=== PATIENT | female | born 1935 | race Caucasian/White ===

== ENCOUNTER 2016-03-27 16:06 | Emergency (ER) | payer MEDICARE, MEDICAID ==
[~2016-03-27] VITALS: Ht 162.6 cm; Wt 72.6 kg
[~2016-03-27 16:06] MED LIST: AMIT150T PO; AMIT50TA3 PO; AMIT75TA2; AMIT75TA2 PO; AML5T; AMLO5TAB2 PO; ASCO500T20 PO; ASP81TEC PO; ASPI-586 PO; ATOR10TA66 PO; ATOR80TA76 PO; ATRV10T PO; AZIT-21 PO; BISA5TAB8 PO; BUDE6HFA; BUME2TAB3 PO; CARI350T27 PO; CEFD300C PO; CHOL40002 PO; CHOL400C8 PO; CHOL5000 PO; CIPR250T3 PO; CRS350T; CRS350T PO; CYAN10006 PO; DIAZ5TAB3; DIAZ5TAB49 PO; DILT240C PO; DILT240C53 PO; DILT240C54 PO; DILT240C86 PO; DILT240C96 PO; DILT300C25 PO; DOCU100C37 PO; EST1.25T PO; FLUT1DIS26; FLUT1DIS26 IH; GFN600TCR PO; GUAI1TBM14 PO; HC2.5C30 TOP; HYDR-3062 PO; HYDR-3714 PO; HYDR-3812 PO; HYDR-3820 PO; HYDR-757 PO; HYDR1CAP2; HYDR1TAB PO; HYDR1TAB85 PO; IPRA3AMP INH; IPRA3AMP11 INH; LABE200T3 PO; LABE300T PO; LACT20SO2 PO; LBT200T; LBT200T PO; LEVO150T6 PO; LINE600I6 IV; LINE600T5 PO; LNS30CCR; LOSA100T28 PO; LOSA1TAB23 PO; LOSA25TA5 PO; LOSA50TA36 PO; MAG30ORA2 PO; MAGN400O7 PO; MULT-35 PO; NAPR-243 PO; NAPR-684 PO; NAPR500T3 PO; NTR.4SL; NTR.4SL SL; Naproxen PO; OMEP20CA12 PO; OMEP20TA2 PO; OXYC-309 PO; OXYC1TAB28 PO; POLY119P5 PO; POTA10CA16; POTA10CA43 PO; POTA10TA36 PO; POTA20TA15 PO; POTA8CAP9 PO; POTASSIUM CHLORIDE; PRD10T PO; PRED10TA PO; Prednisone PO; RT-ALBUINH IH; SENN1TAB76 PO; TELM80TA3 PO; TORS20TA2 PO; TORS20TA3 PO; VITAMIN C PO; [UNRECOGNIZED DRUG - OTHER] PO
--- OUTSIDE RECORDS SUMMARY | 2016-03-27 16:11 | XMS REPORT | Continuity of Care Document ---
Author Author [facility] Organization [facility] Address Unknown Phone Unavailable Care Team Providers Care It Systems Manager Name Role Phone Minoo Cates PCP [phone] Source Comments Some departments are not documenting in the electronic medical record. If you do not see the information that you expected, contact Release of Information in the Health Information Management department at [phone] for further assistance in locating additional records.[facility] Active Allergies and Adverse Reactions Allergen Noted Date Severity Reactions Comments Celebrex 11/03/2013 SWOLLEN TONGUE pt states she developed swelling of throat/facial redness Ciprofloxacin 11/03/2013 UNKNOWN Darvon 11/03/2013 UNKNOWN Doxycycline 11/03/2013 UNKNOWN Mobic 11/03/2013 UNKNOWN Penicillin G 11/03/2013 SEE COMMENTS pt states she developed swelling of lips Vioxx 11/03/2013 UNKNOWN Current Medications Prescription Sig. Disp. Refills Start End Date Status Date atorvastatin (LIPITOR) 10 Take 10 mg by mouth Active mg tablet daily. omeprazole DR(+) Take 20 mg by mouth Active (PRILOSEC) 20 mg capsule daily. diltiazem SA (+) (TIAZAC) Take 240 mg by mouth Active 240 mg capsule daily. amitriptyline (ELAVIL) Take 150 mg by mouth at Active 150 mg tablet bedtime daily. potassium chloride(+) Take 20 mEq by mouth Active (MICRO-K) 10 mEq capsule twice daily. torsemide(+) (DEMADEX) 20 Take 20 mg by mouth twice Active mg tablet daily. carisoprodol(+) (SOMA) Take 700 mg by mouth at Active 350 mg tablet bedtime daily. losartan (COZAAR) 25 mg Take 25 mg by mouth Active tablet daily. fluticasone-salmeterol Inhale 1 Puff by mouth Active (ADVAIR DISKUS) 250-50 every 12 hours. mcg inhalation disk labetalol (NORMODYNE) 200 Take 200 mg by mouth Active mg tablet twice daily. MULTIVITAMIN WITH Take 1 Tab by mouth Active MINERALS (MULTIVITAMIN & daily. MINERAL FORMULA PO) ERGOCALCIFEROL (VITAMIN Take by mouth twice Active D2) (VITAMIN D PO) daily. vitamins, B complex tab Take 1 Tab by mouth Active daily. HYDROcodone/acetaminophen Take 1-2 Tabs by mouth 30 Tab 0 12/09/19 Active (NORCO; VICODIN) 5-325 mg every 4 hours as needed 14 tablet for Pain. levothyroxine (SYNTHROID) Take 1 Tab by mouth 30 Tab 3 12/09/19 Active 150 mcg tablet daily. 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 Non-ischemic. L ast Assessment & Plan: Patients surgical risk is low, and acceptable given the situation, urgency & circumstances. Her cardiac risk score is 0.43% risk for cardiovascular complication. Patient has had a recent stress test last year at [facility] which was likely normal, will obtain record for stress test from [facility] otherwise per latest guidelines, patient may undergo thyroid surgery without any further cardiac workup given that she is at low risk for complications. HTN (hypertension) 11/24/2013 Last Assessment & Plan: Well controlled on on current medications, no changes made today. Hyperlipidemia 11/24/2013 Thyroid nodule 11/03/2013 Social History Tobacco Use Types Packs/Day Years Used Date Former Smoker Cigarettes 1 2 Quit: 03/23/1950 Smokeless Tobacco: Never Used Alcohol Use Drinks/Week oz/Week Comments No Last Filed Vital Signs Vital Sign Reading Time Taken Blood Pressure 108/61 01/26/2014 9:06 AM DIPPER FISH Pulse 66 01/26/2014 9:06 AM DIPPER FISH Temperature 37 C (98.6 F) 12/08/2013 3:09 PM CDT Respiratory Rate 12 11/28/2013 1:34 PM CDT Height 1.702 m (5' 7") 01/26/2014 9:06 AM DIPPER FISH Weight 87.454 kg (192 lb 12.8 01/26/2014 9:06 AM DIPPER FISH oz) Body Mass Index 30.19 01/26/2014 9:06 AM DIPPER FISH Oxygen Saturation 92% 12/08/2013 3:09 PM CDT Plan of Care Health Maintenance Due Date Last Done Comments Physical (Comprehensive) 1942 Exam Pertussis Vaccine 1946 Tetanus Vaccine 02/24/1952 Shingles Vaccine 1995 Osteoporosis Screening 02/24/2000 Prevnar/Pneumovax (#1) 02/24/2000 Influenza Vaccine 11/22/2015 Results from Last 3 Months Not on file
[2016-03-27 16:35] LABS: BASOPHILS # (AUTO) 0.1 10^3/uL (0.0-0.1); BASOPHILS % (AUTO) 1 % (0-10); EOSINOPHILS # (AUTO) 0.3 10^3/uL (0.0-0.3); EOSINOPHILS % (AUTO) 3 % (0-10); LYMPHOCYTES # (AUTO) 1.4 X 10^3 (1.0-4.0); LYMPHOCYTES % (AUTO) 16 % (12-44); MEAN CORPUSCULAR HEMOGLOBIN 30 PG (25-34); MEAN CORPUSCULAR HGB CONC 32 G/DL (32-36); MEAN CORPUSCULAR VOLUME 94 FL (80-99); MEAN PLATELET VOLUME 9.8 FL (7.4-10.4); MONOCYTES % (AUTO) 11 % (0-12); NEUTROPHILS # (AUTO) 6.2 X 10^3 (1.8-7.8); NEUTROPHILS % (AUTO) 69 % (42-75); PLATELET COUNT 605 10^3/uL (130-400); RED BLOOD COUNT 2.91 10^6/uL (4.35-5.85); RED CELL DISTRIBUTION WIDTH 15.6 % (10.0-14.5)
[2016-03-27] MEDS ORDERED: fentaNYL INJECTION 100 MCG/2 ML AMP IVP ONE (16:45)
[2016-03-27] MEDS ORDERED: ONDANSETRON 4 MG/2 ML (SDV) Z0FRAN IVP ONE (16:45)
[2016-03-27 16:48] LABS: ALANINE AMINOTRANSFERASE 12 U/L (0-55); ALBUMIN 3.5 G/DL (3.2-4.5); ANION GAP 10 MMOL/L (5-14); ASPARTATE AMINO TRANSFERASE 24 U/L (5-34); BILIRUBIN,TOTAL 0.4 MG/DL (0.1-1.0); BLOOD UREA NITROGEN 16 MG/DL (7-18); BUN/CREATININE RATIO 10; CALCIUM 8.1 MG/DL (8.5-10.1); CARBON DIOXIDE 27 MMOL/L (21-32); CHLORIDE 99 MMOL/L (98-107); CREATININE SERUM 1.55 MG/DL (0.60-1.30); GFR ESTIMATED 32; GLUCOSE 122 MG/DL (70-105); POTASSIUM 4.8 MMOL/L (3.6-5.0); SODIUM 136 MMOL/L (135-145)
[2016-03-27 16:54] LABS: TROPONIN I < 0.30 NG/ML (<0.30)
[2016-03-27 16:57] LABS: KETONES,URINE 1+ (NEGATIVE); PH,URINE 6.5 (5-9); PROTEIN,URINE NEGATIVE (NEGATIVE)
[2016-03-27 16:58] LABS: BILIRUBIN,URINE NEGATIVE (NEGATIVE); LEUKOCYTE ESTERASE ,URINE 1+ (NEGATIVE); NITRITE,URINE NEGATIVE (NEGATIVE); SQUAMOUS EPITHELIAL CELL,UR 0-2 /HPF; UROBILINOGEN,URINE NORMAL (NORMAL)
--- NOTE | 2016-03-27 17:00 | Diagnostic Imaging Report ---
INDICATION: Chest pain. FINDINGS: There is a question of an air-fluid level within a dilated thoracic esophagus, correlate clinically. Five-lobe interstitial disease greatest in the lung bases is a chronic finding; however, airspace like opacity in the left lower lobe laterally is developed and an element of pneumonia superimposed could not be excluded. Right IJ is at the SVC stable. IMPRESSION: Suspicion for developing left lower lobe infiltrate superimposed upon chronic lung disease. Upper thorax midline shows gas-filled dilated esophagus. Below that level, there is an abrupt transition raising the question of an air-fluid level, correlate with any clinical features of esophageal obstruction or dysmotility. Dictated by: Dictated on workstation # [id number]
--- NOTE | 2016-03-27 17:41 | ED Chest Pain ---
General Chief Complaint: Chest Pain Stated Complaint: CP Nursing Triage Note: ARRIVED VIA AMBULATORY WITH COMPLAINTS OF CHEST PAIN STARTING AT 1230 TODAY WHILE EATING. CURRENTLY BEING TREATED BY ORAL ANTIBIOTICS FOR PNEUMONIA. WAS RECIEVING HOME HEALTH FOR IV ANTIBIOTICS. STATES SHE IS HAVING TROUBLE SWALLOWING AFTER ALSO. PT RECIEVED NITRO X1 AND ASA 324MG BY AMBULANCE. Nursing Sepsis Screen: No Definite Risk Source: patient Exam Limitations: no limitations History of Present Illness Time seen by provider: 17:37 Initial Comments The patient is an 81-year-old white female known to me. She was in the hospital from 03/09 through 03/13 on acute care for a left lower lobe pneumonia and sputum positive for MRSA. She was then transferred to swing bed and was there from 03/13 through 03/20 for IV vancomycin. Subsequently she went home on a 7 day course of by mouth linezolid. She reports that she has continued to have a cough and loss of appetite. She had polio and has sequelae consistent with post polio syndrome. Among the difficulties has been a dysphagia. Today she took a piece of chicken from the refrigerator that was left over. She chewed and swallowed it and began to have low substernal/epigastric pain which has continued. She has had some difficulty swallowing even water. She is experienced this at times in the past as well. She also has a past history of coronary artery disease. Timing/Duration: 4-6 hours Severity/Quality: moderate Location: substernal, epigastric Radiation: no radiation Modifying Factors: improves with eating Associated Symptoms: swelling/lump in chest Allergies and Home Medications Allergies Coded Allergies: cephalexin (Verified Allergy, Severe, TONGUE SWELLS, SOB (PT HAS HAD ROCEPHIN W/O ISSUE), 03/13/16) PER DR. MAYFIELD, PATIENT HAS RECEIVED ROCEPHIN IN THE PAST WITHOUT INCIDENT Penicillins (Verified Allergy, Mild, 03/13/16) celecoxib (Verified Allergy, Mild, PATIEN CAN TAKE MOBIC, 03/13/16) clindamycin (Verified Allergy, Mild, 03/13/16) propoxyphene (Verified Allergy, Mild, 03/13/16) rofecoxib (Verified Allergy, Mild, 03/13/16) Sulfa (Sulfonamide Antibiotics) (Verified Allergy, Unknown, 03/13/16) Tetanus Vaccines and Toxoid (Verified Allergy, Unknown, 03/13/16) doxycycline (Verified Allergy, Unknown, 03/13/16) levofloxacin (Verified Allergy, Unknown, 03/13/16) meloxicam (Verified Allergy, Unknown, 03/13/16) nitrofurantoin (Verified Allergy, Unknown, RASH, 03/13/16) Home Medications Amitriptyline HCl 150 Mg Tablet 150 MG PO HS (Reported) Atorvastatin Calcium 10 Mg Tablet 10 MG PO DAILY (Reported) Bisacodyl 5 Mg Tablet.dr 5 MG PO DAILY PRN PRN CONSTIPATION (Reported) Cholecalciferol (Vitamin D3) 5,000 Unit Capsule 5,000 UNIT PO DAILY@1400 ( Reported) Cyanocobalamin (Vitamin B-12) 1,000 Mcg Tablet 1,000 MCG PO DAILY@1400 (Reported ) Diltiazem HCl 240 Mg Cap.er.24h 240 MG PO DAILY@1400 (Reported) Docusate Sodium 100 Mg Capsule 100 MG PO HS (Reported) Guaifenesin/Dextromethorphan 1 Each Tbmp.12hr 1 TAB PO BID (Reported) Hydrocodone/Acetaminophen 1 Each Tablet #30 2 TAB PO EVERY 4-6 HOURS PRN PRN PAIN NOT TO EXCEED 8 TABLETS IN 24 HOURS Prescribed by: DENI PINK on 03/20/16 1218 Ipratropium/Albuterol Sulfate 3 Ml Ampul.neb #90 3 ML INH RTTID Prescribed by: DENI PINK on 03/20/16 1218 Labetalol HCl 200 Mg Tablet 300 MG PO BID (Reported) TAKES 1 & 1/2 (200MG) TABLETS Lactulose 20 Gm/30 Ml Solution #8 10 GM PO BID Prescribed by: DENI PINK on 03/20/16 1218 Levothyroxine Sodium 150 Mcg Tablet 150 MCG PO DAILY (Reported) Linezolid 600 Mg Tablet #8 600 MG PO BID Prescribed by: DENI PINK on 03/20/16 0924 Linezolid 600 Mg/300 Ml Iv.soln 4Days 600 MG IV Q12H Prescribed by: DENI PINK on 03/20/16 1218 Magnesium Hydroxide 400 Mg/5 Ml Oral.susp 4 TBS PO DAILY PRN PRN CONSTIPATION ( Reported) Multivitamin 1 Each Tablet 1 TAB PO DAILY@1400 (Reported) Naproxen 500 Mg Tablet 500 MG PO BID (Reported) Omeprazole 20 Mg Capsule.dr 20 MG PO DAILY (Reported) Polyethylene Glycol 3350 119 Gm Powder 17 GM PO DAILY PRN PRN CONSTIPATION ( Reported) Potassium Chloride 20 Meq Tab.er.prt 20 MEQ PO BID (Reported) Torsemide 20 Mg Tablet 20 MG PO 0800,1400 (Reported) Review of Systems Constitutional: see HPI EENTM: No Symptoms Reported Respiratory: Cough Shortness of Air Wheezing Cardiovascular: Chest Pain Gastrointestinal: See HPI Difficulty Swallowing Genitourinary: No Symptoms Reported Musculoskeletal: no symptoms reported Skin: no symptoms reported Psychiatric/Neurological: No Symptoms Reported Past Dghclgv-[id number]-[id number] Hx Patient Social History Former Smoker/When Quit: Feb 27, 1965 Recent Foreign Travel: No Contact w/Someone Who Travel: No Recent Infectious Disease Expo: No Recent Hopitalizations: Yes Immunizations Up To Date Tetanus Booster (TDap): Unknown PED Vaccines UTD: No Date of Pneumonia Vaccine: Nov 30, 2013 Date of Influenza Vaccine: Dec 22, 2015 Seasonal Allergies Seasonal Allergies: No Surgeries HX Surgeries: Yes Surgeries: Abdominal, Section, Eye Surgery, Hysterectomy, Orthopedic, Thyroidectomy Respiratory Hx Respiratory Disorders: Yes Respiratory Disorders: Asthma, Pneumonia, Chronic Bronchitis, Sleep Apnea Cardiovascular Hx Cardiac Disorders: Yes (CHRONIC CHEST PAIN, PER PT) Cardiac Disorders: Chronic Edema/Swelling, High Cholesterol, Hypertension Neurological Hx Neurological Disorders: Yes (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) Neurological Disorders: TIA Reproductive System Hx Reproductive Disorders: No Sexually Transmitted Disease: No HIV/AIDS: No Female Reproductive Disorders: Denies Genitourinary Hx Genitourinary Disorders: Yes (MILD RENAL INSUFFICIENCY) Genitourinary Disorders: Bladder Infection Gastrointestinal Hx Gastrointestinal Disorders: Yes (HX COLON CANCER) Gastrointestinal Disorders: Gastroesophageal Reflux, Hemorrhoids Musculoskeletal Hx Musculoskeletal Disorders: Yes Musculoskeletal Disorders: Degenerate Disk Disease, Arthritis, Fibromyalgia, Chronic Back Pain Endocrine Hx Endocrine Disorders: Yes (HX THYROIDECTOMY FOR GOITER;STEROID INDUCED HYPERGLYCEMIA) Endocrine Disorders: Hypothyroidsim HEENT HX ENT Disorders: Yes (CHRONIC RECURRENT RIGHT SUBMANDIBULAR GLAND SWELLING) HEENT Disorders: Cataract Loss of Vision: Denies Hearing Impairment: Denies Cancer Hx Cancer: Yes (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, NO CHEMO OR RADIATION) Cancer: Colon, Thyroid Psychosocial Hx Psychiatric Problems: Yes Behavioral Health Disorders: Anxiety Integumentary HX Skin/Integumentary Disorder: No Skin/Integumentary Disorders: Recent Skin Changes Blood Transfusions Hx Blood Disorders: Yes (ANEMIA) Adverse Reaction to a Blood Tr: No Family Medical History Significant Family History: No Pertinent Family Hx Family Medial History: Colon cancer 09 SISTER Congestive heart failure 03 MOTHER Deafness or hearing loss 03 FATHER 03 MOTHER 09 BROTHER Family history: Arthritis 03 FATHER 03 MOTHER History of - respiratory disease 09 BROTHER (kurtis-smoker) Hypertension 03 MOTHER Myocardial infarction 03 FATHER Myocardial infarction 03 FATHER Neoplasm 09 SISTER Respiratory disorder Severe allergy No Family History of: AIDS Abdominal aortic aneurysm [place]'s disease Alcoholism Alzheimer's disease Aphasia Arthritis Asthma Cancer of mouth Cardiovascular disease Cataracts Completed stroke Congenital disease Congenital heart disease Coronary thrombosis Cystic fibrosis Dementia Diabetes mellitus Drug abuse Dysphasia Fibrocystic disease of breast Gastroenteritis Glaucoma Headache disorder Hypercholesterolemia Infertility Kidney disease Not obtainable due to adoption Osteoporosis Parkinson's disease Prostate cancer Psychosocial problem Seizure disorder Thyroid disease Tuberculosis Visual disorder Physical Exam Vital Signs Vital Sign - Last 12Hours 03/27/16 03/27/16 16:09 16:15 Temp 97.6 Pulse 71 Resp 18 B/P 130/76 Pulse Ox 95 O2 Delivery Nasal Cannula O2 Flow Rate 2 Capillary Refill : Less Than 3 Seconds General Appearance: Mild Distress HEENT: Normal ENT Inspection Neck: Full Range of Motion Respiratory: Rhonci Cardiovascular: Regular Rate, Rhythm No Edema No Gallop No JVD No Murmur Normal Peripheral Pulses Gastrointestinal: Normal Bowel Sounds No Organomegaly No Pulsatile Mass Non Tender Extremity: Pedal Edema (1+ bilateral) Neurologic/Psychiatric: Alert Oriented x3 No Motor/Sensory Deficits Normal Mood/Affect Skin: Normal Color Warm/Dry Lymphatic: No Adenopathy Progress/Results/Core Measures Results/Orders Lab Results Laboratory Tests Test 03/27/16 16:15 03/27/16 16:40 Range/Units Alanine Aminotransferase (ALT/SGPT) 12 0-55 U/L Albumin 3.5 3.2-4.5 G/DL Alkaline Phosphatase 92 40-136 U/L Anion Gap 10 5-14 MMOL/L Aspartate Amino Transf (AST/SGOT) 24 5-34 U/L BUN/Creatinine Ratio 10 Basophils # (Auto) 0.1 0.0-0.1 10^3/uL Basophils (%) (Auto) 1 0-10 % Blood Urea Nitrogen 16 7-18 MG/DL Calcium Level 8.1 L 8.5-10.1 MG/DL Carbon Dioxide Level 27 21-32 MMOL/L Chloride Level 99 98-107 MMOL/L Creatinine 1.55 H 0.60-1.30 MG/DL Eosinophils # (Auto) 0.3 0.0-0.3 10^3/uL Eosinophils (%) (Auto) 3 0-10 % Estimat Glomerular Filtration Rate 32 Glucose Level 122 H 70-105 MG/DL Hematocrit 27 L 35-52 % Hemoglobin 8.8 L 11.5-16.0 G/DL Lymphocytes # (Auto) 1.4 1.0-4.0 X 10^3 Lymphocytes (%) (Auto) 16 12-44 % Mean Corpuscular Hemoglobin 30 25-34 PG Mean Corpuscular Hemoglobin Concent 32 32-36 G/DL Mean Corpuscular Volume 94 80-99 FL Mean Platelet Volume 9.8 7.4-10.4 FL Monocytes # (Auto) 1.0 0.0-1.0 X 10^3 Monocytes (%) (Auto) 11 0-12 % Neutrophils # (Auto) 6.2 1.8-7.8 X 10^3 Neutrophils (%) (Auto) 69 42-75 % Platelet Count 605 H 130-400 10^3/uL Potassium Level 4.8 3.6-5.0 MMOL/L Red Blood Count 2.91 L 4.35-5.85 10^6/uL Red Cell Distribution Width 15.6 H 10.0-14.5 % Sodium Level 136 135-145 MMOL/L Total Bilirubin 0.4 0.1-1.0 MG/DL Total Protein 7.0 6.4-8.2 G/DL Troponin I < 0.30 <0.30 NG/ML White Blood Count 9.0 4.3-11.0 10^3/uL Urine Bacteria NONE /HPF Urine Bilirubin NEGATIVE NEGATIVE Urine Casts NONE /LPF Urine Clarity CLEAR Urine Color YELLOW Urine Crystals NONE /LPF Urine Culture Indicated NO Urine Glucose (UA) NEGATIVE NEGATIVE Urine Ketones 1+ H NEGATIVE Urine Leukocyte Esterase 1+ H NEGATIVE Urine Mucus NEGATIVE /LPF Urine Nitrite NEGATIVE NEGATIVE Urine Protein NEGATIVE NEGATIVE Urine RBC NONE /HPF Urine RBC (Auto) NEGATIVE NEGATIVE Urine Specific [place] 1.010 L 1.016-1.022 Urine Squamous Epithelial Cells 0-2 /HPF Urine Urobilinogen NORMAL NORMAL MG/DL Urine WBC 2-5 /HPF Urine pH 6.5 5-9 My Orders Orders-BREANNA ROBLES MD Ekg Tracing (03/27/16 16:25) Cbc With Automated Diff (03/27/16 16:25) Comprehensive Metabolic Panel (03/27/16 16:25) Troponin I (03/27/16 16:25) Ua Culture If Indicated (03/27/16 16:25) Chest 1 View, Ap/Pa Only (03/27/16 16:25) Fentanyl Injection (Sublimaze Injection (03/27/16 16:45) Ondansetron Injection (Zofran Injectio (03/27/16 16:45) Medications Given in ED Current Medications Medications Dose Ordered Sig/Karen Route Start Time Stop Time Status Last Admin Dose Admin Fentanyl Citrate 25 mcg ONCE ONCE IVP 03/27/16 16:45 03/27/16 16:46 DC 03/27/16 16:44 25 MCG Ondansetron HCl 8 mg ONCE ONCE IVP 03/27/16 16:45 03/27/16 16:46 DC 03/27/16 16:44 8 MG Vital Signs/I&O Vital Sign - Last 12Hours 03/27/16 03/27/16 16:09 16:15 Temp 97.6 Pulse 71 Resp 18 B/P 130/76 Pulse Ox 95 O2 Delivery Nasal Cannula O2 Flow Rate 2 Blood Pressure Mean: 94 Departure Communication Progress Notes The EKG showed modest changes in leads V3 through V6 with T wave inversion. This was as compared to the previous EKG from 03/09. The troponin was less than 0.3. Her white count was 9000 which is an improvement from her hospital stay. The chest x-ray shows some continued abnormality in the left base. Given these findings she was then given water to drink with the thought of impacted chicken foreign body. 1749 she has passed the water test and reports that there is considerably more comfort in the area of the distal esophagus. Impression Impression: Primary Impression: dysphagia/likely impacted food foreign body now passed Disposition: 01 HOME, SELF-CARE Condition: Improved Departure-Patient Inst. Decision time for Depature: 17:55 Referrals: MERT FRASER DO (PCP/Family) Primary Care Physician Patient Instructions: Dysphagia (DC) Add. Discharge Instructions: All discharge instructions reviewed with patient and/or family. Voiced understanding. Liquid diet tonight. Acquire some liquid Mylanta and take 30 mL when needed for heartburn or pressure symptoms. If tolerated and advance food offerings slowly and carefully tomorrow. Careful chewing and taking food with liquids is important. BREANNA ROBLES MD Mar 27, 2016 17:41
[2016-03-27 18:03] VITALS: BP 134/67
[2016-05-13] MEDS ORDERED: OXYC-471 PO (09:28)
[2016-05-13] MEDS ORDERED: LABE200T3 PO (09:28)
[2016-05-13] MEDS ORDERED: TORS20TA3 PO (09:28)
[2016-07-16] MEDS ORDERED: OXYC-465 PO (13:03)
[2016-07-16] MEDS ORDERED: SODI473S7 TOP (13:03)
[2016-07-16] MEDS ORDERED: METR500P4 IV (13:03)
[2016-07-16] MEDS ORDERED: ACET-77 PO (13:03)
[2016-07-16] MEDS ORDERED: VANC500F IV (13:03)
[2016-07-16] MEDS ORDERED: FENT1PAT58 TD (13:03)
[2016-07-16] MEDS ORDERED: POLY17PO23 PO (13:03)
[2016-07-16] MEDS ORDERED: ALBU2.5V4 IH (13:03)
[2016-07-17] MEDS ORDERED: VANC500F IV (08:40)
[2016-07-17] MEDS ORDERED: METR500T PO (10:39)
== END 2016-03-27 18:03 | disposition home or self-care (01) ==
LOC: EDUNIT# 16:06 → ER 16:07
DX: R13.10 Dysphagia, unspecified (principal); I10 Essential (primary) hypertension; I25.10 Atherosclerotic heart disease of native coronary artery without angina pectoris; G14 Postpolio syndrome; Z79.899 Other long term (current) drug therapy
CPT/HCPCS: 36415; 71010; 80053; 81000; 84484; 85025; 93005; 96374; 96375

== ENCOUNTER 2016-04-06 14:40 | Emergency (ER) | payer MEDICARE, MEDICAID ==
[~2016-04-06] VITALS: Ht 177.8 cm; Wt 79.8 kg
--- OUTSIDE RECORDS SUMMARY | 2016-04-06 14:46 | XMS REPORT | Continuity of Care Document ---
Author Author [facility] Organization [facility] Address Unknown Phone Unavailable Care Team Providers Care Global Safety Officer Name Role Phone Minoo Cates PCP [phone] Source Comments Some departments are not documenting in the electronic medical record. If you do not see the information that you expected, contact Release of Information in the Health Information Management department at [phone] for further assistance in locating additional records.[facility] Active Allergies and Adverse Reactions Allergen [...] examination 11/28/2013 Overview: 02/2011 - Pharmacologic MPI ([facility]): EF 65%. Non-ischemic. L ast Assessment & Plan: Patients surgical risk is low, and acceptable given the situation, urgency & circumstances. Her cardiac risk score is 0.43% risk for cardiovascular complication. Patient has had a recent stress test last year at [facility] which was likely normal, will obtain record for stress test from [facility] otherwise per latest guidelines, patient may undergo [...] Taken Blood Pressure 108/61 01/26/2014 9:06 AM MANAGER CONFIGURATION Pulse 66 01/26/2014 9:06 AM MANAGER CONFIGURATION Temperature 37 C (98.6 F) 12/08/2013 3:09 PM CDT Respiratory Rate 12 11/28/2013 1:34 PM CDT Height 1.702 m (5' 7") 01/26/2014 9:06 AM MANAGER CONFIGURATION Weight 87.454 kg (192 lb 12.8 01/26/2014 9:06 AM MANAGER CONFIGURATION oz) Body Mass Index 30.19 01/26/2014 9:06 AM MANAGER CONFIGURATION Oxygen Saturation 92% 12/08/2013 3:09 PM CDT Plan of Care Health Maintenance Due Date Last Done Comments Physical (Comprehensive) 1942 Exam Pertussis Vaccine 1946 Tetanus Vaccine 02/24/1952 Shingles Vaccine 1995 Osteoporosis Screening 02/24/2000 Prevnar/Pneumovax (#1) 02/24/2000 Influenza Vaccine 11/22/2015 Results from Last 3 Months Not on file
[2016-04-06 15:38] LABS: BILIRUBIN,URINE NEGATIVE (NEGATIVE); KETONES,URINE NEGATIVE (NEGATIVE); LEUKOCYTE ESTERASE ,URINE 1+ (NEGATIVE); NITRITE,URINE NEGATIVE (NEGATIVE); PH,URINE 7 (5-9); PROTEIN,URINE NEGATIVE (NEGATIVE); UROBILINOGEN,URINE NORMAL (NORMAL)
[2016-04-06 15:47] LABS: SQUAMOUS EPITHELIAL CELL,UR RARE /HPF
[2016-04-06 16:01] LABS: BASOPHILS # (AUTO) 0.1 10^3/uL (0.0-0.1); BASOPHILS % (AUTO) 1 % (0-10); EOSINOPHILS # (AUTO) 1.1 10^3/uL (0.0-0.3); EOSINOPHILS % (AUTO) 7 % (0-10); LYMPHOCYTES # (AUTO) 2.1 X 10^3 (1.0-4.0); LYMPHOCYTES % (AUTO) 15 % (12-44); MEAN CORPUSCULAR HEMOGLOBIN 30 PG (25-34); MEAN CORPUSCULAR HGB CONC 31 G/DL (32-36); MEAN CORPUSCULAR VOLUME 95 FL (80-99); MEAN PLATELET VOLUME 10.3 FL (7.4-10.4); MONOCYTES # (AUTO) 2.3 X 10^3 (0.0-1.0); MONOCYTES % (AUTO) 16 % (0-12); NEUTROPHILS # (AUTO) 8.7 X 10^3 (1.8-7.8); NEUTROPHILS % (AUTO) 61 % (42-75); PLATELET COUNT 295 10^3/uL (130-400); RED BLOOD COUNT 2.88 10^6/uL (4.35-5.85); RED CELL DISTRIBUTION WIDTH 16.8 % (10.0-14.5); WHITE BLOOD COUNT 14.3 10^3/uL (4.3-11.0)
--- NOTE | 2016-04-06 16:15 | Diagnostic Imaging Report ---
INDICATION: Confusion, weakness and frequent falls. EXAMINATION: Portable chest. COMPARISON: Prior examination from March 27, 2016. FINDINGS: The right internal jugular port is present. There are chronic interstitial changes demonstrated within the lungs. The prior examination demonstrated some superimposed consolidation at the left base which is slightly improved in the interval. There is no large effusion. There is no evidence of pneumothorax. Heart size and mediastinal contours appear unchanged. IMPRESSION: Chronic interstitial lung disease and cardiomegaly. Previous comparison examination demonstrated a superimposed left lower lobe pneumonia which appears slightly improved compared to the previous exam. No new regions of alveolar consolidation are demonstrated. Dictated by: Dictated on workstation # [id number]
[2016-04-06 16:23] LABS: ALBUMIN 3.3 G/DL (3.2-4.5); BILIRUBIN,TOTAL 0.3 MG/DL (0.1-1.0); CALCIUM 8.2 MG/DL (8.5-10.1); CREATININE SERUM 1.39 MG/DL (0.60-1.30)
[2016-04-06 16:25] LABS: POTASSIUM 5.8 MMOL/L (3.6-5.0)
[2016-04-06 16:27] LABS: BAND NEUTROPHILS 0 %; BASOPHILS % (MANUAL) 1 %; EOSINOPHILS % (MANUAL) 14 %; LYMPHOCYTES % (MANUAL) 17 %; NEUTROPHILS % (MANUAL) 51 %
--- NOTE | 2016-04-06 16:43 | ED General ---
General Chief Complaint: Neurological Problems Stated Complaint: CONFUSION Nursing Triage Note: PT HERE WITH C/O CONFUSION, WEAKNESS, AND FREQUENT FALLS. PTS DAUGHTER REPORTS THAT THIS HAPPENS WHEN SHE GETS THIS WAY WHEN SHE GETS A UTI. Nursing Sepsis Screen: No Definite Risk Source of Information: Patient Exam Limitations: No Limitations History of Present Illness Time Seen by Provider: 16:41 Initial Comments To ER with weakness and difficulty with conversation according to family since about 2 days ago. She recently finished Zyvox orally 7 days ago for a right upper lobe pneumonia. They report 3 falls in the past week due to weakness. Patient lives alone but her 14-year-old grandson has been staying with her to help out. Her daughter (14-year-old grandsons parents) live right across the street from her. She denies any fevers but does report shortness of breath, chronic in nature and unchanged. Timing/Duration: 1-2 Days Severity: Moderate Associated Systoms: Cough Allergies and Home Medications Allergies Coded Allergies: cephalexin (Verified Allergy, Severe, TONGUE SWELLS, SOB (PT HAS HAD ROCEPHIN W/O ISSUE), 03/13/16) PER DR. MAYFIELD, PATIENT HAS RECEIVED ROCEPHIN IN THE PAST WITHOUT INCIDENT Penicillins (Verified Allergy, Mild, 03/13/16) celecoxib (Verified Allergy, Mild, PATIEN CAN TAKE MOBIC, 03/13/16) clindamycin (Verified Allergy, Mild, 03/13/16) propoxyphene (Verified Allergy, Mild, 03/13/16) rofecoxib (Verified Allergy, Mild, 03/13/16) Sulfa (Sulfonamide Antibiotics) (Verified Allergy, Unknown, 03/13/16) Tetanus Vaccines and Toxoid (Verified Allergy, Unknown, 03/13/16) doxycycline (Verified Allergy, Unknown, 03/13/16) levofloxacin (Verified Allergy, Unknown, 03/13/16) meloxicam (Verified Allergy, Unknown, 03/13/16) nitrofurantoin (Verified Allergy, Unknown, RASH, 03/13/16) Home Medications Amitriptyline HCl 150 Mg Tablet 150 MG PO HS (Reported) Atorvastatin Calcium 10 Mg Tablet 10 MG PO DAILY (Reported) Bisacodyl 5 Mg Tablet.dr 5 MG PO DAILY PRN PRN CONSTIPATION (Reported) Cholecalciferol (Vitamin D3) 5,000 Unit Capsule 5,000 UNIT PO DAILY@1400 ( Reported) Cyanocobalamin (Vitamin B-12) 1,000 Mcg Tablet 1,000 MCG PO DAILY@1400 (Reported ) Diltiazem HCl 240 Mg Cap.er.24h 240 MG PO DAILY@1400 (Reported) Docusate Sodium 100 Mg Capsule 100 MG PO HS (Reported) Guaifenesin/Dextromethorphan 1 Each Tbmp.12hr 1 TAB PO BID (Reported) Hydrocodone/Acetaminophen 1 Each Tablet #30 2 TAB PO EVERY 4-6 HOURS PRN PRN PAIN NOT TO EXCEED 8 TABLETS IN 24 HOURS Prescribed by: DENI PINK on 03/20/16 1218 Ipratropium/Albuterol Sulfate 3 Ml Ampul.neb #90 3 ML INH RTTID Prescribed by: DENI PINK on 03/20/16 1218 Labetalol HCl 200 Mg Tablet 300 MG PO BID (Reported) TAKES 1 & 1/2 (200MG) TABLETS Lactulose 20 Gm/30 Ml Solution #8 10 GM PO BID Prescribed by: DENI PINK on 03/20/16 1218 Levothyroxine Sodium 150 Mcg Tablet 150 MCG PO DAILY (Reported) Linezolid 600 Mg Tablet #8 600 MG PO BID Prescribed by: DENI PINK on 03/20/16 0924 Linezolid 600 Mg/300 Ml Iv.soln 4Days 600 MG IV Q12H Prescribed by: DENI IPNK on 03/20/16 1218 Magnesium Hydroxide 400 Mg/5 Ml Oral.susp 4 TBS PO DAILY PRN PRN CONSTIPATION ( Reported) Multivitamin 1 Each Tablet 1 TAB PO DAILY@1400 (Reported) Naproxen 500 Mg Tablet 500 MG PO BID (Reported) Omeprazole 20 Mg Capsule.dr 20 MG PO DAILY (Reported) Polyethylene Glycol 3350 119 Gm Powder 17 GM PO DAILY PRN PRN CONSTIPATION ( Reported) Potassium Chloride 20 Meq Tab.er.prt 20 MEQ PO BID (Reported) Torsemide 20 Mg Tablet 20 MG PO 0800,1400 (Reported) Constitutional: see HPI EENTM: see HPI Respiratory: see HPI cough Genitourinary: no symptoms reported Musculoskeletal: no symptoms reported Skin: no symptoms reported Psychiatric/Neurological: No Symptoms Reported Past Wvkztoa-Abbtzy-Ewzsma Hx Patient Social History Former Smoker/When Quit: Feb 27, 1965 Recent Foreign Travel: No Contact w/Someone Who Travel: No Recent Infectious Disease Expo: No Recent Hopitalizations: Yes Immunizations Up To Date Tetanus Booster (TDap): Unknown PED Vaccines UTD: No Date of Pneumonia Vaccine: Nov 30, 2013 Date of Influenza Vaccine: Dec 22, 2015 Seasonal Allergies Seasonal Allergies: No Surgeries HX Surgeries: Yes Surgeries: Abdominal, Section, Eye Surgery, Hysterectomy, Orthopedic, Thyroidectomy Respiratory Hx Respiratory Disorders: Yes Respiratory Disorders: Asthma, Pneumonia, Chronic Bronchitis, Sleep Apnea Cardiovascular Hx Cardiac Disorders: Yes (CHRONIC CHEST PAIN, PER PT) Cardiac Disorders: Chronic Edema/Swelling, High Cholesterol, Hypertension Neurological Hx Neurological Disorders: Yes (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) Neurological Disorders: TIA Reproductive System Hx Reproductive Disorders: No Sexually Transmitted Disease: No HIV/AIDS: No Female Reproductive Disorders: Denies Genitourinary Hx Genitourinary Disorders: Yes (MILD RENAL INSUFFICIENCY) Genitourinary Disorders: Bladder Infection Gastrointestinal Hx Gastrointestinal Disorders: Yes (HX COLON CANCER) Gastrointestinal Disorders: Gastroesophageal Reflux, Hemorrhoids Musculoskeletal Hx Musculoskeletal Disorders: Yes Musculoskeletal Disorders: Degenerate Disk Disease, Arthritis, Fibromyalgia, Chronic Back Pain Endocrine Hx Endocrine Disorders: Yes (HX THYROIDECTOMY FOR GOITER;STEROID INDUCED HYPERGLYCEMIA) Endocrine Disorders: Hypothyroidsim HEENT HX ENT Disorders: Yes (CHRONIC RECURRENT RIGHT SUBMANDIBULAR GLAND SWELLING) HEENT Disorders: Cataract Loss of Vision: Denies Hearing Impairment: Denies Cancer Hx Cancer: Yes (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, 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 RADIATION) Cancer: Colon, Thyroid Psychosocial Hx Psychiatric Problems: Yes Behavioral Health Disorders: Anxiety Integumentary HX Skin/Integumentary Disorder: No Skin/Integumentary Disorders: Recent Skin Changes Blood Transfusions Hx Blood Disorders: Yes (ANEMIA) Adverse Reaction to a Blood Tr: No Family Medical History Significant Family History: No Pertinent Family Hx Family Medial History: Colon cancer 09 SISTER Congestive heart failure 03 MOTHER Deafness or hearing loss 03 FATHER 03 MOTHER 09 BROTHER Family history: Arthritis 03 FATHER 03 MOTHER History of - respiratory disease 09 BROTHER (kurtis-smoker) Hypertension 03 MOTHER Myocardial infarction 03 FATHER Myocardial infarction 03 FATHER Neoplasm 09 SISTER Respiratory disorder Severe allergy No Family History of: AIDS Abdominal aortic aneurysm Allegany's disease Alcoholism Alzheimer's disease Aphasia Arthritis Asthma Cancer of mouth Cardiovascular disease Cataracts Completed stroke Congenital disease Congenital heart disease Coronary thrombosis Cystic fibrosis Dementia Diabetes mellitus Drug abuse Dysphasia Fibrocystic disease of breast Gastroenteritis Glaucoma Headache disorder Hypercholesterolemia Infertility Kidney disease Not obtainable due to adoption Osteoporosis Parkinson's disease Prostate cancer Psychosocial problem Seizure disorder Thyroid disease Tuberculosis Visual disorder Physical Exam Vital Signs Vital Sign - Last 12Hours 04/06/16 15:20 Temp 99.8 Pulse 80 Resp 18 B/P 116/69 Pulse Ox 91 O2 Delivery Room Air Capillary Refill : Less Than 3 Seconds General Appearance: No Apparent Distress WD/WN Eyes: Bilateral Eye EOMI, Bilateral Eye Normal Inspection, Bilateral Eye PERRL HEENT: PERRL/EOMI TMs Normal Respiratory: No Accessory Muscle Use No Respiratory Distress Wheezing Extremity: Normal Capillary Refill Normal Inspection Other (trace bilateral lower extremities edema) Neurologic/Psychiatric: Alert Oriented x3 Skin: Normal Color Warm/Dry Progress/Results/Core Measures Results/Orders Lab Results Laboratory Tests Test 04/06/16 15:27 04/06/16 15:50 Range/Units Urine Bacteria NONE /HPF Urine Bilirubin NEGATIVE NEGATIVE Urine Casts NONE /LPF Urine Clarity SLIGHTLY CLOUDY Urine Color YELLOW Urine Crystals NONE /LPF Urine Culture Indicated NO Urine Glucose (UA) NEGATIVE NEGATIVE Urine Ketones NEGATIVE NEGATIVE Urine Leukocyte Esterase 1+ H NEGATIVE Urine Mucus NEGATIVE /LPF Urine Nitrite NEGATIVE NEGATIVE Urine Protein NEGATIVE NEGATIVE Urine RBC NONE /HPF Urine RBC (Auto) NEGATIVE NEGATIVE Urine Specific [place] 1.005 L 1.016-1.022 Urine Squamous Epithelial Cells RARE /HPF Urine Urobilinogen NORMAL NORMAL MG/DL Urine WBC 2-5 /HPF Urine pH 7 5-9 Alanine Aminotransferase (ALT/SGPT) 14 0-55 U/L Albumin 3.3 3.2-4.5 G/DL Alkaline Phosphatase 95 40-136 U/L Anion Gap 11 5-14 MMOL/L Aspartate Amino Transf (AST/SGOT) 22 5-34 U/L BUN/Creatinine Ratio 10 Band Neutrophils 0 % Basophils # (Auto) 0.1 0.0-0.1 10^3/uL Basophils % (Manual) 1 % Basophils (%) (Auto) 1 0-10 % Blood Morphology Comment NORMAL Blood Urea Nitrogen 14 7-18 MG/DL Calcium Level 8.2 L 8.5-10.1 MG/DL Carbon Dioxide Level 23 21-32 MMOL/L Chloride Level 104 98-107 MMOL/L Creatinine 1.39 H 0.60-1.30 MG/DL Eosinophils # (Auto) 1.1 H 0.0-0.3 10^3/uL Eosinophils % (Manual) 14 % Eosinophils (%) (Auto) 7 0-10 % Estimat Glomerular Filtration Rate 36 Glucose Level 81 70-105 MG/DL Hematocrit 27 L 35-52 % Hemoglobin 8.6 L 11.5-16.0 G/DL Lymphocytes # (Auto) 2.1 1.0-4.0 X 10^3 Lymphocytes % (Manual) 17 % Lymphocytes (%) (Auto) 15 12-44 % Mean Corpuscular Hemoglobin 30 25-34 PG Mean Corpuscular Hemoglobin Concent 31 L 32-36 G/DL Mean Corpuscular Volume 95 80-99 FL Mean Platelet Volume 10.3 7.4-10.4 FL Monocytes # (Auto) 2.3 H 0.0-1.0 X 10^3 Monocytes % (Manual) 17 % Monocytes (%) (Auto) 16 H 0-12 % Neutrophils # (Auto) 8.7 H 1.8-7.8 X 10^3 Neutrophils % (Manual) 51 % Neutrophils (%) (Auto) 61 42-75 % Platelet Count 295 130-400 10^3/uL Potassium Level 5.8 H 3.6-5.0 MMOL/L Red Blood Count 2.88 L 4.35-5.85 10^6/uL Red Cell Distribution Width 16.8 H 10.0-14.5 % Sodium Level 138 135-145 MMOL/L Total Bilirubin 0.3 0.1-1.0 MG/DL Total Protein 7.0 6.4-8.2 G/DL White Blood Count 14.3 H 4.3-11.0 10^3/uL My Orders Orders-CHAD CAVAZOS TECHNICAL SERVICES SPECIALIST Ua Culture If Indicated (04/06/16 15:33) Cbc With Automated Diff (04/06/16 15:33) Comprehensive Metabolic Panel (04/06/16 15:33) Chest 1 View, Ap/Pa Only (04/06/16 15:33) Saline Lock/Iv-Start (04/06/16 15:33) Manual Differential (04/06/16 15:50) Albuterol/Ipra Inhalation Soln (Duoneb I (04/06/16 16:45) Svn Sm Volume Nebulizer Rt-Rfs (04/06/16 16:39) Ct Head Wo (04/06/16 16:39) Medications Given in ED Current Medications Medications Dose Ordered Sig/Karen Route Start Time Stop Time Status Last Admin Dose Admin Albuterol/ Ipratropium 3 ml ONCE ONCE INH 04/06/16 16:45 04/06/16 16:46 DC 04/06/16 16:48 3 ML Vital Signs/I&O Vital Sign - Last 12Hours 04/06/16 04/06/16 15:20 16:48 Temp 99.8 Pulse 80 Resp 18 B/P 116/69 Pulse Ox 91 98 O2 Delivery Room Air Room Air Blood Pressure Mean: 85 Diagnostic Imaging Diagonstic Imaging: Xray, CT Comments NAME: RADHA HILLIARD [facility] REC#: [id number] PT STATUS: REG ER : 1935 PHYSICIAN: CHAD CAVAZOS APRN ADMIT DATE: 04/06/16/ER Draft Date of Exam:04/06/16 CT HEAD WO PROCEDURE: CT head without contrast. TECHNIQUE: Multiple contiguous axial images were obtained through the brain without the use of intravenous contrast. INDICATION: Weakness with confusion and frequent falls. COMPARISON 03/09/2016. FINDINGS: There is mild cortical atrophy. The ventricles are not dilated. Chronic periventricular white matter changes are again noted. No focal changes are seen to suggest acute ischemic or hemorrhagic infarct. No extra axial fluid collection. Basal cisterns are normal. CP angles are normal. Mastoid air cells and paranasal sinuses are well aerated. IMPRESSION: Cortical atrophy with chronic white matter changes. No acute changes have occurred when compared with previous exam. Dictated on workstation # [id number] Dict: 04/06/16 1706 Trans: 04/06/16 171 [facility] [id number] Interpreted by: HIRA FRNACIS MD Electronically signed by: Departure Communication Progress Notes 0966-she is alert and very pleasant. I do not notice any difficulties with her speech. She is sitting up on the edge of the bed with her feet hanging over the edge talking with her family. I did offer to things, number 1 would be discharged home with a course of antibiotics as her weakness may be related to this persistent pneumonia given her labs look normal and she should follow-up with Dr. Fraser. Option number 2 would be to admit to the hospital observation status with plan to arrange alf placement tomorrow and hospital social worker is available. She is not even remotely interested in going to assisted living or alf. She is not confused or particularly weak. She does not recall what type of allergic reaction she had to doxycycline so we will try a course of minocycline plan for her to stop this if she develops any sign of allergic reaction. Impression Impression: Primary Impression: Weakness Additional Impressions: Intermittent confusion left lower lobe pneumonia persistent Disposition: 01 HOME, SELF-CARE Condition: Stable Departure-Patient Inst. Decision time for Depature: 17:22 Referrals: MERT FRASER DO (PCP/Family) Primary Care Physician Patient Instructions: NO INSTRUCTIONS GIVEN Add. Discharge Instructions: 1. Antibiotics as directed. If you develop any itching rash or hives you should stop this immediately and take a Benadryl. 2. Follow-up with Dr. Fraser this week All discharge instructions reviewed with patient and/or family. Voiced understanding. CHAD CAVAZOS APRN Apr 06, 2016 16:43
[2016-04-06] MEDS ORDERED: RT-ALBUTEROL/IPRATROPIUM 3 ML (DUONEB) VIAL INH ONE (16:45)
--- NOTE | 2016-04-06 17:11 | Diagnostic Imaging Report ---
PROCEDURE: CT head without contrast. TECHNIQUE: Multiple contiguous axial images were obtained through the brain without the use of intravenous contrast. INDICATION: Weakness with confusion and frequent falls. COMPARISON 03/09/2016. FINDINGS: There is mild cortical atrophy. The ventricles are not dilated. Chronic periventricular white matter changes are again noted. No focal changes are seen to suggest acute ischemic or hemorrhagic infarct. No extra axial fluid collection. Basal cisterns are normal. CP angles are normal. Mastoid air cells and paranasal sinuses are well aerated. IMPRESSION: Cortical atrophy with chronic white matter changes. No acute changes have occurred when compared with previous exam. Dictated by: Dictated on workstation # [id number]
[2016-04-06] MEDS ORDERED: MINO100C2 PO (17:36)
[2016-04-06 17:50] VITALS: BP 118/76
[2016-05-13] MEDS ORDERED: TORS20TA3 PO (09:28)
[2016-05-13] MEDS ORDERED: OXYC-471 PO (09:28)
[2016-05-13] MEDS ORDERED: LABE200T3 PO (09:28)
[2016-07-16] MEDS ORDERED: SODI473S7 TOP (13:03)
[2016-07-16] MEDS ORDERED: POLY17PO23 PO (13:03)
[2016-07-16] MEDS ORDERED: FENT1PAT58 TD (13:03)
[2016-07-16] MEDS ORDERED: ALBU2.5V4 IH (13:03)
[2016-07-16] MEDS ORDERED: METR500P4 IV (13:03)
[2016-07-16] MEDS ORDERED: OXYC-465 PO (13:03)
[2016-07-16] MEDS ORDERED: ACET-77 PO (13:03)
[2016-07-16] MEDS ORDERED: VANC500F IV (13:03)
[2016-07-17] MEDS ORDERED: VANC500F IV (08:40)
[2016-07-17] MEDS ORDERED: METR500T PO (10:39)
== END 2016-04-06 17:50 | disposition home or self-care (01) ==
LOC: EDUNIT# 14:40 → ER 14:43
DX: R41.0 Disorientation, unspecified (principal); R53.1 Weakness; J18.9 Pneumonia, unspecified organism; I10 Essential (primary) hypertension; Z79.899 Other long term (current) drug therapy
CPT/HCPCS: 36415; 70450; 71010; 80053; 81000; 85007; 85027; 94640

== ENCOUNTER 2016-04-20 18:53 | Inpatient (IN) | payer MEDICARE, MEDICAID ==
[~2016-04-20] VITALS: Ht 177.8 cm; Wt 77.6 kg
[~2016-04-20 18:53] MED LIST changes: +MINO100C2 PO
--- OUTSIDE RECORDS SUMMARY | 2016-04-20 19:00 | XMS REPORT | Continuity of Care Document ---
Author Author [facility] Organization [facility] Address Unknown Phone Unavailable Care Team Providers Care Steam Meter Reader Name Role Phone Minoo Cates PCP [phone] Source Comments Some departments are not documenting in the electronic medical record. If you do not see the information that you expected, contact Release of Information in the Health Information Management department at [phone] for further assistance in locating additional records.[facility] Active Allergies and Adverse Reactions Allergen [...] examination 11/28/2013 Overview: 02/2011 - Pharmacologic MPI ([facility]): EF 65%. Non-ischemic. L ast Assessment & Plan: Patients surgical risk is low, and acceptable given the situation, urgency & circumstances. Her cardiac risk score is 0.43% risk for cardiovascular complication. Patient has had a recent stress test last year at [facility] which was likely normal, will obtain record for stress test from [facility] otherwise per latest guidelines, patient may undergo [...] Taken Blood Pressure 108/61 01/26/2014 9:06 AM [employer] IN [employer]IE[employer]SPAPER Pulse 66 01/26/2014 9:06 AM [employer] IN [employer]IE[employer] NEWSPAPER Temperature 37 C (98.6 F) 12/08/2013 3:09 PM CDT Respiratory Rate 12 11/28/2013 1:34 PM CDT Height 1.702 m (5' 7") 01/26/2014 9:06 AM [employer]SP[employer]ER Weight 87.454 kg (192 lb 12.8 01/26/2014 9:06 AM EDITOR IN [employer]IE[employer]SPAPER oz) Body Mass Index 30.19 01/26/2014 9:06 AM [employer] IN [employer]IE[employer]SP[employer]ER Oxygen Saturation 92% 12/08/2013 3:09 PM CDT Plan of Care Health Maintenance Due Date Last Done Comments Physical (Comprehensive) 1942 Exam Pertussis Vaccine 1946 Tetanus Vaccine 02/24/1952 Shingles Vaccine 1995 Osteoporosis Screening 02/24/2000 Prevnar/Pneumovax (#1) 02/24/2000 Influenza Vaccine 11/22/2015 Results from Last 3 Months Not on file
[2016-04-20 19:29] LABS: BASOPHILS # (AUTO) 0.1 10^3/uL (0.0-0.1); BASOPHILS % (AUTO) 1 % (0-10); EOSINOPHILS # (AUTO) 1.2 10^3/uL (0.0-0.3); EOSINOPHILS % (AUTO) 9 % (0-10); LYMPHOCYTES # (AUTO) 2.1 X 10^3 (1.0-4.0); LYMPHOCYTES % (AUTO) 16 % (12-44); MEAN CORPUSCULAR HEMOGLOBIN 30 PG (25-34); MEAN CORPUSCULAR HGB CONC 32 G/DL (32-36); MEAN CORPUSCULAR VOLUME 94 FL (80-99); MEAN PLATELET VOLUME 10.4 FL (7.4-10.4); MONOCYTES # (AUTO) 1.4 X 10^3 (0.0-1.0); MONOCYTES % (AUTO) 10 % (0-12); NEUTROPHILS # (AUTO) 8.3 X 10^3 (1.8-7.8); NEUTROPHILS % (AUTO) 64 % (42-75); PLATELET COUNT 464 10^3/uL (130-400); RED BLOOD COUNT 3.07 10^6/uL (4.35-5.85); RED CELL DISTRIBUTION WIDTH 16.5 % (10.0-14.5)
[2016-04-20 19:38] LABS: PROTHROMBIN TIME PATIENT 12.7 SEC (12.2-14.7)
[2016-04-20 19:48] LABS: ALBUMIN 3.4 G/DL (3.2-4.5); BILIRUBIN,TOTAL 0.2 MG/DL (0.1-1.0); CALCIUM 8.3 MG/DL (8.5-10.1); CREATININE SERUM 1.29 MG/DL (0.60-1.30); POTASSIUM 4.7 MMOL/L (3.6-5.0)
--- NOTE | 2016-04-20 19:53 | ED Hip Pain/Injury ---
General Chief Complaint: Hip/Pelvic Problems Stated Complaint: L HIP PAIN Nursing Triage Note: Pt presents to ED by EMS with c/o L hip pain that radiates into thigh post fall. O2 at 86% onRA. Source: patient Exam Limitations: no limitations History of Present Illness Time seen by provider: 19:52 Initial Comments To ER per EMS from home with reports of a fall at home with left hip pain. Timing/Duration: just prior to arrival Severity: moderate Location: hip (L) Associated Symptoms: denies symptoms Allergies and Home Medications Allergies Coded Allergies: cephalexin (Verified Allergy, Severe, TONGUE SWELLS, SOB (PT HAS HAD ROCEPHIN W/O ISSUE), 03/13/16) PER DR. MAYFIELD, PATIENT HAS RECEIVED ROCEPHIN IN THE PAST WITHOUT INCIDENT Penicillins (Verified Allergy, Mild, 03/13/16) celecoxib (Verified Allergy, Mild, PATIEN CAN TAKE MOBIC, 03/13/16) clindamycin (Verified Allergy, Mild, 03/13/16) propoxyphene (Verified Allergy, Mild, 03/13/16) rofecoxib (Verified Allergy, Mild, 03/13/16) Sulfa (Sulfonamide Antibiotics) (Verified Allergy, Unknown, 03/13/16) Tetanus Vaccines and Toxoid (Verified Allergy, Unknown, 03/13/16) doxycycline (Verified Allergy, Unknown, 03/13/16) levofloxacin (Verified Allergy, Unknown, 03/13/16) meloxicam (Verified Allergy, Unknown, 03/13/16) nitrofurantoin (Verified Allergy, Unknown, RASH, 03/13/16) Home Medications Amitriptyline HCl 150 Mg Tablet 150 MG PO HS (Reported) Atorvastatin Calcium 10 Mg Tablet 10 MG PO DAILY (Reported) Bisacodyl 5 Mg Tablet.dr 5 MG PO DAILY PRN PRN CONSTIPATION (Reported) Cholecalciferol (Vitamin D3) 5,000 Unit Capsule 5,000 UNIT PO DAILY@1400 ( Reported) Cyanocobalamin (Vitamin B-12) 1,000 Mcg Tablet 1,000 MCG PO DAILY@1400 (Reported ) Diltiazem HCl 240 Mg Cap.er.24h 240 MG PO DAILY@1400 (Reported) Docusate Sodium 100 Mg Capsule 100 MG PO HS (Reported) Guaifenesin/Dextromethorphan 1 Each Tbmp.12hr 1 TAB PO BID (Reported) Hydrocodone/Acetaminophen 1 Each Tablet #30 2 TAB PO EVERY 4-6 HOURS PRN PRN PAIN NOT TO EXCEED 8 TABLETS IN 24 HOURS Prescribed by: DENI PINK on 03/20/16 1218 Ipratropium/Albuterol Sulfate 3 Ml Ampul.neb #90 3 ML INH RTTID Prescribed by: DENI PINK on 03/20/16 1218 Labetalol HCl 200 Mg Tablet 300 MG PO BID (Reported) TAKES 1 & 1/2 (200MG) TABLETS Lactulose 20 Gm/30 Ml Solution #8 10 GM PO BID Prescribed by: DENI PINK on 03/20/16 1218 Levothyroxine Sodium 150 Mcg Tablet 150 MCG PO DAILY (Reported) Magnesium Hydroxide 400 Mg/5 Ml Oral.susp 4 TBS PO DAILY PRN PRN CONSTIPATION ( Reported) Multivitamin 1 Each Tablet 1 TAB PO DAILY@1400 (Reported) Naproxen 500 Mg Tablet 500 MG PO BID (Reported) Omeprazole 20 Mg Capsule.dr 20 MG PO DAILY (Reported) Polyethylene Glycol 3350 119 Gm Powder 17 GM PO DAILY PRN PRN CONSTIPATION ( Reported) Potassium Chloride 20 Meq Tab.er.prt 20 MEQ PO BID (Reported) Torsemide 20 Mg Tablet 20 MG PO 0800,1400 (Reported) Constitutional: see HPI EENTM: see HPI Respiratory: no symptoms reported Cardiovascular: no symptoms reported Genitourinary: no symptoms reported Musculoskeletal: see HPI Skin: no symptoms reported Psychiatric/Neurological: No Symptoms Reported Past Nusvajc-Snifgw-Vkwxcz Hx Patient Social History Alcohol Use: Denies Use Recreational Drug Use: No Smoking Status: Former Smoker Type Used: Cigarettes Former Smoker/When Quit: Feb 27, 1965 Recent Foreign Travel: No Contact w/Someone Who Travel: No Recent Infectious Disease Expo: No Recent Hopitalizations: Yes Physical Abuse Screen: No Sexual Abuse: No Immunizations Up To Date Tetanus Booster (TDap): Unknown PED Vaccines UTD: No Date of Pneumonia Vaccine: Nov 30, 2013 Date of Influenza Vaccine: Dec 22, 2015 Seasonal Allergies Seasonal Allergies: No Surgeries HX Surgeries: Yes Surgeries: Abdominal, Section, Eye Surgery, Hysterectomy, Orthopedic, Thyroidectomy Respiratory Hx Respiratory Disorders: Yes Respiratory Disorders: Asthma, Pneumonia, Chronic Bronchitis, Sleep Apnea Cardiovascular Hx Cardiac Disorders: Yes (CHRONIC CHEST PAIN, PER PT) Cardiac Disorders: Chronic Edema/Swelling, High Cholesterol, Hypertension Neurological Hx Neurological Disorders: Yes (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) Neurological Disorders: TIA Reproductive System Hx Reproductive Disorders: No Sexually Transmitted Disease: No HIV/AIDS: No Female Reproductive Disorders: Denies Genitourinary Hx Genitourinary Disorders: Yes (MILD RENAL INSUFFICIENCY) Genitourinary Disorders: Bladder Infection Gastrointestinal Hx Gastrointestinal Disorders: Yes (HX COLON CANCER) Gastrointestinal Disorders: Gastroesophageal Reflux, Hemorrhoids Musculoskeletal Hx Musculoskeletal Disorders: Yes Musculoskeletal Disorders: Degenerate Disk Disease, Arthritis, Fibromyalgia, Chronic Back Pain Endocrine Hx Endocrine Disorders: Yes (HX THYROIDECTOMY FOR GOITER;STEROID INDUCED HYPERGLYCEMIA) Endocrine Disorders: Hypothyroidsim HEENT HX ENT Disorders: Yes (CHRONIC RECURRENT RIGHT SUBMANDIBULAR GLAND SWELLING) HEENT Disorders: Cataract Loss of Vision: Denies Hearing Impairment: Denies Cancer Hx Cancer: Yes (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, NO CHEMO OR RADIATION) Cancer: Colon, Thyroid Psychosocial Hx Psychiatric Problems: Yes Behavioral Health Disorders: Anxiety Integumentary HX Skin/Integumentary Disorder: No Skin/Integumentary Disorders: Recent Skin Changes Blood Transfusions Hx Blood Disorders: Yes (ANEMIA) Adverse Reaction to a Blood Tr: No Family Medical History Significant Family History: No Pertinent Family Hx Family Medial History: Colon cancer 09 SISTER Congestive heart failure 03 MOTHER Deafness or hearing loss 03 FATHER 03 MOTHER 09 BROTHER Family history: Arthritis 03 FATHER 03 MOTHER History of - respiratory disease 09 BROTHER (kurtis-smoker) Hypertension 03 MOTHER Myocardial infarction 03 FATHER Myocardial infarction 03 FATHER Neoplasm 09 SISTER Respiratory disorder Severe allergy No Family History of: AIDS Abdominal aortic aneurysm [place]'s disease Alcoholism Alzheimer's disease Aphasia Arthritis Asthma Cancer of mouth Cardiovascular disease Cataracts Completed stroke Congenital disease Congenital heart disease Coronary thrombosis Cystic fibrosis Dementia Diabetes mellitus Drug abuse Dysphasia Fibrocystic disease of breast Gastroenteritis Glaucoma Headache disorder Hypercholesterolemia Infertility Kidney disease Not obtainable due to adoption Osteoporosis Parkinson's disease Prostate cancer Psychosocial problem Seizure disorder Thyroid disease Tuberculosis Visual disorder Physical Exam Vital Signs Vital Sign - Last 12Hours 04/20/16 18:58 Temp 98.4 Pulse 92 Resp 20 B/P 142/75 Pulse Ox 92 O2 Delivery Room Air Capillary Refill : Less Than 3 Seconds General Appearance: No Apparent Distress WD/WN HEENT: PERRL/EOMI TMs Normal Neck: Full Range of Motion Normal Inspection Respiratory: Lungs Clear Normal Breath Sounds No Accessory Muscle Use No Respiratory Distress Gastrointestinal: Normal Bowel Sounds Non Tender Soft Extremity: Normal Capillary Refill Normal Inspection Other (deformity and tenderness to the left lateral hip) Neurologic/Psychiatric: Alert Oriented x3 No Motor/Sensory Deficits Other ( very pleasant) Skin: Normal Color Warm/Dry Progress/Results/Core Measures Results/Orders Lab Results Laboratory Tests Test 04/20/16 19:15 Range/Units Alanine Aminotransferase (ALT/SGPT) 15 0-55 U/L Albumin 3.4 3.2-4.5 G/DL Alkaline Phosphatase 86 40-136 U/L Anion Gap 10 5-14 MMOL/L Aspartate Amino Transf (AST/SGOT) 26 5-34 U/L BUN/Creatinine Ratio 16 Basophils # (Auto) 0.1 0.0-0.1 10^3/uL Basophils (%) (Auto) 1 0-10 % Blood Urea Nitrogen 21 H 7-18 MG/DL Calcium Level 8.3 L 8.5-10.1 MG/DL Carbon Dioxide Level 23 21-32 MMOL/L Chloride Level 105 98-107 MMOL/L Creatinine 1.29 0.60-1.30 MG/DL Eosinophils # (Auto) 1.2 H 0.0-0.3 10^3/uL Eosinophils (%) (Auto) 9 0-10 % Estimat Glomerular Filtration Rate 40 Glucose Level 100 70-105 MG/DL Hematocrit 29 L 35-52 % Hemoglobin 9.3 L 11.5-16.0 G/DL INR Comment 1.0 0.8-1.4 Lymphocytes # (Auto) 2.1 1.0-4.0 X 10^3 Lymphocytes (%) (Auto) 16 12-44 % Mean Corpuscular Hemoglobin 30 25-34 PG Mean Corpuscular Hemoglobin Concent 32 32-36 G/DL Mean Corpuscular Volume 94 80-99 FL Mean Platelet Volume 10.4 7.4-10.4 FL Monocytes # (Auto) 1.4 H 0.0-1.0 X 10^3 Monocytes (%) (Auto) 10 0-12 % Neutrophils # (Auto) 8.3 H 1.8-7.8 X 10^3 Neutrophils (%) (Auto) 64 42-75 % Platelet Count 464 H 130-400 10^3/uL Potassium Level 4.7 3.6-5.0 MMOL/L Prothrombin Time 12.7 12.2-14.7 SEC Red Blood Count 3.07 L 4.35-5.85 10^6/uL Red Cell Distribution Width 16.5 H 10.0-14.5 % Sodium Level 138 135-145 MMOL/L Total Bilirubin 0.2 0.1-1.0 MG/DL Total Protein 7.0 6.4-8.2 G/DL White Blood Count 13.0 H 4.3-11.0 10^3/uL My Orders Orders-CHAD CAVAZOS ASSISTANT [employer] Cbc With Automated Diff (04/20/16 19:04) Comprehensive Metabolic Panel (04/20/16 19:04) Ua Culture If Indicated (04/20/16 19:04) Chest 1 View, Ap/Pa Only (04/20/16 19:04) Catheter(Urinary) To Dependent (04/20/16 19:04) Protime With Inr (04/20/16 19:04) Hip, Left, 2 Views (04/20/16 19:04) Morphine Injection (Morphine Injection (04/20/16 20:00) Medications Given in ED Current Medications Medications Dose Ordered Sig/Karen Route Start Time Stop Time Status Last Admin Dose Admin Morphine Sulfate 2 mg ONCE ONCE IVP 04/20/16 20:00 04/20/16 20:01 DC 04/20/16 20:03 2 MG Vital Signs/I&O Vital Sign - Last 12Hours 04/20/16 18:58 Temp 98.4 Pulse 92 Resp 20 B/P 142/75 Pulse Ox 92 O2 Delivery Room Air Blood Pressure Mean: 97 Departure Communication Time/Spoke to Admitting Phy: 21:26 Communication I spoke with Dr. Pink. We'll admit the patient. Time/Spoke to Consulting Physi: 21:27 Communication/Consulting Discussed with Dr. Austin. We'll keep the patient is here after midnight with tentative plan for surgical fixation of the fracture in the morning. Progress Notes On 03-09-16 her urinalysis cultured Pseudomonas sensitive to cefepime. Will use cefepime to treat this. Impression Impression: Primary Impression: nondisplaced intertrochanteric left hip fracture Additional Impressions: Urinary tract infection Interstitial lung disease Disposition: ADMITTED INPATIENT Condition: Stable Decision to Admit Reason: Admit from ER (General) Decision to Admit/Date: Apr 20, 2016 Time/Decision to Admit Time: 21:26 Departure-Patient Inst. Referrals: MERT FRASER DO (PCP/Family) Primary Care Physician CHAD CAVAZOS ASSISTANT PROF[employer] Apr 20, 2016 19:52 Vital Signs/I&O Vital Sign - Last 12Hours 04/20/16 18:58 Temp 98.4 Pulse 92 Resp 20 B/P 142/75 Pulse Ox 92 O2 Delivery Room Air Blood Pressure Mean: 97 Departure Communication Time/Spoke to Admitting Phy: 21:26 Communication I spoke with Dr. Pink. We'll admit the patient. Time/Spoke to Consulting Physi: 21:27 Communication/Consulting Discussed with Dr. Austin. We'll keep the patient is here after midnight with tentative plan for surgical fixation of the fracture in the morning. Impression Impression: Primary Impression: nondisplaced intertrochanteric left hip fracture Disposition: ADMITTED INPATIENT Condition: Stable Decision to Admit Reason: Admit from ER (General) Decision to Admit/Date: Apr 20, 2016 Time/Decision to Admit Time: 21:26 Departure-Patient Inst. Referrals: MERT FRASER DO (PCP/Family) Primary Care Physician CHAD CAVAZOS APRN Apr 20, 2016 19:52
[2016-04-20] MEDS ORDERED: morphine INJ 10 MG/ML 1ML (SYR OR VIAL) IVP ONE ×2 (20:00→21:45)
--- NOTE | 2016-04-20 20:30 | Diagnostic Imaging Report ---
INDICATION: Pain, fall COMPARISON: Radiograph of the pelvis dated August 26, 2013 TECHNIQUE: Two radiographs of the left hip dated April 20, 2016 FINDINGS: A lucency is identified on the frog-leg view overlying the region of the greater trochanter, though this does not extend across the entire width. This is not definitely seen on the frontal radiograph. No additional fracture or dislocation. Moderate degenerative changes of the left hip with associated osteophyte formation and joint space narrowing. Mild vascular calcifications. IMPRESSION: Lucency overlying the greater trochanter on the frog-leg view. Although this may simply relate to superposition of structures, nondisplaced fracture should be considered. A CT of the pelvis could help further evaluate. No additional fracture with moderate degenerative change of the left hip. Report was called to Raf Nolan APRN in the [facility] ER at 8:28 p.m., by lurdes (for NK). Dictated by: Dictated on workstation # [id number]
[2016-04-20 20:35] LABS: BILIRUBIN,URINE NEGATIVE (NEGATIVE); KETONES,URINE NEGATIVE (NEGATIVE); LEUKOCYTE ESTERASE ,URINE 2+ (NEGATIVE); NITRITE,URINE NEGATIVE (NEGATIVE); PH,URINE 6 (5-9); PROTEIN,URINE NEGATIVE (NEGATIVE); UROBILINOGEN,URINE NORMAL (NORMAL)
--- NOTE | 2016-04-20 20:44 | Diagnostic Imaging Report ---
INDICATION: Fall COMPARISON: April 06, 2016 TECHNIQUE: Single frontal radiograph of the chest dated April 20, 2016. FINDINGS: Right-sided Port-A-Cath is again identified. Surgical clips within the right neck. Postsurgical changes within the left humerus. The cardiac silhouette is stable. No significant pulmonary vascular congestion. Background chronic interstitial lung changes are again identified, appearing similar to the prior examination. Improved left lower lobe opacities. No new focal pulmonary opacity. No pleural effusion. No pneumothorax. Healed right-sided rib fractures. No acute osseous abnormality. IMPRESSION: Background interstitial lung changes with improving left basilar opacities. Additional postsurgical and chronic findings as described above, including chronic healed right-sided rib fractures. Dictated by: Dictated on workstation # [id number]
[2016-04-20 20:49] LABS: SQUAMOUS EPITHELIAL CELL,UR 0-2 /HPF
[2016-04-20] MEDS ORDERED: morphine INJ 4 MG/ML 1 ML (VIAL/SYRINGE) IVP PRN (21:30)
[2016-04-20] MEDS ORDERED: MEROPENEM 500 MG in NORMAL SALINE (BAXTER MINI) 100 ML IV ONE (21:45)
--- NOTE | 2016-04-20 21:50 | Diagnostic Imaging Report ---
PROCEDURE: CT pelvis without contrast. TECHNIQUE: Multiple contiguous axial images were obtained through the pelvis without the use of intravenous contrast. Sagittal and coronal reformations were performed. INDICATION: Fall, pain. COMPARISON: Radiographs from the same day. FINDINGS: Neely left curvature of the visualized lower lumbar spine. Severe degenerative changes noted within the lower lumbar spine with central canal stenosis at L4/L5. No acute fracture within the visualized lower lumbar spine. The sacrum appears intact. Sacroiliac joints are maintained. 1 cm ovoid lucency is noted within the left aspect of the pelvis adjacent to the pubic symphysis. No additional focal lucency is identified. No hip dislocation with mild degenerative changes of bilateral hips. Nondisplaced left intertrochanteric fracture is identified. No additional left pelvic fractures. No right pelvic fractures are seen. Sheldon catheter within a decompressed urinary bladder. No evidence of bowel obstruction. Extensive vascular calcifications. Small bilateral fat-containing inguinal hernias. Mild contusion overlying the left hip laterally within the soft tissues. No large intramuscular hematoma. IMPRESSION: 1. Findings are concerning for a nondisplaced left intertrochanteric fracture. 2. There is a 1 cm focal lucency just to the left of the pubic symphysis. Although this could simply relate to subchondral cyst formation and degenerative changes, additional lucency including multiple myeloma should be considered. Recommend clinical correlation. Additionally, if there is concern for multiple myeloma, additional radiographs of the osseous structures of the body could be obtained to evaluate for additional lesions. 3. Soft tissue injury overlying the left hip, laterally. 4. Additional findings as above. Report was called to WENDY Bynum at 9:47 p.m., by lurdes. Dictated by: Dictated on workstation # [id number]
[2016-04-20 22:15] VITALS: BP 135/70
[2016-04-20] MEDS ORDERED: RT-ALBUTEROL/IPRATROPIUM 3 ML (DUONEB) VIAL ONE (22:18)
[2016-04-20] MEDS ORDERED: RT-ALBUTEROL/IPRATROPIUM 3 ML (DUONEB) VIAL INH PRN (22:45)
[2016-04-20] MEDS ORDERED: ONDANSETRON 4 MG/2 ML (SDV) Z0FRAN IV PRN (23:00)
[2016-04-20] MEDS: NS IV 1000 ML 1,000 ML IV SCH (23:30)
[2016-04-21] VITALS: BP 132/72
[2016-04-21] MEDS: morphine INJ 4 MG/ML 1 ML (VIAL/SYRINGE) IV PRN ×2 (02:04→07:25)
[2016-04-21] MEDS: RT-ALBUTEROL/IPRATROPIUM 3 ML (DUONEB) VIAL INH SCH ×6 (03:06→22:59)
[2016-04-21 04:00] VITALS: BP 129/75
[2016-04-21] MEDS ORDERED: MEROPENEM 500 MG in NORMAL SALINE (BAXTER MINI) 100 ML IV SCH ×2 (06:00→14:00)
--- NOTE | 2016-04-21 06:53 | Pulmonary Consultation ---
History of Present Illness History of Present Illness Date of Consultation 04/21/16 06:48 Date of Admission History of Present Illness 81 yo with hx of ILD presented to ED s/p fall and c/o severe L hip pain radiating to thigh found to have hip fracture on imaging. Pt was also found to have hypoxia with Sp02 of 86%. I am consulted for pulmonary. Allergies and Home Medications Allergies Coded Allergies: cephalexin (Verified Allergy, Severe, TONGUE SWELLS, SOB (PT HAS HAD ROCEPHIN W/O ISSUE), 03/13/16) PER DR. MAYFIELD, PATIENT HAS RECEIVED ROCEPHIN IN THE PAST WITHOUT INCIDENT Penicillins (Verified Allergy, Mild, 03/13/16) celecoxib (Verified Allergy, Mild, PATIEN CAN TAKE MOBIC, 03/13/16) clindamycin (Verified Allergy, Mild, 03/13/16) propoxyphene (Verified Allergy, Mild, 03/13/16) rofecoxib (Verified Allergy, Mild, 03/13/16) Sulfa (Sulfonamide Antibiotics) (Verified Allergy, Unknown, 03/13/16) Tetanus Vaccines and Toxoid (Verified Allergy, Unknown, 03/13/16) doxycycline (Verified Allergy, Unknown, 03/13/16) levofloxacin (Verified Allergy, Unknown, 03/13/16) meloxicam (Verified Allergy, Unknown, 03/13/16) nitrofurantoin (Verified Allergy, Unknown, RASH, 03/13/16) Home Medications Amitriptyline HCl 150 Mg Tablet 150 MG PO HS (Reported) Atorvastatin Calcium 10 Mg Tablet 10 MG PO DAILY (Reported) Bisacodyl 5 Mg Tablet.dr 5 MG PO DAILY PRN PRN CONSTIPATION (Reported) Cholecalciferol (Vitamin D3) 5,000 Unit Capsule 5,000 UNIT PO DAILY@1400 ( Reported) Cyanocobalamin (Vitamin B-12) 1,000 Mcg Tablet 1,000 MCG PO DAILY@1400 (Reported ) Diltiazem HCl 240 Mg Cap.er.24h 240 MG PO DAILY@1400 (Reported) Docusate Sodium 100 Mg Capsule 100 MG PO HS (Reported) Guaifenesin/Dextromethorphan 1 Each Tbmp.12hr 1 TAB PO BID (Reported) Hydrocodone/Acetaminophen 1 Each Tablet #30 2 TAB PO EVERY 4-6 HOURS PRN PRN PAIN NOT TO EXCEED 8 TABLETS IN 24 HOURS Prescribed by: DENI S PINK on 03/20/16 1218 Ipratropium/Albuterol Sulfate 3 Ml Ampul.neb #90 3 ML INH RTTID Prescribed by: DENI PINK on 03/20/16 1218 Labetalol HCl 200 Mg Tablet 300 MG PO BID (Reported) TAKES 1 & 1/2 (200MG) TABLETS Lactulose 20 Gm/30 Ml Solution #8 10 GM PO BID Prescribed by: DENI PINK on 03/20/16 1218 Levothyroxine Sodium 150 Mcg Tablet 150 MCG PO DAILY (Reported) Magnesium Hydroxide 400 Mg/5 Ml Oral.susp 4 TBS PO DAILY PRN PRN CONSTIPATION ( Reported) Multivitamin 1 Each Tablet 1 TAB PO DAILY@1400 (Reported) Naproxen 500 Mg Tablet 500 MG PO BID (Reported) Omeprazole 20 Mg Capsule.dr 20 MG PO DAILY (Reported) Polyethylene Glycol 3350 119 Gm Powder 17 GM PO DAILY PRN PRN CONSTIPATION ( Reported) Potassium Chloride 20 Meq Tab.er.prt 20 MEQ PO BID (Reported) Torsemide 20 Mg Tablet 20 MG PO 0800,1400 (Reported) Past Yokltxc-Mkaprl-Epqpmo Hx Patient Social History Alcohol Use: Denies Use Recreational Drug Use: No Smoking Status: Former Smoker Type Used: Cigarettes Former Smoker/When Quit: Feb 27, 1965 Recent Foreign Travel: No Contact w/Someone Who Travel: No Recent Infectious Disease Expo: No Recent Hopitalizations: Yes Physical Abuse Screen: No Sexual Abuse: No Immunizations Up To Date Tetanus Booster (TDap): Unknown PED Vaccines UTD: No Date of Pneumonia Vaccine: Nov 30, 2013 Date of Influenza Vaccine: Dec 22, 2015 Seasonal Allergies Seasonal Allergies: No Surgeries HX Surgeries: Yes Surgeries: Abdominal, Section, Eye Surgery, Hysterectomy, Orthopedic, Thyroidectomy Respiratory Hx Respiratory Disorders: Yes Respiratory Disorders: Asthma, Pneumonia, Chronic Bronchitis, Sleep Apnea Cardiovascular Hx Cardiac Disorders: Yes (CHRONIC CHEST PAIN, PER PT) Cardiac Disorders: Chronic Edema/Swelling, High Cholesterol, Hypertension Neurological Hx Neurological Disorders: Yes (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) Neurological Disorders: TIA Reproductive System Hx Reproductive Disorders: No Sexually Transmitted Disease: No HIV/AIDS: No Female Reproductive Disorders: Denies Genitourinary Hx Genitourinary Disorders: Yes (MILD RENAL INSUFFICIENCY) Genitourinary Disorders: Bladder Infection Gastrointestinal Hx Gastrointestinal Disorders: Yes (HX COLON CANCER) Gastrointestinal Disorders: Gastroesophageal Reflux, Hemorrhoids Musculoskeletal Hx Musculoskeletal Disorders: Yes Musculoskeletal Disorders: Degenerate Disk Disease, Arthritis, Fibromyalgia, Chronic Back Pain Endocrine Hx Endocrine Disorders: Yes (HX THYROIDECTOMY FOR GOITER;STEROID INDUCED HYPERGLYCEMIA) Endocrine Disorders: Hypothyroidsim HEENT HX ENT Disorders: Yes (CHRONIC RECURRENT RIGHT SUBMANDIBULAR GLAND SWELLING) HEENT Disorders: Cataract Loss of Vision: Denies Hearing Impairment: Denies Cancer Hx Cancer: Yes (COLON CA 1999--S/P SURGERY ONLY, NO CHEMO OR RADIATION) Cancer: Colon, Thyroid Psychosocial Hx Psychiatric Problems: Yes Behavioral Health Disorders: Anxiety Integumentary HX Skin/Integumentary Disorder: No Skin/Integumentary Disorders: Recent Skin Changes Blood Transfusions Hx Blood Disorders: Yes (ANEMIA) Adverse Reaction to a Blood Tr: No Family Medical History Significant Family History: No Pertinent Family Hx Family Medial History: Colon cancer 09 SISTER Congestive heart failure 03 MOTHER Deafness or hearing loss 03 FATHER 03 MOTHER 09 BROTHER Family history: Arthritis 03 FATHER 03 MOTHER History of - respiratory disease 09 BROTHER (kurtis-smoker) Hypertension 03 MOTHER Myocardial infarction 03 FATHER Myocardial infarction 03 FATHER Neoplasm 09 SISTER Respiratory disorder Severe allergy No Family History of: AIDS Abdominal aortic aneurysm Isma's disease Alcoholism Alzheimer's disease Aphasia Arthritis Asthma Cancer of mouth Cardiovascular disease Cataracts Completed stroke Congenital disease Congenital heart disease Coronary thrombosis Cystic fibrosis Dementia Diabetes mellitus Drug abuse Dysphasia Fibrocystic disease of breast Gastroenteritis Glaucoma Headache disorder Hypercholesterolemia Infertility Kidney disease Not obtainable due to adoption Osteoporosis Parkinson's disease Prostate cancer Psychosocial problem Seizure disorder Thyroid disease Tuberculosis Visual disorder Exam Exam Vital Signs Date Time Temp Pulse Resp B/P Pulse Ox O2 Delivery O2 Flow Rate FiO2 04/21/16 04:00 97.9 82 18 129/75 97 Nasal Cannula 3.00 3.00 04/21/16 03:06 95 3.00 04/21/16 00:00 98.0 80 18 132/72 98 Nasal Cannula 3.00 3.00 04/20/16 22:33 96 04/20/16 22:25 96 3.00 04/20/16 22:15 98.2 85 18 135/70 96 Nasal Cannula 3.00 04/20/16 22:00 Nasal Cannula 3.00 04/20/16 21:54 87 18 98 Room Air 04/20/16 18:58 98.4 92 20 142/75 92 Room Air I & O 04/21/16 07:00 Intake Total 300 ml Output Total 650 ml Balance -350 ml General Appearance: No Apparent Distress WD/WN HEENT: PERRL/EOMI TMs Normal Neck: Full Range of Motion Normal Inspection Respiratory: Lungs Clear Normal Breath Sounds No Accessory Muscle Use No Respiratory Distress Capillary Refill: Less Than 3 Seconds Extremity: Normal Capillary Refill Normal Inspection Other (deformity and tenderness to the left lateral hip) Neurologic/Psychiatric: Alert Oriented x3 No Motor/Sensory Deficits Other ( very pleasant) Skin: Normal Color Warm/Dry Results Lab Laboratory Tests 04/20/16 19:15 Assessment/Plan Assessment/Plan ILD with hypoxia -SVNs, oxygen Acute left hip fracture s/p fall hx of post polio syndrome Clinical Quality Measures DVT/VTE Risk/Contraindication: Risk Factor Score Per Nursin RFS Level Per Nursing on Admit: 4+=Very High BRENDON LEACH DO Apr 21, 2016 06:53
--- NOTE | 2016-04-21 07:49 | Consultation ---
History of Present Illness History of Present Illness Patient Consulted On(hai/time) 04/21/16 07:46 Date of Admission 04/20/2016 Reason for Visit: left hip fracture History of Present Illness 81 yr old FM fell and has a nondisplaced left intertrochanteric fracture. she denies radiating pain or weakness. She has no prior hx of surgery to this hip. Allergies and Home Medications Allergies Coded Allergies: cephalexin (Verified Allergy, Severe, TONGUE SWELLS, SOB (PT HAS HAD ROCEPHIN W/O ISSUE), 03/13/16) PER DR. MAYFIELD, PATIENT HAS RECEIVED ROCEPHIN IN THE PAST WITHOUT INCIDENT Penicillins (Verified Allergy, Mild, 03/13/16) celecoxib (Verified Allergy, Mild, PATIEN CAN TAKE MOBIC, 03/13/16) clindamycin (Verified Allergy, Mild, 03/13/16) propoxyphene (Verified Allergy, Mild, 03/13/16) rofecoxib (Verified Allergy, Mild, 03/13/16) Sulfa (Sulfonamide Antibiotics) (Verified Allergy, Unknown, 03/13/16) Tetanus Vaccines and Toxoid (Verified Allergy, Unknown, 03/13/16) doxycycline (Verified Allergy, Unknown, 03/13/16) levofloxacin (Verified Allergy, Unknown, 03/13/16) meloxicam (Verified Allergy, Unknown, 03/13/16) nitrofurantoin (Verified Allergy, Unknown, RASH, 03/13/16) Home Medications Amitriptyline HCl 150 Mg Tablet 150 MG PO HS (Reported) Atorvastatin Calcium 10 Mg Tablet 10 MG PO DAILY (Reported) Bisacodyl 5 Mg Tablet.dr 5 MG PO DAILY PRN PRN CONSTIPATION (Reported) Cholecalciferol (Vitamin D3) 5,000 Unit Capsule 5,000 UNIT PO DAILY@1400 ( Reported) Cyanocobalamin (Vitamin B-12) 1,000 Mcg Tablet 1,000 MCG PO DAILY@1400 (Reported ) Diltiazem HCl 240 Mg Cap.er.24h 240 MG PO DAILY@1400 (Reported) Docusate Sodium 100 Mg Capsule 100 MG PO HS (Reported) Guaifenesin/Dextromethorphan 1 Each Tbmp.12hr 1 TAB PO BID (Reported) Hydrocodone/Acetaminophen 1 Each Tablet #30 2 TAB PO EVERY 4-6 HOURS PRN PRN PAIN NOT TO EXCEED 8 TABLETS IN 24 HOURS Prescribed by: DENI PINK on 03/20/16 1218 Ipratropium/Albuterol Sulfate 3 Ml Ampul.neb #90 3 ML INH RTTID Prescribed by: DENI PINK on 03/20/16 1218 Labetalol HCl 200 Mg Tablet 300 MG PO BID (Reported) TAKES 1 & 1/2 (200MG) TABLETS Lactulose 20 Gm/30 Ml Solution #8 10 GM PO BID Prescribed by: DENI PINK on 03/20/16 1218 Levothyroxine Sodium 150 Mcg Tablet 150 MCG PO DAILY (Reported) Magnesium Hydroxide 400 Mg/5 Ml Oral.susp 4 TBS PO DAILY PRN PRN CONSTIPATION ( Reported) Multivitamin 1 Each Tablet 1 TAB PO DAILY@1400 (Reported) Naproxen 500 Mg Tablet 500 MG PO BID (Reported) Omeprazole 20 Mg Capsule.dr 20 MG PO DAILY (Reported) Polyethylene Glycol 3350 119 Gm Powder 17 GM PO DAILY PRN PRN CONSTIPATION ( Reported) Potassium Chloride 20 Meq Tab.er.prt 20 MEQ PO BID (Reported) Torsemide 20 Mg Tablet 20 MG PO 0800,1400 (Reported) Past Xrctbra-Fqfbcf-Fyqnty Hx Patient Social History Alcohol Use: Denies Use Recreational Drug Use: No Smoking Status: Former Smoker Type Used: Cigarettes Former Smoker/When Quit: Feb 27, 1965 Recent Foreign Travel: No Contact w/Someone Who Travel: No Recent Infectious Disease Expo: No Recent Hopitalizations: Yes Physical Abuse Screen: No Sexual Abuse: No Immunizations Up To Date Tetanus Booster (TDap): Unknown PED Vaccines UTD: No Date of Pneumonia Vaccine: Nov 30, 2013 Date of Influenza Vaccine: Dec 22, 2015 Seasonal Allergies Seasonal Allergies: No Surgeries HX Surgeries: Yes Surgeries: Abdominal, Section, Eye Surgery, Hysterectomy, Orthopedic, Thyroidectomy Respiratory Hx Respiratory Disorders: Yes Respiratory Disorders: Asthma, Pneumonia, Chronic Bronchitis, Sleep Apnea Cardiovascular Hx Cardiac Disorders: Yes (CHRONIC CHEST PAIN, PER PT) Cardiac Disorders: Chronic Edema/Swelling, High Cholesterol, Hypertension Neurological Hx Neurological Disorders: Yes (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) Neurological Disorders: TIA Reproductive System Hx Reproductive Disorders: No Sexually Transmitted Disease: No HIV/AIDS: No Female Reproductive Disorders: Denies Genitourinary Hx Genitourinary Disorders: Yes (MILD RENAL INSUFFICIENCY) Genitourinary Disorders: Bladder Infection Gastrointestinal Hx Gastrointestinal Disorders: Yes (HX COLON CANCER) Gastrointestinal Disorders: Gastroesophageal Reflux, Hemorrhoids Musculoskeletal Hx Musculoskeletal Disorders: Yes Musculoskeletal Disorders: Degenerate Disk Disease, Arthritis, Fibromyalgia, Chronic Back Pain Endocrine Hx Endocrine Disorders: Yes (HX THYROIDECTOMY FOR GOITER;STEROID INDUCED HYPERGLYCEMIA) Endocrine Disorders: Hypothyroidsim HEENT HX ENT Disorders: Yes (CHRONIC RECURRENT RIGHT SUBMANDIBULAR GLAND SWELLING) HEENT Disorders: Cataract Loss of Vision: Denies Hearing Impairment: Denies Cancer Hx Cancer: Yes (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, NO CHEMO OR RADIATION) Cancer: Colon, Thyroid Psychosocial Hx Psychiatric Problems: Yes Behavioral Health Disorders: Anxiety Integumentary HX Skin/Integumentary Disorder: No Skin/Integumentary Disorders: Recent Skin Changes Blood Transfusions Hx Blood Disorders: Yes (ANEMIA) Adverse Reaction to a Blood Tr: No Family Medical History Significant Family History: No Pertinent Family Hx Family Medial History: Colon cancer 09 SISTER Congestive heart failure 03 MOTHER Deafness or hearing loss 03 FATHER 03 MOTHER 09 BROTHER Family history: Arthritis 03 FATHER 03 MOTHER History of - respiratory disease 09 BROTHER (kurtis-smoker) Hypertension 03 MOTHER Myocardial infarction 03 FATHER Myocardial infarction 03 FATHER Neoplasm 09 SISTER Respiratory disorder Severe allergy No Family History of: AIDS Abdominal aortic aneurysm Isma's disease Alcoholism Alzheimer's disease Aphasia Arthritis Asthma Cancer of mouth Cardiovascular disease Cataracts Completed stroke Congenital disease Congenital heart disease Coronary thrombosis Cystic fibrosis Dementia Diabetes mellitus Drug abuse Dysphasia Fibrocystic disease of breast Gastroenteritis Glaucoma Headache disorder Hypercholesterolemia Infertility Kidney disease Not obtainable due to adoption Osteoporosis Parkinson's disease Prostate cancer Psychosocial problem Seizure disorder Thyroid disease Tuberculosis Visual disorder Physical Exam-General Problems Physical Exam Vital Signs Vital Sign - Last 12Hours 04/20/16 04/20/16 18:58 22:00 Temp 98.4 Pulse 92 Resp 20 B/P 142/75 Pulse Ox 92 O2 Delivery Room Air O2 Flow Rate 3.00 Capillary Refill : Less Than 3 Seconds Extremities: other (LLE: Painful log roll, severe L hip flexion weakness, 2/4 DP, PT, NVSI) Assessment/Plan Assessment/Plan Admission Diagnosis/Plan ASSESSMENT: Nondisplaced L intertrochanteric hip fracture PLAN: NPO for OR this AM short intramedullary nailing postoperative DVT prophylaxis WBAT after surgery NWB for now Clinical Quality Measures DVT/VTE Risk/Contraindication: Risk Factor Score Per Nursin RFS Level Per Nursing on Admit: 4+=Very High CLINTON DAWSON DO Apr 21, 2016 07:48
[2016-04-21 08:30] VITALS: BP 135/73
[2016-04-21] MEDS ORDERED: LACTATED RINGERS 1,000 ML IV PRN (08:34)
[2016-04-21] MEDS ORDERED: HYDR-3812 PO (09:10)
[2016-04-21] MEDS ORDERED: IPRA3AMP IH (09:10)
[2016-04-21] MEDS ORDERED: POTA10CA68 PO (09:10)
[2016-04-21] MEDS ORDERED: VANCOMYCIN IV ADD-VANTAGE 1,000 MG in SODIUM CHLORIDE (ADD-VANTAGE) 250 ML IV ONE (09:30)
[2016-04-21 09:32] LABS: BASOPHILS # (AUTO) 0.1 10^3/uL (0.0-0.1); BASOPHILS % (AUTO) 1 % (0-10); EOSINOPHILS # (AUTO) 1.6 10^3/uL (0.0-0.3); EOSINOPHILS % (AUTO) 13 % (0-10); LYMPHOCYTES # (AUTO) 1.8 X 10^3 (1.0-4.0); LYMPHOCYTES % (AUTO) 15 % (12-44); MEAN CORPUSCULAR HEMOGLOBIN 31 PG (25-34); MEAN CORPUSCULAR HGB CONC 33 G/DL (32-36); MEAN CORPUSCULAR VOLUME 94 FL (80-99); MEAN PLATELET VOLUME 10.2 FL (7.4-10.4); MONOCYTES # (AUTO) 1.4 X 10^3 (0.0-1.0); MONOCYTES % (AUTO) 12 % (0-12); NEUTROPHILS % (AUTO) 59 % (42-75); PLATELET COUNT 425 10^3/uL (130-400); RED BLOOD COUNT 2.84 10^6/uL (4.35-5.85); RED CELL DISTRIBUTION WIDTH 16.6 % (10.0-14.5); WHITE BLOOD COUNT 11.8 10^3/uL (4.3-11.0)
[2016-04-21 09:41] LABS: INR 1.1 (0.8-1.4); PROTHROMBIN TIME PATIENT 13.5 SEC (12.2-14.7)
[2016-04-21] MEDS: NS IV 1000 ML 1,000 ML IV SCH ×3 (09:45→17:18)
[2016-04-21 09:48] LABS: ALBUMIN 3.2 G/DL (3.2-4.5); BILIRUBIN,TOTAL 0.3 MG/DL (0.1-1.0); CALCIUM 8.2 MG/DL (8.5-10.1); CREATININE SERUM 1.08 MG/DL (0.60-1.30); POTASSIUM 4.3 MMOL/L (3.6-5.0); TOTAL PROTEIN 6.4 G/DL (6.4-8.2)
[2016-04-21] MEDS ORDERED: ONDANSETRON 4 MG/2 ML (SDV) Z0FRAN ONE (10:02)
[2016-04-21] MEDS ORDERED: SEVOFLURANE (ULTANE) 15 ML INHAL SOLN ONE ×3 (10:02→12:02)
[2016-04-21] MEDS ORDERED: LIDOCAINE PF 2% 10 ML (XYLOCAINE) AMP ONE (10:02)
[2016-04-21] MEDS ORDERED: proPOfol 200 MG/20 ML (DIPRIVAN) VIAL IV ONE (10:02)
[2016-04-21] MEDS ORDERED: LACTATED RINGERS 1,000 ML IV ONE (10:02)
[2016-04-21] MEDS ORDERED: fentaNYL INJECTION 100 MCG/2 ML AMP ONE (10:02)
[2016-04-21 10:03] LABS: BAND NEUTROPHILS 0 %; BASOPHILS % (MANUAL) 2 %; EOSINOPHILS % (MANUAL) 10 %; LYMPHOCYTES % (MANUAL) 15 %; NEUTROPHILS % (MANUAL) 67 %
[2016-04-21 10:04] LABS: ANISOCYTOSIS SLIGHT; HYPOCHROMASIA SLIGHT; MICROCYTOSIS SLIGHT; POIKILOCYTOSIS SLIGHT; SPHEROCYTES SLIGHT; TARGET CELLS SLIGHT
[2016-04-21] MEDS ORDERED: BUPIVACAINE 0.5% 30 ML (SENSORCAINE) VIAL ONE (10:19)
--- NOTE | 2016-04-21 10:22 | History & Physical-Hospitalist ---
HPI History of Present Illness: HPI/Chief Complaint THE PATIENT IS AN 81-YEAR-OLD WHITE FEMALE KNOWN TO ME. sHE HAS HAD MULTIPLE ADMISSIONS OVER THE PAST YEAR INVOLVING infections either urinary tract or pneumonia. She reports that she was coming out of the shower last evening and had just put her hair in curlers. She does not believe that her floor or feet were wet however the floor was not carpeted and she slipped and fell heavily fracturing her left hip. She reports that she is continued to have her usual pulmonary issues including sputum production. There has been no fever and she would rate this at her baseline level. Source: patient Exam Limitations: no limitations Date Seen 04/21/16 Attending Physician Rudolph Austin DO PCP Cheng Abraham DO Referring Physician Date of Admission Apr 20, 2016 at 20:00 Home Medications & Allergies Home Medications Reviewed patient Home Medication Reconciliation Form Allergies Coded Allergies: cephalexin (Verified Allergy, Severe, TONGUE SWELLS, SOB (PT HAS HAD ROCEPHIN W/O ISSUE), 03/13/16) PER DR. MAYFIELD, PATIENT HAS RECEIVED ROCEPHIN IN THE PAST WITHOUT INCIDENT Penicillins (Verified Allergy, Mild, 03/13/16) celecoxib (Verified Allergy, Mild, PATIEN CAN TAKE MOBIC, 03/13/16) clindamycin (Verified Allergy, Mild, 03/13/16) propoxyphene (Verified Allergy, Mild, 03/13/16) rofecoxib (Verified Allergy, Mild, 03/13/16) Sulfa (Sulfonamide Antibiotics) (Verified Allergy, Unknown, 03/13/16) Tetanus Vaccines and Toxoid (Verified Allergy, Unknown, 03/13/16) doxycycline (Verified Allergy, Unknown, 03/13/16) levofloxacin (Verified Allergy, Unknown, 03/13/16) meloxicam (Verified Allergy, Unknown, 03/13/16) nitrofurantoin (Verified Allergy, Unknown, RASH, 03/13/16) Past Zgtpvmm-Uaeush-Esqsvm Hx Patient Social History Alcohol Use: Denies Use Recreational Drug Use: No Smoking Status: Former Smoker Former smoker/When Quit: Feb 27, 1965 Type Used: Cigarettes Physical Abuse Screen: No Sexual Abuse: No Recent Foreign Travel: No Contact w/other who traveled: No Recent Hopitalizations: Yes Recent Infectious Disease Expo: No Immunizations Up To Date Tetanus Booster (TDap): Unknown Date of Pneumonia Vaccine: Nov 30, 2013 Date of Influenza Vaccine: Dec 22, 2015 Seasonal Allergies Seasonal Allergies: No Surgeries HX Surgeries: Yes Surgeries: Abdominal, Section, Eye Surgery, Hysterectomy, Orthopedic, Thyroidectomy Respiratory Hx Respiratory Disorders: Yes Cardiovascular Hx Cardiovascular Disorders: Yes (CHRONIC CHEST PAIN, PER PT) Cardiac Disorders: Chronic Edema/Swelling, High Cholesterol, Hypertension Neurological Hx Neurological Disorders: Yes (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) Neurological Disorders: TIA Reproductive System Hx Reproductive Disorders: No Sexually Transmitted Disease: No HIV/AIDS: No Female Reproductive Disorders: Denies Genitourinary Hx Genitourinary Disorders: Yes (MILD RENAL INSUFFICIENCY) Genitourinary Disorders: Bladder Infection Gastrointestinal Hx Gastrointestinal Disorders: Yes (HX COLON CANCER) Gastrointestinal Disorders: Gastroesophageal Reflux, Hemorrhoids Musculoskeletal Hx Musculoskeletal Disorders: Yes Musculoskeletal Disorders: Degenerate Disk Disease, Arthritis, Fibromyalgia, Chronic Back Pain Endocrine Hx Endocrine Disorders: Yes (HX THYROIDECTOMY FOR GOITER;STEROID INDUCED HYPERGLYCEMIA) Endocrine Disorders: Hypothyroidsim HEENT HX ENT Disorders: Yes (CHRONIC RECURRENT RIGHT SUBMANDIBULAR GLAND SWELLING) HEENT Disorders: Cataract Loss of Vision: Denies Hearing Impairment: Denies Cancer Hx Cancer: Yes (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, NO CHEMO OR RADIATION) Cancer: Colon, Thyroid Psychosocial Hx Psychiatric Problems: Yes Behavioral Health Disorders: Anxiety Integumentary HX Skin/Integumentary Disorder: No Skin/Integumentary Disorders: Recent Skin Changes Blood Transfusions Hx Blood Disorders: Yes (ANEMIA) Adverse Reaction to a Blood Tr: No Family Medical History Significant Family History: No Pertinent Family Hx Family Hx: Colon cancer 09 SISTER Congestive heart failure 03 MOTHER Deafness or hearing loss 03 FATHER 03 MOTHER 09 BROTHER Family history: Arthritis 03 FATHER 03 MOTHER History of - respiratory disease 09 BROTHER (kurtis-smoker) Hypertension 03 MOTHER Myocardial infarction 03 FATHER Myocardial infarction 03 FATHER Neoplasm 09 SISTER Respiratory disorder Severe allergy No Family History of: AIDS Abdominal aortic aneurysm Isma's disease Alcoholism Alzheimer's disease Aphasia Arthritis Asthma Cancer of mouth Cardiovascular disease Cataracts Completed stroke Congenital disease Congenital heart disease Coronary thrombosis Cystic fibrosis Dementia Diabetes mellitus Drug abuse Dysphasia Fibrocystic disease of breast Gastroenteritis Glaucoma Headache disorder Hypercholesterolemia Infertility Kidney disease Not obtainable due to adoption Osteoporosis Parkinson's disease Prostate cancer Psychosocial problem Seizure disorder Thyroid disease Tuberculosis Visual disorder Review of Systems Constitutional: see HPI EENTM: no symptoms reported Respiratory: see HPI cough dyspnea on exertion phlegm short of breath wheezing Cardiovascular: no symptoms reported Gastrointestinal: no symptoms reported Musculoskeletal: joint pain Skin: see HPI Psychiatric/Neurological: See HPI Physical Exam Physical Exam Vital Signs Vital Sign - Last 12Hours 04/20/16 04/20/16 18:58 22:00 Temp 98.4 Pulse 92 Resp 20 B/P 142/75 Pulse Ox 92 O2 Delivery Room Air O2 Flow Rate 3.00 Capillary Refill : Less Than 3 Seconds General Appearance: No Apparent Distress WD/WN Eyes: Bilateral Eye Normal Inspection HEENT: Normal ENT Inspection Neck: Normal Inspection Respiratory: Decreased Breath Sounds (scattered wheezes and rhonchi bilaterally) Cardiovascular: Regular Rate, Rhythm No Edema No Gallop No JVD No Murmur Normal Peripheral Pulses Back: Normal Inspection No CVA Tenderness No Vertebral Tenderness Neurologic/Psychiatric: Alert Oriented x3 No Motor/Sensory Deficits Normal Mood/Affect Skin: Normal Color Warm/Dry Lymphatic: No Adenopathy Results Results/Procedures Lab Laboratory Tests 04/20/16 19:15 04/21/16 09:22 Assessment/Plan Admission Diagnosis 1.acute nondisplaced intertrochanteric fracture left hip. 2.COPD with recurrent pneumonias. 3.past history of pseudomonas UTI. 4.chronic anemia Assessment and Plan Plan: Operative hip repair. The patient represents an intermediate risk. The good news is that we are not entering a body cavity. Aggressive pulmonary toilet will be required. She was placed on meropenem based on previous culture for Pseudomonas. Present culture is negative for this will be discontinued. Finally hemoglobin should be monitored and she may well require transfusion postoperatively. Clinical Quality Measures DVT/VTE Risk/Contraindication: Risk Factor Score Per Nursin RFS Level Per Nursing on Admit: 4+=Very High BREANNA ROBLES MD Apr 21, 2016 10:22
[2016-04-21] MEDS ORDERED: MILK OF MAGNESIA 400 MG/5 ML 30 ML UDC PO PRN (10:45)
[2016-04-21] MEDS ORDERED: ONDANSETRON 4 MG/2 ML (SDV) Z0FRAN IV PRN (10:45)
[2016-04-21] MEDS ORDERED: BISACODYL 5 MG (DULCOLAX) TABLET PO PRN (10:45)
[2016-04-21] MEDS ORDERED: morphine INJ 4 MG/ML 1 ML (VIAL/SYRINGE) IVP PRN (10:45)
[2016-04-21] MEDS ORDERED: MIDAZOLAM 2 MG/2 ML (VERSED) VIAL ONE (10:58)
[2016-04-21] MEDS ORDERED: PHENYLEPHRINE 100 MCG/ML 10 ML (ANESTHESIA) SYR ONE (11:13)
--- NOTE | 2016-04-21 11:13 | Occ Therapy Progress Note ---
Therapy Progress Note OT orders received. Will evaluate tomorrow (post op day 1) RADHIKA CURTIS OT Apr 21, 2016 11:13
[2016-04-21] MEDS ORDERED: ONDANSETRON 4 MG/2 ML (SDV) Z0FRAN IVP PRN (12:15)
[2016-04-21] MEDS ORDERED: MEPERIDINE (DEMEROL) INJ 50 MG/ML IVP PRN (12:15)
[2016-04-21] MEDS: morphine INJ 10 MG/ML 1ML (SYR OR VIAL) IVP PRN ×2 (12:25→12:35)
--- NOTE | 2016-04-21 13:06 | OPERATIVE REPORT ---
PROCEDURE PHYSICIAN: CLINTON DAWSON DATE OF PROCEDURE: 04/21/2016 SURGEON: Dr. Norman D.O. MEDICAL RECORDS SPECIALIST: BLAISE Tavares. This is a medically necessary procedure and veterinary assistant technician is necessary for retraction of vital neurovascular structures. Without an veterinary assistant technician, the procedure would not be possible. PREOPERATIVE DIAGNOSIS: Nondisplaced left intertrochanteric fracture. POSTOPERATIVE DIAGNOSIS: Nondisplaced left intertrochanteric fracture. PROCEDURE PERFORMED: Left hip intramedullary nailing. COMPLICATIONS: None. SPECIMENS SENT: None. ANESTHESIA: General endotracheal tube anesthesia with local anesthetic. INSTRUMENTATION UTILIZED: Synthes short TFN nail. HISTORY OF PRESENT ILLNESS: Ms. Gillette is a very pleasant 81-year-old female with a long history of falls. She fell yesterday experiencing severe left hip pain and inability to bear weight. She presented to the ER where x-rays and CT scan demonstrated a hairline intertrochanteric nondisplaced fracture. She understood the risks and benefits of surgical fixation she wished to proceed. OPERATION: The patient was identified by name on wrist band in the preoperative holding area. Her operative site was signed, consent was signed. SCDs were placed and antibiotics were started. She was taken operating room theater, placed under general endotracheal tube anesthesia on the fracture table in the supine position. The unaffected right lower extremity was abducted and externally rotated to get out of the way. The left lower extremity was placed on the table. At this point she was prepped and draped in the usual sterile fashion. A formal timeout was conducted. Then made an incision over the greater trochanter where I used a drill to power in a starting pin. I then reamed the lateral cortex. At this point, I chose the appropriate length, short titanium TFN nail and malleted it into position. Then using the aiming arm, drove a starting pin into the inferior aspect of the femoral neck and stopped it just short of subchondral bone measured the appropriate length of my helical blade. I then drilled the lateral cortex and I carefully malleted the helical blade into place. I then locked it to position. I locked the rotation proximally. I then used the aiming jig to place a screw from the lateral cortex through the nail and into the medial cortex of the femur. I then removed the aiming arm apparatus and obtained final AP and lateral x-ray; the nail was in good position. I irrigated both wounds and closed them in my usual fashion utilizing 0 Vicryl, followed by 2-0 Vicryl, followed by eric for skin. I applied dressings. I took the patient in supine position to the PACU where she awoke without incident. The plan at this time will be admitted to admit back to Dr. Looney. She will be weight-bearing as tolerated. We will have her on Lovenox for DVT prophylaxis. Dressings will be changed as tolerated. Job ID: [id number] Dictated Date: 04/21/2016 11:56:40 Broth Setter Date: 04/21/2016 12:58:56 / [place]
--- NOTE | 2016-04-21 13:07 | Diagnostic Imaging Report ---
INDICATION: Left hip fracture. FINDINGS: Intraoperative views were obtained with the portable intensifier in Surgery during ORIF of the intertrochanteric fracture of the left proximal femur. Hardware is visualized in the femoral neck and proximal shaft with good alignment. One minute and 8 seconds of fluoroscopy time was used. IMPRESSION: Intraoperative views demonstrate anatomic alignment of the intertrochanteric fracture of the left proximal femur with orthopedic hardware in place. Dictated by: Dictated on workstation # [id number]
--- NOTE | 2016-04-21 13:13 | Diagnostic Imaging Report ---
INDICATION: Left hip pain. FINDINGS: An AP view of the pelvis shows postop changes from internal fixation of the intertrochanteric fracture of the left hip with a gamma nail. IMPRESSION: Good alignment of the left hip following internal fixation. Dictated by: Dictated on workstation # [id number]
[2016-04-21 16:05] VITALS: BP 92/52
[2016-04-21 19:39] VITALS: BP 116/67
[2016-04-21] MEDS: SENNOSIDES 8.6 MG (SENOKOT) TAB PO SCH (20:32)
[2016-04-21] MEDS: ENOXAPARIN 30 MG/0.3 ML (LOVENOX) SYR SC SCH (20:32)
[2016-04-21] MEDS: DOCUSATE SODIUM 100 MG (COLACE) CAP PO SCH (20:32)
[2016-04-21] MEDS: AMITRIPTYLINE 150 MG (ELAVIL) TABLET PO SCH (20:32)
[2016-04-21] MEDS: oxyCODONE/APAP 5/325MG (PERCOCET 5) TABLET PO PRN (20:34)
[2016-04-21] MEDS ORDERED: VANCOMYCIN IV ADD-VANTAGE 1,000 MG in SODIUM CHLORIDE (ADD-VANTAGE) 250 ML IV NR (22:45)
[2016-04-21] MEDS ORDERED: SODIUM CHLORIDE (ADD-VANTAGE) 250 ML ONE (22:50)
[2016-04-21] MEDS ORDERED: VANCOMYCIN 1 GM ADD-VANTAGE VIAL IV ONE (22:50)
[2016-04-22] VITALS (9 sets, daily range): BP systolic 99–126; BP diastolic 52–80
[2016-04-22] MEDS: NS IV 1000 ML 1,000 ML IV SCH ×3 (00:34→18:39)
[2016-04-22] MEDS: RT-ALBUTEROL/IPRATROPIUM 3 ML (DUONEB) VIAL INH SCH ×6 (02:52→22:29)
[2016-04-22 05:35] LABS: MEAN PLATELET VOLUME 10.7 FL (7.4-10.4); RED BLOOD COUNT 2.13 10^6/uL (4.35-5.85); RED CELL DISTRIBUTION WIDTH 16.4 % (10.0-14.5); WHITE BLOOD COUNT 13.5 10^3/uL (4.3-11.0)
[2016-04-22 05:47] LABS: ALBUMIN 2.6 G/DL (3.2-4.5); BILIRUBIN,TOTAL 0.3 MG/DL (0.1-1.0); CALCIUM 7.5 MG/DL (8.5-10.1); CREATININE SERUM 1.04 MG/DL (0.60-1.30); POTASSIUM 4.8 MMOL/L (3.6-5.0); TOTAL PROTEIN 5.1 G/DL (6.4-8.2)
--- NOTE | 2016-04-22 06:02 | Pulmonary Progress Note ---
Subjective Subjective/Events-last exam No complications noted. Pt is s/p surgery Exam Exam Vital Signs Date Time Temp Pulse Resp B/P Pulse Ox O2 Delivery O2 Flow Rate FiO2 04/22/16 03:43 102 98 Nasal Cannula 4.00 04/22/16 03:40 102 98 Nasal Cannula 4.00 04/22/16 02:53 95 4.00 04/22/16 01:35 106 96 Nasal Cannula 4.00 04/22/16 00:00 97.3 112 18 100/58 93 Nasal Cannula 3.00 3.00 04/21/16 22:59 96 4.00 04/21/16 20:40 96 Nasal Cannula 4.00 04/21/16 19:51 96 4.00 04/21/16 19:39 98.7 103 18 116/67 99 Nasal Cannula 3.00 3.00 04/21/16 16:05 97.7 102 20 92/52 93 Nasal Cannula 3.00 3.00 04/21/16 14:56 92 3.00 04/21/16 10:03 95 3.00 04/21/16 08:30 97.3 81 22 135/73 97 Nasal Cannula 3.00 3.00 04/21/16 06:48 92 3.00 I & O 04/22/16 07:00 Intake Total 2090 ml Output Total 850 ml Balance 1240 ml General Appearance: No Apparent Distress WD/WN HEENT: Normal ENT Inspection Neck: Normal Inspection Respiratory: Decreased Breath Sounds (scattered wheezes and rhonchi bilaterally) Cardiovascular: Regular Rate, Rhythm No Edema No Gallop No JVD No Murmur Normal Peripheral Pulses Capillary Refill: Less Than 3 Seconds Extremity: Normal Capillary Refill Normal Inspection Other (deformity and tenderness to the left lateral hip) Neurologic/Psychiatric: Alert Oriented x3 No Motor/Sensory Deficits Normal Mood/Affect Skin: Normal Color Warm/Dry Lymphatic: No Adenopathy Results Lab Laboratory Tests 04/20/16 19:15 04/21/16 09:22 04/22/16 04:55 Assessment/Plan Assessment/Plan ILD with hypoxia -SVNs, oxygen Acute left hip fracture s/p fall s/p repair hx of post polio syndrome Clinical Quality Measures DVT/VTE Risk/Contraindication: Risk Factor Score Per Nursin RFS Level Per Nursing on Admit: 4+=Very High BRENDON LEACH DO Apr 22, 2016 06:02
[2016-04-22] MEDS: ENOXAPARIN 30 MG/0.3 ML (LOVENOX) SYR SC SCH ×2 (08:57→20:15)
[2016-04-22] MEDS: SENNOSIDES 8.6 MG (SENOKOT) TAB PO SCH ×2 (08:58→20:15)
[2016-04-22] MEDS: DOCUSATE SODIUM 100 MG (COLACE) CAP PO SCH ×2 (08:58→20:15)
--- NOTE | 2016-04-22 09:38 | Physical Therapy Evaluation ---
PT Evaluation-General Medical Diagnosis Admission Date Apr 20, 2016 at 20:00 Medical Diagnosis: left hip fracture Onset Date: Apr 20, 2016 Therapy Diagnosis Therapy Diagnosis: generalized weakness and debility Height/Weight Height (Feet): 5 Height (Inches): 10.00 Weight (Pounds): 171 Weight (Ounces): 0.0 Precautions Precautions/Isolations: Fall Prevention, Standard Precautions Weight Bear Status Weight Bearing Restriction: Weight Bearing/Tolerated Location Restriction: L LE Referral Physician: Norman Reason for Referral: Evaluation/Treatment Medical History Pertinent Medical History: Arthritis, CVA, GERD, Heart Failure, HTN, Hypothroidism, Post Polio Syndrome Additional Medical History multiple hospital admits secondary to pneumonia Current History s/p fall at home getting out of the shower and slipping on floor Reviewed History: Yes Social History Home: Single Level Current Living Status: Alone Prior/Core FIM Prior Level of Function Functional Mobile Measure 0=Not Assessed/NA 4=Minimal Assistance 1=Total Assistance 5=Supervision or Setup 2=Maximal Assistance 6=Modified Mobile 3=Moderate Assistance 7=Complete Mobile Bed Mobility: 6 Transfers (B,C,W/C) (FIM): 6 Gait: 6 Locomotion: 6 uses FWW at home PLOF PT Evaluation-Current Subjective Patient states, "I want to get up." Pain Numeric Pain Scale: 5-Moderate Pain Location: Left Location Body Site: Hip Pain Description: Acute Pt/Family Goals return to home Objective Patient Orientation: Normal For Age Problem Solving: Good Attachments: Oxygen, Sheldon Catheter, IV Patient Hgb is critically low and patient to receive 2-3 unites PRBC ROM/Strength ROM Lower Extremities bilateral LE WFL Strenght Lower Extremities right LE knee flexion/extension 3/5; ankle dorsi/plantarflexion3-/5 left LE knee flexion/extension 3-/5; ankle dorsi/plantarflexion 3-/5 Integumentary/Posture Integumentary refer to nursing notes Bowel Incontinence: No Bladder Incontinence: Sheldon Cath Posture WNL Neuromuscular (Tone, Coordination, Reflexes) diminished coordination due to Post Polio Syndrome (right side) Sensory Vision: Wears Glasses Hearing: Functional Sensation Right Lower Extremit: Impaired Sensation Left Lower Extremity: Impaired Transfers Functional Mobile Measure 0=Not Assessed/NA 4=Minimal Assistance 1=Total Assistance 5=Supervision or Setup 2=Maximal Assistance 6=Modified Mobile 3=Moderate Assistance 7=Complete Mobile Transfers (B, C, W/C) (FIM): 2 Scootin Rollin Supine to/from Sit: 2 Sit to/from Stand: 3 patient became lightheaded in stand due to decreased Hgb Gait Mode of Locomotion: Walk Anticipated Mode of Locomotion: Walk Gait (FIM): 1 Distance (FIM): 1=up to 49 ft Distance: 5' Gait Level of Assist: 3 Gait Persons Needed: 1 Gait Assistive Device: FWW Comments/Gait Description side stepping toward HOB Balance Sitting Static: Normal Sitting Dynamic: Normal Standing Static: Fair Standing Dynamic: Fair Assessment/Needs 81 y.o. female, will benefit from skilled PT to address functional strength and mobility to improve current LOF and to safely return to home or care facility at maximum LOF. Rehab Potential: Fair Post Rehab Potential-Barriers: post polio syndrome PT Senior Living Goals Senior Living Goals PT Senior Living Goals Time Frame: May 06, 2016 Transfers (B,C,W/C) (FIM): 6 Gait (FIM): 6 Gait distance (FIM): 3=150 ft Gait Level of Assist: 6 Gait Assistive Device: FWW PT Plan Problem List Problem List: Activity Tolerance, Functional Strength Treatment/Plan Treatment Plan: Continue Plan of Care Treatment Plan: Bed Mobility, Education, Functional Activity Percy, Functional Strength, Gait, Safety, Therapeutic Exercise, Transfers Treatment Duration: May 06, 2016 # of days/week 6 Visits Per Week: 10-11 Pt/Family Agrees w/Plan: Yes Safety Risks/Education Patient Education: Safety Issues Teaching Recipient: Patient Teaching Methods: Discussion Response to Teaching: Verbalize Understanding Discharge Recommendations Therapy D/C Recommendations: Acute Rehab Time/GCodes Time In: 830 Time Out: 905 Total Billed Treatment Time: 35 Total Billed Treatment 1 visit EVHigh 35 min RENAN LARA PT Apr 22, 2016 09:37
[2016-04-22] MEDS: oxyCODONE/APAP 5/325MG (PERCOCET 5) TABLET PO PRN ×2 (10:01→17:35)
[2016-04-22] MEDS: morphine INJ 4 MG/ML 1 ML (VIAL/SYRINGE) IV PRN (12:18)
--- NOTE | 2016-04-22 12:42 | Anesthesia-General Post-Op ---
General Patient Condition Mental Status/LOC: Same as Preop Cardiovascular: Satisfactory Nausea/Vomiting: Absent Respiratory: Satisfactory Pain: Controlled Complications: Absent Post Op Complications Complications None Follow Up Care/Instructions Patient Instructions None needed. Anesthesia/Patient Condition Patient Condition Patient is doing well, no complaints, stable vital signs, no apparent adverse anesthesia problems. No complications reported per nursing. CIARA KLINE CRNA Apr 22, 2016 12:41
--- NOTE | 2016-04-22 14:35 | Physical Therapy Daily Note ---
PT Daily Note-Current Subjective Patient is very agreeable to participate with PT. Pain Numeric Pain Scale: 5-Moderate Pain Location: Left Location Body Site: Hip Pain Description: Acute Mental Status Patient Orientation: Normal For Age Attachments: Oxygen, Sheldon Catheter, IV Transfers Functional [place] Measure 0=Not Assessed/NA 4=Minimal Assistance 1=Total Assistance 5=Supervision or Setup 2=Maximal Assistance 6=Modified [place] 3=Moderate Assistance 7=Complete IndependenceIRFPAI Quality Coding Scale 6 Independent with activity with or without an assistive device 5 Patient requires set up or clean up by helper. Patient completes activity by themselves 4 Supervision or touching assist (CGA). [place] provide cues , steadying assist 3 The helper provides less than half the effort to complete the activity 2 The helper provides more than half the effort to complete the activity 1 Dependent. The helper does all the effort to complete an activity 7 Patient refused to complete or attempt activity 9 The patient did not perform the activity before the current illness or injury 88 Not attempted due to Medical conditions or safety concerns Transfers (B, C, W/C) (FIM): 4 Scootin Supine to/from Sit: 4 Sit to/from Stand: 4 Bed to/from Chair: 4 Patient was able to perform sit to stand transfers x 4 sets with FWW and minimal assist Weight Bearing Weight Bearing Restriction: Weight Bearing/Tolerated Location Restriction: L LE Gait Training Gait (FIM): 1 Distance (FIM): 1=up to 49 ft Distance: 5' x 2 Gait Level of Assist: 4 Gait Persons Needed: 1 Gait Assistive Device: FWW slow, antalgic Assessment Patient is up in recliner with needs met. Patient is adamant to return to home with family and home health intervention. PT Residential Goals Plant Puller Goals PT Plant Puller Goals Time Frame: May 06, 2016 Transfers (B,C,W/C) (FIM): 6 Gait (FIM): 6 Gait distance (FIM): 3=150 ft Gait Level of Assist: 6 Gait Assistive Device: FWW PT Plan Treatment/Plan Treatment Plan: Continue Plan of Care Treatment Plan: Bed Mobility, Education, Functional Activity Percy, Functional Strength, Gait, Safety, Therapeutic Exercise, Transfers Treatment Duration: May 06, 2016 Visits Per Week: 10-11 Discharge Recommendations Therapy D/C Recommendations: Home w/ Family Support, Physical Therapy Home Care Time/GCodes Time In: 1300 Time Out: 1355 Total Billed Treatment Time: 25 Total Billed Treatment 1 visit FA x 2 25 min RENAN LARA PT Apr 22, 2016 14:34
--- NOTE | 2016-04-22 15:30 | Occupational Therapy Eval ---
OT Evaluation-General/PLF Medical Diagnosis Admission Date Apr 20, 2016 at 20:00 Medical Diagnosis: left hip fracture Onset Date: Apr 20, 2016 Therapy Diagnosis Therapy Diagnosis: weakness, decreased self care, decr functional mobility Height/Weight Height (Feet): 5 Height (Inches): 10.00 Weight (Pounds): 171 Weight (Ounces): 0.0 Precautions Precautions/Isolations: Fall Prevention, Standard Precautions Safety Interventions: None Weight Bear Status Weight Bearing Restriction: Weight Bearing/Tolerated Location Restriction: L LE Referral Physician: Norman Referral Reason: Evaluation/Treatment Medical History Pertinent Medical History: Arthritis, CVA, GERD, Heart Failure, HTN, Hypothroidism, Post Polio Syndrome, Renal Insufficiency Additional Medical History Hx multiple hospitalizations with pneumonia. Asthma, chronic bronchitis, sleep apnea, post polio syndrome, with R UE and LE weakness, colon CA 1999, low back pain, thyroidectomy for goiter, hypothyroidism, cataract surgery, anxiety, anemia[ Current History Fell in the kitchen, daughter was home with her. L nondisplaced intertrochanteric hip fx, with repair Reviewed History: Yes Social History Home: Single Level Current Living Status: Alone ADL-Prior Level of Function ADL PLOF Comments Pt reported that she has been able to manage all of her basic ADLs and IADLs. She worked for a [employer] but is retired. She gave up driving about 2 weeks ago. 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 No pain reported except discomfort in hip L. Appearance Alert, cooperative Mental Status/Objective Attachments: Sheldon Catheter, IV, Telemetry Current Glasses/Contacts: Yes Dentures/Partials: Yes Upper Extremity ROM L UE limited at shoulder. Needs assistance to get to 90 degrees shoulder flex and then can reach higher or maintain position but can't lift arm to 90 degrees without help. Rest of UE ROM with grossly WFL. Very little active movement R shoulder and elbow but good ROM forearm and hand. Post polio syndrome Upper Extremity Strength L shoulder 2+/5 Rest UE 4/5. R Little functional use R shoulder and elbow but 4 /5 strength forearm and hand. Pt helps place her hands for functional activities. ADL-Treatment ADL-Current Did not test ADLs today. PT reported min assist transfers Functional [place] Measure 0=Not Assessed/NA 4=Minimal Assistance 1=Total Assistance 5=Supervision or Setup 2=Maximal Assistance 6=Modified [place] 3=Moderate Assistance 7=Complete IndependenceIRFPAI Quality Coding Scale 6 Independent with activity with or without an assistive device 5 Patient requires set up or clean up by helper. Patient completes activity by themselves 4 Supervision or touching assist (CGA). [place] provide cues , steadying assist 3 The helper provides less than half the effort to complete the activity 2 The helper provides more than half the effort to complete the activity 1 Dependent. The helper does all the effort to complete an activity 7 Patient refused to complete or attempt activity 9 The patient did not perform the activity before the current illness or injury 88 Not attempted due to Medical conditions or safety concerns Other Treatments Pt does recall being on IRF and working with this therapist Education OT Patient Education: Purpose of tx/functional activities, Rehab process Teaching Recipient: Patient Teaching Methods: Discussion Response to Teaching: Verbalize Understanding OT Short Term Goals Short Term Goals Time Frame: Apr 29, 2016 Lower Body Dressing(FIM): 5 Toileting(FIM): 5 Toilet/Commode Transfer(FIM): 8 Additional Short Term Goals: 2-Verbalize Understanding, 3-ImproveStrength/Percy 1=Demonstrate adherence to instructed precautions during ADL tasks. 2=Patient will verbalize/demonstrate understanding of assistive devices/ modifications for ADL. 3=Patient will improve strength/tolerance for activity to enable patient to perform ADL's. OT Alf Goals Alf Goals Time Frame: May 06, 2016 Eating (FIM): 6 Grooming(FIM): 6 Bathing(FIM): 6 Upper Body Dressing(FIM): 6 Lower Body Dressing(FIM): 6 Toileting(FIM): 6 Toilet/Commode Transfer(FIM): 6 Shower Transfer(FIM): 6 Additional Goals: 2-Verbalize Understanding, 3-ImproveStrength/Percy 1=Demonstrate adherence to instructed precautions during ADL tasks. 2=Patient will verbalize/demonstrate understanding of assistive devices/ modifications for ADL. 3=Patient will improve strength/tolerance for activity to enable patient to perform ADL's. OT Education/Plan Problem List/Assessment Assessment: Decreased Activ Tolerance, Decreased UE Strength, Dependent Transfers, Impaired Bed Mobility, Impaired Coordination, Impaired Funct Balance , Impaired Self-Care Skills, Restricted Funct UE ROM Pt would benefit from skilled OT to increase her independence in basic self care to allow her to return to her home safely after a fall and hip fx. Self care complicated by post polio syndrome and other comorbidities, including fibromyalgia, arthritis, chronic back pain, anxiety, Discharge Recommendations Plan/Recommendations: Continue POC Treatment Plan/Plan of Care Treatment,Training & Education: Yes Patient would benefit from OT for education, treatment and training to promote independence in ADL's, mobility, safety and/or upper extremity function for ADL' s. Plan of Care: ADL Retraining, Functional Mobility, Orthotic Fitting/Training, UE Funct Exercise/Act, UE Neuromus Re-Ed/Coord Treatment Duration: May 06, 2016 # of days/week 5-6 Visits Per Week: 5-6 Agreement: Yes Rehab Potential: Fair Time/GCodes Start Time: 10:25 Stop Time: 10:45 Total Time Billed (hr/min): 20 Billed Treatment Time visitnigel moderate complexity RADHIKA CURTIS OT Apr 22, 2016 15:30
--- NOTE | 2016-04-22 15:44 | History & Physical-Hospitalist ---
HPI History of Present Illness: HPI/Chief Complaint THE PATIENT IS AN 81-YEAR-OLD WHITE FEMALE KNOWN TO ME. sHE HAS HAD MULTIPLE ADMISSIONS OVER THE PAST YEAR INVOLVING infections either urinary tract or pneumonia. She reports that she was coming out of the shower last evening and had just put her hair in curlers. She does not believe that her floor or feet were wet however the floor was not carpeted and she slipped and fell heavily fracturing her left hip. She reports that she is continued to have her usual pulmonary issues including sputum production. There has been no fever and she would rate this at her baseline level. Date Seen 04/22/16 Attending Physician Rudolph Austin DO PCP Cheng Abraham DO Referring Physician Date of Admission Apr 20, 2016 at 20:00 Home Medications & Allergies Home Medications Reviewed patient Home Medication Reconciliation Form Allergies Coded Allergies: cephalexin (Verified Allergy, Severe, TONGUE SWELLS, SOB (PT HAS HAD ROCEPHIN W/O ISSUE), 03/13/16) PER DR. MAYFIELD, PATIENT HAS RECEIVED ROCEPHIN IN THE PAST WITHOUT INCIDENT Penicillins (Verified Allergy, Mild, 03/13/16) celecoxib (Verified Allergy, Mild, PATIEN CAN TAKE MOBIC, 03/13/16) clindamycin (Verified Allergy, Mild, 03/13/16) propoxyphene (Verified Allergy, Mild, 03/13/16) rofecoxib (Verified Allergy, Mild, 03/13/16) Sulfa (Sulfonamide Antibiotics) (Verified Allergy, Unknown, 03/13/16) Tetanus Vaccines and Toxoid (Verified Allergy, Unknown, 03/13/16) doxycycline (Verified Allergy, Unknown, 03/13/16) levofloxacin (Verified Allergy, Unknown, 03/13/16) meloxicam (Verified Allergy, Unknown, 03/13/16) nitrofurantoin (Verified Allergy, Unknown, RASH, 03/13/16) Past Uyydyug-Kqndep-Yehwir Hx Patient Social History Alcohol Use: Denies Use Recreational Drug Use: No Smoking Status: Former Smoker Former smoker/When Quit: Feb 27, 1965 Type Used: Cigarettes Physical Abuse Screen: No Sexual Abuse: No Recent Foreign Travel: No Contact w/other who traveled: No Recent Hopitalizations: Yes Recent Infectious Disease Expo: No Immunizations Up To Date Tetanus Booster (TDap): Unknown Date of Pneumonia Vaccine: Nov 30, 2013 Date of Influenza Vaccine: Dec 22, 2015 Seasonal Allergies Seasonal Allergies: No Surgeries HX Surgeries: Yes Surgeries: Abdominal, Section, Eye Surgery, Hysterectomy, Orthopedic, Thyroidectomy Respiratory Hx Respiratory Disorders: Yes Cardiovascular Hx Cardiovascular Disorders: Yes (CHRONIC CHEST PAIN, PER PT) Cardiac Disorders: Chronic Edema/Swelling, High Cholesterol, Hypertension Neurological Hx Neurological Disorders: Yes (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) Neurological Disorders: TIA Reproductive System Hx Reproductive Disorders: No Sexually Transmitted Disease: No HIV/AIDS: No Female Reproductive Disorders: Denies Genitourinary Hx Genitourinary Disorders: Yes (MILD RENAL INSUFFICIENCY) Genitourinary Disorders: Bladder Infection Gastrointestinal Hx Gastrointestinal Disorders: Yes (HX COLON CANCER) Gastrointestinal Disorders: Gastroesophageal Reflux, Hemorrhoids Musculoskeletal Hx Musculoskeletal Disorders: Yes Musculoskeletal Disorders: Degenerate Disk Disease, Arthritis, Fibromyalgia, Chronic Back Pain Endocrine Hx Endocrine Disorders: Yes (HX THYROIDECTOMY FOR GOITER;STEROID INDUCED HYPERGLYCEMIA) Endocrine Disorders: Hypothyroidsim HEENT HX ENT Disorders: Yes (CHRONIC RECURRENT RIGHT SUBMANDIBULAR GLAND SWELLING) HEENT Disorders: Cataract Loss of Vision: Denies Hearing Impairment: Denies Cancer Hx Cancer: Yes (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, NO CHEMO OR RADIATION) Cancer: Colon, Thyroid Psychosocial Hx Psychiatric Problems: Yes Behavioral Health Disorders: Anxiety Integumentary HX Skin/Integumentary Disorder: No Skin/Integumentary Disorders: Recent Skin Changes Blood Transfusions Hx Blood Disorders: Yes (ANEMIA) Adverse Reaction to a Blood Tr: No Family Medical History Significant Family History: No Pertinent Family Hx Family Hx: Colon cancer 09 SISTER Congestive heart failure 03 MOTHER Deafness or hearing loss 03 FATHER 03 MOTHER 09 BROTHER Family history: Arthritis 03 FATHER 03 MOTHER History of - respiratory disease 09 BROTHER (kurtis-smoker) Hypertension 03 MOTHER Myocardial infarction 03 FATHER Myocardial infarction 03 FATHER Neoplasm 09 SISTER Respiratory disorder Severe allergy No Family History of: AIDS Abdominal aortic aneurysm [place]'s disease Alcoholism Alzheimer's disease Aphasia Arthritis Asthma Cancer of mouth Cardiovascular disease Cataracts Completed stroke Congenital disease Congenital heart disease Coronary thrombosis Cystic fibrosis Dementia Diabetes mellitus Drug abuse Dysphasia Fibrocystic disease of breast Gastroenteritis Glaucoma Headache disorder Hypercholesterolemia Infertility Kidney disease Not obtainable due to adoption Osteoporosis Parkinson's disease Prostate cancer Psychosocial problem Seizure disorder Thyroid disease Tuberculosis Visual disorder Physical Exam Physical Exam Vital Signs Vital Sign - Last 12Hours 04/20/16 04/20/16 18:58 22:00 Temp 98.4 Pulse 92 Resp 20 B/P 142/75 Pulse Ox 92 O2 Delivery Room Air O2 Flow Rate 3.00 Capillary Refill : Less Than 3 SecondsLess Than 3 Seconds Results Results/Procedures Lab Laboratory Tests 04/20/16 19:15 04/21/16 09:22 04/22/16 04:55 Assessment/Plan Admission Diagnosis 1.acute nondisplaced intertrochanteric fracture left hip. 2.COPD with recurrent pneumonias. 3.past history of pseudomonas UTI. 4.chronic anemia Assessment and Plan Plan: Operative hip repair. The patient represents an intermediate risk. The good news is that we are not entering a body cavity. Aggressive pulmonary toilet will be required. She was placed on meropenem based on previous culture for Pseudomonas. Present culture is negative for this will be discontinued. Finally hemoglobin should be monitored and she may well require transfusion postoperatively. Clinical Quality Measures DVT/VTE Risk/Contraindication: Risk Factor Score Per Nursin RFS Level Per Nursing on Admit: 4+=Very High BREANNA ROBLES MD Apr 22, 2016 15:44
--- NOTE | 2016-04-22 15:55 | Progress Note-Hospitalist ---
Standard Progress Note Progress Notes/Assess & Plan Date Seen 04/22/16 Diagnosis 1.acute nondisplaced intertrochanteric fracture left hip. 2.COPD with recurrent pneumonias. 3.past history of pseudomonas UTI. 4.chronic anemia Assess & Plan/Chief Complaint The patient reports that she was able to stand today albeit with pain and walked about 15 feet. It was discussed with her about going to rehabilitation tomorrow and she retorted that she wanted to that she thought she would just go home. She has no complaints about cough or shortness of breath at this time and states her pain relief has been satisfactory Physical exam: She is lying in bed without any apparent distress. She is in a pleasant mood. Lungs show distant breath sounds but no wheezing or rhonchi. CV is regular. Impression: Day 1 postop operative repair left hip Plan: Physical therapy Labs Laboratory Tests 04/20/16 19:15 04/21/16 09:22 04/22/16 04:55 BREANNA ROBLES MD Apr 22, 2016 15:55
--- NOTE | 2016-04-22 16:57 | Progress Note (SOAP) ---
Subjective Subjective/Events-last exam Madeleine is POD #1 s/p left hip TFN. She has mild pain this AM. Nurse reports she has been confused this morning after pain med administration. Review of Systems General: No Chills, No Night Sweats Pulmonary: No Dyspnea Cardiovascular: No: Chest Pain, Palpitations Gastrointestinal: No: Nausea, Vomiting Musculoskeletal: : leg pain Neurological: No: Change in speech, Weakness Objective Exam Vital Signs Date Time Temp Pulse Resp B/P Pulse Ox O2 Delivery O2 Flow Rate FiO2 04/22/16 16:08 98.8 97 20 102/52 99 Nasal Cannula 4.00 04/22/16 14:59 95 4.00 04/22/16 12:00 98.0 74 20 126/79 92 Nasal Cannula 4.00 04/22/16 11:20 93 4.00 04/22/16 09:54 99.2 88 20 116/66 04/22/16 09:50 99.0 90 20 100/80 98 4.00 04/22/16 09:28 99.2 101 20 99/57 97 04/22/16 08:00 99.1 97 20 120/67 99 Nasal Cannula 4.00 04/22/16 07:13 94 4.00 04/22/16 04:00 99.2 99 18 106/62 94 Nasal Cannula 4.00 04/22/16 03:43 102 98 Nasal Cannula 4.00 04/22/16 03:40 102 98 Nasal Cannula 4.00 04/22/16 02:53 95 4.00 04/22/16 01:35 106 96 Nasal Cannula 4.00 04/22/16 00:00 97.3 112 18 100/58 93 Nasal Cannula 3.00 3.00 04/21/16 22:59 96 4.00 04/21/16 20:40 96 Nasal Cannula 4.00 04/21/16 19:51 96 4.00 04/21/16 19:39 98.7 103 18 116/67 99 Nasal Cannula 3.00 3.00 I & O 04/22/16 07:00 Intake Total 2290 ml Output Total 1150 ml Balance 1140 ml Capillary Refill : Less Than 3 SecondsLess Than 3 Seconds General Appearance: No Apparent Distress WD/WN Respiratory: No Accessory Muscle Use No Respiratory Distress Cardiovascular: Normal Peripheral Pulses Peripheral Pulses: 2+ Dorsalis Pedis (R), 2+ Left Dors-Pedis (L) Gastrointestinal: soft Extremity: Normal Capillary Refill Normal Inspection Other (bandage in place to left hip, clean and dry) Neurologic/Psychiatric: Alert No Motor/Sensory Deficits Results Lab Laboratory Tests 04/22/16 04:55: Alanine Aminotransferase (ALT/SGPT) 9, Albumin 2.6L, Alkaline Phosphatase 71, Anion Gap 6, Aspartate Amino Transf (AST/SGOT) 23, BUN/Creatinine Ratio 12, Blood Urea Nitrogen 12, Calcium Level 7.5L, Carbon Dioxide Level 24, Chloride Level 109H, Creatinine 1.04, Estimat Glomerular Filtration Rate 51, Glucose Level 99, Hematocrit 21L, Hemoglobin 6.4#*L, Mean Corpuscular Hemoglobin 30, Mean Corpuscular Hemoglobin Concent 31L, Mean Corpuscular Volume 97, Mean Platelet Volume 10.7H, Platelet Count 336, Potassium Level 4.8, Red Blood Count 2.13L, Red Cell Distribution Width 16.4H, Sodium Level 139, Total Bilirubin 0.3 , Total Protein 5.1L, White Blood Count 13.5H Microbiology 04/20/16 Urine Culture - Final, Complete NO GROWTH Assessment/Plan Assessment/Plan Assess & Plan/Chief Complaint POD #1 s/p left hip TFN for inter troch fracture chronic anemia Plan: 1 unit prbc already ordered by Dr Roberts monitor labs pain control DVT prophylaxis, SCS, lovenox 30 BID Diagnosis/Problems: Clinical Quality Measures DVT/VTE Risk/Contraindication: Risk Factor Score Per Nursin RFS Level Per Nursing on Admit: 4+=Very High SOUTH ABERNATHY Apr 22, 2016 16:57
[2016-04-22] MEDS: AMITRIPTYLINE 150 MG (ELAVIL) TABLET PO SCH (20:15)
[2016-04-23] VITALS: BP 133/79
[2016-04-23] MEDS: RT-ALBUTEROL/IPRATROPIUM 3 ML (DUONEB) VIAL INH SCH ×2 (02:08→07:14)
[2016-04-23] MEDS: oxyCODONE/APAP 5/325MG (PERCOCET 5) TABLET PO PRN ×2 (02:30→08:56)
[2016-04-23 05:22] LABS: MEAN PLATELET VOLUME 10.3 FL (7.4-10.4); RED BLOOD COUNT 2.3 10^6/uL (4.35-5.85); RED CELL DISTRIBUTION WIDTH 16.3 % (10.0-14.5); WHITE BLOOD COUNT 11.9 10^3/uL (4.3-11.0)
[2016-04-23 05:39] LABS: ALBUMIN 2.6 G/DL (3.2-4.5); BILIRUBIN,TOTAL 0.3 MG/DL (0.1-1.0); CALCIUM 7.7 MG/DL (8.5-10.1); CREATININE SERUM 0.97 MG/DL (0.60-1.30); POTASSIUM 4.4 MMOL/L (3.6-5.0); TOTAL PROTEIN 5.2 G/DL (6.4-8.2)
--- NOTE | 2016-04-23 06:06 | Progress Note (SOAP) ---
Subjective Subjective/Events-last exam LORI. Doing well. Pain is controlled. She has been OOB. She voiced no complaints this AM. Objective Exam Vital Signs Date Time Temp Pulse Resp B/P Pulse Ox O2 Delivery O2 Flow Rate FiO2 04/23/16 02:08 98 3.00 04/23/16 00:00 96.4 95 18 133/79 97 Nasal Cannula 4.00 04/22/16 22:29 91 3.00 04/22/16 20:25 97 Nasal Cannula 2.50 04/22/16 20:00 98.8 97 16 113/62 96 Nasal Cannula 4.00 04/22/16 18:55 99 4.00 04/22/16 16:08 98.8 97 20 102/52 99 Nasal Cannula 4.00 04/22/16 14:59 95 4.00 04/22/16 12:00 98.0 74 20 126/79 92 Nasal Cannula 4.00 04/22/16 11:20 93 4.00 04/22/16 09:54 99.2 88 20 116/66 04/22/16 09:50 99.0 90 20 100/80 98 4.00 04/22/16 09:28 99.2 101 20 99/57 97 04/22/16 08:00 Nasal Cannula 4.00 04/22/16 08:00 99.1 97 20 120/67 99 Nasal Cannula 4.00 04/22/16 07:13 94 4.00 I & O 04/23/16 07:00 Intake Total 2075 ml Output Total 650 ml Balance 1425 ml Capillary Refill : Less Than 3 SecondsLess Than 3 Seconds General Appearance: No Apparent Distress Extremity: Other (5/5 motor karol LE, NVSI, SILT all dermatomes, incision clean dry intact) Results Lab Laboratory Tests 04/23/16 05:15: Alanine Aminotransferase (ALT/SGPT) 11, Albumin 2.6L, Alkaline Phosphatase 69, Anion Gap 7, Aspartate Amino Transf (AST/SGOT) 23, BUN/Creatinine Ratio 12, Blood Urea Nitrogen 12, Calcium Level 7.7L, Carbon Dioxide Level 24, Chloride Level 107, Creatinine 0.97, Estimat Glomerular Filtration Rate 55, Glucose Level 99, Hematocrit 22L, Hemoglobin 7.0L, Mean Corpuscular Hemoglobin 30, Mean Corpuscular Hemoglobin Concent 32, Mean Corpuscular Volume 94, Mean Platelet Volume 10.3, Platelet Count 276, Potassium Level 4.4, Red Blood Count 2.30L, Red Cell Distribution Width 16.3H, Sodium Level 138, Total Bilirubin 0.3, Total Protein 5.2L, White Blood Count 11.9H Microbiology 04/20/16 Urine Culture - Final, Complete NO GROWTH Assessment/Plan Assessment/Plan Assess & Plan/Chief Complaint ASSESSMENT: Nondisplaced L intertrochanteric hip fracture PLAN: OOB with assist WBAT LLE DVT prophylaxis july d/c to SNF when ok with medicine f/u in [address] castanon Diagnosis/Problems: Clinical Quality Measures DVT/VTE Risk/Contraindication: Risk Factor Score Per Nursin RFS Level Per Nursing on Admit: 4+=Very High CLINTON CASTANON DO Apr 23, 2016 06:06
--- NOTE | 2016-04-23 06:58 | Pulmonary Progress Note ---
Subjective Subjective/Events-last exam PT feels improved. No complications noted. Exam Exam Vital Signs Date Time Temp Pulse Resp B/P Pulse Ox O2 Delivery O2 Flow Rate FiO2 04/23/16 02:08 98 3.00 04/23/16 00:00 96.4 95 18 133/79 97 Nasal Cannula 4.00 04/22/16 22:29 91 3.00 04/22/16 20:25 97 Nasal Cannula 2.50 04/22/16 20:00 98.8 97 16 113/62 96 Nasal Cannula 4.00 04/22/16 18:55 99 4.00 04/22/16 16:08 98.8 97 20 102/52 99 Nasal Cannula 4.00 04/22/16 14:59 95 4.00 04/22/16 12:00 98.0 74 20 126/79 92 Nasal Cannula 4.00 04/22/16 11:20 93 4.00 04/22/16 09:54 99.2 88 20 116/66 04/22/16 09:50 99.0 90 20 100/80 98 4.00 04/22/16 09:28 99.2 101 20 99/57 97 04/22/16 08:00 Nasal Cannula 4.00 04/22/16 08:00 99.1 97 20 120/67 99 Nasal Cannula 4.00 04/22/16 07:13 94 4.00 I & O 04/23/16 07:00 Intake Total 2525 ml Output Total 1650 ml Balance 875 ml General Appearance: No Apparent Distress HEENT: Normal ENT Inspection Neck: Normal Inspection Respiratory: No Accessory Muscle Use No Respiratory Distress Cardiovascular: Normal Peripheral Pulses Capillary Refill: Less Than 3 Seconds Peripheral Pulses: 2+ Dorsalis Pedis (R), 2+ Left Dors-Pedis (L) Gastrointestinal: soft Extremity: Other (5/5 motor karol LE, NVSI, SILT all dermatomes, incision clean dry intact) Neurologic/Psychiatric: Alert No Motor/Sensory Deficits Skin: Normal Color Warm/Dry Lymphatic: No Adenopathy Results Lab Laboratory Tests 04/21/16 09:22 04/22/16 04:55 04/23/16 05:15 Assessment/Plan Assessment/Plan ILD with hypoxia -SVNs, oxygen Acute left hip fracture s/p fall s/p repair hx of post polio syndrome Clinical Quality Measures DVT/VTE Risk/Contraindication: Risk Factor Score Per Nursin RFS Level Per Nursing on Admit: 4+=Very High BRENDON LEACH DO Apr 23, 2016 06:58
[2016-04-23 08:00] VITALS: BP 134/80
[2016-04-23] MEDS: SENNOSIDES 8.6 MG (SENOKOT) TAB PO SCH (08:56)
[2016-04-23] MEDS: DOCUSATE SODIUM 100 MG (COLACE) CAP PO SCH (08:56)
[2016-04-23] MEDS: ENOXAPARIN 30 MG/0.3 ML (LOVENOX) SYR SC SCH (09:05)
[2016-04-23] MEDS ORDERED: OXYC-471 PO (09:53)
[2016-04-23] MEDS ORDERED: ENOX30DI4 SC (09:53)
[2016-04-23] MEDS ORDERED: LACT20SO2 PO (09:53)
[2016-04-23] MEDS ORDERED: IRON100V2 IV (09:55)
--- NOTE | 2016-04-23 10:35 | Discharge Summary-Hospitalist ---
Diagnosis/Chief Complaint Date of Admission Apr 20, 2016 at 20:00 Date of Discharge Discharge Date: Apr 23, 2016 Admission Diagnosis 1.acute nondisplaced intertrochanteric fracture left hip. 2.COPD with recurrent pneumonias. 3.past history of pseudomonas UTI. 4.chronic anemia Discharge Diagnosis Acute nondisplaced intertrochanteric fracture left hip s/p repair POD # 2 Severe COPD with recurrent pneumonias and h/o lower lobe pneumonia/sputum positive for MRSA 03/07 h/o urinary tract infection with pseudomonas . h/o acute on chronic renal failure Leukocytosis h/o Hyperkalemia Pulmonary congestion on Lasix Poor vascular access s/p port placement last admit Constipation chronic issue Severe anemia due to kidney disease and co-morbidities and acute blood loss in need of empiric iron infusions Reason Hospital Visit/Course THE PATIENT IS AN 81-YEAR-OLD WHITE FEMALE KNOWN TO ME. sHE HAS HAD MULTIPLE ADMISSIONS OVER THE PAST YEAR INVOLVING infections either urinary tract or pneumonia. She reports that she was coming out of the shower last evening and had just put her hair in curlers. She does not believe that her floor or feet were wet however the floor was not carpeted and she slipped and fell heavily fracturing her left hip. She reports that she is continued to have her usual pulmonary issues including sputum production. There has been no fever and she would rate this at her baseline level. Notes from 04/23/2016: Chart Review: WBC 11.9 Hgb 7 Will check iron and empirically give iron infusions K+ 4.4 Creat 0.97 Patient Interview: Pt states that she feels ready to move to in-patient rehab. Pt states that she is breathing well. Pt states that she was still on home health when she fell. Pt has not had a BM, but has flatus. Pt would like bowel meds. Physical exam was stable. Pt states that she has been coughing with no mucus. Pt states that she continues to require pain meds. PCP is Dr. Abraham. AFVSS, pleasant, up in chair, chronically ill, improved Regular rate and rhythm, coarse breath sounds throughout all mcdaniels but much improved from last assessment March 03 No edema Laboratory Tests 04/23/16 05:15 Plan: Pt will move to rehab today Lactulose Check iron level Venofer infusions Scribed by Antony Morfin under the direct supervision of Dr. Pink. Hospital course: Patient had an uneventful hospital course following repair for hip fracture after a fall. She had been maintained on home health with [facility] care since admission since I last saw her discharge from the hospital. She denied any significant problems other than the fall and she overall did very well recuperating from the hip repair and had no critical care issues in no decompensation considering her end-stage comorbidities. She was needing bowel regimen and that will be continued in rehabilitation. Discharge Summary Discharge Physical Examination Allergies: Coded Allergies: cephalexin (Verified Allergy, Severe, TONGUE SWELLS, SOB (PT HAS HAD ROCEPHIN W/O ISSUE), 03/13/16) PER DR. MAYFIELD, PATIENT HAS RECEIVED ROCEPHIN IN THE PAST WITHOUT INCIDENT Penicillins (Verified Allergy, Mild, 03/13/16) celecoxib (Verified Allergy, Mild, PATIEN CAN TAKE MOBIC, 03/13/16) clindamycin (Verified Allergy, Mild, 03/13/16) propoxyphene (Verified Allergy, Mild, 03/13/16) rofecoxib (Verified Allergy, Mild, 03/13/16) Sulfa (Sulfonamide Antibiotics) (Verified Allergy, Unknown, 03/13/16) Tetanus Vaccines and Toxoid (Verified Allergy, Unknown, 03/13/16) doxycycline (Verified Allergy, Unknown, 03/13/16) levofloxacin (Verified Allergy, Unknown, 03/13/16) meloxicam (Verified Allergy, Unknown, 03/13/16) nitrofurantoin (Verified Allergy, Unknown, RASH, 03/13/16) Vitals & I&Os Vital Signs Date Time Temp Pulse Resp B/P Pulse Ox O2 Delivery O2 Flow Rate FiO2 04/23/16 08:00 98.0 96 18 134/80 95 Nasal Cannula 4.00 Hospital Course Labs (last 24 hrs) Laboratory Tests 04/23/16 05:15: Alanine Aminotransferase (ALT/SGPT) 11, Albumin 2.6L, Alkaline Phosphatase 69, Anion Gap 7, Aspartate Amino Transf (AST/SGOT) 23, BUN/Creatinine Ratio 12, Blood Urea Nitrogen 12, Calcium Level 7.7L, Carbon Dioxide Level 24, Chloride Level 107, Creatinine 0.97, Estimat Glomerular Filtration Rate 55, Glucose Level 99, Hematocrit 22L, Hemoglobin 7.0L, Mean Corpuscular Hemoglobin 30, Mean Corpuscular Hemoglobin Concent 32, Mean Corpuscular Volume 94, Mean Platelet Volume 10.3, Platelet Count 276, Potassium Level 4.4, Red Blood Count 2.30L, Red Cell Distribution Width 16.3H, Sodium Level 138, Total Bilirubin 0.3, Total Protein 5.2L, White Blood Count 11.9H Microbiology 04/20/16 Urine Culture - Final, Complete NO GROWTH Pending Labs Laboratory Tests 04/23/16 05:15: Alanine Aminotransferase (ALT/SGPT) 11, Albumin 2.6, Alkaline Phosphatase 69, Anion Gap 7, Aspartate Amino Transf (AST/SGOT) 23, BUN/Creatinine Ratio 12, Blood Urea Nitrogen 12, Calcium Level 7.7, Carbon Dioxide Level 24, Chloride Level 107, Creatinine 0.97, Estimat Glomerular Filtration Rate 55, Glucose Level 99, Hematocrit 22, Hemoglobin 7.0, Mean Corpuscular Hemoglobin 30, Mean Corpuscular Hemoglobin Concent 32, Mean Corpuscular Volume 94, Mean Platelet Volume 10.3, Platelet Count 276, Potassium Level 4.4, Red Blood Count 2.30, Red Cell Distribution Width 16.3, Sodium Level 138, Total Bilirubin 0.3, Total Protein 5.2, White Blood Count 11.9 Discharge Home Medications: Active Scripts Active Venofer (Iron Sucrose Complex) 200 Mg/10 Ml Vial 200 Mg IV Q48H Lactulose 20 Gm/30 Ml Solution 20 Gm PO BID 14 Days Oxycodone-Acetaminophen 5-325 (Oxycodone HCl/Acetaminophen) 1 Each Tablet 1-2 Tab PO Q4H PRN 14 Days Enoxaparin Sodium 30 Mg/0.3 Ml Syringe 30 Mg SC BID@08,20 14 Days Reported Iprat-Albut 0.5-3(2.5) mg/3 ml (Ipratropium/Albuterol Sulfate) 3 Ml Ampul.neb 3 Ml IH TID PRN Klor-Con Sprinkle (Potassium Chloride) 10 Meq Capsule.er 20 Meq PO BID TAKES 2 (10 MEQ) CAPSULES Vitamin B-12 (Cyanocobalamin (Vitamin B-12)) 1,000 Mcg Tablet 1,000 Mcg PO DAILY @1400 Miralax (Polyethylene Glycol 3350) 119 Gm Powder 17 Gm PO DAILY PRN Docusate Sodium 100 Mg Capsule 100 Mg PO HS Bisacodyl 5 Mg Tablet.dr 5 Mg PO DAILY PRN Atorvastatin Calcium 10 Mg Tablet 10 Mg PO DAILY Diltiazem 24Hr ER (Diltiazem HCl) 240 Mg Cap.er.24h 240 Mg PO DAILY@1400 Vitamin D3 (Cholecalciferol (Vitamin D3)) 5,000 Unit Capsule 5,000 Unit PO DAILY @1400 Milk of Magnesia (Magnesium Hydroxide) 400 Mg/5 Ml Oral.susp 4 Tbs PO DAILY PRN Torsemide 20 Mg Tablet 20 Mg PO 0800,1400 Daily Multiple Vitamin (Multivitamin) 1 Each Tablet 1 Tab PO DAILY@1400 Levothyroxine Sodium 150 Mcg Tablet 150 Mcg PO DAILY Omeprazole 20 Mg Capsule.dr 20 Mg PO DAILY Labetalol HCl 200 Mg Tablet 300 Mg PO BID TAKES 1 & 1/2 (200MG) TABLETS Amitriptyline HCl 150 Mg Tablet 150 Mg PO HS Mucinex Dm ER 1,200-60 mg Tab (Guaifenesin/Dextromethorphan) 1 Each Tbmp.12hr 1 Tab PO BID Instructions to patient/family Please see electonic discharge instructions given to patient. Clinical Quality Measures DVT/VTE Risk/Contraindication: Risk Factor Score Per Nursin RFS Level Per Nursing on Admit: 4+=Very High DENI PINK DO Apr 23, 2016 10:34
[2016-04-23] MEDS ORDERED: RT-ALBUTEROL/IPRATROPIUM 3 ML (DUONEB) VIAL INH SCH (14:00)
--- NOTE | 2016-04-24 11:56 | Physician Query-General Query ---
Physician Query-General Query to Physician: 1. Does patient currently have active pneumonia on this admission, or only a history of? 2. Does patient have acute renal failure on this admission? 3. Does patient have chronic renal failure on this admission? PHYSICIAN RESPONSE: Based on the clinical findings in the record, please respond to the query above on this document as an addendum. Possible, probable, or questionable diagnosis can be coded for INPATIENTS ONLY. Physician Response: Physician Response 1. Does patient currently have active pneumonia on this admission, or only a history of? only history of 2. Does patient have acute renal failure on this admission? only history of 3. Does patient have chronic renal failure on this admission? chronic renal failure on this admit If you have questions please contact: Gang Saw Operator: Ext: Thank you for your time and cooperation. Clinical Logging Rafter Laborer/Gang Saw Operator This is a permanent part of the medical record GOKUL SHAFER Apr 24, 2016 11:56 DENI PINK DO Apr 24, 2016 12:44
[2016-05-13] MEDS ORDERED: TORS20TA3 PO (09:28)
[2016-05-13] MEDS ORDERED: OXYC-471 PO (09:28)
[2016-05-13] MEDS ORDERED: LABE200T3 PO (09:28)
[2016-07-16] MEDS ORDERED: ACET-77 PO (13:03)
[2016-07-16] MEDS ORDERED: ALBU2.5V4 IH (13:03)
[2016-07-16] MEDS ORDERED: SODI473S7 TOP (13:03)
[2016-07-16] MEDS ORDERED: FENT1PAT58 TD (13:03)
[2016-07-16] MEDS ORDERED: POLY17PO23 PO (13:03)
[2016-07-16] MEDS ORDERED: VANC500F IV (13:03)
[2016-07-16] MEDS ORDERED: METR500P4 IV (13:03)
[2016-07-16] MEDS ORDERED: OXYC-465 PO (13:03)
[2016-07-17] MEDS ORDERED: VANC500F IV (08:40)
[2016-07-17] MEDS ORDERED: METR500T PO (10:39)
== END 2016-04-23 11:25 | DRG 481 ==
LOC: EDUNIT# 18:53 → ER 18:55 → 4TH 20:00 → UNDODISIN 04-23 11:25 → 4TH 04-23 11:25
PROVIDERS: ADMIT Internal Medicine; ATTEND Internal Medicine
PROC: 0QH706Z Insertion of Intramedullary Internal Fixation Device into Left Upper Femur, Open Approach (ICD-10-PCS; principal; 2016-04-21 10:34)
DX: S72.145A Nondisplaced intertrochanteric fracture of left femur, initial encounter for closed fracture (principal); J84.9 Interstitial pulmonary disease, unspecified; R09.02 Hypoxemia; E89.0 Postprocedural hypothyroidism; D64.9 Anemia, unspecified; Z66 Do not resuscitate; G47.30 Sleep apnea, unspecified; I12.9 Hypertensive chronic kidney disease with stage 1 through stage 4 chronic kidney disease, or unspecified chronic kidney disease; N18.9 Chronic kidney disease, unspecified; K21.9 Gastro-esophageal reflux disease without esophagitis; G14 Postpolio syndrome; M79.7 Fibromyalgia; K59.00 Constipation, unspecified; M19.91 Primary osteoarthritis, unspecified site; Z87.440 Personal history of urinary (tract) infections; Z87.01 Personal history of pneumonia (recurrent); Z86.73 Personal history of transient ischemic attack (TIA), and cerebral infarction without residual deficits; Z87.891 Personal history of nicotine dependence; Z85.850 Personal history of malignant neoplasm of thyroid; Z85.038 Personal history of other malignant neoplasm of large intestine; W01.0XXA Fall on same level from slipping, tripping and stumbling without subsequent striking against object, initial encounter; Y92.002 Bathroom of unspecified non-institutional (private) residence as the place of occurrence of the external cause; Y99.8 Other external cause status
CPT/HCPCS: 36415; 51702; 71010; 72170; 72192; 73502; 80053; 81000; 83540; 85007; 85025; 85027; 85610; 86850; 86900; 86901; 86920; 87088; 94640; 94664; 94760; 96374; 96375; 96376

== ENCOUNTER 2016-04-23 11:25 | Inpatient (IN) | payer MEDICARE, MEDICAID ==
[~2016-04-23] VITALS: Ht 172.7 cm; Wt 80.0 kg
[~2016-04-23 11:25] MED LIST changes: +ENOX30DI4 SC; +IPRA3AMP IH; +IRON100V2 IV; +OXYC-471 PO; +POTA10CA68 PO
--- OUTSIDE RECORDS SUMMARY | 2016-04-23 12:45 | XMS REPORT | Continuity of Care Document ---
Author Author [facility] Organization [facility] Address Unknown Phone Unavailable Care Team Providers Care Motor Bus Driver Name Role Phone Minoo Cates PCP [phone] Source Comments Some departments are not documenting in the electronic medical record. If you do not see the information that you expected, contact Release of Information in the Health Information Management department at [phone] for further assistance in locating additional records.[facility] Active Allergies and Adverse Reactions Allergen Noted [...] examination 11/28/2013 Overview: 02/2011 - Pharmacologic MPI ([facility]): EF 65%. Non-ischemic. L ast Assessment & Plan: Patients surgical risk is low, and acceptable given the situation, urgency & circumstances. Her cardiac risk score is 0.43% risk for cardiovascular complication. Patient has had a recent stress test last year at [facility] which was likely normal, will obtain record for stress test from [facility] otherwise per latest guidelines, patient may undergo [...] Taken Blood Pressure 108/61 01/26/2014 9:06 AM OIL RAG WASHER Pulse 66 01/26/2014 9:06 AM OIL RAG WASHER Temperature 37 C (98.6 F) 12/08/2013 3:09 PM CDT Respiratory Rate 12 11/28/2013 1:34 PM CDT Height 1.702 m (5' 7") 01/26/2014 9:06 AM OIL RAG WASHER Weight 87.454 kg (192 lb 12.8 01/26/2014 9:06 AM OIL RAG WASHER oz) Body Mass Index 30.19 01/26/2014 9:06 AM OIL RAG WASHER Oxygen Saturation 92% 12/08/2013 3:09 PM CDT Plan of Care Health Maintenance Due Date Last Done Comments Physical (Comprehensive) 1942 Exam Pertussis Vaccine 1946 Tetanus Vaccine 02/24/1952 Shingles Vaccine 1995 Osteoporosis Screening 02/24/2000 Prevnar/Pneumovax (#1) 02/24/2000 Influenza Vaccine 11/22/2015 Results from Last 3 Months Not on file
--- NOTE | 2016-04-23 13:02 | Occupational Therapy Eval ---
OT Evaluation-General/PLF Medical Diagnosis Admission Date Apr 23, 2016 at 11:25 Medical Diagnosis: L hip fx with repair Onset Date: Apr 20, 2016 Therapy Diagnosis Therapy Diagnosis: decreased self care, decr activity tolerance, decr mobility , decr strength Height/Weight Height (Feet): 5 Height (Inches): 10.00 Weight (Pounds): 171 Weight (Ounces): 0.0 Precautions Precautions/Isolations: Fall Prevention, Standard Precautions Weight Bear Status Weight Bearing Restriction: Weight Bearing/Tolerated Location Restriction: L LE Referral Physician: Gilbert Referral Reason: Evaluation/Treatment Medical History Pertinent Medical History: Arthritis, CVA, GERD, Heart Failure, HTN, Hypothroidism, Post Polio Syndrome, Renal Insufficiency Additional Medical History Hx multiple hospitalizations with pneumonia. 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 L nondisplaced intertrochanteric hip fx, with repair 04-21-16 Reviewed History: Yes Social History Home: Single Level Current Living Status: Alone ADL-Prior Level of Function ADL PLOF Comments Pt reported that she has been able to manage all of her basic ADLs and IADLs. 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 She gave up driving about 2 weeks ago. DME/Equipment: Bath Bench, Bedside Commode, Grab Bars, Reachers, Shower Hose [employer], Sock Aid, Tall Toilet, Tub, Tub/Shower, Toilet/Riser Occupation: retired Drive Self: No OT Current Status Subjective Pt seen in room, up in recliner, agreeable to OT. Pain reported 9/10 in hip, from exercise. Did not request pain meds Appearance Alert, cooperative Mental Status/Objective Attachments: Central Line Current Glasses/Contacts: Yes Hand Dominance: Left Upper Extremity ROM L UE limited at shoulder. Needs assistance to get to 90 degrees shoulder flex and then can reach higher or maintain position but can't lift arm to 90 degrees without help. Rest of L UE ROM grossly WFL. Very little active movement R shoulder and elbow but good ROM forearm and hand. Post polio syndrome Upper Extremity Strength L shoulder 2+/5 Rest UE 4/5. R little functional use shoulder and elbow but 4/5 strength forearm and hand. Pt helps place her hands for functional activities ADL-Treatment ADL-Current All ADLs took longer than usual. Mobility limited by decreased functional use of UEs. Skilled cues to help with hand placement for safe transfers Functional Orange Measure 0=Not Assessed/NA 4=Minimal Assistance 1=Total Assistance 5=Supervision or Setup 2=Maximal Assistance 6=Modified Orange 3=Moderate Assistance 7=Complete IndependenceIRFPAI Quality Coding Scale 6 Independent with activity with or without an assistive device 5 Patient requires set up or clean up by helper. Patient completes activity by themselves 4 Supervision or touching assist (CGA). [place] provide cues , steadying assist 3 The helper provides less than half the effort to complete the activity 2 The helper provides more than half the effort to complete the activity 1 Dependent. The helper does all the effort to complete an activity 7 Patient refused to complete or attempt activity 9 The patient did not perform the activity before the current illness or injury 88 Not attempted due to Medical conditions or safety concerns Eating (FIM): 5 (setup, per pt report) Eating (QC): 5 Grooming (FIM): 5 (setup, per pt report) Oral Hygiene (QC): 5 Bathing (FIM): 3 (Sponge bath, with setup. Mod assist to stand to wash bottom, although she was able to maintain standing with CGA, FWW) Bathing Location: L Arm, R Arm, L Upper Leg, R Upper Leg, Chest, Abdomen, Perineal Area Shower/Bathe Self (QC): 3 Upper Body Dressing (FIM): 5 (setup shirt. Does not have bra here) Upper Body Dressing (QC): 5 Lower Body Dressing (FIM): 2 (mod to max assist to stand to pull pants up, FWW. Pt educ mod techniques. Help to get pants over L leg. Unable to do slipper socks) Lower Body Dressing (QC): 2 On/Off Footwear (QC): 1 Toileting (FIM): 3 (Assist to manage clothing. Able to wipe. ) Toileting Hygiene (QC): 3 Toilet/Commode Transfer (FIM): 2 (Max BSC over toilet) Toilet Transfer (QC): 2 Shower Transfer (FIM): 1 (Unable, after several attempts) Other Treatments Pt left up in chair, call light present, daughter present Education OT Patient Education: Modified ADL techniques, Purpose of tx/functional activities, Reviewed precautions, Rehab process, Safety issues, Transfer techniques, Use of adapted equipment Teaching Recipient: Patient Teaching Methods: Demonstration, Discussion Response to Teaching: Reinforcement Needed OT Short Term Goals Short Term Goals Time Frame: May 02, 2016 Bathing(FIM): 4 Lower Body Dressing(FIM): 4 Toilet/Commode Transfer(FIM): 4 Shower Transfer(FIM): 3 Additional Short Term Goals: 3-ImproveStrength/Percy 1=Demonstrate adherence to instructed precautions during ADL tasks. 2=Patient will verbalize/demonstrate understanding of assistive devices/ modifications for ADL. 3=Patient will improve strength/tolerance for activity to enable patient to perform ADL's. OT Jail Goals Jail Goals Time Frame: May 09, 2016 Eating (FIM): 7 Eating (QC): 6 Oral Hygiene (QC): 6 Grooming(FIM): 6 Bathing(FIM): 6 Shower/Bathe Self (QC): 6 Upper Body Dressing(FIM): 6 Upper Body Dressing (QC): 6 Lower Body Dressing(FIM): 6 Lower Body Dressing (QC): 6 On/Off Footwear (QC): 6 Toileting(FIM): 6 Toileting Hygiene (QC): 6 Toilet/Commode Transfer(FIM): 6 Toilet/Commode Transfer (QC): 6 Shower Transfer(FIM): 6 Additional Goals: 2-Verbalize Understanding, 3-ImproveStrength/Percy (5/5 bilat elbows and distal) 1=Demonstrate adherence to instructed precautions during ADL tasks. 2=Patient will verbalize/demonstrate understanding of assistive devices/ modifications for ADL. 3=Patient will improve strength/tolerance for activity to enable patient to perform ADL's. OT Education/Plan Problem List/Assessment Assessment: Decreased Activ Tolerance, Decreased UE Strength, Dependent Transfers, Impaired Funct Balance, Impaired Self-Care Skills, Restricted Funct UE ROM Pt would benefit from skilled OT to increase her independence in basic self care to allow her to safely return to her home with family support and to decrease caregiver burden. Discharge Recommendations Plan/Recommendations: Continue POC Barriers to Progress difficulty with pushup from chair with her arms Target Placement home Treatment Plan/Plan of Care Treatment,Training & Education: Yes Patient would benefit from OT for education, treatment and training to promote independence in ADL's, mobility, safety and/or upper extremity function for ADL' s. Plan of Care: ADL Retraining, Functional Mobility, Group Exercise/Act as Ind ( education, exercise, activity tolerance, functional activities), UE Funct Exercise/Act, UE Neuromus Re-Ed/Coord Treatment Duration: May 16, 2016 # of days/week 5-6 Visits Per Week: 10-11 Minutes/Day (M-F): 75-90 Minutes/Day (Sat/Terrell): PRN Agreement: Yes Rehab Potential: Good Time/GCodes Start Time: 11:15 Stop Time: 12:15 Total Time Billed (hr/min): 60 Billed Treatment Time visit, 15 minutes evaluation moderate intensity, 45 minutes ADL RADHIKA CURTIS OT Apr 23, 2016 13:02
--- NOTE | 2016-04-23 13:11 | ST Cognitive Linguistic Eval ---
Speech Evaluation-General Medical Diagnosis Onset Date: Apr 20, 2016 Therapy Diagnosis Therapy Diagnosis: Questionable Cognitive Impairment Referral Referring Physician: Dr. Vinod Hunt Reason for Referral: Evaluation/Treatment Cognitive Screen Medical History Pertinent Medical History: Arthritis, CVA, GERD, Heart Failure, HTN, Hypothroidism, Post Polio Syndrome, Renal Insufficiency Reviewed History: Yes Speech PLF-Current Status Prior Level of Function The patient denied previous cognitive linguistic impairments prior to or throughout her recent admission. Subjective The patient was recently admitted to [facility] with a left hip fracture. The patient greeted the clinician appropriately and agreed to participate in the cognitive screen on this date. Language Eval: Auditory Comprehends Simple Yes/No Ques: Functional Indent/Objects Multiple Noble: Functional Ident/Pics in Multiple Noble: Functional Follows 1-Step Commands: Functional Follows Complex Directions: Functional Follows General Conversations: Functional Language Eval: Verbal Language Completes Spontaneous Greeting: Functional Produces Auto, Serial Info: Functional Imitates Simple Words/Phrases: Functional Word Finding: Mild Requests Basic Needs: Functional States Basic Personal Info: Functional Expresses Complex Ideas: Functional Cognitive Patient Orientation The patient is alert and oriented x3. Objective Cognitive Domain Attention: WNL Memory: WNL Problem Solving: Functional Objective Impression The patient demonstrated cognitive linguistic skills grossly within normal limits for patient's age. Communication/Social Cognition Comprehension: 6 Expression: 6 Social Interaction: 6 Problem Solvin Memory: 6 Speech Patient Assess Expression of Ideas/Wants: Expression (4) Understanding [place]al Content: Understands (4) Brief Interview-Mental Status: Yes Repetition of Three Words: Three (3) Temporal Orientation: Year: Correct (3) Temporal Orientation: Month: Accurate within 5 days(2) Temporal Orientation: Day: Correct (1) Recall : Wear: Yes, no cue required (2) Recall : Color: Yes, no cue required (2) Recall : Bed: Yes, no cue required (2) Speech-Plan Treatment Plan Speech Therapy Treatment Plan: Discontinue ST (Eval, only.) Rehab Potential: Good Safety Risks/Education Teaching Recipient: Patient Teaching Methods: Discussion Response to Teaching: Verbalize Understanding Education Topics Provided: Plan of Care Time Speech Therapy Time In: 12:45 Speech Therapy Time Out: 13:00 Total Billed Time: 15 Billed Treatment Time 1, HEATHER BONDS Apr 23, 2016 13:11
[2016-04-23] MEDS ORDERED: oxyCODONE/APAP 5/325MG (PERCOCET 5) TABLET PO PRN (14:30)
--- NOTE | 2016-04-23 14:37 | Therapy Group Daily Note ---
Therapy Daily Group Note Patient Education Topic Home Safety, Fall Prevention, Other List Below (Mobility devices) Exercises LE Seated Exercise, UE Exercise Other/Notes Pt was an active participant in OT/PT group. She socialized with other group members by sharing what she was most proud of - her children. She contributed to discussion/education on home safety/fall prevention and mobility devices and shared some examples from her life regarding safety at home and the many mobility devices she has used. She did seated UE and LE exercises but had to modify them due to her decreased shoulder function. She was returned to her room per w/c and transferred mod assist to bedside commode. Pt safe up on commode with call light. Start Time: 13:00 Stop Time: 14:15 Total Billed Treatment Time: 75 Total Billed Treatment visit, 75 minutes group RADHIKA CURTIS OT Apr 23, 2016 14:37
[2016-04-23] MEDS: oxyCODONE/APAP 5/325MG (PERCOCET 5) TABLET PO PRN ×2 (15:36→21:43)
[2016-04-23] MEDS ORDERED: RT-ALBUTEROL/IPRATROPIUM 3 ML (DUONEB) VIAL INH PRN (15:45)
[2016-04-23] MEDS: KCL 20 MEQ TAB (K-DUR) PO SCH (17:43)
[2016-04-23] MEDS: TORSEMIDE 20 MG (DEMADEX) TAB PO SCH (17:43)
[2016-04-23] MEDS ORDERED: RT-ALBUTEROL/IPRATROPIUM 3 ML (DUONEB) VIAL INH SCH (18:00)
[2016-04-23 19:10] VITALS: BP 138/79
[2016-04-23] MEDS: RT-ALBUTEROL/IPRATROPIUM 3 ML (DUONEB) VIAL INH SCH (19:43)
[2016-04-23] MEDS: LACTULOSE SYRUP 10GM/15ML (ENULOSE) 30ML UDC PO SCH (21:00)
[2016-04-23] MEDS: DOCUSATE SODIUM 100 MG (COLACE) CAP PO SCH (21:00)
[2016-04-23] MEDS: SENNOSIDES 8.6 MG (SENOKOT) TAB PO SCH (21:00)
[2016-04-23 21:33] VITALS: BP 150/79
[2016-04-23] MEDS: AMITRIPTYLINE 150 MG (ELAVIL) TABLET PO SCH (21:42)
[2016-04-23] MEDS: ENOXAPARIN 30 MG/0.3 ML (LOVENOX) SYR SC SCH (21:42)
[2016-04-23] MEDS: LABETALOL 200 MG (NORMODYNE) TAB PO SCH (21:42)
[2016-04-23] MEDS: guaiFENesin (MUCINEX) 600 MG TAB PO SCH (21:42)
[2016-04-23] MEDS: ATORVASTATIN 40 MG (LIPITOR) TABLET PO SCH (21:42)
[2016-04-24] MEDS: oxyCODONE/APAP 5/325MG (PERCOCET 5) TABLET PO PRN ×4 (02:43→21:14)
[2016-04-24 06:00] VITALS: BP 137/82
[2016-04-24] MEDS: KCL 20 MEQ TAB (K-DUR) PO SCH ×2 (06:02→16:51)
[2016-04-24] MEDS: MULTIVIT W/MINERALS TAB (THERAGRAN M) PO SCH (06:02)
[2016-04-24] MEDS: TORSEMIDE 20 MG (DEMADEX) TAB PO SCH ×2 (06:02→16:51)
[2016-04-24] MEDS: LEVOTHYROXINE 150 MCG (LEVOTHROID) TAB PO SCH (06:03)
[2016-04-24] MEDS: PANTOPRAZOLE 40 MG (PROTONIX) TAB PO SCH (06:03)
[2016-04-24 06:25] LABS: BASOPHILS # (AUTO) 0.1 10^3/uL (0.0-0.1); BASOPHILS % (AUTO) 1 % (0-10); EOSINOPHILS # (AUTO) 1.4 10^3/uL (0.0-0.3); EOSINOPHILS % (AUTO) 11 % (0-10); LYMPHOCYTES # (AUTO) 2.8 X 10^3 (1.0-4.0); LYMPHOCYTES % (AUTO) 22 % (12-44); MEAN CORPUSCULAR HGB CONC 33 G/DL (32-36); MEAN CORPUSCULAR VOLUME 94 FL (80-99); MEAN PLATELET VOLUME 10.4 FL (7.4-10.4); MONOCYTES # (AUTO) 1.9 X 10^3 (0.0-1.0); MONOCYTES % (AUTO) 15 % (0-12); NEUTROPHILS # (AUTO) 6.6 X 10^3 (1.8-7.8); NEUTROPHILS % (AUTO) 52 % (42-75); PLATELET COUNT 294 10^3/uL (130-400); WHITE BLOOD COUNT 12.8 10^3/uL (4.3-11.0)
[2016-04-24 06:39] LABS: MEAN CORPUSCULAR HEMOGLOBIN 30 PG (25-34)
[2016-04-24] MEDS: RT-ALBUTEROL/IPRATROPIUM 3 ML (DUONEB) VIAL INH SCH ×4 (06:58→18:39)
[2016-04-24 07:04] LABS: ALANINE AMINOTRANSFERASE 16 U/L (0-55); ALBUMIN 2.7 G/DL (3.2-4.5); ANION GAP 7 MMOL/L (5-14); ASPARTATE AMINO TRANSFERASE 21 U/L (5-34); BILIRUBIN,TOTAL 0.4 MG/DL (0.1-1.0); BLOOD UREA NITROGEN 12 MG/DL (7-18); BUN/CREATININE RATIO 13; CALCIUM 7.9 MG/DL (8.5-10.1); CARBON DIOXIDE 25 MMOL/L (21-32); CHLORIDE 105 MMOL/L (98-107); CREATININE SERUM 0.89 MG/DL (0.60-1.30); GFR ESTIMATED > 60; GLUCOSE 93 MG/DL (70-105); POTASSIUM 4.1 MMOL/L (3.6-5.0); SODIUM 137 MMOL/L (135-145); TOTAL PROTEIN 5.5 G/DL (6.4-8.2)
[2016-04-24] MEDS: SENNOSIDES 8.6 MG (SENOKOT) TAB PO SCH ×2 (07:53→21:00)
[2016-04-24] MEDS: ENOXAPARIN 30 MG/0.3 ML (LOVENOX) SYR SC SCH ×2 (07:53→21:14)
[2016-04-24] MEDS: DILTIAZEM 240 MG (CARDIZEM CD) CAP PO SCH (07:54)
[2016-04-24] MEDS: CYANOCOBALAMIN 500 MCG TAB (VITAMIN B-12) PO SCH (07:54)
[2016-04-24] MEDS: VITAMIN D3 5,000 UNITS (CHOLECALCIFEROL ) CAPSULE PO SCH (07:54)
[2016-04-24] MEDS: DOCUSATE SODIUM 100 MG (COLACE) CAP PO SCH ×2 (07:55→21:13)
--- NOTE | 2016-04-24 08:01 | HISTORY AND PHYSICAL ---
DATE OF ADMISSION: 04/23/2016 CHIEF COMPLAINT: Difficulty with walking. HISTORY OF PRESENT ILLNESS: The patient is an 81-year-old who has had multiple admissions over the past year involving infections, either UTI or pneumonia, who fell while getting out of her shower at home where she lives alone in [place]. She sustained a fracture of her left hip and underwent repair with Dr. Williamson after being admitted to [facility] on 04/20. She is being followed by Dr. Looney and hospitalist service. Currently, she requires assistance for ADLs and mobility skills. She was having a home health lpn to assist her at home as she has a history of polio on the right side and also a proximal left humerus fracture repaired by Dr. Jiménez in the past with limited active range of motion of the shoulders.She also has a daughter and grandchildren assist as well.She is mod assist for transfers and gait.She is setup for Upper body dressing and max assist for lower body dressing.The patient is setup for eating and grooming She is mod assist for bathing. PAST MEDICAL HISTORY: 1. Fall. 2. Polio with right-sided weakness. 3. Hypercholesteremia. 4. Hypertension. 5. Transient ischemic attack. 6. Bladder infection. 7. UTI. 8. Pneumonia. 9. GERD. 10. Hemorrhoids. 11. Degenerative disk disease. 12. Arthritis. 13. Fibromyalgia. 14. Chronic back pain. 15. Hypothyroidism. 16. Cataracts. 17. Colon cancer. 18. Anxiety. 19. Anemia has been receiving replacement iron infusions. Her hemoglobin was 7 on 04/23. PAST SURGICAL HISTORY: 1. Colon resection. 2. . 3. Eye surgery for cataract extraction. 4. Hysterectomy. 5. Left humeral surgery. 6. Thyroidectomy on replacement. ALLERGIES: Multiple, see MAR, includes: 1. sulfa 2. penicillin 3. tetanus toxoid 4. Celebrex 5. cephalexin 6. clindamycin doxycycline. 7. Levaquin 8. Meloxicam 9. nitrofurantoin 10. propoxyphene 11. Rofecoxib FAMILY HISTORY: Noncontributory. SOCIAL HISTORY: Retired, , lives alone in [place]. Has daughter in [place], [place] and a son in [place], [place]. PRIMARY CARE PHYSICIAN: Dr. Cheng Abraham REVIEW OF SYSTEMS: Ten-point review of systems significant for weakness on the right side, limited range of motion both shoulders, arthritic pain. History of falls. She does take a significant dosage of amitriptyline which may be contributing to her risk of falls as that particular tricyclics antidepressants have an issue with orthostatic hypotension. MEDICATIONS: 1. Lipitor 80 mg p.o. daily. 2. Lortab 5, 1 tablet p.o. q.4 hours p.r.n. pain. 3. KCL 20 mEq p.o. b.i.d. 4. Diltiazem 240 mg p.o. daily. 5. DuoNeb treatments q.4 hours p.r.n. 6. Lovenox 30 mg subcutaneous b.i.d. for DVT prophylaxis. 7. Lactulose 20 grams p.o. b.i.d. 8. Vitamin B12 1000 mcg p.o. daily. 9. Torsemide 20 mg p.o. b.i.d. 10. Vitamin D3 5000 units p.o. daily. 11. Colace 100 mg p.o. daily. 12. Dulcolax 5 mg p.o. as needed for constipation. PHYSICAL EXAMINATION: Physical examination is significant for a pleasant female, appearing her stated age, alert and oriented in no acute distress. VITAL SIGNS: Blood pressure 134/80, respirations 18, pulse 96. She is afebrile. O2 sat 95%. HEENT: Vision, speech, grossly intact. No oral lesion is noted. NECK: Supple without mass. HEART: Regular rhythm. LUNGS: Clear. ABDOMEN: Soft, nontender. Bowel sounds present. EXTREMITIES: Trace edema in the ankles. No calf tenderness. MUSCULOSKELETAL: The patient has limited active range of motion in both shoulders, functional range of motion right lower extremity. Left lower extremity limited due to recent fracture and repair proximally. NEUROLOGIC: The patient has mod weakness on the right as well as limited active range of motion of both shoulders as mentioned above. She has functional weatherization specialist strength. Strength is limited in both lower limbs as well due to residual polio as a youth on the right and recent fracture and repair on the left. Cognition appears grossly intact.Sensation to lght touch decreased in feet IMPRESSION: 1. Ambulatory dysfunction secondary to fall with nondisplaced intertrochanteric fracture of the left hip, status post repair Dr. Williamson, orthopedics. 2. COPD with recurrent pneumonias on treatments. 3. Past history of pseudomonas UTI. 4. Chronic anemia. 5. Chronic constipation on medications. 6. Hypertension, controlled with medication. 7. Hypercholesteremia, on medication. 8. Surgical hypothyroidism, status post thyroidectomy on replacement. 9. Chronic back pain with degenerative disk disease of the lumbar spine. 10. Status post resection for colon cancer in 1998. 11. Post-polio syndrome involving the rt side-sheis left hand dominant PLAN: The patient will have a comprehensive program of inpatient rehabilitation with goal of maximizing level of functional independence prior to discharge home with home health care and family. The patient will have PT/OT 90 minutes per day, each discipline, for gait strengthening, conditioning, balance, ADLs, any patient/family/caregiver training necessary, any adaptive equipment and training necessary. Speech therapy do cognitive assessment and treat as indicated. Rehabilitation nursing to assist with bowel, bladder, skin care, medication administration, monitoring O2 sats. Respiratory therapy to monitor O2 sats, provide oxygen as needed, assist with respiratory treatments. coordinator of rehabilitation services to assist with discharge planning, community reentry. Consider decreasing the dose of her on amitriptyline as it is a risks factor for this patient from falls. Follow-up with Dr. Gould as per their schedules. Follow-up with Dr. Monge upon discharge. Check labs in a.m. Therapy with cardiac and fall precautions. ESTIMATED LENGTH OF STAY: Two weeks. PROGNOSIS: Rehab prognosis appears good for goal of discharging home with family with home health, hopefully modified independent to supervision for ADLs and mobility skills. DIET: Regular. CODE STATUS: DO NOT RESUSCITATE POST ADMISSION PHYSICIAN ASSESSMENT: The preadmission screen agrees to the post admission assessment that the patient is a good candidate for inpatient rehabilitation. She appears to be well motivated to participate in 3 hours of therapy a day. She should be able to tolerate 3 hours of therapy a day from a medical and orthopedic standpoint. She should benefit from the 3 hours of therapy a day. She has reasonable discharge plan, reasonable discharge rehabilitation goals and a supportive family. She has various comorbidities that need to be closely monitored with medications and treatments adjusted on a daily basis as needed. Therapies need to be modified, taking into consideration her prior level of function and history of polio with weakness on the right side as well as her limited active range of motion in both shoulders due to polio and prior fracture of the proximal left humerus. Other comorbidities that need to be monitored are her chronic anemia, her COPD and hypertension. BARRIERS TO DISCHARGE: Barriers to discharge for this patient who had been modified independent for mobility and much of her ADLs with some assistance from home health lpn, is for he to be modified independent to supervision for ADLs and mobility skills prior to discharge home with family and home health services so as to avoid burden on the caregivers. RISKS FOR THIS PATIENT: Include: 1. Recurrent fall. 2. Fracture. 3. DVT. 4. Pulmonary embolism. 5. Urinary retention. 6. Recurrent UTI. 7. Respiratory infection. 8. Recurrent pneumonia. 9. Aspiration. 10. Poorly controlled hypertension. 11. Worsening anemia. 12. Worsening respiratory insufficiency. Job ID: [id number] Dictated Date: 04/23/2016 15:02:54 Equipment Worker Date: 04/24/2016 07:32:33/darvin STAYC
[2016-04-24] MEDS ORDERED: NS IV 500 ML 500 ML IV SCH (08:56)
--- NOTE | 2016-04-24 09:25 | Physical Therapy Evaluation ---
PT Evaluation-General Medical Diagnosis Admission Date Apr 23, 2016 at 11:25 Medical Diagnosis: L hip fx with repair Onset Date: Apr 20, 2016 Therapy Diagnosis Therapy Diagnosis: impaired mobility, strength, endurance Height/Weight Height (Feet): 5 Height (Inches): 8.00 Weight (Pounds): 170 Weight (Ounces): 7.0 Precautions Precautions/Isolations: Droplet Isolation, Standard Precautions Weight Bear Status Weight Bearing Restriction: Weight Bearing/Tolerated Location Restriction: L LE Referral Physician: Gilbert Reason for Referral: Evaluation/Treatment Medical History Pertinent Medical History: Arthritis, CVA, GERD, Heart Failure, HTN, Hypothroidism, Post Polio Syndrome, Renal Insufficiency Additional Medical History multiple hospital admits secondary to pneumonia Current History s/p fall at home getting out of the shower and slipping on floor Reviewed History: Yes Social History Home: Single Level Current Living Status: Alone Prior/Core FIM Prior Level of Function Functional [place] Measure 0=Not Assessed/NA 4=Minimal Assistance 1=Total Assistance 5=Supervision or Setup 2=Maximal Assistance 6=Modified [place] 3=Moderate Assistance 7=Complete [place] Bed Mobility: 6 Transfers (B,C,W/C) (FIM): 6 Gait: 6 patient used a rolling walker at home PT Evaluation-Current Subjective Patient on commode in room, needs to get cleaned up with nurse assist and transferred to wheelchair to go down to rehab. Patient states she has significant pain 9/10. Pleasant and cooperative. Pt/Family Goals to be independent at home Objective Patient Orientation: Person, Place, Situation ROM/Strength ROM Lower Extremities NT due to recent surgery Strenght Lower Extremities NT due to recent surgery Integumentary/Posture Bowel Incontinence: No Neuromuscular (Tone, Coordination, Reflexes) Post polio syndrome right side Sensory Vision: Wears Glasses Hearing: Functional Hand Dominance: Left Sensation Right Lower Extremit: Impaired Sensation Left Lower Extremity: Impaired Sensation Lower Extremities Patient also states she has some numbness on her right leg just distal to her incision. Transfers Functional [place] Measure 0=Not Assessed/NA 4=Minimal Assistance 1=Total Assistance 5=Supervision or Setup 2=Maximal Assistance 6=Modified [place] 3=Moderate Assistance 7=Complete IndependenceIRFPAI Quality Coding Scale 6 Independent with activity with or without an assistive device 5 Patient requires set up or clean up by helper. Patient completes activity by themselves 4 Supervision or touching assist (CGA). [place] provide cues , steadying assist 3 The helper provides less than half the effort to complete the activity 2 The helper provides more than half the effort to complete the activity 1 Dependent. The helper does all the effort to complete an activity 7 Patient refused to complete or attempt activity 9 The patient did not perform the activity before the current illness or injury 88 Not attempted due to Medical conditions or safety concerns Transfers (B, C, W/C) (FIM): 3 Scootin Rollin Roll Left to Right (QC): 3 Supine to/from Sit: 3 Sit to/from Stand: 3 bed t/f WC(FIM only if WC use): 3 Sit to Lying (QC): 2 Lying to Sitting/Side of Bed(Q: 2 Sit to Stand (QC): 2 Chair/Cgv-ut-Wspsu Xfer(QC): 2 Car Transfer (QC): 88 Patient needs mod assist to sit to stand from low surfaces and for supine<-> sit. Gait Does the Patient Walk?: No and Walking Goal IS indicated Mode of Locomotion: Wheelchair Anticipated Mode of Locomotion: Walk Gait (FIM): 1 Walk 10 feet (QC): 88 Walk 50 ft with 2 Turns(QC): 88 Walk 150 ft (QC): 88 Walking 10ft/uneven surface-QC: 88 Distance: 2' Gait Level of Assist: 3 Gait Persons Needed: 1 Gait Assistive Device: FWW Comments/Gait Description Patient cannot take any steps. She has trouble bearing weight on her left leg and her right leg is very weak. She twists her right leg back and forth and pulls with her toes to try to advance that leg. Wheelchair Training Does the Pt Use a Wheelchair?: Yes Wheelchair (FIM): 1 Distance: 20' Wheelchair Level of Assist: 4 Wheel 50 ft with 2 turns (QC): 88 Wheel 150 ft (QC): 88 Type of Wheelchair: Manual Patient likes to use both feet to propel a wheelchair, needs occasional assist with turning and pushing. Stairs 1 Step (curb) (QC): 88 4 Steps (QC): 88 12 Steps (QC): 88 If not tested on admit;explain Patient is not able to safely perform stairs at this time due to weakness and poor mobility. Balance Sitting Static: Good Sitting Dynamic: Good Standing Static: Poor Standing Dynamic: Poor Picking up an Object (QC): 88 Assessment/Needs Patient has poor mobility, strength, endurance post left hip fracture and post polio syndrome. Rehab Potential: Fair PT Short Term Goals Short Term Goals Time Frame: Apr 30, 2016 Transfers (B,C,W/C) (FIM): 4 Gait (FIM): 1 Gait Distance Comment: 20' Gait Level of Assist: 4 (min A) Gait Assistive Device: FWW PT Intermediate Goals Vp Talent Management Goals PT Vp Talent Management Goals Time Frame: May 14, 2016 Transfers (B,C,W/C) (FIM): 4 (CGA) Sit to Lying (QC): 4 Lying-Sitting on Side/Bed(QC): 4 Sit to Stand (QC): 4 Rollin Roll Left to Right (QC): 4 Chair/Rnu-iv-Ohuqf Xfer(QC): 4 Car Transfer (QC): 4 Gait (FIM): 4 Distance: 150' Walk 10 feet (QC): 4 Walk 10ft-Uneven Surface(QC): 4 Walk 50ft with 2 Turns (QC): 4 Walk 150 ft (QC): 4 Gait Level of Assist: 4 (CGA) Gait Assistive Device: FWW Stairs (FIM): 2 # of Steps: 4 1 Step (curb) (QC): 4 4 Steps (QC): 4 Stairs Level Of Assist: 4 Picking up an Object (QC): 88 PT Plan Problem List Problem List: Activity Tolerance, Functional Strength, Safety, Balance, Gait, Transfer, Bed Mobility, ROM Treatment/Plan Treatment Plan: Continue Plan of Care Treatment Plan: Bed Mobility, Education, Functional Activity Percy, Functional Strength, Group Therapy, Gait, Safety, Therapeutic Exercise, Transfers Treatment Duration: May 14, 2016 # of days/week 5-6 Visits Per Week: 10-11 Minutes/Day (M-F): 60-90 Minutes/Day (Sat/Terrell): 15-30 Pt/Family Agrees w/Plan: Yes Safety Risks/Education Patient Education: Gait Training, Transfer Techniques, Correct Positioning, W/ C Management, Safety Issues Teaching Recipient: Patient Teaching Methods: Demonstration, Discussion Response to Teaching: Reinforcement Needed Discharge Recommendations Plan Patient will perform bed mobility and transfer training, balance and endurance training, functional strengthening, stair training, gait training, education, to improve functional mobility and independence at home. Therapy D/C Recommendations: Home w/ Family Support Time/GCodes Time In: 1030 Time Out: 1115 Total Billed Treatment Time: 45 Total Billed Treatment 1 visit EVM 15 min FA 15 min EX 15 min This evaluation was for date 04/23/16 LEIGH KELLY PT Apr 24, 2016 09:25
[2016-04-24] MEDS: guaiFENesin (MUCINEX) 600 MG TAB PO SCH ×2 (09:28→21:13)
[2016-04-24] MEDS: LACTULOSE SYRUP 10GM/15ML (ENULOSE) 30ML UDC PO SCH ×2 (09:28→21:00)
[2016-04-24] MEDS: LABETALOL 200 MG (NORMODYNE) TAB PO SCH ×2 (09:28→21:14)
--- NOTE | 2016-04-24 10:21 | Occupational Ther Daily Note ---
OT Current Status-Daily Note Subjective Pt seen in room, up in bed, agreeable to OT before getting 2 units of blood. No specific pain noted Appearance Alert, cooperative Mental Status/Objective Functional [place] Measure 0=Not Assessed/NA 4=Minimal Assistance 1=Total Assistance 5=Supervision or Setup 2=Maximal Assistance 6=Modified [place] 3=Moderate Assistance 7=Complete [place] ADL-Treatment Pt needed min assist to move from supine to sit EOB, with HOB elevated. As she sat, she reported being dizzy but continued to work on ADLs. Washed upper body with setup and also trevor area by pulling clothing down while sitting. Able to doff button top and don hospital gown with setup. O2 in place at 2L/min throughout. Pt reported being dizzy again. Vital signs showed BP 80s/40s and O2 sat in 70s. O2 increased to 3L/min and pt educ in pursed lip breathing. Pt also assisted to supine. O2 sats increased to 97% so decreased back to 2L/min. BP also increased (see nursing notes) once pt was supine and dizziness went away. Slacks removed for pt comfort. Treatment discontinued due to decreased tolerance to activity prior to getting blood. All needs met, 4 rails up. Functional [place] Measure 0=Not Assessed/NA 4=Minimal Assistance 1=Total Assistance 5=Supervision or Setup 2=Maximal Assistance 6=Modified [place] 3=Moderate Assistance 7=Complete IndependenceIRFPAI Quality Coding Scale 6 Independent with activity with or without an assistive device 5 Patient requires set up or clean up by helper. Patient completes activity by themselves 4 Supervision or touching assist (CGA). [place] provide cues , steadying assist 3 The helper provides less than half the effort to complete the activity 2 The helper provides more than half the effort to complete the activity 1 Dependent. The helper does all the effort to complete an activity 7 Patient refused to complete or attempt activity 9 The patient did not perform the activity before the current illness or injury 88 Not attempted due to Medical conditions or safety concerns OT Short Term Goals Short Term Goals Time Frame: May 02, 2016 Bathing(FIM): 4 Lower Body Dressing(FIM): 4 Toilet/Commode Transfer(FIM): 4 Shower Transfer(FIM): 3 Additional Short Term Goals: 3-ImproveStrength/Percy 1=Demonstrate adherence to instructed precautions during ADL tasks. 2=Patient will verbalize/demonstrate understanding of assistive devices/ modifications for ADL. 3=Patient will improve strength/tolerance for activity to enable patient to perform ADL's. OT Tag And Label Cutter Goals Intermediate Goals Time Frame: May 09, 2016 Eating (FIM): 7 Eating (QC): 6 Oral Hygiene (QC): 6 Grooming(FIM): 6 Bathing(FIM): 6 Shower/Bathe Self (QC): 6 Upper Body Dressing(FIM): 6 Upper Body Dressing (QC): 6 Lower Body Dressing(FIM): 6 Lower Body Dressing (QC): 6 On/Off Footwear (QC): 6 Toileting(FIM): 6 Toileting Hygiene (QC): 6 Toilet/Commode Transfer(FIM): 6 Toilet/Commode Transfer (QC): 6 Shower Transfer(FIM): 6 Additional Goals: 2-Verbalize Understanding, 3-ImproveStrength/[place]cy (5/5 bilat elbows and distal) 1=Demonstrate adherence to instructed precautions during ADL tasks. 2=Patient will verbalize/demonstrate understanding of assistive devices/ modifications for ADL. 3=Patient will improve strength/tolerance for activity to enable patient to perform ADL's. OT Education/Plan Problem List/Assessment Pt would benefit from skilled OT to increase her independence in basic self care to allow her to safely return to her home with family support and to decrease caregiver burden. Discharge Recommendations Plan/Recommendations: Continue POC Treatment Plan/Plan of Care Patient would benefit from OT for education, treatment and training to promote independence in ADL's, mobility, safety and/or upper extremity function for ADL' s. Plan of Care: ADL Retraining, Functional Mobility, Group Exercise/Act as Ind ( education, exercise, activity tolerance, functional activities), UE Funct Exercise/Act, UE Neuromus Re-Ed/Coord Treatment Duration: May 16, 2016 Visits Per Week: 10-11 Minutes/Day (M-F): 75-90 Minutes/Day (Sat/Terrell): PRN Agreement: Yes Rehab Potential: Fair Time/GCodes Start Time: 09:45 Stop Time: 10:15 Total Time Billed (hr/min): 30 Billed Treatment Time Visit, 30 minutes ADL RADHIKA CURTIS OT Apr 24, 2016 10:21
[2016-04-24 11:15] VITALS: BP 96/57
[2016-04-24 11:30] VITALS: BP 107/67
--- NOTE | 2016-04-24 11:33 | Progress Note-Hospitalist ---
Progress Note Progress Notes/Assess & Plan Date Seen 04/24/16 Diagonsis/Assessment & Plan Patient Interview: Transfusion underway currently. Pt states that she feels better. Dr. Looney discusses continuing diuretic with pt. Physical exam was stable. Pt has not yet received breathing treatments today. Pt is having regular BMs. No fever, vital signs stable, pleasant, pale, chronically ill Regular rate and rhythm, clear to auscultation bilaterally in the upper lobes but crackles in the lower lobes history of a pulmonary fibrosis so she is never clear on exam No edema Laboratory Tests 04/24/16 06:14 Assessment: Severe anemia postop but complicated with kidney disease and chronic illness requiring 2 units of packed red blood cell transfusion Acute nondisplaced intertrochanteric fracture left hip s/p repair POD # 3 Severe COPD with recurrent pneumonias and h/o lower lobe pneumonia/sputum positive for MRSA 12/16 h/o urinary tract infection with pseudomonas 12. h/o acute on chronic renal failure Leukocytosis h/o Hyperkalemia Pulmonary congestion on Lasix Poor vascular access s/p port placement last admit Constipation chronic issue Severe anemia due to kidney disease and co-morbidities and acute blood loss in need of empiric iron infusions Plan: Continue diuretic Monitor Hgb closely Duoneb QID Check labs in AM transfuse 2 units of blood Scribed by Antony Morfin under the direct supervision of Dr. Looney. DENI LOONEY DO Apr 24, 2016 11:33
--- NOTE | 2016-04-24 11:51 | Physical Therapy Daily Note ---
PT Daily Note-Current Subjective Pt sitting up in bed upon arrival. Pt is receiving blood today due to low HGB. Pt report receiving pain med recently but having low back pain of 9/10 previous to tx. Pt agreed to supine Ex in bed for PT tx today. At beginning of tx, BP is 96/57, P is 78 and O2 is 98%. At end of tx, BP is 107/67, P is 75 and O2 is still 98%. Pain Numeric Pain Scale: 9 Location: Lower Location Body Site: Back Pain Description: Ache Comment: Pt reports L thigh pain as well at end of tx at 9/10. Mental Status Patient Orientation: Person, Place, Time, Situation Attachments: Oxygen, IV Transfers Functional [place] Measure 0=Not Assessed/NA 4=Minimal Assistance 1=Total Assistance 5=Supervision or Setup 2=Maximal Assistance 6=Modified [place] 3=Moderate Assistance 7=Complete IndependenceIRFPAI Quality Coding Scale 6 Independent with activity with or without an assistive device 5 Patient requires set up or clean up by helper. Patient completes activity by themselves 4 Supervision or touching assist (CGA). [place] provide cues , steadying assist 3 The helper provides less than half the effort to complete the activity 2 The helper provides more than half the effort to complete the activity 1 Dependent. The helper does all the effort to complete an activity 7 Patient refused to complete or attempt activity 9 The patient did not perform the activity before the current illness or injury 88 Not attempted due to Medical conditions or safety concerns Exercises Supine Ex: Ankle pumps, Quad Set, Heel Slides, Straight leg raise, Hip abd/add Supine Reps: 15 Treatments Pt receives blood transfusion at start of tx. PT monitored vitals during transfusion as well as during Ex. Pt completes supine Ex in bed. PT did pt education on what vitals mean and why it is important to keep pt healthy and benefit PT tx. Pt is left with all needs met at end of tx. Assessment Current Status: Fair Progress Pt is motivated to get better and works hard despite pain and receiving blood transfusion. PT will check on pt for afternoon tx. PT Short Term Goals Short Term Goals Wheelchair Distance: 20' PT Shelter Goals Shelter Goals Rollin PT Plan Problem List Problem List: Activity Tolerance, Functional Strength, Safety, Balance, Gait, Transfer, ROM Treatment/Plan Treatment Plan: Continue Plan of Care Treatment Plan: Bed Mobility, Education, Functional Activity Percy, Functional Strength, Group Therapy, Gait, Safety, Therapeutic Exercise, Transfers Treatment Duration: May 14, 2016 Visits Per Week: 10-11 Minutes/Day (M-F): 60-90 Minutes/Day (Sat/Terrell): 15-30 Safety Risks/Education Patient Education: Reviewed Precautions, Disease Process, Safety Issues Teaching Recipient: Patient Teaching Methods: Discussion Response to Teaching: Verbalize Understanding Time/GCodes Time In: 1045 Time Out: 1130 Total Billed Treatment Time: 45 Total Billed Treatment visit, FA (15m) & EX X2 (30m) MITCH SHI PTA Apr 24, 2016 11:51
[2016-04-24 12:57] VITALS: BP 126/79
[2016-04-24 13:24] VITALS: BP_SYST 117
--- NOTE | 2016-04-24 14:08 | Physical Therapy Daily Note ---
PT Daily Note-Current Subjective Pt is supine in bed upon arrival. Pt reports needing to use BSC. Pt agrees to PT for transfer training. Pt is still weak especially with LLE. Pain Numeric Pain Scale: 7 Location: Left Location Body Site: Thigh Pain Description: Ache Mental Status Patient Orientation: Person, Place, Time, Situation Attachments: Oxygen, IV Transfers Functional [place] Measure 0=Not Assessed/NA 4=Minimal Assistance 1=Total Assistance 5=Supervision or Setup 2=Maximal Assistance 6=Modified [place] 3=Moderate Assistance 7=Complete IndependenceIRFPAI Quality Coding Scale 6 Independent with activity with or without an assistive device 5 Patient requires set up or clean up by helper. Patient completes activity by themselves 4 Supervision or touching assist (CGA). [place] provide cues , steadying assist 3 The helper provides less than half the effort to complete the activity 2 The helper provides more than half the effort to complete the activity 1 Dependent. The helper does all the effort to complete an activity 7 Patient refused to complete or attempt activity 9 The patient did not perform the activity before the current illness or injury 88 Not attempted due to Medical conditions or safety concerns Scootin Rollin Roll Left to Right (QC): 4 Supine to/from Sit: 4 Sit to/from Stand: 3 Sit to Lying (QC): 4 Sit to Stand (QC): 3 Chair/Ste-ee-Ytjob Xfer(QC): 3 Bed to/from Chair: 3 Weight Bearing Weight Bearing Restriction: Weight Bearing/Tolerated Location Restriction: L LE Treatments Pt reports needing to use BSC for toileting. Pt transfers from supine to EOB at Min A for PROOF INSPECTOR to sitting and scooting. Pt transfers from EOB to standing at Mod A due to weakness and SPT to BSC. After using BSC, pt stands with OT assisting using FWW for support. PT assists with trevor cleaning as OT assists with standing. OT works on hand placement and ADLs while PT works on transfers and sequencing of feet with FWW. Pt transferred from standing to EOB at Min A then EOB to supine at Min A to assist lifting legs into bed. Pt also needed assistance with scooting up in bed so OT & PT assisted pt with rolling side to side to reposition pad under pt to scoot pt up in bed. Pt was left with all needs met at end of tx and OT was present. Assessment Current Status: Fair Progress Pt continues to demonstrate weakness on LLE both with EX as well as transfers. Pt continues to be highly motivated to get better and get home. PT Short Term Goals Short Term Goals Time Frame: Apr 30, 2016 Transfers (B,C,W/C) (FIM): 4 Gait (FIM): 1 Gait Distance Comment: 20' Gait Level of Assist: 4 (min A) Gait Assistive Device: FWW Wheelchair Distance: 20' PT Drafter Civil Engineering Goals Drafter Civil Engineering Goals PT Drafter Civil Engineering Goals Time Frame: May 14, 2016 Transfers (B,C,W/C) (FIM): 4 (CGA) Sit to Lying (QC): 4 Lying-Sitting on Side/Bed(QC): 4 Sit to Stand (QC): 4 Rollin Roll Left to Right (QC): 4 Chair/Dxb-qn-Hujmp Xfer(QC): 4 Car Transfer (QC): 4 Gait (FIM): 4 Distance: 150' Walk 10 feet (QC): 4 Walk 10ft-Uneven Surface(QC): 4 Walk 50ft with 2 Turns (QC): 4 Walk 150 ft (QC): 4 Gait Level of Assist: 4 (CGA) Gait Assistive Device: FWW Stairs (FIM): 2 # of Steps: 4 1 Step (curb) (QC): 4 4 Steps (QC): 4 Stairs Level Of Assist: 4 Picking up an Object (QC): 88 PT Plan Problem List Problem List: Activity Tolerance, Functional Strength, Safety, Balance, Gait, Transfer, Bed Mobility Treatment/Plan Treatment Plan: Continue Plan of Care Treatment Plan: Bed Mobility, Education, Functional Activity Percy, Functional Strength, Group Therapy, Gait, Safety, Therapeutic Exercise, Transfers Treatment Duration: May 14, 2016 Visits Per Week: 10-11 Minutes/Day (M-F): 60-90 Minutes/Day (Sat/Terrell): 15-30 Safety Risks/Education Patient Education: Gait Training, Transfer Techniques, Correct Positioning, Safety Issues Teaching Recipient: Patient Teaching Methods: Discussion Response to Teaching: Verbalize Understanding Time/GCodes Time In: 1315 Time Out: 1345 Total Billed Treatment Time: 30 Total Billed Treatment visit, FA X2 (30m) Co-treat w/OT from [id number] (15m) MITCH SHI FINAL INSPECTOR AND TESTER Apr 24, 2016 14:08
--- NOTE | 2016-04-24 15:06 | Occupational Ther Daily Note ---
OT Current Status-Daily Note Subjective Pt was seen in room, up on BSC. Co-tx with PT due to pt weakness today Mental Status/Objective Functional [place] Measure 0=Not Assessed/NA 4=Minimal Assistance 1=Total Assistance 5=Supervision or Setup 2=Maximal Assistance 6=Modified [place] 3=Moderate Assistance 7=Complete [place] ADL-Treatment O2 was off for toileting, per nursing OK. Once pt transferred back to bed, O2 sats in 70s and O2 reapplied. Quickly came back up to 90s. Functional [place] Measure 0=Not Assessed/NA 4=Minimal Assistance 1=Total Assistance 5=Supervision or Setup 2=Maximal Assistance 6=Modified [place] 3=Moderate Assistance 7=Complete IndependenceIRFPAI Quality Coding Scale 6 Independent with activity with or without an assistive device 5 Patient requires set up or clean up by helper. Patient completes activity by themselves 4 Supervision or touching assist (CGA). [place] provide cues , steadying assist 3 The helper provides less than half the effort to complete the activity 2 The helper provides more than half the effort to complete the activity 1 Dependent. The helper does all the effort to complete an activity 7 Patient refused to complete or attempt activity 9 The patient did not perform the activity before the current illness or injury 88 Not attempted due to Medical conditions or safety concerns Toileting (FIM): 1 (Pt required two people for toileting, one to stand her and one to wipe and manage clothing. Once she was up, she could maintain balance with min assist. Unable to wipe or manage clothing today. FWW, BSC) Transfers (B, C, W/C) (FIM): 3 (Pt required mod assist to get both legs into bed and two person assist to pull up in bed. Log rolled to place pad to help with pulling up. Pt needed significant help when transferring from BSC to bed, with OT helping with hand placement and PT facilitating leg movement. Pt also kept walker out in front of her and had difficulty bringing it in closer, even with pt educaiton. ) Toilet/Commode Transfer (FIM): 3 (Mod assist off BSC. pt has difficulty getting good position for hands for pushup from arm rests due to post polio weakness. Also with LE weakness. Once she was up off BSC, she could maintain standing with min assist. ) Other Treatment Once supine in bed, pt worked on bilat UE exercise. She was able to hold on to 1 # exercise bar and do elbow flex/ext x 15 reps. Unable to do shoulder ex due to weakness from polio and injuries. Did AROM without additional resistance R UE ( unable to do pron/sup but could do wrist flex/ext, finger flex/etc and opposition). Pt demonstrates that finger extensors assist with wrist extension. On L, pt did AROM pron.sup, wrist flex/ext, finger flex/ext and opposition. Pt cont to demonstrate fatigue. Left up in bed, 4 rails up, O2 in place. OT Short Term Goals Short Term Goals Time Frame: May 02, 2016 Bathing(FIM): 4 Lower Body Dressing(FIM): 4 Transfers (B,C,W/C) (FIM): 4 Toilet/Commode Transfer(FIM): 4 Shower Transfer(FIM): 3 Additional Short Term Goals: 3-ImproveStrength/Percy 1=Demonstrate adherence to instructed precautions during ADL tasks. 2=Patient will verbalize/demonstrate understanding of assistive devices/ modifications for ADL. 3=Patient will improve strength/tolerance for activity to enable patient to perform ADL's. OT Custodial Goals Custodial Goals Time Frame: May 09, 2016 Eating (FIM): 7 Eating (QC): 6 Oral Hygiene (QC): 6 Grooming(FIM): 6 Bathing(FIM): 6 Shower/Bathe Self (QC): 6 Upper Body Dressing(FIM): 6 Upper Body Dressing (QC): 6 Lower Body Dressing(FIM): 6 Lower Body Dressing (QC): 6 On/Off Footwear (QC): 6 Toileting(FIM): 6 Toileting Hygiene (QC): 6 Toilet/Commode Transfer(FIM): 6 Toilet/Commode Transfer (QC): 6 Shower Transfer(FIM): 6 Additional Goals: 2-Verbalize Understanding, 3-ImproveStrength/[place] (5/5 bilat elbows and distal) 1=Demonstrate adherence to instructed precautions during ADL tasks. 2=Patient will verbalize/demonstrate understanding of assistive devices/ modifications for ADL. 3=Patient will improve strength/tolerance for activity to enable patient to perform ADL's. OT Education/Plan Problem List/Assessment Pt would benefit from skilled OT to increase her independence in basic self care to allow her to safely return to her home with family support and to decrease caregiver burden. Discharge Recommendations Plan/Recommendations: Continue POC Treatment Plan/Plan of Care Patient would benefit from OT for education, treatment and training to promote independence in ADL's, mobility, safety and/or upper extremity function for ADL' s. Plan of Care: ADL Retraining, Functional Mobility, Group Exercise/Act as Ind ( education, exercise, activity tolerance, functional activities), UE Funct Exercise/Act, UE Neuromus Re-Ed/Coord Treatment Duration: May 16, 2016 Visits Per Week: 10-11 Minutes/Day (M-F): 75-90 Minutes/Day (Sat/Terrell): PRN Agreement: Yes Rehab Potential: Fair Time/GCodes Start Time: 13:30 Stop Time: 14:00 Total Time Billed (hr/min): 30 Billed Treatment Time visit, 15 minutes ADL, 15 minutes exercise Co-tx with PT 1330 to 1345 with ADLs, OT working on UEs and PT facilitating LE function RADHIKA CURTIS OT Apr 24, 2016 15:06
[2016-04-24 18:54] VITALS: BP 104/59
--- NOTE | 2016-04-24 20:46 | PM & R (SOAP) Progress Note ---
Subjective Subjective/Events-last exam Patient was seen in her room this AM Called early this AM re low HGB Dr Looney ordered transfusion Appreciate her note and orders Therapy notes reviewed. Review of Systems General: Fatigue Musculoskeletal: : leg pain Neurological: : Weakness Objective Exam Last Set of Vital Signs Vital Signs Date Time Temp Pulse Resp B/P Pulse Ox O2 Delivery O2 Flow Rate FiO2 04/24/16 18:39 92 2.00 04/24/16 13:24 99.0 80 18 117/ 04/24/16 09:00 Room Air Capillary Refill : I&O Bad tableGeneral: Alert, Oriented X3, Cooperative, No Acute Distress HEENT: Atraumatic, PERRLA, EOMI, Mucous Memb Moist/[place] Neck: Supple, No JVD Lungs: Clear to Auscultation Heart: Regular Rate Abdomen: Normal Bowel Sounds, Soft, No Tenderness Extremities: No Edema Neuro: Other (weakness on right as compared to left with limited AROM both shoulders with hx of prox left hum frx s/p repair Dr Jiménez as a result of prior fall) Results Lab Laboratory Tests 04/24/16 06:14: Alanine Aminotransferase (ALT/SGPT) 16, Albumin 2.7L, Alkaline Phosphatase 73, Anion Gap 7, Aspartate Amino Transf (AST/SGOT) 21, BUN/Creatinine Ratio 13, Basophils # (Auto) 0.1, Basophils (%) (Auto) 1, Blood Urea Nitrogen 12, Calcium Level 7.9L, Carbon Dioxide Level 25, Chloride Level 105, Creatinine 0.89, Eosinophils # (Auto) 1.4H, Eosinophils (%) (Auto) 11H, Estimat Glomerular Filtration Rate > 60, Glucose Level 93, Hematocrit 21L, Hemoglobin 6.7*L, Lymphocytes # (Auto) 2.8, Lymphocytes (%) (Auto) 22, Mean Corpuscular Hemoglobin 30, Mean Corpuscular Hemoglobin Concent 33, Mean Corpuscular Volume 94, Mean Platelet Volume 10.4, Monocytes # (Auto) 1.9H, Monocytes (%) (Auto) 15H , Neutrophils # (Auto) 6.6, Neutrophils (%) (Auto) 52, Platelet Count 294, Potassium Level 4.1, Red Blood Count 2.20L, Red Cell Distribution Width 16.0H, Sodium Level 137, Total Bilirubin 0.4, Total Protein 5.5L, White Blood Count 12.8H Assessment/Plan Assessment nondisplaced intertrochanteric frx left hip s/p repair Ortho Postop anemia s/p transfusion today Post polio syndrome with residual weakness Rt side prior fall with limited ROM left shoulder s/p repair prox humerus frx Hypoalbuminemia Chronic constipation COPD with recurrent pneumonias HX of pseudomonas UTI Plan Continue PT/OT F/U Labs F/U with Dr Looney and ortho as per zeeshan schedule HIRA CHATMAN MD Apr 24, 2016 20:46
--- NOTE | 2016-04-24 20:59 | Individualized Plan of Care ---
Individualized Plan of Care Rehab Nursing IPOC Order Admission Date Apr 23, 2016 at 11:25 Current Orders Orders-HIRA CHATMAN MD Patient Visit (04/23/16 ) Speech Sound Lang Comp (04/23/16 ) Admission-Acute Rehab Unit (04/23/16 14:22) Vital Signs: Routine 08,16,00 (04/23/16 14:22) Social Service (04/23/16 14:22) Rehab Nursing Orders-Ipoc (04/23/16 14:22) Physical Therapy Rehab Orders (04/23/16 14:22) Occupational Therapy Rehab Ord (04/23/16 14:22) Speech Therapy Rehab Orders (04/23/16 14:22) Recreation Therapy Request (04/23/16 14:22) General/Regular (04/23/16 Dinner) Turn And Reposition Q2HR (04/23/16 14:22) Intake & Output Shift Assessme 06,14,22 (04/23/16 14:22) Weight Bearing Status (04/23/16 14:22) Weekly Weight (Lbs) WEEK (04/23/16 14:22) Code/Resuscitation (04/23/16 14:28) Sequential Compression Device 08,20 (04/23/16 14:28) Frederick Hose 09,21 (04/23/16 14:28) Bisacodyl Tablet (Dulcolax Tablet) (04/23/16 14:30) Enoxaparin Injection (Lovenox Injection) (04/23/16 20:00) Sennosides Tablet (Senokot Tablet) (04/23/16 21:00) Docusate Sodium Capsule (Colace Capsule) (04/23/16 21:00) Oxycodone/Apap 5/325mg Tablet (Percocet (04/23/16 14:30) Magnesium Hydroxide Oral Susp (Mom Oral (04/23/16 14:30) Amitriptyline Tablet (Elavil Tablet) (04/23/16 21:00) Cbc With Automated Diff (04/24/16 06:00) Comprehensive Metabolic Panel (04/24/16 06:00) Consult Physician (04/23/16 14:33) Lactulose Oral Solution (Enulose Oral So (04/23/16 21:00) Oxycodone/Apap 5/325mg Tablet (Percocet (04/23/16 14:45) Albuterol/Ipra Inhalation Soln (Duoneb I (04/23/16 18:00) Potassium Chloride (Tablet) (K Dur Table (04/23/16 17:00) Cyanocobalamin Tablet (Vitamin B-12 Tabl (04/24/16 09:00) Atorvastatin Tablet (Lipitor) (04/23/16 21:00) Diltiazem Cd 24 Hr Capsule (Cardizem Cd (04/24/16 09:00) Cholecalciferol Capsule/Tablet (Vitamin (04/24/16 09:00) Torsemide Tablet (Demadex Tablet) (04/23/16 17:00) Therapeutic Multivitamin Tab (Vitamins, (04/24/16 07:00) Levothyroxine Tablet (Synthroid Tablet) (04/24/16 06:30) Pantoprazole Tablet (Protonix Tablet) (04/24/16 07:00) Labetalol Tablet (Normodyne Tablet) (04/23/16 21:00) Guaifenesin Tablet (Mucinex Tablet) (04/23/16 21:00) Patient Visit (04/23/16 ) Pt Eval Moderate Complexity (04/23/16 ) Functional Activities, Ea 15 (04/23/16 ) Exercise Therap, Ea 15 Min (04/23/16 ) Patient Visit (04/23/16 ) Albuterol/Ipra Inhalation Soln (Duoneb I (04/23/16 21:00) Albuterol/Ipra Inhalation Soln (Duoneb I (04/23/16 15:45) Mat Protocol-Rt Rfs (04/23/16 15:43) Patient Visit (04/24/16 ) Functional Activities, Ea 15 (04/24/16 ) Exercise Therap, Ea 15 Min (04/24/16 ) Sputum Culture (04/24/16 16:23) PT IPOC Problem List: Activity Tolerance, Functional Strength, Safety, Balance, Gait, Transfer, Bed Mobility Treatment Plan: Continue Plan of Care Bed Mobility, Education, Functional Activity Percy, Functional Strength, Group Therapy, Gait, Safety, Therapeutic Exercise, Transfers Treatment Duration: May 14, 2016 Visits Per Week: 10-11 Minutes/Day (M-F): 60-90 Minutes/Day (Sat/Terrell): 15-30 OT IPOC Problems: Decreased Activ Tolerance, Decreased UE Strength, Dependent Transfers , Impaired Funct Balance, Impaired Self-Care Skills, Restricted Funct UE ROM OT Problems Pt would benefit from skilled OT to increase her independence in basic self care to allow her to safely return to her home with family support and to decrease caregiver burden. Plan of Care: ADL Retraining, Functional Mobility, Group Exercise/Act as Ind ( education, exercise, activity tolerance, functional activities), UE Funct Exercise/Act, UE Neuromus Re-Ed/Coord Treatment Duration: May 16, 2016 Visits Per Week: 10-11 Minutes/Day (M-F): 75-90 Minutes/Day (Sat/Terrell): PRN ST IPOC Speech Therapy Treatment Plan: Discontinue ST (Eval, only.) Physician IPOC Medical Issues being managed closely and that require the 24 hour availability of a physician:postop anemia copd chronic constipation Medical Issues: DVT Prophylaxis, Falls Precautions, Fluid/Electrolyte/ Nutrition Balance, Infection Protection, Pain Management, Wound Care, Other ( List) (as per above) Brief Synthesis of Preadmission Screen, Post-Admission Evaluation, and Therapy Evaluations: 81 yo female who lives alone with the support of nearby family who fell at home sustaining a left hip frx now s/p repair Had HGB of 6.7 this am and transfusion ordered by Dr Looney hospitalist.Patient tolerated procedure well Had been Modified Independent for mobility for gait with a RW prior to this Dose have a HX of Postpolio syndrome and falls and repair left prox hum frx Dr Jiménez Also Chronic constipation and COPD Medical Prognosis: good Anticipated Length of Stay: 05/16/16 Rehab Goals Modified Independent to supervision for adls and mobility skills Anticipated discharge destinat: Home with family and [place] HIRA CHATMAN MD Apr 24, 2016 20:59
[2016-04-24] MEDS: AMITRIPTYLINE 150 MG (ELAVIL) TABLET PO SCH (21:13)
[2016-04-24] MEDS: ATORVASTATIN 40 MG (LIPITOR) TABLET PO SCH (21:13)
[2016-04-25] MEDS: oxyCODONE/APAP 5/325MG (PERCOCET 5) TABLET PO PRN ×3 (04:16→23:55)
[2016-04-25 06:00] VITALS: BP 103/65
[2016-04-25] MEDS: MULTIVIT W/MINERALS TAB (THERAGRAN M) PO SCH (06:29)
[2016-04-25] MEDS: LEVOTHYROXINE 150 MCG (LEVOTHROID) TAB PO SCH (06:29)
[2016-04-25] MEDS: TORSEMIDE 20 MG (DEMADEX) TAB PO SCH ×2 (06:29→18:01)
[2016-04-25] MEDS: PANTOPRAZOLE 40 MG (PROTONIX) TAB PO SCH (06:29)
[2016-04-25] MEDS: KCL 20 MEQ TAB (K-DUR) PO SCH ×2 (06:29→18:01)
[2016-04-25 06:38] LABS: BASOPHILS # (AUTO) 0.1 10^3/uL (0.0-0.1); BASOPHILS % (AUTO) 1 % (0-10); EOSINOPHILS # (AUTO) 1.2 10^3/uL (0.0-0.3); EOSINOPHILS % (AUTO) 10 % (0-10); LYMPHOCYTES # (AUTO) 2.1 X 10^3 (1.0-4.0); LYMPHOCYTES % (AUTO) 17 % (12-44); MEAN CORPUSCULAR HEMOGLOBIN 30 PG (25-34); MEAN CORPUSCULAR HGB CONC 33 G/DL (32-36); MEAN CORPUSCULAR VOLUME 92 FL (80-99); MEAN PLATELET VOLUME 10.6 FL (7.4-10.4); MONOCYTES # (AUTO) 2.1 X 10^3 (0.0-1.0); MONOCYTES % (AUTO) 17 % (0-12); NEUTROPHILS % (AUTO) 56 % (42-75); PLATELET COUNT 307 10^3/uL (130-400); RED BLOOD COUNT 2.74 10^6/uL (4.35-5.85); RED CELL DISTRIBUTION WIDTH 15.9 % (10.0-14.5); WHITE BLOOD COUNT 12.6 10^3/uL (4.3-11.0)
[2016-04-25 06:55] LABS: ALBUMIN 2.8 G/DL (3.2-4.5); BILIRUBIN,TOTAL 0.6 MG/DL (0.1-1.0); CALCIUM 7.9 MG/DL (8.5-10.1); CREATININE SERUM 1.01 MG/DL (0.60-1.30); POTASSIUM 4.2 MMOL/L (3.6-5.0); TOTAL PROTEIN 5.5 G/DL (6.4-8.2)
[2016-04-25] MEDS: RT-ALBUTEROL/IPRATROPIUM 3 ML (DUONEB) VIAL INH SCH ×4 (07:00→19:13)
[2016-04-25] MEDS: LACTULOSE SYRUP 10GM/15ML (ENULOSE) 30ML UDC PO SCH ×2 (08:13→20:56)
[2016-04-25] MEDS: CYANOCOBALAMIN 500 MCG TAB (VITAMIN B-12) PO SCH (08:13)
[2016-04-25] MEDS: LABETALOL 200 MG (NORMODYNE) TAB PO SCH ×2 (08:13→20:55)
[2016-04-25] MEDS: guaiFENesin (MUCINEX) 600 MG TAB PO SCH ×2 (08:13→20:55)
[2016-04-25] MEDS: DILTIAZEM 240 MG (CARDIZEM CD) CAP PO SCH (08:13)
[2016-04-25] MEDS: VITAMIN D3 5,000 UNITS (CHOLECALCIFEROL ) CAPSULE PO SCH (08:13)
[2016-04-25] MEDS: SENNOSIDES 8.6 MG (SENOKOT) TAB PO SCH ×2 (08:13→20:55)
[2016-04-25] MEDS: DOCUSATE SODIUM 100 MG (COLACE) CAP PO SCH ×2 (08:13→20:55)
[2016-04-25] MEDS: ENOXAPARIN 30 MG/0.3 ML (LOVENOX) SYR SC SCH ×2 (08:14→20:55)
--- NOTE | 2016-04-25 08:32 | PM & R (SOAP) Progress Note ---
Subjective Subjective/Events-last exam Patient was seen in her oom this AM Tolerated Bllod transfusion Post transfusion HGB 8.2 Patient min assist for transfers Objective Exam Last Set of Vital Signs Vital Signs Date Time Temp Pulse Resp B/P Pulse Ox O2 Delivery O2 Flow Rate FiO2 04/25/16 07:00 96 2.00 04/25/16 06:00 98.5 79 20 103/65 Nasal Cannula Capillary Refill : I&O Intake and Output 04/25/16 00:00 Intake Total 1280 ml Balance 1280 ml Intake Oral 910 ml Other 370 ml # Voids 6 # Bowel Movements 3 General: Alert, Oriented X3, Cooperative, No Acute Distress HEENT: Atraumatic, PERRLA, EOMI, Mucous Memb Moist/[place] Neck: Supple, No JVD Lungs: Clear to Auscultation Heart: Regular Rate Abdomen: Normal Bowel Sounds, Soft, No Tenderness Extremities: No Edema Neuro: Other (weakness on right as compared to left with limited AROM both shoulders with hx of prox left hum frx s/p repair Dr Jiménez as a result of prior fall) Results Lab Laboratory Tests 04/24/16 06:14: Alanine Aminotransferase (ALT/SGPT) 16, Albumin 2.7L, Alkaline Phosphatase 73, Anion Gap 7, Aspartate Amino Transf (AST/SGOT) 21, BUN/Creatinine Ratio 13, Basophils # (Auto) 0.1, Basophils (%) (Auto) 1, Blood Urea Nitrogen 12, Calcium Level 7.9L, Carbon Dioxide Level 25, Chloride Level 105, Creatinine 0.89, Eosinophils # (Auto) 1.4H, Eosinophils (%) (Auto) 11H, Estimat Glomerular Filtration Rate > 60, Glucose Level 93, Hematocrit 21L, Hemoglobin 6.7*L, Lymphocytes # (Auto) 2.8, Lymphocytes (%) (Auto) 22, Mean Corpuscular Hemoglobin 30, Mean Corpuscular Hemoglobin Concent 33, Mean Corpuscular Volume 94, Mean Platelet Volume 10.4, Monocytes # (Auto) 1.9H, Monocytes (%) (Auto) 15H , Neutrophils # (Auto) 6.6, Neutrophils (%) (Auto) 52, Platelet Count 294, Potassium Level 4.1, Red Blood Count 2.20L, Red Cell Distribution Width 16.0H, Sodium Level 137, Total Bilirubin 0.4, Total Protein 5.5L, White Blood Count 12.8H 04/25/16 06:30: Alanine Aminotransferase (ALT/SGPT) 11, Albumin 2.8L, Alkaline Phosphatase 76, Anion Gap 8, Aspartate Amino Transf (AST/SGOT) 20, BUN/Creatinine Ratio 14, Basophils # (Auto) 0.1, Basophils (%) (Auto) 1, Blood Urea Nitrogen 14, Calcium Level 7.9L, Carbon Dioxide Level 27, Chloride Level 102, Creatinine 1.01, Eosinophils # (Auto) 1.2H, Eosinophils (%) (Auto) 10, Estimat Glomerular Filtration Rate 53, Glucose Level 94, Hematocrit 25L, Hemoglobin 8.2#L, Lymphocytes # (Auto) 2.1, Lymphocytes (%) (Auto) 17, Mean Corpuscular Hemoglobin 30, Mean Corpuscular Hemoglobin Concent 33, Mean Corpuscular Volume 92, Mean Platelet Volume 10.6H, Monocytes # (Auto) 2.1H, Monocytes (%) (Auto) 17H, Neutrophils # (Auto) 7.0, Neutrophils (%) (Auto) 56, Platelet Count 307, Potassium Level 4.2, Red Blood Count 2.74L, Red Cell Distribution Width 15.9H, Sodium Level 137, Total Bilirubin 0.6, Total Protein 5.5L, White Blood Count 12.6H Assessment/Plan Assessment nondisplaced intertrochanteric frx left hip s/p repair Ortho Postop anemia s/p transfusion today Post polio syndrome with residual weakness Rt side prior fall with limited ROM left shoulder s/p repair prox humerus frx Hypoalbuminemia Chronic constipation COPD with recurrent pneumonias HX of pseudomonas UTI Plan Continue PT/OT F/U Labs-done F/U with Dr Looney and ortho as per their schedule Team Conference next week 04/30/16 HIRA CHATMAN MD Apr 25, 2016 08:32
--- NOTE | 2016-04-25 11:05 | Occupational Ther Daily Note ---
OT Current Status-Daily Note Subjective Pt seen in room, up at EOB, agreeable to OT and ADLs. No pain mentioned. Appearance Alert, cooperative Mental Status/Objective Functional [place] Measure 0=Not Assessed/NA 4=Minimal Assistance 1=Total Assistance 5=Supervision or Setup 2=Maximal Assistance 6=Modified [place] 3=Moderate Assistance 7=Complete [place] Attachments: Central Line (covered for shower) ADL-Treatment Pt is unable to safely transfer into walk in shower due to placement of grab bars and need for weight bearing on FWW for transfer. Pt was assisted to dress due to time limitations. All ADLs took longer than usual Functional [place] Measure 0=Not Assessed/NA 4=Minimal Assistance 1=Total Assistance 5=Supervision or Setup 2=Maximal Assistance 6=Modified [place] 3=Moderate Assistance 7=Complete IndependenceIRFPAI Quality Coding Scale 6 Independent with activity with or without an assistive device 5 Patient requires set up or clean up by helper. Patient completes activity by themselves 4 Supervision or touching assist (CGA). Wheelwright provide cues , steadying assist 3 The helper provides less than half the effort to complete the activity 2 The helper provides more than half the effort to complete the activity 1 Dependent. The helper does all the effort to complete an activity 7 Patient refused to complete or attempt activity 9 The patient did not perform the activity before the current illness or injury 88 Not attempted due to Medical conditions or safety concerns Bathing (FIM): 5 (Able to wash and dry all parts except back in rolling shower chair. Leaned to side to wash bottom and leadned forward to wash feet. Also used grab bar and hand held shower. Setup and supervision) Transfers (B, C, W/C) (FIM): 3 (Mod assist sit to stand from lower positions. Min assist sit to stand if bed elevated. FWW) Toilet Transfer (QC): 4 (Takes a long time to move feet with stand pivot transfer and FWW, min assist to move walker. To BSC. Skilled cues to reach back with L hand. R hand tends to stay on FWW and it tips toward her) Shower Transfer(FIM): 4 (Very slow transfer to wheeled shower chair from bed, FWW, min assist to move walker. Required foot pedals to push self back into chair. Transported to shower room because chair is not designed for self propulsion. ) Pt left up on BSC, with call light at end of tx, needing extra time to toilet. OT Short Term Goals Short Term Goals Time Frame: May 02, 2016 Bathing(FIM): 4 Lower Body Dressing(FIM): 4 Transfers (B,C,W/C) (FIM): 4 Toilet/Commode Transfer(FIM): 4 Shower Transfer(FIM): 3 Additional Short Term Goals: 3-ImproveStrength/Percy 1=Demonstrate adherence to instructed precautions during ADL tasks. 2=Patient will verbalize/demonstrate understanding of assistive devices/ modifications for ADL. 3=Patient will improve strength/tolerance for activity to enable patient to perform ADL's. OT Half-Way Goals App[employer] Trimmings Sales Representative Goals Time Frame: May 09, 2016 Eating (FIM): 7 Eating (QC): 6 Oral Hygiene (QC): 6 Grooming(FIM): 6 Bathing(FIM): 6 Shower/Bathe Self (QC): 6 Upper Body Dressing(FIM): 6 Upper Body Dressing (QC): 6 Lower Body Dressing(FIM): 6 Lower Body Dressing (QC): 6 On/Off Footwear (QC): 6 Toileting(FIM): 6 Toileting Hygiene (QC): 6 Toilet/Commode Transfer(FIM): 6 Toilet/Commode Transfer (QC): 6 Shower Transfer(FIM): 6 Additional Goals: 2-Verbalize Understanding, 3-ImproveStrength/Percy (5/5 bilat elbows and distal) 1=Demonstrate adherence to instructed precautions during ADL tasks. 2=Patient will verbalize/demonstrate understanding of assistive devices/ modifications for ADL. 3=Patient will improve strength/tolerance for activity to enable patient to perform ADL's. OT Education/Plan Problem List/Assessment Pt would benefit from skilled OT to increase her independence in basic self care to allow her to safely return to her home with family support and to decrease caregiver burden. Discharge Recommendations Plan/Recommendations: Continue POC Treatment Plan/Plan of Care Patient would benefit from OT for education, treatment and training to promote independence in ADL's, mobility, safety and/or upper extremity function for ADL' s. Plan of Care: ADL Retraining, Functional Mobility, Group Exercise/Act as Ind ( education, exercise, activity tolerance, functional activities), UE Funct Exercise/Act, UE Neuromus Re-Ed/Coord Treatment Duration: May 16, 2016 Visits Per Week: 10-11 Minutes/Day (M-F): 75-90 Minutes/Day (Sat/Terrell): PRN Agreement: Yes Rehab Potential: Fair Time/GCodes Start Time: 09:30 Stop Time: 10:30 Total Time Billed (hr/min): 60 Billed Treatment Time visit, 60 minutes ADL RADHIKA CURTIS OT Apr 25, 2016 11:05
--- NOTE | 2016-04-25 11:10 | Progress Note-Hospitalist ---
Progress Note Progress Notes/Assess & Plan Date Seen 04/25/16 Diagonsis/Assessment & Plan Chart Review: No fever Vitals stable Received 2 units of blood yesterday due to Hgb of 6.7 now 8.2 WBC remains 12.6 CMP reveals normal Creat 1.0 Patient Interview: Pt states that she feels good today. Pt was working with PT during visit. Physical exam stable. Pt reports normal BMs. Dr. Looney discusses lab results with pt. Pt has no requests at this time. No fever, vital signs stable, pleasant, pale, chronically ill Regular rate and rhythm, clear to auscultation bilaterally in the upper lobes but crackles in the lower lobes history of a pulmonary fibrosis so she is never clear on exam No edema Laboratory Tests 04/25/16 06:30 Assessment: Severe anemia postop but complicated with kidney disease and chronic illness requiring 2 units of packed red blood cell transfusion Acute nondisplaced intertrochanteric fracture left hip s/p repair POD # 4 Severe COPD with recurrent pneumonias and h/o lower lobe pneumonia/sputum positive for MRSA 12/16 h/o urinary tract infection with pseudomonas . h/o acute on chronic renal failure Leukocytosis h/o Hyperkalemia Pulmonary congestion on Lasix Poor vascular access s/p port placement last admit Constipation chronic issue now resolved Severe anemia due to kidney disease and co-morbidities and acute blood loss in need of empiric iron infusions Severe debility Plan: Continue diuretic Monitor Hgb closely Duoneb QID Scribed by Antony Morfin under the direct supervision of Dr. Looney. DENI LOONEY DO Apr 25, 2016 11:10
--- NOTE | 2016-04-25 12:06 | Physical Therapy Daily Note ---
PT Daily Note-Current Subjective Pt. agrees to Rx. Voice is low and growls , often appears pt. is not completely following the line of conversation or task. Mental Status Attachments: Oxygen Transfers Functional [place] Measure 0=Not Assessed/NA 4=Minimal Assistance 1=Total Assistance 5=Supervision or Setup 2=Maximal Assistance 6=Modified [place] 3=Moderate Assistance 7=Complete IndependenceIRFPAI Quality Coding Scale 6 Independent with activity with or without an assistive device 5 Patient requires set up or clean up by helper. Patient completes activity by themselves 4 Supervision or touching assist (CGA). [place] provide cues , steadying assist 3 The helper provides less than half the effort to complete the activity 2 The helper provides more than half the effort to complete the activity 1 Dependent. The helper does all the effort to complete an activity 7 Patient refused to complete or attempt activity 9 The patient did not perform the activity before the current illness or injury 88 Not attempted due to Medical conditions or safety concerns Transfers (B, C, W/C) (FIM): 3 Scootin Rollin Supine to/from Sit: 3 Sit to/from Stand: 3 Bed to/from Chair: 3 pt. very challenged with TRFs either direction as she has pain and difficulty wt bearing LLE and post polio RLE and RUE limiting how much pt. can wt bear on FWW. Weight Bearing Weight Bearing Restriction: Weight Bearing/Tolerated Gait Training Gait (FIM): 1 Distance (FIM): 1=up to 49 ft (2-3 steps/scoots ) Gait Level of Assist: 2 Gait Persons Needed: 1 Gait Assistive Device: FWW pt. attempts steps but requires assist for all and w/c or sitting surface right behind her, has difficulty pressing down on walker and instead it is noted that she in fact lifts it up at times Exercises Supine Ex: Ankle pumps, Quad Set, Rolling, Glut sets, Heel Slides, Short Arc Quads, Scooting, Straight leg raise, Hip abd/add Supine Reps: 15 Seated Therapy Exercises: Ankle pumps, Sit to stand, Long arc quads Seated Reps: 10 Treatments TRFs on off BSC MOD assist and assist for cleaning and pants Assessment Current Status: Fair Progress PT Short Term Goals Short Term Goals Time Frame: Apr 30, 2016 Transfers (B,C,W/C) (FIM): 4 Gait (FIM): 1 Gait Distance Comment: 20' Gait Level of Assist: 4 (min A) Gait Assistive Device: FWW Wheelchair Distance: 20' PT Shelter Goals Shelter Goals PT Rvda Master Certified Rv Technician Goals Time Frame: May 14, 2016 Transfers (B,C,W/C) (FIM): 4 (CGA) Sit to Lying (QC): 4 Lying-Sitting on Side/Bed(QC): 4 Sit to Stand (QC): 4 Rollin Roll Left to Right (QC): 4 Chair/Bpq-ch-Xgeze Xfer(QC): 4 Car Transfer (QC): 4 Gait (FIM): 4 Distance: 150' Walk 10 feet (QC): 4 Walk 10ft-Uneven Surface(QC): 4 Walk 50ft with 2 Turns (QC): 4 Walk 150 ft (QC): 4 Gait Level of Assist: 4 (CGA) Gait Assistive Device: FWW Stairs (FIM): 2 # of Steps: 4 1 Step (curb) (QC): 4 4 Steps (QC): 4 Stairs Level Of Assist: 4 Picking up an Object (QC): 88 PT Plan Treatment/Plan Treatment Plan: Continue Plan of Care Treatment Plan: Bed Mobility, Education, Functional Activity Percy, Functional Strength, Group Therapy, Gait, Safety, Therapeutic Exercise, Transfers Treatment Duration: May 14, 2016 Visits Per Week: 10-11 Minutes/Day (M-F): 60-90 Minutes/Day (Sat/Terrell): 15-30 Safety Risks/Education Patient Education: Transfer Techniques, Correct Positioning, Safety Issues Teaching Recipient: Patient Teaching Methods: Demonstration, Discussion Response to Teaching: Verbalize Understanding, Return Demonstration, Reinforcement Needed Time/GCodes Time In: 1050 Time Out: 1150 Total Billed Treatment Time: 60 Total Billed Treatment 1,EX30m,FA30m G Codes Necessary: SHELLEY Casiano BRIGADIER Apr 25, 2016 12:06
--- NOTE | 2016-04-25 14:24 | Therapy Group Daily Note ---
Therapy Daily Group Note Other/Notes Each patient was brought to group, if they could ambulate they were brought that way and if they couldn't then they came by wheelchair. At group each patient had to state their name, where they were from and recall an interesting fact about their past. Then patients were oriented to the rehab floor by discussing the roles of each discipline of therapy, how many minutes are required, etc. Then, each patient participated in a group game/activity that involves memory, critical thinking, and cooperation. The group also had to stop occasionally for upper and lower extremity seated exercises. After group was over each patient was transported back to their room. Start Time: 13:00 Stop Time: 14:00 Total Billed Treatment Time: 60 Total Billed Treatment 1 visit GRP 60 min LEIGH KELLY PT Apr 25, 2016 14:24
[2016-04-25 18:00] VITALS: BP 134/55
[2016-04-25] MEDS ORDERED: oxyCODONE/APAP 5/325MG (PERCOCET 5) TABLET ONE (18:03)
[2016-04-25] MEDS: AMITRIPTYLINE 150 MG (ELAVIL) TABLET PO SCH (20:55)
[2016-04-25] MEDS: ATORVASTATIN 40 MG (LIPITOR) TABLET PO SCH (20:55)
[2016-04-26] MEDS: oxyCODONE/APAP 5/325MG (PERCOCET 5) TABLET PO PRN ×3 (04:53→21:34)
[2016-04-26 05:00] VITALS: BP 110/67
[2016-04-26] MEDS: LEVOTHYROXINE 150 MCG (LEVOTHROID) TAB PO SCH (06:50)
[2016-04-26] MEDS: MULTIVIT W/MINERALS TAB (THERAGRAN M) PO SCH (06:50)
[2016-04-26] MEDS: TORSEMIDE 20 MG (DEMADEX) TAB PO SCH ×2 (06:50→17:40)
[2016-04-26] MEDS: KCL 20 MEQ TAB (K-DUR) PO SCH ×2 (06:50→17:40)
[2016-04-26] MEDS: PANTOPRAZOLE 40 MG (PROTONIX) TAB PO SCH (06:50)
[2016-04-26] MEDS: RT-ALBUTEROL/IPRATROPIUM 3 ML (DUONEB) VIAL INH SCH ×3 (08:11→19:10)
[2016-04-26] MEDS: guaiFENesin (MUCINEX) 600 MG TAB PO SCH ×2 (08:36→21:33)
[2016-04-26] MEDS: LACTULOSE SYRUP 10GM/15ML (ENULOSE) 30ML UDC PO SCH ×2 (08:36→21:33)
[2016-04-26] MEDS: VITAMIN D3 5,000 UNITS (CHOLECALCIFEROL ) CAPSULE PO SCH (08:36)
[2016-04-26] MEDS: DILTIAZEM 240 MG (CARDIZEM CD) CAP PO SCH (08:36)
[2016-04-26] MEDS: DOCUSATE SODIUM 100 MG (COLACE) CAP PO SCH ×2 (08:37→21:33)
[2016-04-26] MEDS: CYANOCOBALAMIN 500 MCG TAB (VITAMIN B-12) PO SCH (08:37)
[2016-04-26] MEDS: LABETALOL 200 MG (NORMODYNE) TAB PO SCH ×2 (08:37→21:34)
[2016-04-26] MEDS: ENOXAPARIN 30 MG/0.3 ML (LOVENOX) SYR SC SCH ×2 (08:38→21:33)
[2016-04-26] MEDS: SENNOSIDES 8.6 MG (SENOKOT) TAB PO SCH ×2 (08:38→21:33)
--- NOTE | 2016-04-26 10:57 | Physical Therapy Daily Note ---
PT Daily Note-Current Subjective Pt. agrees to Rx. Feels she has improved Pain Numeric Pain Scale: 0-No Pain Location: Left Mental Status Patient Orientation: Normal For Age Transfers Functional [place] Measure 0=Not Assessed/NA 4=Minimal Assistance 1=Total Assistance 5=Supervision or Setup 2=Maximal Assistance 6=Modified [place] 3=Moderate Assistance 7=Complete IndependenceIRFPAI Quality Coding Scale 6 Independent with activity with or without an assistive device 5 Patient requires set up or clean up by helper. Patient completes activity by themselves 4 Supervision or touching assist (CGA). [place] provide cues , steadying assist 3 The helper provides less than half the effort to complete the activity 2 The helper provides more than half the effort to complete the activity 1 Dependent. The helper does all the effort to complete an activity 7 Patient refused to complete or attempt activity 9 The patient did not perform the activity before the current illness or injury 88 Not attempted due to Medical conditions or safety concerns Transfers (B, C, W/C) (FIM): 4 Scootin Rollin Supine to/from Sit: 4 Sit to/from Stand: 4 Bed to/from Chair: 4 SPTs bed to toilet to bed to w/c to recliner all min to mod assist Weight Bearing Weight Bearing Restriction: Weight Bearing/Tolerated Gait Training Does the Patient Walk?: Yes Gait (FIM): 1 Distance (FIM): 1=up to 49 ft (5x3) Gait Level of Assist: 3 Gait Persons Needed: 1 Gait Assistive Device: FWW Exercises Supine Ex: Ankle pumps, Quad Set, Rolling, Glut sets, Heel Slides, Short Arc Quads, Scooting, Straight leg raise (assist), Hip abd/add Seated Therapy Exercises: Ankle pumps, Sit to stand, Long arc quads, Hip abd/ add Seated Reps: 12 Assessment Current Status: Good Progress in bed with some degree of comfort after Rx PT Short Term Goals Short Term Goals Time Frame: Apr 30, 2016 Transfers (B,C,W/C) (FIM): 4 Gait (FIM): 1 Gait Distance Comment: 20' Gait Level of Assist: 4 (min A) Gait Assistive Device: FWW Wheelchair Distance: 20' PT Senior Living Goals Senior Living Goals PT Senior Living Goals Time Frame: May 14, 2016 Transfers (B,C,W/C) (FIM): 4 (CGA) Sit to Lying (QC): 4 Lying-Sitting on Side/Bed(QC): 4 Sit to Stand (QC): 4 Rollin Roll Left to Right (QC): 4 Chair/Sut-ma-Lwqtl Xfer(QC): 4 Car Transfer (QC): 4 Gait (FIM): 4 Distance: 150' Walk 10 feet (QC): 4 Walk 10ft-Uneven Surface(QC): 4 Walk 50ft with 2 Turns (QC): 4 Walk 150 ft (QC): 4 Gait Level of Assist: 4 (CGA) Gait Assistive Device: FWW Stairs (FIM): 2 # of Steps: 4 1 Step (curb) (QC): 4 4 Steps (QC): 4 Stairs Level Of Assist: 4 Picking up an Object (QC): 88 PT Plan Treatment/Plan Treatment Plan: Continue Plan of Care Treatment Plan: Bed Mobility, Education, Functional Activity Percy, Functional Strength, Group Therapy, Gait, Safety, Therapeutic Exercise, Transfers Treatment Duration: May 14, 2016 Visits Per Week: 10-11 Minutes/Day (M-F): 60-90 Minutes/Day (Sat/Terrell): 15-30 Safety Risks/Education Patient Education: Gait Training, Transfer Techniques Teaching Recipient: Patient Teaching Methods: Demonstration, Discussion Response to Teaching: Verbalize Understanding, Return Demonstration, Reinforcement Needed Time/GCodes Time In: 910 Time Out: 950 Total Billed Treatment Time: 40 Total Billed Treatment 1,EX15,FA25 G Codes Necessary: SHELLEY Casiano DIRECTOR OF FOOD AND NUTRITION Apr 26, 2016 10:57
[2016-04-26 18:08] VITALS: BP 119/66
[2016-04-26 18:33] LABS: BASOPHILS # (AUTO) 0.1 10^3/uL (0.0-0.1); BASOPHILS % (AUTO) 1 % (0-10); EOSINOPHILS % (AUTO) 8 % (0-10); LYMPHOCYTES # (AUTO) 2.9 X 10^3 (1.0-4.0); LYMPHOCYTES % (AUTO) 21 % (12-44); MEAN CORPUSCULAR HEMOGLOBIN 31 PG (25-34); MEAN CORPUSCULAR HGB CONC 33 G/DL (32-36); MEAN CORPUSCULAR VOLUME 94 FL (80-99); MEAN PLATELET VOLUME 10.3 FL (7.4-10.4); MONOCYTES % (AUTO) 14 % (0-12); NEUTROPHILS # (AUTO) 7.9 X 10^3 (1.8-7.8); NEUTROPHILS % (AUTO) 57 % (42-75); PLATELET COUNT 325 10^3/uL (130-400); RED BLOOD COUNT 2.73 10^6/uL (4.35-5.85); RED CELL DISTRIBUTION WIDTH 15.5 % (10.0-14.5); WHITE BLOOD COUNT 13.9 10^3/uL (4.3-11.0)
[2016-04-26] MEDS: ATORVASTATIN 40 MG (LIPITOR) TABLET PO SCH (21:33)
[2016-04-26] MEDS: AMITRIPTYLINE 150 MG (ELAVIL) TABLET PO SCH (21:33)
[2016-04-26] MEDS: CIPROFLOXACIN 500 MG (CIPRO) TABLET PO SCH (21:33)
[2016-04-27] MEDS: LEVOTHYROXINE 150 MCG (LEVOTHROID) TAB PO SCH (06:15)
[2016-04-27] MEDS: TORSEMIDE 20 MG (DEMADEX) TAB PO SCH ×2 (06:15→17:13)
[2016-04-27] MEDS: oxyCODONE/APAP 5/325MG (PERCOCET 5) TABLET PO PRN ×4 (06:16→20:02)
[2016-04-27] MEDS: PANTOPRAZOLE 40 MG (PROTONIX) TAB PO SCH (06:16)
[2016-04-27] MEDS: KCL 20 MEQ TAB (K-DUR) PO SCH ×2 (06:16→17:13)
[2016-04-27] MEDS: MULTIVIT W/MINERALS TAB (THERAGRAN M) PO SCH (06:16)
[2016-04-27 06:17] VITALS: BP 109/62
[2016-04-27 06:35] LABS: BASOPHILS # (AUTO) 0.1 10^3/uL (0.0-0.1); BASOPHILS % (AUTO) 1 % (0-10); EOSINOPHILS # (AUTO) 1.2 10^3/uL (0.0-0.3); EOSINOPHILS % (AUTO) 9 % (0-10); LYMPHOCYTES # (AUTO) 2.7 X 10^3 (1.0-4.0); LYMPHOCYTES % (AUTO) 20 % (12-44); MEAN CORPUSCULAR HEMOGLOBIN 31 PG (25-34); MEAN CORPUSCULAR HGB CONC 32 G/DL (32-36); MEAN CORPUSCULAR VOLUME 95 FL (80-99); MEAN PLATELET VOLUME 10.4 FL (7.4-10.4); MONOCYTES # (AUTO) 2.1 X 10^3 (0.0-1.0); MONOCYTES % (AUTO) 15 % (0-12); NEUTROPHILS # (AUTO) 7.4 X 10^3 (1.8-7.8); NEUTROPHILS % (AUTO) 55 % (42-75); PLATELET COUNT 313 10^3/uL (130-400); RED BLOOD COUNT 2.56 10^6/uL (4.35-5.85); RED CELL DISTRIBUTION WIDTH 15.5 % (10.0-14.5); WHITE BLOOD COUNT 13.5 10^3/uL (4.3-11.0)
[2016-04-27] MEDS: RT-ALBUTEROL/IPRATROPIUM 3 ML (DUONEB) VIAL INH SCH ×3 (07:30→19:04)
[2016-04-27 08:31] VITALS: BP 94/48
[2016-04-27] MEDS: VITAMIN D3 5,000 UNITS (CHOLECALCIFEROL ) CAPSULE PO SCH (08:35)
[2016-04-27] MEDS: CIPROFLOXACIN 500 MG (CIPRO) TABLET PO SCH ×2 (08:35→20:02)
[2016-04-27] MEDS: SENNOSIDES 8.6 MG (SENOKOT) TAB PO SCH ×2 (08:35→21:21)
[2016-04-27] MEDS: guaiFENesin (MUCINEX) 600 MG TAB PO SCH ×2 (08:36→20:02)
[2016-04-27] MEDS: DOCUSATE SODIUM 100 MG (COLACE) CAP PO SCH ×2 (08:36→20:02)
[2016-04-27] MEDS: CYANOCOBALAMIN 500 MCG TAB (VITAMIN B-12) PO SCH (08:36)
[2016-04-27] MEDS: LACTULOSE SYRUP 10GM/15ML (ENULOSE) 30ML UDC PO SCH ×2 (08:38→20:03)
[2016-04-27] MEDS: ENOXAPARIN 30 MG/0.3 ML (LOVENOX) SYR SC SCH ×2 (08:42→20:03)
[2016-04-27 11:27] VITALS: BP_SYST 83; BP_SYST 84; BP_DIAS 48; BP_DIAS 54
[2016-04-27] MEDS: DILTIAZEM 240 MG (CARDIZEM CD) CAP PO SCH (11:34)
[2016-04-27] MEDS: LABETALOL 200 MG (NORMODYNE) TAB PO SCH ×2 (11:34→20:02)
[2016-04-27] MEDS ORDERED: NS IV 1000 ML 1,000 ML IV ONE (11:45)
[2016-04-27 15:00] VITALS: BP 100/59
[2016-04-27 18:00] VITALS: BP 123/77
[2016-04-27 19:36] LABS: MEAN PLATELET VOLUME 10.5 FL (7.4-10.4); RED BLOOD COUNT 2.74 10^6/uL (4.35-5.85); RED CELL DISTRIBUTION WIDTH 15.5 % (10.0-14.5); WHITE BLOOD COUNT 14.9 10^3/uL (4.3-11.0)
[2016-04-27] MEDS: ATORVASTATIN 40 MG (LIPITOR) TABLET PO SCH (20:02)
[2016-04-27] MEDS: AMITRIPTYLINE 150 MG (ELAVIL) TABLET PO SCH (20:02)
[2016-04-28] MEDS: oxyCODONE/APAP 5/325MG (PERCOCET 5) TABLET PO PRN ×5 (00:26→22:18)
[2016-04-28 05:03] VITALS: BP 113/68
[2016-04-28] MEDS: MULTIVIT W/MINERALS TAB (THERAGRAN M) PO SCH (06:00)
[2016-04-28] MEDS: LEVOTHYROXINE 150 MCG (LEVOTHROID) TAB PO SCH (06:00)
[2016-04-28] MEDS: KCL 20 MEQ TAB (K-DUR) PO SCH ×2 (06:00→17:08)
[2016-04-28] MEDS: PANTOPRAZOLE 40 MG (PROTONIX) TAB PO SCH (06:00)
[2016-04-28] MEDS: TORSEMIDE 20 MG (DEMADEX) TAB PO SCH ×2 (06:00→17:08)
[2016-04-28] MEDS: RT-ALBUTEROL/IPRATROPIUM 3 ML (DUONEB) VIAL INH SCH ×3 (07:33→20:14)
[2016-04-28] MEDS: ENOXAPARIN 30 MG/0.3 ML (LOVENOX) SYR SC SCH ×2 (08:02→20:53)
[2016-04-28] MEDS: CYANOCOBALAMIN 500 MCG TAB (VITAMIN B-12) PO SCH (08:02)
[2016-04-28] MEDS: VITAMIN D3 5,000 UNITS (CHOLECALCIFEROL ) CAPSULE PO SCH (08:02)
[2016-04-28] MEDS: CIPROFLOXACIN 500 MG (CIPRO) TABLET PO SCH ×2 (08:02→20:53)
[2016-04-28] MEDS: guaiFENesin (MUCINEX) 600 MG TAB PO SCH ×2 (08:02→20:53)
[2016-04-28 08:04] VITALS: BP 101/63
[2016-04-28] MEDS: DOCUSATE SODIUM 100 MG (COLACE) CAP PO SCH ×2 (08:06→20:53)
[2016-04-28] MEDS: SENNOSIDES 8.6 MG (SENOKOT) TAB PO SCH ×2 (08:06→20:53)
[2016-04-28] MEDS: LABETALOL 200 MG (NORMODYNE) TAB PO SCH ×2 (08:06→20:53)
[2016-04-28] MEDS: LACTULOSE SYRUP 10GM/15ML (ENULOSE) 30ML UDC PO SCH ×2 (08:07→20:55)
[2016-04-28] MEDS: DILTIAZEM 240 MG (CARDIZEM CD) CAP PO SCH (08:08)
--- NOTE | 2016-04-28 11:46 | Progress Note-Hospitalist ---
Progress Note Progress Notes/Assess & Plan Date Seen 04/28/16 Diagonsis/Assessment & Plan Patient doing well but having more short of breath episodes and she was placed on Cipro for sputum culture due to chronic bronchitis with exacerbation We'll consult Dr. Pfeiffer to evaluate lung function due to pulmonary fibrosis situation She did receive transfusions without difficulty 2 days prior No fever, vital signs stable, pleasant, pale, chronically ill Regular rate and rhythm, clear to auscultation bilaterally in the upper lobes but crackles in the lower lobes history of a pulmonary fibrosis so she is never clear on exam No edema Laboratory Tests 04/27/16 19:28 Assessment: Severe anemia postop but complicated with kidney disease and chronic illness requiring 2 units of packed red blood cell transfusion Acute nondisplaced intertrochanteric fracture left hip s/p repair POD # 7 Severe COPD with recurrent pneumonias and h/o lower lobe pneumonia/sputum positive for MRSA 12/16 now on Cipro for sputum culture sensitivity profile h/o urinary tract infection with pseudomonas . h/o acute on chronic renal failure Leukocytosis h/o Hyperkalemia Pulmonary congestion on Lasix Poor vascular access s/p port placement last admit Constipation chronic issue now resolved Severe anemia due to kidney disease and co-morbidities and acute blood loss in need of empiric iron infusions Severe debility Plan: Pulmonology consultation due to the severity of her lung disease Monitor Hgb closely Duoneb QID Complete antibiotics of Cipro DENI PINK DO Apr 28, 2016 11:46
--- NOTE | 2016-04-28 11:55 | Physical Therapy Daily Note ---
PT Daily Note-Current Subjective Patient in recliner pre tx, agrees to PT reluctantly, rates pain at 6/10 in left hip. Appearance Patient in recliner post tx with nurse call, phone, tray, all needs met. Mental Status Patient Orientation: Confused Transfers Functional [place] Measure 0=Not Assessed/NA 4=Minimal Assistance 1=Total Assistance 5=Supervision or Setup 2=Maximal Assistance 6=Modified [place] 3=Moderate Assistance 7=Complete IndependenceIRFPAI Quality Coding Scale 6 Independent with activity with or without an assistive device 5 Patient requires set up or clean up by helper. Patient completes activity by themselves 4 Supervision or touching assist (CGA). [place] provide cues , steadying assist 3 The helper provides less than half the effort to complete the activity 2 The helper provides more than half the effort to complete the activity 1 Dependent. The helper does all the effort to complete an activity 7 Patient refused to complete or attempt activity 9 The patient did not perform the activity before the current illness or injury 88 Not attempted due to Medical conditions or safety concerns Transfers (B, C, W/C) (FIM): 2 Sit to/from Stand: 2 Bed to/from Chair: 2 Patient performed a stand pivot many times during this treatment and she performed it with max assist, cues for safety and hand placement, patient was very anxious and would flair her arms trying to feel something to grab onto, she needed reminded that if she would just look she could see where the arm rest is and she did so and immediately could grab onto it for the transfer. However, when performing the last transfer from her wheelchair to her recliner patient was able to stand and transfer with CGA. Most of this treatment was just performing transfers. She needed to sit between each exercise in the parallel bars. Sit to stand was max assist. Every transfer was slow and difficult. Wheelchair Training Wheelchair (FIM): 2 Distance: 50' Wheelchair Level of Assist: 2 Type of Wheelchair: Manual Patient would only assist with propelling her wheelchair using her legs or her left arm, she could not coordinate using both, she would lose track of what she was doing after about 10' and would need reminded of what she was doing and how to do it Exercises Standing: Hip Abduction, Heel/toe raises, Mini squats Standing Reps: 10 NuStep Minutes: 5 NuStep Workload: 3 Treatments transfers, wheelchair mobility, functional strengthening Assessment Current Status: Poor Progress No progress in mobility. Patient loses focus very quickly and needs constant reminders of what she is supposed to do and how to do it. PT Short Term Goals Short Term Goals Time Frame: Apr 30, 2016 Transfers (B,C,W/C) (FIM): 4 Gait (FIM): 1 Gait Distance Comment: 20' Gait Level of Assist: 4 (min A) Gait Assistive Device: FWW Wheelchair Distance: 20' PT Care Home Goals Documentation Improvement Specialist Goals PT Care Home Goals Time Frame: May 14, 2016 Transfers (B,C,W/C) (FIM): 4 (CGA) Sit to Lying (QC): 4 Lying-Sitting on Side/Bed(QC): 4 Sit to Stand (QC): 4 Rollin Roll Left to Right (QC): 4 Chair/Mbn-jr-Rwbzr Xfer(QC): 4 Car Transfer (QC): 4 Gait (FIM): 4 Distance: 150' Walk 10 feet (QC): 4 Walk 10ft-Uneven Surface(QC): 4 Walk 50ft with 2 Turns (QC): 4 Walk 150 ft (QC): 4 Gait Level of Assist: 4 (CGA) Gait Assistive Device: FWW Stairs (FIM): 2 # of Steps: 4 1 Step (curb) (QC): 4 4 Steps (QC): 4 Stairs Level Of Assist: 4 Picking up an Object (QC): 88 PT Plan Problem List Problem List: Activity Tolerance, Functional Strength, Safety, Balance, Gait, Transfer, Bed Mobility, ROM Treatment/Plan Treatment Plan: Continue Plan of Care Treatment Plan: Bed Mobility, Education, Functional Activity Percy, Functional Strength, Group Therapy, Gait, Safety, Therapeutic Exercise, Transfers Treatment Duration: May 14, 2016 Visits Per Week: 10-11 Minutes/Day (M-F): 60-90 Minutes/Day (Sat/Terrell): 15-30 Safety Risks/Education Patient Education: Transfer Techniques, Correct Positioning, W/C Management, Safety Issues Teaching Recipient: Patient Teaching Methods: Demonstration, Discussion Response to Teaching: Reinforcement Needed Time/GCodes Time In: 1100 Time Out: 1200 Total Billed Treatment Time: 60 Total Billed Treatment 1 visit EX 15 min FA 45 min LEIGH KELLY PT Apr 28, 2016 11:55
--- NOTE | 2016-04-28 12:12 | Pulmonary Consultation ---
History of Present Illness History of Present Illness Date of Consultation 04/28/16 12:06 Date of Admission History of Present Illness Madeleine Young is an 81-year-old, who is familiar to us in our pulmonary office. She has had multiple admissions for PNA and UTI. She recently fell and sustained left hip fracture with repair completed by Dr. Williamson on 04/20. She has a history of polio affecting right side. She wears oxygen at home at night and is requiring 2L oxygen as her oxygen level drops and that she has had a few episodes of shortness of breath at rest. She denies fever. She is coughing after breathing treatments and says her phlegm is yellow and that her breathing tx seem to help. We are consulted for pts copd management. Allergies and Home Medications Allergies Coded Allergies: cephalexin (Verified Allergy, Severe, TONGUE SWELLS, SOB (PT HAS HAD ROCEPHIN W/O ISSUE), 03/13/16) PER DR. MAYFIELD, PATIENT HAS RECEIVED ROCEPHIN IN THE PAST WITHOUT INCIDENT Penicillins (Verified Allergy, Mild, 03/13/16) celecoxib (Verified Allergy, Mild, PATIEN CAN TAKE MOBIC, 03/13/16) clindamycin (Verified Allergy, Mild, 03/13/16) propoxyphene (Verified Allergy, Mild, 03/13/16) rofecoxib (Verified Allergy, Mild, 03/13/16) Sulfa (Sulfonamide Antibiotics) (Verified Allergy, Unknown, 03/13/16) Tetanus Vaccines and Toxoid (Verified Allergy, Unknown, 03/13/16) doxycycline (Verified Allergy, Unknown, 03/13/16) levofloxacin (Verified Allergy, Unknown, 03/13/16) meloxicam (Verified Allergy, Unknown, 03/13/16) nitrofurantoin (Verified Allergy, Unknown, RASH, 03/13/16) Home Medications Amitriptyline HCl 150 Mg Tablet 150 MG PO HS (Reported) Atorvastatin Calcium 10 Mg Tablet 10 MG PO DAILY (Reported) Bisacodyl 5 Mg Tablet.dr 5 MG PO DAILY PRN PRN CONSTIPATION (Reported) Cholecalciferol (Vitamin D3) 5,000 Unit Capsule 5,000 UNIT PO DAILY@1400 ( Reported) Cyanocobalamin (Vitamin B-12) 1,000 Mcg Tablet 1,000 MCG PO DAILY@1400 (Reported ) Diltiazem HCl 240 Mg Cap.er.24h 240 MG PO DAILY@1400 (Reported) Docusate Sodium 100 Mg Capsule 100 MG PO HS (Reported) Enoxaparin Sodium 30 Mg/0.3 Ml Syringe 14Days 30 MG SC BID@08,20 Prescribed by: DENI PINK on 04/23/16 0953 Guaifenesin/Dextromethorphan 1 Each Tbmp.12hr 1 TAB PO BID (Reported) Ipratropium/Albuterol Sulfate 3 Ml Ampul.neb 3 ML IH TID PRN PRN SHORTNESS OF BREATH (Reported) Iron Sucrose Complex 200 Mg/10 Ml Vial #5 200 MG IV Q48H Prescribed by: DENI PINK on 04/23/16 0955 Labetalol HCl 200 Mg Tablet 300 MG PO BID (Reported) TAKES 1 & 1/2 (200MG) TABLETS Lactulose 20 Gm/30 Ml Solution 14Days 20 GM PO BID Prescribed by: DENI PINK on 04/23/16 0953 Levothyroxine Sodium 150 Mcg Tablet 150 MCG PO DAILY (Reported) Magnesium Hydroxide 400 Mg/5 Ml Oral.susp 4 TBS PO DAILY PRN PRN CONSTIPATION ( Reported) Multivitamin 1 Each Tablet 1 TAB PO DAILY@1400 (Reported) Omeprazole 20 Mg Capsule.dr 20 MG PO DAILY (Reported) Oxycodone HCl/Acetaminophen 1 Each Tablet 14Days 1-2 TAB PO Q4H PRN PRN MODERATE PAIN Prescribed by: DENI PINK on 04/23/16 0953 Polyethylene Glycol 3350 119 Gm Powder 17 GM PO DAILY PRN PRN CONSTIPATION ( Reported) Potassium Chloride 10 Meq Capsule.er 20 MEQ PO BID (Reported) TAKES 2 (10 MEQ) CAPSULES Torsemide 20 Mg Tablet 20 MG PO 0800,1400 (Reported) Past Wtcjvtq-Tiqdym-Ivuzmy Hx Patient Social History Alcohol Use: Denies Use Recreational Drug Use: No Smoking Status: Former Smoker Type Used: Cigarettes Former Smoker/When Quit: Feb 27, 1965 Recent Foreign Travel: No Contact w/Someone Who Travel: No Recent Infectious Disease Expo: No Recent Hopitalizations: Yes Physical Abuse Screen: No Sexual Abuse: No Immunizations Up To Date Tetanus Booster (TDap): Unknown PED Vaccines UTD: No Date of Pneumonia Vaccine: Nov 30, 2013 Date of Influenza Vaccine: Dec 22, 2015 Seasonal Allergies Seasonal Allergies: No Surgeries HX Surgeries: Yes Surgeries: Abdominal, Section, Eye Surgery, Hysterectomy, Orthopedic, Thyroidectomy Respiratory Hx Respiratory Disorders: Yes Respiratory Disorders: Asthma, Pneumonia, Chronic Bronchitis, Sleep Apnea Cardiovascular Hx Cardiac Disorders: Yes (CHRONIC CHEST PAIN, PER PT) Cardiac Disorders: Chronic Edema/Swelling, High Cholesterol, Hypertension Neurological Hx Neurological Disorders: Yes (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) Neurological Disorders: TIA Reproductive System Hx Reproductive Disorders: No Sexually Transmitted Disease: No HIV/AIDS: No Female Reproductive Disorders: Denies Genitourinary Hx Genitourinary Disorders: Yes (MILD RENAL INSUFFICIENCY) Genitourinary Disorders: Bladder Infection Gastrointestinal Hx Gastrointestinal Disorders: Yes (HX COLON CANCER) Gastrointestinal Disorders: Gastroesophageal Reflux, Hemorrhoids Musculoskeletal Hx Musculoskeletal Disorders: Yes Musculoskeletal Disorders: Degenerate Disk Disease, Arthritis, Fibromyalgia, Chronic Back Pain Endocrine Hx Endocrine Disorders: Yes (HX THYROIDECTOMY FOR GOITER;STEROID INDUCED HYPERGLYCEMIA) Endocrine Disorders: Hypothyroidsim HEENT HX ENT Disorders: Yes (CHRONIC RECURRENT RIGHT SUBMANDIBULAR GLAND SWELLING) HEENT Disorders: Cataract Loss of Vision: Denies Hearing Impairment: Denies Cancer Hx Cancer: Yes (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, NO CHEMO OR RADIATION) Cancer: Colon, Thyroid Psychosocial Hx Psychiatric Problems: Yes Behavioral Health Disorders: Anxiety Integumentary HX Skin/Integumentary Disorder: No Skin/Integumentary Disorders: Recent Skin Changes Blood Transfusions Hx Blood Disorders: Yes (ANEMIA) Adverse Reaction to a Blood Tr: No Family Medical History Significant Family History: No Pertinent Family Hx Family Medial History: Colon cancer 09 SISTER Congestive heart failure 03 MOTHER Deafness or hearing loss 03 FATHER 03 MOTHER 09 BROTHER Family history: Arthritis 03 FATHER 03 MOTHER History of - respiratory disease 09 BROTHER (kurtis-smoker) Hypertension 03 MOTHER Myocardial infarction 03 FATHER Myocardial infarction 03 FATHER Neoplasm 09 SISTER Respiratory disorder Severe allergy No Family History of: AIDS Abdominal aortic aneurysm Rawlins's disease Alcoholism Alzheimer's disease Aphasia Arthritis Asthma Cancer of mouth Cardiovascular disease Cataracts Completed stroke Congenital disease Congenital heart disease Coronary thrombosis Cystic fibrosis Dementia Diabetes mellitus Drug abuse Dysphasia Fibrocystic disease of breast Gastroenteritis Glaucoma Headache disorder Hypercholesterolemia Infertility Kidney disease Not obtainable due to adoption Osteoporosis Parkinson's disease Prostate cancer Psychosocial problem Seizure disorder Thyroid disease Tuberculosis Visual disorder Review of Systems Constitutional: No: Chills, Fever, Malaise, Other, Sweats, Weakness Eyes: No: Conjunctivae inflammation, Eyelid inflammation, Other, Pain, Redness , Vision change ENT: No: Ear discharge, Ear pain, Mouth pain, Mouth swelling, Nose congestion, Nose discharge, Nose pain, Other, Throat pain, Throat swelling Respiratory: : Cough: SOB with excertion: Shortness of breath: Sputum (yellow ) Cardiovascular: No: Chest Pain, Edema, Lt Headedness, Orthopnea, Other, Palpitations, Paroxysmal Noc. Dyspnea Gastrointestinal: : Nausea Genitourinary: No Dysuria, No Frequency, No Incontinence, No Hematuria, No Retention, No Other Musculoskeletal: : other (hip pain (left) ) Skin: No: Bruising, Jaundice, Lesions, Other, Rash Neurological: No: Change in speech, Confusion, Incoordination, Numbness, Other , Seizures, Weakness Exam Exam Vital Signs Date Time Temp Pulse Resp B/P Pulse Ox O2 Delivery O2 Flow Rate FiO2 04/28/16 08:04 88 101/63 04/28/16 08:00 Nasal Cannula 2.00 04/28/16 07:39 91 04/28/16 05:03 97.3 80 18 113/68 99 Nasal Cannula 2.00 04/27/16 20:15 Room Air 04/27/16 19:08 80 04/27/16 18:00 97.6 102 20 123/77 100 Nasal Cannula 2.00 04/27/16 15:00 98.3 84 20 100/59 95 Nasal Cannula 2.00 04/27/16 14:58 95 2.00 I & O 04/28/16 07:00 Intake Total 2790 ml Output Total 1450 ml Balance 1340 ml General Appearance: No Apparent Distress WD/WN HEENT: PERRL/EOMI Pharynx Normal Neck: Full Range of Motion Normal Inspection Non Tender Supple Respiratory: Chest Non Tender Lungs Clear Normal Breath Sounds No Accessory Muscle Use No Respiratory Distress Decreased Breath Sounds Cardiovascular: Regular Rate, Rhythm Capillary Refill: Less Than 3 Seconds Gastrointestinal: normal bowel sounds non tender soft Extremity: Normal Capillary Refill Normal Inspection Normal Range of Motion Non Tender No Calf Tenderness Neurologic/Psychiatric: Alert Oriented x3 No Motor/Sensory Deficits Normal Mood/Affect analysis mgr II-XII Norm as Tested Skin: Normal Color Warm/Dry Results Lab Laboratory Tests 04/26/16 18:26 04/27/16 06:27 04/27/16 19:28 Assessment/Plan Assessment/Plan Acute nondisplaced intertrochanteric fracture left hip s/p repair 04/20/[address] Williamson COPD with hx of recurrent PNA -cxr- reviewed -duoneb -BNP- reviewed will give 40mg IV lasix one time -I/S Dyspnea hypoxemia -oxygen to keep sats > 92% MRSA 03/07 -continue Cipro for sputum culture sensitivity profile Leukocytosis Severe anemia- requiring 2 units of packed red blood cell transfusion Severe debility Above plan was per Dr. Pfeiffer. Clinical Quality Measures DVT/VTE Risk/Contraindication: Risk Factor Score Per Nursin RFS Level Per Nursing on Admit: 4+=Very High SULEMAN BACON APRN Apr 28, 2016 12:11
--- NOTE | 2016-04-28 13:01 | Diagnostic Imaging Report ---
INDICATION: Shortness of breath. PA and lateral chest. Right IJ Port-A-Cath tip projects over the SVC. There is a suboptimal inspiration. There are no effusions or pneumothoraces. There is some subtle increased density in the right upper lung and left lower lung that could be infiltrate. IMPRESSION: Questionable right upper lobe and left basilar infiltrates. Dictated by: Dictated on workstation # [id number]
--- NOTE | 2016-04-28 13:35 | Occupational Ther Daily Note ---
OT Current Status-Daily Note Subjective Pt seen in room, up in recliner, agreeable to OT. No pain mentioned. Appearance Alert, cooperative. mumbles at times and is hard to understand Mental Status/Objective Functional [place] Measure 0=Not Assessed/NA 4=Minimal Assistance 1=Total Assistance 5=Supervision or Setup 2=Maximal Assistance 6=Modified [place] 3=Moderate Assistance 7=Complete [place] ADL-Treatment Took longer than usual to bathe and dress. At end of tx, left up in recliner, all needs met. Functional [place] Measure 0=Not Assessed/NA 4=Minimal Assistance 1=Total Assistance 5=Supervision or Setup 2=Maximal Assistance 6=Modified [place] 3=Moderate Assistance 7=Complete IndependenceIRFPAI Quality Coding Scale 6 Independent with activity with or without an assistive device 5 Patient requires set up or clean up by helper. Patient completes activity by themselves 4 Supervision or touching assist (CGA). [place] provide cues , steadying assist 3 The helper provides less than half the effort to complete the activity 2 The helper provides more than half the effort to complete the activity 1 Dependent. The helper does all the effort to complete an activity 7 Patient refused to complete or attempt activity 9 The patient did not perform the activity before the current illness or injury 88 Not attempted due to Medical conditions or safety concerns Bathing (FIM): 4 (Pt washed and dried all parts except lower legs. Leaned to the side to wash bottom. Sponge bath, setup. ) Bathing Location: L Arm, R Arm, L Upper Leg, R Upper Leg, Chest, Abdomen, Buttocks, Perineal Area Upper Body (FIM): 5 (Supervision for doffing and donning button top. Some cues for managing oxygen during dressing. Dressed while sitting.) Lower Body Dressing (FIM): 1 (Py initially needed mod-max assist to stand to pull pants down. Pt was able to pick pants and slipper socks off but could not don slipper socks. Struggled with getting feet in pants legs and did not recall modified technique (from donning underwear to donning pants). She was unable to stand up from recliner without assistance of two people. Can't seem to figure out where to place hands and feet. ) OT Short Term Goals Short Term Goals Time Frame: May 02, 2016 Bathing(FIM): 4 Lower Body Dressing(FIM): 4 Transfers (B,C,W/C) (FIM): 4 Toilet/Commode Transfer(FIM): 4 Shower Transfer(FIM): 3 Additional Short Term Goals: 3-ImproveStrength/Percy 1=Demonstrate adherence to instructed precautions during ADL tasks. 2=Patient will verbalize/demonstrate understanding of assistive devices/ modifications for ADL. 3=Patient will improve strength/tolerance for activity to enable patient to perform ADL's. OT Custodial Goals Wallpaper Printer Goals Time Frame: May 09, 2016 Eating (FIM): 7 Eating (QC): 6 Oral Hygiene (QC): 6 Grooming(FIM): 6 Bathing(FIM): 6 Shower/Bathe Self (QC): 6 Upper Body Dressing(FIM): 6 Upper Body Dressing (QC): 6 Lower Body Dressing(FIM): 6 Lower Body Dressing (QC): 6 On/Off Footwear (QC): 6 Toileting(FIM): 6 Toileting Hygiene (QC): 6 Toilet/Commode Transfer(FIM): 6 Toilet/Commode Transfer (QC): 6 Shower Transfer(FIM): 6 Additional Goals: 2-Verbalize Understanding, 3-ImproveStrength/Percy (5/5 bilat elbows and distal) 1=Demonstrate adherence to instructed precautions during ADL tasks. 2=Patient will verbalize/demonstrate understanding of assistive devices/ modifications for ADL. 3=Patient will improve strength/tolerance for activity to enable patient to perform ADL's. OT Education/Plan Problem List/Assessment Pt would benefit from skilled OT to increase her independence in basic self care to allow her to safely return to her home with family support and to decrease caregiver burden. Discharge Recommendations Plan/Recommendations: Continue POC Treatment Plan/Plan of Care Patient would benefit from OT for education, treatment and training to promote independence in ADL's, mobility, safety and/or upper extremity function for ADL' s. Plan of Care: ADL Retraining, Functional Mobility, Group Exercise/Act as Ind ( education, exercise, activity tolerance, functional activities), UE Funct Exercise/Act, UE Neuromus Re-Ed/Coord Treatment Duration: May 16, 2016 Visits Per Week: 10-11 Minutes/Day (M-F): 75-90 Minutes/Day (Sat/Terrell): PRN Agreement: Yes Rehab Potential: Fair Time/GCodes Start Time: 10:15 Stop Time: 11:00 Total Time Billed (hr/min): 45 Billed Treatment Time visit, 45 minutes ADL RADHIKA CURTIS OT Apr 28, 2016 13:34
--- NOTE | 2016-04-28 13:55 | Occupational Ther Daily Note ---
OT Current Status-Daily Note Subjective Pt seen in room, up in recliner, agreeable to OT. No pain mentioned Appearance Alert, cooperative, looks confused at times. tends to lean toward R side, putting weight on R hip Mental Status/Objective Functional [place] Measure 0=Not Assessed/NA 4=Minimal Assistance 1=Total Assistance 5=Supervision or Setup 2=Maximal Assistance 6=Modified [place] 3=Moderate Assistance 7=Complete [place] ADL-Treatment Functional [place] Measure 0=Not Assessed/NA 4=Minimal Assistance 1=Total Assistance 5=Supervision or Setup 2=Maximal Assistance 6=Modified [place] 3=Moderate Assistance 7=Complete IndependenceIRFPAI Quality Coding Scale 6 Independent with activity with or without an assistive device 5 Patient requires set up or clean up by helper. Patient completes activity by themselves 4 Supervision or touching assist (CGA). [place] provide cues , steadying assist 3 The helper provides less than half the effort to complete the activity 2 The helper provides more than half the effort to complete the activity 1 Dependent. The helper does all the effort to complete an activity 7 Patient refused to complete or attempt activity 9 The patient did not perform the activity before the current illness or injury 88 Not attempted due to Medical conditions or safety concerns Other Treatment Pt did 10 reps bilat UE exercise with 1/2# weight that fits around palm. pt did 10 reps L elbow flex, L pron/sup (doesn't have these motions on R UE), 10 reps bilat wrist flex/ext. She was able to track repetitions but needed skilled physical assistance to maintain correct movements with each exercises (movement deteriorated after about 5-7 repetitions). Pt transferred max assist, FWW from recliner to w/c in preparation for group. Tends to not put weight on L leg and needs skilled cues for hand placement to sit down safely. Verbal cues to look for arm rests on w/c, for safety. Education OT Patient Education: Exercise program, Safety issues, Transfer techniques Teaching Recipient: Patient Teaching Methods: Demonstration, Discussion Response to Teaching: Reinforcement Needed OT Short Term Goals Short Term Goals Time Frame: May 02, 2016 Bathing(FIM): 4 Lower Body Dressing(FIM): 4 Transfers (B,C,W/C) (FIM): 4 Toilet/Commode Transfer(FIM): 4 Shower Transfer(FIM): 3 Additional Short Term Goals: 3-ImproveStrength/[place]cy 1=Demonstrate adherence to instructed precautions during ADL tasks. 2=Patient will verbalize/demonstrate understanding of assistive devices/ modifications for ADL. 3=Patient will improve strength/tolerance for activity to enable patient to perform ADL's. OT Operations Architect Goals Senior Living Goals Time Frame: May 09, 2016 Eating (FIM): 7 Eating (QC): 6 Oral Hygiene (QC): 6 Grooming(FIM): 6 Bathing(FIM): 6 Shower/Bathe Self (QC): 6 Upper Body Dressing(FIM): 6 Upper Body Dressing (QC): 6 Lower Body Dressing(FIM): 6 Lower Body Dressing (QC): 6 On/Off Footwear (QC): 6 Toileting(FIM): 6 Toileting Hygiene (QC): 6 Toilet/Commode Transfer(FIM): 6 Toilet/Commode Transfer (QC): 6 Shower Transfer(FIM): 6 Additional Goals: 2-Verbalize Understanding, 3-ImproveStrength/[place]cy (5/5 bilat elbows and distal) 1=Demonstrate adherence to instructed precautions during ADL tasks. 2=Patient will verbalize/demonstrate understanding of assistive devices/ modifications for ADL. 3=Patient will improve strength/tolerance for activity to enable patient to perform ADL's. OT Education/Plan Problem List/Assessment Pt would benefit from skilled OT to increase her independence in basic self care to allow her to safely return to her home with family support and to decrease caregiver burden. Discharge Recommendations Plan/Recommendations: Continue POC Treatment Plan/Plan of Care Patient would benefit from OT for education, treatment and training to promote independence in ADL's, mobility, safety and/or upper extremity function for ADL' s. Plan of Care: ADL Retraining, Functional Mobility, Group Exercise/Act as Ind ( education, exercise, activity tolerance, functional activities), UE Funct Exercise/Act, UE Neuromus Re-Ed/Coord Treatment Duration: May 16, 2016 Visits Per Week: 10-11 Minutes/Day (M-F): 75-90 Minutes/Day (Sat/Terrell): PRN Agreement: Yes Rehab Potential: Fair Time/GCodes Start Time: 12:43 Stop Time: 12:58 Total Time Billed (hr/min): 15 Billed Treatment Time visit, 15 minutes exercise RADHIKA CURTIS OT Apr 28, 2016 13:55
--- NOTE | 2016-04-28 14:41 | Therapy Group Daily Note ---
Therapy Daily Group Note Patient Education Topic Other List Below (strategies for improving memory) Exercises LE Seated Exercise, UE Exercise Other/Notes Pt. attended group session this date, came to and from in w/c with assist. Pt. participated well introducing self, joining in memory activity focused on memories of other group members introduction of themselves . Pts participated in seated U&L extremity therex that was lead by pts reading and demonstrating from exercise instruction cards. This pt. lead well. Other memory activities included matching image game. Pt. required mod assist to room to chair with call lara at hand after. Start Time: 13:00 Stop Time: 14:05 Total Billed Treatment Time: 65 Total Billed Treatment 1,GRP SHELLEY SAL HUMAN RESOURCES COMPLIANCE MANAGER Apr 28, 2016 14:41
[2016-04-28] MEDS ORDERED: FUROSEMIDE 40 MG/4 ML INJ (LASIX) IVP ONE (14:45)
--- NOTE | 2016-04-28 16:50 | Podiatry Progress Note ---
Standard Progress Note Progress Notes/Assess & Plan Progress/Assessment & Plan Consult dictated. Foot care given. Final Diagnosis Onychomycosis Idiopathic peripheral neuropathy foot drop left ISRRAEL AGUILA DPM Apr 28, 2016 16:50
[2016-04-28 17:30] VITALS: BP 134/69
[2016-04-28] MEDS: RT-ADVAIR HFA 115/21 MCG PER PUFF IH SCH (20:14)
[2016-04-28] MEDS: ATORVASTATIN 40 MG (LIPITOR) TABLET PO SCH (20:53)
[2016-04-28] MEDS: AMITRIPTYLINE 150 MG (ELAVIL) TABLET PO SCH (20:53)
--- NOTE | 2016-04-28 20:56 | PM & R (SOAP) Progress Note ---
Subjective Subjective/Events-last exam Patient was seen in her room this evening Appreciate Podiatry and Hospitalist and Pulm notes and orders Patient max assist for transfers Objective Exam Last Set of Vital Signs Vital Signs Date Time Temp Pulse Resp B/P Pulse Ox O2 Delivery O2 Flow Rate FiO2 04/28/16 20:19 3.00 04/28/16 20:14 96 04/28/16 17:30 98.5 92 18 134/69 Room Air Capillary Refill : Less Than 3 Seconds I&O Intake and Output 04/28/16 00:00 Intake Total 2740 ml Output Total 300 ml Balance 2440 ml Intake Oral 1760 ml IV Total 980 ml Output Urine Total 300 ml # Voids 4 General: Alert, Oriented X3, Cooperative, No Acute Distress HEENT: Atraumatic, PERRLA, EOMI, Mucous Memb Moist/[place] Neck: Supple, No JVD Lungs: Clear to Auscultation Heart: Regular Rate Abdomen: Normal Bowel Sounds, Soft, No Tenderness Extremities: No Edema Neuro: Other (weakness on right as compared to left with limited AROM both shoulders with hx of prox left hum frx s/p repair Dr Jiménez as a result of prior fall) Results Lab Laboratory Tests 04/26/16 18:26: Basophils # (Auto) 0.1, Basophils (%) (Auto) 1, Eosinophils # (Auto) 1.0H, Eosinophils (%) (Auto) 8, Hematocrit 26L, Hemoglobin 8.4L, Lymphocytes # (Auto) 2.9, Lymphocytes (%) (Auto) 21, Mean Corpuscular Hemoglobin 31, Mean Corpuscular Hemoglobin Concent 33, Mean Corpuscular Volume 94, Mean Platelet Volume 10.3, Monocytes # (Auto) 2.0H, Monocytes (%) (Auto) 14H, Neutrophils # ( Auto) 7.9H, Neutrophils (%) (Auto) 57, Platelet Count 325, Red Blood Count 2.73L , Red Cell Distribution Width 15.5H, White Blood Count 13.9H 04/27/16 06:27: Basophils # (Auto) 0.1, Basophils (%) (Auto) 1, Eosinophils # (Auto) 1.2H, Eosinophils (%) (Auto) 9, Hematocrit 24L, Hemoglobin 7.8L, Lymphocytes # (Auto) 2.7, Lymphocytes (%) (Auto) 20, Mean Corpuscular Hemoglobin 31, Mean Corpuscular Hemoglobin Concent 32, Mean Corpuscular Volume 95, Mean Platelet Volume 10.4, Monocytes # (Auto) 2.1H, Monocytes (%) (Auto) 15H, Neutrophils # ( Auto) 7.4, Neutrophils (%) (Auto) 55, Platelet Count 313, Red Blood Count 2.56L , Red Cell Distribution Width 15.5H, White Blood Count 13.5H 04/27/16 19:28: Hematocrit 26L, Hemoglobin 8.5L, Mean Corpuscular Hemoglobin 31, Mean Corpuscular Hemoglobin Concent 32, Mean Corpuscular Volume 96, Mean Platelet Volume 10.5H, Platelet Count 363, Red Blood Count 2.74L, Red Cell Distribution Width 15.5H, White Blood Count 14.9H 04/28/16 12:49: B-Type Natriuretic Peptide 118.5H Microbiology 04/26/16 Gram Stain - Final, Complete 04/26/16 Sputum Culture - Final, Complete Gram Negative Josafat Assessment/Plan Assessment nondisplaced intertrochanteric frx left hip s/p repair Ortho Postop anemia s/p transfusion today Post polio syndrome with residual weakness Rt side prior fall with limited ROM left shoulder s/p repair prox humerus frx Hypoalbuminemia Chronic constipation COPD with recurrent pneumonias HX of pseudomonas UTI Plan Continue PT/OT F/U Labs-done F/U with Dr Looney and ortho and PULM as per their schedule Team Conference 04/30/16 HIRA CHATMAN MD Apr 28, 2016 20:56
[2016-04-29] MEDS: oxyCODONE/APAP 5/325MG (PERCOCET 5) TABLET PO PRN ×5 (02:34→23:23)
[2016-04-29 04:53] VITALS: BP 127/72
[2016-04-29] MEDS: LEVOTHYROXINE 150 MCG (LEVOTHROID) TAB PO SCH (06:11)
[2016-04-29] MEDS: MULTIVIT W/MINERALS TAB (THERAGRAN M) PO SCH (06:11)
[2016-04-29] MEDS: PANTOPRAZOLE 40 MG (PROTONIX) TAB PO SCH (06:11)
[2016-04-29] MEDS: TORSEMIDE 20 MG (DEMADEX) TAB PO SCH ×2 (06:11→17:55)
[2016-04-29] MEDS: KCL 20 MEQ TAB (K-DUR) PO SCH ×2 (06:11→17:55)
[2016-04-29] MEDS: RT-ALBUTEROL/IPRATROPIUM 3 ML (DUONEB) VIAL INH SCH ×4 (07:17→20:36)
[2016-04-29] MEDS: RT-ADVAIR HFA 115/21 MCG PER PUFF IH SCH ×2 (07:17→20:00)
--- NOTE | 2016-04-29 07:24 | Pulmonary Progress Note ---
Subjective Subjective/Events-last exam Pt feels improved. Exam Exam Vital Signs Date Time Temp Pulse Resp B/P Pulse Ox O2 Delivery O2 Flow Rate FiO2 04/29/16 04:53 98.5 85 18 127/72 99 Nasal Cannula 2.00 04/28/16 21:00 Room Air 04/28/16 20:19 3.00 04/28/16 20:14 96 3.00 04/28/16 17:30 98.5 92 18 134/69 99 Room Air 04/28/16 15:57 93 3.00 04/28/16 08:04 88 101/63 04/28/16 08:00 Nasal Cannula 2.00 04/28/16 07:39 91 I & O 04/29/16 06:59 Intake Total 1250 ml Output Total 2300 ml Balance -1050 ml General Appearance: No Apparent Distress WD/WN HEENT: PERRL/EOMI Pharynx Normal Neck: Full Range of Motion Normal Inspection Non Tender Supple Respiratory: Chest Non Tender Lungs Clear Normal Breath Sounds No Accessory Muscle Use No Respiratory Distress Decreased Breath Sounds Cardiovascular: Regular Rate, Rhythm Gastrointestinal: normal bowel sounds non tender soft Extremity: Normal Capillary Refill Normal Inspection Normal Range of Motion Non Tender No Calf Tenderness Neurologic/Psychiatric: Alert Oriented x3 No Motor/Sensory Deficits Normal Mood/Affect emergency response coordinator II-XII Norm as Tested Skin: Normal Color Warm/Dry Results Lab Laboratory Tests 04/27/16 19:28 Assessment/Plan Assessment/Plan Acute nondisplaced intertrochanteric fracture left hip s/p repair 04/20/[address] Williamson COPD with hx of recurrent PNA -duoneb -I/S Dyspnea hypoxemia -oxygen to keep sats > 92% MRSA 03/07 -cipro Leukocytosis Severe anemia- S/p 2 units of packed red blood cell transfusion Severe debility Clinical Quality Measures DVT/VTE Risk/Contraindication: Risk Factor Score Per Nursin RFS Level Per Nursing on Admit: 4+=Very High BRENDON LEACH DO Apr 29, 2016 07:24
[2016-04-29] MEDS: ENOXAPARIN 30 MG/0.3 ML (LOVENOX) SYR SC SCH ×2 (08:46→20:47)
[2016-04-29] MEDS: LABETALOL 200 MG (NORMODYNE) TAB PO SCH ×2 (08:47→20:49)
[2016-04-29] MEDS: SENNOSIDES 8.6 MG (SENOKOT) TAB PO SCH ×2 (08:47→20:50)
[2016-04-29] MEDS: DILTIAZEM 240 MG (CARDIZEM CD) CAP PO SCH (08:47)
[2016-04-29] MEDS: DOCUSATE SODIUM 100 MG (COLACE) CAP PO SCH ×2 (08:47→20:49)
[2016-04-29] MEDS: guaiFENesin (MUCINEX) 600 MG TAB PO SCH ×2 (08:47→20:49)
[2016-04-29] MEDS: CYANOCOBALAMIN 500 MCG TAB (VITAMIN B-12) PO SCH (08:47)
[2016-04-29] MEDS: CIPROFLOXACIN 500 MG (CIPRO) TABLET PO SCH ×2 (08:48→20:49)
[2016-04-29] MEDS: LACTULOSE SYRUP 10GM/15ML (ENULOSE) 30ML UDC PO SCH ×2 (08:48→20:52)
[2016-04-29] MEDS: VITAMIN D3 5,000 UNITS (CHOLECALCIFEROL ) CAPSULE PO SCH (08:52)
--- NOTE | 2016-04-29 09:35 | Occupational Ther Daily Note ---
OT Current Status-Daily Note Subjective Pt seen in room, up in recliner, agreeable to OT. No pain mentioned. Appearance Alert, cooperative, sometimes mumbles, sometimes has flattened affect Mental Status/Objective Functional [place] Measure 0=Not Assessed/NA 4=Minimal Assistance 1=Total Assistance 5=Supervision or Setup 2=Maximal Assistance 6=Modified [place] 3=Moderate Assistance 7=Complete [place] ADL-Treatment Pt cont with O2 at 2-3 L/min throughout tx. Functional [place] Measure 0=Not Assessed/NA 4=Minimal Assistance 1=Total Assistance 5=Supervision or Setup 2=Maximal Assistance 6=Modified [place] 3=Moderate Assistance 7=Complete IndependenceIRFPAI Quality Coding Scale 6 Independent with activity with or without an assistive device 5 Patient requires set up or clean up by helper. Patient completes activity by themselves 4 Supervision or touching assist (CGA). [place] provide cues , steadying assist 3 The helper provides less than half the effort to complete the activity 2 The helper provides more than half the effort to complete the activity 1 Dependent. The helper does all the effort to complete an activity 7 Patient refused to complete or attempt activity 9 The patient did not perform the activity before the current illness or injury 88 Not attempted due to Medical conditions or safety concerns Bathing (FIM): 3 (Pt was able to wash and dry all parts except bottom. Needed min assist and CGA, FWW to stand and wash bottom. Washed and dried all other parts except feet and back 70% with sponge bath, setup) Upper Body (FIM): 4 (Needed a little help to get L arm into top. Struggled a little with smalled buttons and reported that she sometimes uses a button hook at home. Setup) Lower Body Dressing (FIM): 4 (Min assist sit to stand and to maintain standing to pull pants up. Able to get pats over feet with several attempts. pt education use of dressing stick to push pants and socks off (worked best with socks). Pt education us of hard sock aid, which she was able to use. She reported she has a soft one at home and it's too hard but that this one worked well. Pt educ mod technique for donning ANN hose. TEDs applied. ) Toilet/Commode Transfer (FIM): 3 (Mod assist s/p to and from BS, FWW. Moves feet very slowly) All ADLs took longer than usual today due to teaching use of equipment. Education OT Patient Education: Modified ADL techniques, Progress toward Goal/Update tx plan, Purpose of tx/functional activities, Transfer techniques, Use of adapted equipment Teaching Recipient: Patient Teaching Methods: Demonstration, Discussion Response to Teaching: Verbalize Understanding, Return Demonstration, Reinforcement Needed OT Short Term Goals Short Term Goals Time Frame: May 02, 2016 Bathing(FIM): 4 Lower Body Dressing(FIM): 4 Transfers (B,C,W/C) (FIM): 4 Toilet/Commode Transfer(FIM): 4 Shower Transfer(FIM): 3 Additional Short Term Goals: 3-ImproveStrength/Percy 1=Demonstrate adherence to instructed precautions during ADL tasks. 2=Patient will verbalize/demonstrate understanding of assistive devices/ modifications for ADL. 3=Patient will improve strength/tolerance for activity to enable patient to perform ADL's. OT Hand Plug Shaper Goals Detention Goals Time Frame: May 09, 2016 Eating (FIM): 7 Eating (QC): 6 Oral Hygiene (QC): 6 Grooming(FIM): 6 Bathing(FIM): 6 Shower/Bathe Self (QC): 6 Upper Body Dressing(FIM): 6 Upper Body Dressing (QC): 6 Lower Body Dressing(FIM): 6 Lower Body Dressing (QC): 6 On/Off Footwear (QC): 6 Toileting(FIM): 6 Toileting Hygiene (QC): 6 Toilet/Commode Transfer(FIM): 6 Toilet/Commode Transfer (QC): 6 Shower Transfer(FIM): 6 Additional Goals: 2-Verbalize Understanding, 3-ImproveStrength/Percy (5/5 bilat elbows and distal) 1=Demonstrate adherence to instructed precautions during ADL tasks. 2=Patient will verbalize/demonstrate understanding of assistive devices/ modifications for ADL. 3=Patient will improve strength/tolerance for activity to enable patient to perform ADL's. OT Education/Plan Problem List/Assessment Pt would benefit from skilled OT to increase her independence in basic self care to allow her to safely return to her home with family support and to decrease caregiver burden. Discharge Recommendations Plan/Recommendations: Continue POC Treatment Plan/Plan of Care Patient would benefit from OT for education, treatment and training to promote independence in ADL's, mobility, safety and/or upper extremity function for ADL' s. Plan of Care: ADL Retraining, Functional Mobility, Group Exercise/Act as Ind ( education, exercise, activity tolerance, functional activities), UE Funct Exercise/Act, UE Neuromus Re-Ed/Coord Treatment Duration: May 16, 2016 Visits Per Week: 10-11 Minutes/Day (M-F): 75-90 Minutes/Day (Sat/Terrell): PRN Agreement: Yes Rehab Potential: Fair Time/GCodes Start Time: 08:30 Stop Time: 09:30 Total Time Billed (hr/min): 60 Billed Treatment Time visit, 60 minutes ADL RADHIKA CURTIS OT Apr 29, 2016 09:35
--- NOTE | 2016-04-29 10:35 | CONSULTATION REPORT ---
DATE OF CONSULTATION: 04/28/2016 REASON FOR CONSULT: Foot care. HISTORY OF PRESENT ILLNESS: This 81-year-old female was admitted to the hospital after a left hip fracture. Surgical intervention was performed by Dr. Williamson and she is currently here for rehabilitation. She has difficulty reaching for and caring for her feet and is complaining of painful toenails at this point. The patient also has a history of polio affecting the right side. There is also a history of humerus fracture that was repaired by Dr. Jiménez. PAST MEDICAL HISTORY: 1. Includes polio reported for left side weakness. 2. Hypercholesterolemia. 3. Hypertension. 4. Transient ischemic attack. 5. Bladder infection. 6. Pneumonia. 7. GERD. 8. Hemorrhoids. 9. Degenerative disc disease. 10. Arthritis. 11. Fibromyalgia. 12. Chronic back pain. 13. Hypothyroidism. 14. Cataracts. 15. Colon cancer. 16. Anxiety. 17. Anemia. 18. Received replacement, iron infusion on 04/23/2016 I believe. PAST SURGICAL HISTORY: 1. Past surgeries include colon resection. 2. . 3. Eye surgery for cataracts. 4. Hysterectomy. 5. Left femoral surgery. 6. Thyroidectomy. 7. The above-mentioned hip surgery. ALLERGIES: 1. She is allergic to multiple medications including SULFA. 2. PENICILLIN. 3. TETANUS TOXOID. 4. CELEBREX. 5. CEPHALEXIN. 6. CLINDAMYCIN. 7. DOXYCYCLINE . 8. LEVAQUIN. 9. MELOXICAM. 10. NITROFURANTOIN. 11. PROPOXYPHENE. 12. ROFECOXIB. SOCIAL HISTORY: She is retired. A and lives alone in [place] has a daughter in [place] and [place], [place]. PHYSICAL EXAM: This is a well-developed female, in no apparent distress. She is currently afebrile. She has 1/4 dorsalis pedis pulse on the right, 2/4 dorsalis pedis pulse on the left, 2/4 posterior tibial pulse on the right and 0/4 posterior tibial pulse on the left. Capillary fill time is approximately 3 seconds. NEUROLOGICALLY: She has intact protective sensation per 10 grams monofilament wire examination bilaterally. She has diminished deep tendon reflexes to the Achilles tendon bilaterally. She has diminished vibratory sensation to the forefoot bilaterally. DERMATOLOGICALLY: She has thick, yellow dystrophic toenails subungual debris, associated with R 1, 2, 3, L1 digits. Minor erythema is present. No gross signs of bacterial infection. She does have some pain with palpation however. There is a small dry eschar dorsal aspect of the left second toe that seems to be stable without any erythema or signs of infection. MUSCULOSKELETAL FINDINGS: She has contracted toes 2 through 5 bilaterally. She has 3/4 muscle strength for dorsiflexion on the left foot. Otherwise she has 4/5 muscle strength to the remainder of the quadrants of the left foot. She has 4/5 muscle strength for the 4 major quadrants of the right foot. ASSESSMENT: 1. Idiopathic neuropathy bilaterally. 2. Onychomycosis. 3. Hammer digit syndrome. 4. Dropfoot left. PLAN: Various treatment options were discussed with the patient. The toenails were debrided manually and mechanically. Betadine applied. We discussed topical and oral antifungal medications. She is welcome to follow-up in the office as necessary upon discharge. Job ID: [id number] Dictated Date: 04/28/2016 16:49:23 [place] Press Operator Date: 04/29/2016 10:24:05/israel
--- NOTE | 2016-04-29 11:21 | Physical Therapy Daily Note ---
PT Daily Note-Current Subjective Pt. enjoys chit chat..states "why dont you just close the door and we'll watch TV and have lunch together. Comments on how her life with the aftermath of Polio has caused her to always have to struggle. Comments again how she has lost 5 loved ones in one year. Has 1 remaining sibling out of 10 and "he lives right here in town and wont even come to see me" C/o pain in left hip is what prevents her from stepping out to really walk as well as inability to wt bear on R hand. States she utilized a platform previously on the right Pain Numeric Pain Scale: 5-Moderate Pain Location: Left Location Body Site: Hip Pain Description: Ache Mental Status Attachments: Oxygen (3L) pt. remarks that she wore O2 only at night at home , this CONCESSIONS MANAGER attempted to titrate down from 3 to 2 with O2 sats 92% at first then undetectable to it was turned back up . No c/o SOB Transfers Functional [place] Measure 0=Not Assessed/NA 4=Minimal Assistance 1=Total Assistance 5=Supervision or Setup 2=Maximal Assistance 6=Modified [place] 3=Moderate Assistance 7=Complete IndependenceIRFPAI Quality Coding Scale 6 Independent with activity with or without an assistive device 5 Patient requires set up or clean up by helper. Patient completes activity by themselves 4 Supervision or touching assist (CGA). [place] provide cues , steadying assist 3 The helper provides less than half the effort to complete the activity 2 The helper provides more than half the effort to complete the activity 1 Dependent. The helper does all the effort to complete an activity 7 Patient refused to complete or attempt activity 9 The patient did not perform the activity before the current illness or injury 88 Not attempted due to Medical conditions or safety concerns Transfers (B, C, W/C) (FIM): 4 Scootin Rollin Supine to/from Sit: 4 Sit to/from Stand: 4 with seat levels all raised pt. requires less assist. Weight Bearing Weight Bearing Restriction: Weight Bearing/Tolerated Location Restriction: L LE Gait Training Does the Patient Walk?: No and Walking Goal IS indicated Gait (FIM): 1 Distance (FIM): 1=up to 49 ft (2ftx2) Gait Level of Assist: 3 Gait Persons Needed: 1 Gait Assistive Device: FWW platform was applied and adjusted to trial use this afternoon Exercises Seated Therapy Exercises: Ankle pumps, Sit to stand, Long arc quads, Hip flexion, Hip abd/add Seated Reps: 15 Assessment Current Status: Good Progress pts. left hand has been broken in past and bothers her to a degree, left hip current fracture, R U&L extrem post polio PT Short Term Goals Short Term Goals Time Frame: Apr 30, 2016 Transfers (B,C,W/C) (FIM): 4 Gait (FIM): 1 Gait Distance Comment: 20' Gait Level of Assist: 4 (min A) Gait Assistive Device: FWW Wheelchair Distance: 50' PT Churn Driller Goals Churn Driller Goals PT Churn Driller Goals Time Frame: May 14, 2016 Transfers (B,C,W/C) (FIM): 4 (CGA) Sit to Lying (QC): 4 Lying-Sitting on Side/Bed(QC): 4 Sit to Stand (QC): 4 Rollin Roll Left to Right (QC): 4 Chair/Nxr-sw-Wgkxo Xfer(QC): 4 Car Transfer (QC): 4 Gait (FIM): 4 Distance: 150' Walk 10 feet (QC): 4 Walk 10ft-Uneven Surface(QC): 4 Walk 50ft with 2 Turns (QC): 4 Walk 150 ft (QC): 4 Gait Level of Assist: 4 (CGA) Gait Assistive Device: FWW Stairs (FIM): 2 # of Steps: 4 1 Step (curb) (QC): 4 4 Steps (QC): 4 Stairs Level Of Assist: 4 Picking up an Object (QC): 88 PT Plan Treatment/Plan Treatment Plan: Continue Plan of Care Treatment Plan: Bed Mobility, Education, Functional Activity Percy, Functional Strength, Group Therapy, Gait, Safety, Therapeutic Exercise, Transfers Treatment Duration: May 14, 2016 Visits Per Week: 10-11 Minutes/Day (M-F): 60-90 Minutes/Day (Sat/Terrell): 15-30 Safety Risks/Education Patient Education: Gait Training, Transfer Techniques, Correct Positioning, Disease Process, Safety Issues Teaching Recipient: Patient Teaching Methods: Demonstration, Discussion Response to Teaching: Verbalize Understanding, Return Demonstration, Reinforcement Needed Time/GCodes Time In: 1015 Time Out: 1115 Total Billed Treatment Time: 60 Total Billed Treatment 1,EX20m,FA40m G Codes Necessary: SHELLEY Casiano CONCESSIONS MANAGER Apr 29, 2016 11:21
--- NOTE | 2016-04-29 11:30 | Progress Note-Hospitalist ---
Progress Note Progress Notes/Assess & Plan Date Seen 04/29/16 Diagonsis/Assessment & Plan patient doing well and Dr. Pfeiffer saw her yesterday and gave her 1 dose of IV Lasix Reviewed labs and noted white count up a slight amount No fever On Cipro for chronic bronchitis with sputum culture coinciding with sensitivity of Cipro CXR questionable for infiltrates but likely due to volume overload No fever, vital signs stable, pleasant, pale, chronically ill Regular rate and rhythm, clear to auscultation bilaterally in the upper lobes but crackles in the lower lobes history of a pulmonary fibrosis so she is never clear on exam No edema Assessment: Severe anemia postop but complicated with kidney disease and chronic illness requiring 2 units of packed red blood cell transfusion Acute nondisplaced intertrochanteric fracture left hip s/p repair POD # 7 Severe COPD with recurrent pneumonias and h/o lower lobe pneumonia/sputum positive for MRSA /16 now on Cipro for sputum culture sensitivity profile h/o urinary tract infection with pseudomonas . h/o acute on chronic renal failure Leukocytosis h/o Hyperkalemia Pulmonary congestion on Lasix Poor vascular access s/p port placement last admit Constipation chronic issue now resolved Severe anemia due to kidney disease and co-morbidities and acute blood loss in need of empiric iron infusions Severe debility Plan: Pulmonology consultation appreciated due to the severity of her lung disease Monitor Hgb closely Duoneb QID Complete antibiotics of Cipro DENI PINK DO Apr 29, 2016 11:30
--- NOTE | 2016-04-29 14:23 | PM & R (SOAP) Progress Note ---
Subjective Subjective/Events-last exam Patient was seen in her room this Afternoon Patient Min assist for transfers Objective Exam Last Set of Vital Signs Vital Signs Date Time Temp Pulse Resp B/P Pulse Ox O2 Delivery O2 Flow Rate FiO2 04/29/16 10:18 97 3.00 04/29/16 09:00 Nasal Cannula 04/29/16 04:53 98.5 85 18 127/72 Capillary Refill : Less Than 3 Seconds I&O Intake and Output 04/29/16 00:00 Intake Total 1500 ml Output Total 1700 ml Balance -200 ml Intake Oral 1500 ml Output Urine Total 1700 ml General: Alert, Oriented X3, Cooperative, No Acute Distress HEENT: Atraumatic, PERRLA, EOMI, Mucous Memb Moist/[place] Neck: Supple, No JVD Lungs: Clear to Auscultation Heart: Regular Rate Abdomen: Normal Bowel Sounds, Soft, No Tenderness Extremities: No Edema Neuro: Other (weakness on right as compared to left with limited AROM both shoulders with hx of prox left hum frx s/p repair Dr Jiménez as a result of prior fall) Results Lab Laboratory Tests 04/26/16 18:26: Basophils # (Auto) 0.1, Basophils (%) (Auto) 1, Eosinophils # (Auto) 1.0H, Eosinophils (%) (Auto) 8, Hematocrit 26L, Hemoglobin 8.4L, Lymphocytes # (Auto) 2.9, Lymphocytes (%) (Auto) 21, Mean Corpuscular Hemoglobin 31, Mean Corpuscular Hemoglobin Concent 33, Mean Corpuscular Volume 94, Mean Platelet Volume 10.3, Monocytes # (Auto) 2.0H, Monocytes (%) (Auto) 14H, Neutrophils # ( Auto) 7.9H, Neutrophils (%) (Auto) 57, Platelet Count 325, Red Blood Count 2.73L , Red Cell Distribution Width 15.5H, White Blood Count 13.9H 04/27/16 06:27: Basophils # (Auto) 0.1, Basophils (%) (Auto) 1, Eosinophils # (Auto) 1.2H, Eosinophils (%) (Auto) 9, Hematocrit 24L, Hemoglobin 7.8L, Lymphocytes # (Auto) 2.7, Lymphocytes (%) (Auto) 20, Mean Corpuscular Hemoglobin 31, Mean Corpuscular Hemoglobin Concent 32, Mean Corpuscular Volume 95, Mean Platelet Volume 10.4, Monocytes # (Auto) 2.1H, Monocytes (%) (Auto) 15H, Neutrophils # ( Auto) 7.4, Neutrophils (%) (Auto) 55, Platelet Count 313, Red Blood Count 2.56L , Red Cell Distribution Width 15.5H, White Blood Count 13.5H 04/27/16 19:28: Hematocrit 26L, Hemoglobin 8.5L, Mean Corpuscular Hemoglobin 31, Mean Corpuscular Hemoglobin Concent 32, Mean Corpuscular Volume 96, Mean Platelet Volume 10.5H, Platelet Count 363, Red Blood Count 2.74L, Red Cell Distribution Width 15.5H, White Blood Count 14.9H 04/28/16 12:49: B-Type Natriuretic Peptide 118.5H Microbiology 04/26/16 Gram Stain - Final, Complete 04/26/16 Sputum Culture - Final, Complete Gram Negative Josafat Assessment/Plan Assessment nondisplaced intertrochanteric frx left hip s/p repair Ortho Postop anemia s/p transfusion today Post polio syndrome with residual weakness Rt side prior fall with limited ROM left shoulder s/p repair prox humerus frx Hypoalbuminemia Chronic constipation COPD with recurrent pneumonias HX of pseudomonas UTI Plan Continue PT/OT F/U Labs-done F/U with Dr Looney and ortho and PULM as per their schedule Team Conference tomorrow 04/30/16 Current labs noted Appreciate HIRA Easley MD Apr 29, 2016 14:23
--- NOTE | 2016-04-29 15:06 | Occupational Ther Daily Note ---
OT Current Status-Daily Note Subjective Pt seen in room, up in recliner, agreeable to OT. No pain mentioned except that pt requested ice bag for L hip Appearance Alert, cooperative Mental Status/Objective Functional [place] Measure 0=Not Assessed/NA 4=Minimal Assistance 1=Total Assistance 5=Supervision or Setup 2=Maximal Assistance 6=Modified [place] 3=Moderate Assistance 7=Complete [place] ADL-Treatment Functional [place] Measure 0=Not Assessed/NA 4=Minimal Assistance 1=Total Assistance 5=Supervision or Setup 2=Maximal Assistance 6=Modified [place] 3=Moderate Assistance 7=Complete IndependenceIRFPAI Quality Coding Scale 6 Independent with activity with or without an assistive device 5 Patient requires set up or clean up by helper. Patient completes activity by themselves 4 Supervision or touching assist (CGA). [place] provide cues , steadying assist 3 The helper provides less than half the effort to complete the activity 2 The helper provides more than half the effort to complete the activity 1 Dependent. The helper does all the effort to complete an activity 7 Patient refused to complete or attempt activity 9 The patient did not perform the activity before the current illness or injury 88 Not attempted due to Medical conditions or safety concerns Other Treatment Pt did 12 reps bilat UE exercise with 1/2# weight. On L arm could do about 30 degrees shoulder flex/abd, with weight. Also worked on elbow flex/ext, pron/sup , wrist flex and ext. On R side unable to do ex with shoulder, elbow, pron/sup due to post polio weakness. Worked on wrist ext and some flex with assistance for positioning forearm. Pt provided with red (medium) theraputty with beads in it, to work on hand strengthening. Pt demonstrated understanding. Pt transferred to bed, min assist with sit to stand, FWW witih platform, them mod assist to get legs into bed. She was able to scoot bottom over. pt left up in bed, all needs met, 4 rails up, O2 in place. Education OT Patient Education: Exercise program, Progress toward Goal/Update tx plan Teaching Recipient: Patient Teaching Methods: Demonstration Response to Teaching: Reinforcement Needed OT Short Term Goals Short Term Goals Time Frame: May 02, 2016 Bathing(FIM): 4 Lower Body Dressing(FIM): 4 Transfers (B,C,W/C) (FIM): 4 Toilet/Commode Transfer(FIM): 4 Shower Transfer(FIM): 3 Additional Short Term Goals: 3-ImproveStrength/Percy 1=Demonstrate adherence to instructed precautions during ADL tasks. 2=Patient will verbalize/demonstrate understanding of assistive devices/ modifications for ADL. 3=Patient will improve strength/tolerance for activity to enable patient to perform ADL's. OT Residential Goals Duty Officer Goals Time Frame: May 09, 2016 Eating (FIM): 7 Eating (QC): 6 Oral Hygiene (QC): 6 Grooming(FIM): 6 Bathing(FIM): 6 Shower/Bathe Self (QC): 6 Upper Body Dressing(FIM): 6 Upper Body Dressing (QC): 6 Lower Body Dressing(FIM): 6 Lower Body Dressing (QC): 6 On/Off Footwear (QC): 6 Toileting(FIM): 6 Toileting Hygiene (QC): 6 Toilet/Commode Transfer(FIM): 6 Toilet/Commode Transfer (QC): 6 Shower Transfer(FIM): 6 Additional Goals: 2-Verbalize Understanding, 3-ImproveStrength/[place]cy (5/5 bilat elbows and distal) 1=Demonstrate adherence to instructed precautions during ADL tasks. 2=Patient will verbalize/demonstrate understanding of assistive devices/ modifications for ADL. 3=Patient will improve strength/tolerance for activity to enable patient to perform ADL's. OT Education/Plan Problem List/Assessment Pt would benefit from skilled OT to increase her independence in basic self care to allow her to safely return to her home with family support and to decrease caregiver burden. Discharge Recommendations Plan/Recommendations: Continue POC Treatment Plan/Plan of Care Patient would benefit from OT for education, treatment and training to promote independence in ADL's, mobility, safety and/or upper extremity function for ADL' s. Plan of Care: ADL Retraining, Functional Mobility, Group Exercise/Act as Ind ( education, exercise, activity tolerance, functional activities), UE Funct Exercise/Act, UE Neuromus Re-Ed/Coord Treatment Duration: May 16, 2016 Visits Per Week: 10-11 Minutes/Day (M-F): 75-90 Minutes/Day (Sat/Terrell): PRN Agreement: Yes Rehab Potential: Fair Time/GCodes Start Time: 15:05 Stop Time: 15:35 Total Time Billed (hr/min): 30 Billed Treatment Time visit, 5 minutes functional activity. 25 minutes exercise RADHIKA CURTIS OT Apr 29, 2016 15:06
--- NOTE | 2016-04-29 15:16 | Physical Therapy Daily Note ---
PT Daily Note-Current Subjective [place] [facility] [place] pt. reports she has been here about 25 mins b/c she has hard stool she needs to evacuate. Pt. reluctant to participate, required much encouragement and reminder of goal Pain Numeric Pain Scale: 0-No Pain Transfers Functional [place] Measure 0=Not Assessed/NA 4=Minimal Assistance 1=Total Assistance 5=Supervision or Setup 2=Maximal Assistance 6=Modified [place] 3=Moderate Assistance 7=Complete IndependenceIRFPAI Quality Coding Scale 6 Independent with activity with or without an assistive device 5 Patient requires set up or clean up by helper. Patient completes activity by themselves 4 Supervision or touching assist (CGA). [place] provide cues , steadying assist 3 The helper provides less than half the effort to complete the activity 2 The helper provides more than half the effort to complete the activity 1 Dependent. The helper does all the effort to complete an activity 7 Patient refused to complete or attempt activity 9 The patient did not perform the activity before the current illness or injury 88 Not attempted due to Medical conditions or safety concerns sit to stands improved but require min assist and review of forward wt shift Gait Training Does the Patient Walk?: Yes Gait (FIM): 2 Distance (FIM): 0=609-64 ft (50x3) Gait Level of Assist: 4 Gait Persons Needed: 1 Gait Assistive Device: Walker Platform with platform attachment RUSukh pt. is able to wt bear and has more mobility Exercises Seated Therapy Exercises: Ankle pumps, Sit to stand, Long arc quads Seated Reps: 12 Assessment Current Status: Good Progress increased functional mob PT Short Term Goals Short Term Goals Time Frame: Apr 30, 2016 Transfers (B,C,W/C) (FIM): 4 Gait (FIM): 1 Gait Distance Comment: 20' Gait Level of Assist: 4 (min A) Gait Assistive Device: FWW Wheelchair Distance: 50' PT Skilled Nursing Goals [place] Production Manager Goals PT Skilled Nursing Goals Time Frame: May 14, 2016 Transfers (B,C,W/C) (FIM): 4 (CGA) Sit to Lying (QC): 4 Lying-Sitting on Side/Bed(QC): 4 Sit to Stand (QC): 4 Rollin Roll Left to Right (QC): 4 Chair/Gmq-vq-Oyvor Xfer(QC): 4 Car Transfer (QC): 4 Gait (FIM): 4 Distance: 150' Walk 10 feet (QC): 4 Walk 10ft-Uneven Surface(QC): 4 Walk 50ft with 2 Turns (QC): 4 Walk 150 ft (QC): 4 Gait Level of Assist: 4 (CGA) Gait Assistive Device: FWW Stairs (FIM): 2 # of Steps: 4 1 Step (curb) (QC): 4 4 Steps (QC): 4 Stairs Level Of Assist: 4 Picking up an Object (QC): 88 PT Plan Treatment/Plan Treatment Plan: Continue Plan of Care Treatment Plan: Bed Mobility, Education, Functional Activity Percy, Functional Strength, Group Therapy, Gait, Safety, Therapeutic Exercise, Transfers Treatment Duration: May 14, 2016 Visits Per Week: 10-11 Minutes/Day (M-F): 60-90 Minutes/Day (Sat/Terrell): 15-30 Safety Risks/Education Patient Education: Gait Training, Transfer Techniques Teaching Recipient: Patient Teaching Methods: Demonstration, Discussion Response to Teaching: Verbalize Understanding, Return Demonstration, Reinforcement Needed Time/GCodes Time In: 1430 Time Out: 1500 Total Billed Treatment Time: 30 Total Billed Treatment 1,GT30m G Codes Necessary: SHELLEY Casiano IRONWORKER MACHINE OPERATOR Apr 29, 2016 15:16
[2016-04-29 18:14] VITALS: BP 114/64
[2016-04-29] MEDS: ATORVASTATIN 40 MG (LIPITOR) TABLET PO SCH (20:50)
[2016-04-29] MEDS: AMITRIPTYLINE 150 MG (ELAVIL) TABLET PO SCH (20:50)
[2016-04-30] MEDS: oxyCODONE/APAP 5/325MG (PERCOCET 5) TABLET PO PRN ×3 (05:09→19:02)
[2016-04-30 05:35] VITALS: BP 105/65
[2016-04-30] MEDS: MULTIVIT W/MINERALS TAB (THERAGRAN M) PO SCH (06:48)
[2016-04-30] MEDS: TORSEMIDE 20 MG (DEMADEX) TAB PO SCH ×2 (06:48→16:46)
[2016-04-30] MEDS: LEVOTHYROXINE 150 MCG (LEVOTHROID) TAB PO SCH (06:48)
[2016-04-30] MEDS: PANTOPRAZOLE 40 MG (PROTONIX) TAB PO SCH (06:48)
[2016-04-30] MEDS: KCL 20 MEQ TAB (K-DUR) PO SCH ×2 (06:49→16:46)
[2016-04-30] MEDS: RT-ALBUTEROL/IPRATROPIUM 3 ML (DUONEB) VIAL INH SCH ×4 (07:34→18:30)
[2016-04-30] MEDS: RT-ADVAIR HFA 115/21 MCG PER PUFF IH SCH ×3 (07:34→18:34)
[2016-04-30] MEDS: CIPROFLOXACIN 500 MG (CIPRO) TABLET PO SCH ×2 (08:30→20:43)
[2016-04-30] MEDS: CYANOCOBALAMIN 500 MCG TAB (VITAMIN B-12) PO SCH (08:30)
[2016-04-30] MEDS: ENOXAPARIN 30 MG/0.3 ML (LOVENOX) SYR SC SCH ×2 (08:30→20:43)
[2016-04-30] MEDS: LACTULOSE SYRUP 10GM/15ML (ENULOSE) 30ML UDC PO SCH ×2 (08:31→19:06)
[2016-04-30] MEDS: guaiFENesin (MUCINEX) 600 MG TAB PO SCH ×2 (08:31→20:44)
[2016-04-30] MEDS: LABETALOL 200 MG (NORMODYNE) TAB PO SCH ×2 (08:31→20:43)
[2016-04-30] MEDS: DOCUSATE SODIUM 100 MG (COLACE) CAP PO SCH ×2 (08:31→20:43)
[2016-04-30] MEDS: VITAMIN D3 5,000 UNITS (CHOLECALCIFEROL ) CAPSULE PO SCH (08:31)
[2016-04-30] MEDS: SENNOSIDES 8.6 MG (SENOKOT) TAB PO SCH ×2 (08:31→20:43)
[2016-04-30] MEDS: DILTIAZEM 240 MG (CARDIZEM CD) CAP PO SCH (08:31)
--- NOTE | 2016-04-30 10:48 | Occupational Ther Daily Note ---
OT Current Status-Daily Note Subjective Pt seen in room, up in recliner, agreeable to OT. No pain mentioned. Appearance Alert, cooperative Mental Status/Objective Functional [place] Measure 0=Not Assessed/NA 4=Minimal Assistance 1=Total Assistance 5=Supervision or Setup 2=Maximal Assistance 6=Modified [place] 3=Moderate Assistance 7=Complete [place] Attachments: Central Line (covered during shower) ADL-Treatment Nursing reported they walked pt to bathroom to toilet her this morning. Functional [place] Measure 0=Not Assessed/NA 4=Minimal Assistance 1=Total Assistance 5=Supervision or Setup 2=Maximal Assistance 6=Modified [place] 3=Moderate Assistance 7=Complete IndependenceIRFPAI Quality Coding Scale 6 Independent with activity with or without an assistive device 5 Patient requires set up or clean up by helper. Patient completes activity by themselves 4 Supervision or touching assist (CGA). [place] provide cues , steadying assist 3 The helper provides less than half the effort to complete the activity 2 The helper provides more than half the effort to complete the activity 1 Dependent. The helper does all the effort to complete an activity 7 Patient refused to complete or attempt activity 9 The patient did not perform the activity before the current illness or injury 88 Not attempted due to Medical conditions or safety concerns Grooming (FIM): 5 (Pt washed face and hands in shower, with setup. Brushed hair on her own) Bathing (FIM): 4 (Washed and dried all parts except bottom and back in shower. Setup. Shower bench, grab bars, hand held shower. CGA when standing to wash bottom and min assist to come to stand) Bathing Location: L Arm, R Arm, L Upper Leg, R Upper Leg, L Lower Leg ( including foot), R Lower Leg (including foot), Chest, Abdomen, Perineal Area Upper Body (FIM): 5 (Doffed and donned button up shirt with setup. Managed smaller buttons) Lower Body Dressing (FIM): 4 (Min assist sit to stand to pull pants up, FWW with platform. Min assist to pull pants over hips. Pt used dressing stick to get pants and underwear over feet and used sock aid to put slipper socks on. Setup with TEDs) All ADLs took longer than usual this am due to shower transfer, shower, use of adapted equipment Education OT Patient Education: Modified ADL techniques, Progress toward Goal/Update tx plan, Purpose of tx/functional activities, Use of adapted equipment Teaching Recipient: Patient Teaching Methods: Demonstration, Discussion Response to Teaching: Return Demonstration, Reinforcement Needed OT Short Term Goals Short Term Goals Time Frame: May 02, 2016 Bathing(FIM): 4 Lower Body Dressing(FIM): 4 Transfers (B,C,W/C) (FIM): 4 Toilet/Commode Transfer(FIM): 4 Shower Transfer(FIM): 3 Additional Short Term Goals: 3-ImproveStrength/Percy 1=Demonstrate adherence to instructed precautions during ADL tasks. 2=Patient will verbalize/demonstrate understanding of assistive devices/ modifications for ADL. 3=Patient will improve strength/tolerance for activity to enable patient to perform ADL's. OT Chcf Goals Chcf Goals Time Frame: May 09, 2016 Eating (FIM): 7 Eating (QC): 6 Oral Hygiene (QC): 6 Grooming(FIM): 6 Bathing(FIM): 6 Shower/Bathe Self (QC): 6 Upper Body Dressing(FIM): 6 Upper Body Dressing (QC): 6 Lower Body Dressing(FIM): 6 Lower Body Dressing (QC): 6 On/Off Footwear (QC): 6 Toileting(FIM): 6 Toileting Hygiene (QC): 6 Toilet/Commode Transfer(FIM): 6 Toilet/Commode Transfer (QC): 6 Shower Transfer(FIM): 6 Additional Goals: 2-Verbalize Understanding, 3-ImproveStrength/Percy (5/5 bilat elbows and distal) 1=Demonstrate adherence to instructed precautions during ADL tasks. 2=Patient will verbalize/demonstrate understanding of assistive devices/ modifications for ADL. 3=Patient will improve strength/tolerance for activity to enable patient to perform ADL's. OT Education/Plan Problem List/Assessment Pt would benefit from skilled OT to increase her independence in basic self care to allow her to safely return to her home with family support and to decrease caregiver burden. Discharge Recommendations Plan/Recommendations: Continue POC Treatment Plan/Plan of Care Patient would benefit from OT for education, treatment and training to promote independence in ADL's, mobility, safety and/or upper extremity function for ADL' s. Plan of Care: ADL Retraining, Functional Mobility, Group Exercise/Act as Ind ( education, exercise, activity tolerance, functional activities), UE Funct Exercise/Act, UE Neuromus Re-Ed/Coord Treatment Duration: May 16, 2016 Visits Per Week: 10-11 Minutes/Day (M-F): 75-90 Minutes/Day (Sat/Terrell): PRN Agreement: Yes Rehab Potential: Fair Time/GCodes Start Time: 08:15 Stop Time: 09:30 Total Time Billed (hr/min): 75 Billed Treatment Time visit, 75 minutes ADL RADHIKA CUTRIS OT Apr 30, 2016 10:48
--- NOTE | 2016-04-30 11:13 | PM & R (SOAP) Progress Note ---
Subjective Subjective/Events-last exam Patient was seen in her room this AM Patient Min assist for transfers Objective Exam Last Set of Vital Signs Vital Signs Date Time Temp Pulse Resp B/P Pulse Ox O2 Delivery O2 Flow Rate FiO2 04/30/16 09:00 Nasal Cannula 2.00 04/30/16 07:34 98 04/30/16 05:35 97.0 60 20 105/65 Capillary Refill : Less Than 3 Seconds I&O Intake and Output 04/30/16 00:00 Intake Total 1330 ml Output Total 2250 ml Balance -920 ml Intake Oral 1330 ml Output Urine Total 2250 ml General: Alert, Oriented X3, Cooperative, No Acute Distress HEENT: Atraumatic, PERRLA, EOMI, Mucous Memb Moist/[place] Neck: Supple, No JVD Lungs: Clear to Auscultation Heart: Regular Rate Abdomen: Normal Bowel Sounds, Soft, No Tenderness Extremities: No Edema Neuro: Other (weakness on right as compared to left with limited AROM both shoulders with hx of prox left hum frx s/p repair Dr Jiménez as a result of prior fall) Results Lab Laboratory Tests 04/27/16 19:28: Hematocrit 26L, Hemoglobin 8.5L, Mean Corpuscular Hemoglobin 31, Mean Corpuscular Hemoglobin Concent 32, Mean Corpuscular Volume 96, Mean Platelet Volume 10.5H, Platelet Count 363, Red Blood Count 2.74L, Red Cell Distribution Width 15.5H, White Blood Count 14.9H 04/28/16 12:49: B-Type Natriuretic Peptide 118.5H 04/30/16 09:12: Lab Scanned Report Transfusion Reaction Form Microbiology 04/26/16 Gram Stain - Final, Complete 04/26/16 Sputum Culture - Final, Complete Gram Negative Josafat Assessment/Plan Assessment nondisplaced intertrochanteric frx left hip s/p repair Ortho Postop anemia s/p transfusion today Post polio syndrome with residual weakness Rt side prior fall with limited ROM left shoulder s/p repair prox humerus frx Hypoalbuminemia Chronic constipation COPD with recurrent pneumonias HX of pseudomonas UTI Leukocytosis-trending upward Plan Continue PT/OT F/U Labs-done F/U with Dr Looney and ortho and PULM as per their schedule Team Conference later today -See report for full functional update and POC and ELOS Current labs noted-will recheck CBC-See orders Appreciate Dr Willson note Current meds reviewed HIRA CHATMAN MD Apr 30, 2016 11:13
--- NOTE | 2016-04-30 12:22 | Physical Therapy Daily Note ---
PT Daily Note-Current Subjective "Why don't you just sit down and watch TV with me?" Smiling. Agrees to PT. Pain Numeric Pain Scale: 5-Moderate Pain Location: Left Location Body Site: Hip Pain Description: Ache, Stabbing Mental Status Patient Orientation: Person, Place, Time, Situation Transfers Functional [place] Measure 0=Not Assessed/NA 4=Minimal Assistance 1=Total Assistance 5=Supervision or Setup 2=Maximal Assistance 6=Modified [place] 3=Moderate Assistance 7=Complete IndependenceIRFPAI Quality Coding Scale 6 Independent with activity with or without an assistive device 5 Patient requires set up or clean up by helper. Patient completes activity by themselves 4 Supervision or touching assist (CGA). [place] provide cues , steadying assist 3 The helper provides less than half the effort to complete the activity 2 The helper provides more than half the effort to complete the activity 1 Dependent. The helper does all the effort to complete an activity 7 Patient refused to complete or attempt activity 9 The patient did not perform the activity before the current illness or injury 88 Not attempted due to Medical conditions or safety concerns Pt is any where from min to mod assist with sit to stand, depending on the surface height. Pt performed sit to stand x 8 reps. Pt performed SPT x 4 reps with FWW with platform with min assist. Weight Bearing Weight Bearing Restriction: Weight Bearing/Tolerated Gait Training Does the Patient Walk?: Yes Gait Assistive Device: FWW (with platform) Pt ambulated x 10 ft, 30 ft 15 ft and 20 ft with FWW with platform with close CGA. Decreased step length bilaterally and no step through with the right LE. As she progressed through treatment, her gait pattern became easier and improved ; needed less assist and seemed to be steadier. Exercises NuStep Minutes: 12 (to facilitate LE strength and mobility for functional transfers and gait. ) Assessment Current Status: Good Progress Gait and transfers do seem to be improving, still needs much assist and distance is limited but it better. Platform attachment seemed to be helpful as well. PT Short Term Goals Short Term Goals Time Frame: Apr 30, 2016 Transfers (B,C,W/C) (FIM): 4 Gait (FIM): 1 Gait Distance Comment: 20' Gait Level of Assist: 4 (min A) Gait Assistive Device: FWW Wheelchair Distance: 50' PT Residential Goals Frame Opener Goals PT Frame Opener Goals Time Frame: May 14, 2016 Transfers (B,C,W/C) (FIM): 4 (CGA) Sit to Lying (QC): 4 Lying-Sitting on Side/Bed(QC): 4 Sit to Stand (QC): 4 Rollin Roll Left to Right (QC): 4 Chair/Xhh-lt-Gzxid Xfer(QC): 4 Car Transfer (QC): 4 Gait (FIM): 4 Distance: 150' Walk 10 feet (QC): 4 Walk 10ft-Uneven Surface(QC): 4 Walk 50ft with 2 Turns (QC): 4 Walk 150 ft (QC): 4 Gait Level of Assist: 4 (CGA) Gait Assistive Device: FWW Stairs (FIM): 2 # of Steps: 4 1 Step (curb) (QC): 4 4 Steps (QC): 4 Stairs Level Of Assist: 4 Picking up an Object (QC): 88 PT Plan Problem List Problem List: Activity Tolerance, Functional Strength, Safety, Balance, Gait, Transfer, Bed Mobility Treatment/Plan Treatment Plan: Continue Plan of Care Treatment Plan: Bed Mobility, Education, Functional Activity Percy, Functional Strength, Group Therapy, Gait, Safety, Therapeutic Exercise, Transfers Treatment Duration: May 14, 2016 Visits Per Week: 10-11 Minutes/Day (M-F): 60-90 Minutes/Day (Sat/Terrell): 15-30 Safety Risks/Education Patient Education: Transfer Techniques, Safety Issues Teaching Recipient: Patient Teaching Methods: Discussion Response to Teaching: Verbalize Understanding, Reinforcement Needed Time/GCodes Time In: 1030 Time Out: 1130 Total Billed Treatment Time: 60 Total Billed Treatment visit FA 20 EX 12 GT 28 DEEPTHI RAMEY PT Apr 30, 2016 12:22
[2016-04-30 12:52] LABS: BASOPHILS # (AUTO) 0.1 10^3/uL (0.0-0.1); BASOPHILS % (AUTO) 1 % (0-10); EOSINOPHILS # (AUTO) 0.5 10^3/uL (0.0-0.3); EOSINOPHILS % (AUTO) 4 % (0-10); LYMPHOCYTES # (AUTO) 1.5 X 10^3 (1.0-4.0); LYMPHOCYTES % (AUTO) 10 % (12-44); MEAN CORPUSCULAR HEMOGLOBIN 31 PG (25-34); MEAN CORPUSCULAR HGB CONC 32 G/DL (32-36); MEAN CORPUSCULAR VOLUME 96 FL (80-99); MEAN PLATELET VOLUME 10.1 FL (7.4-10.4); MONOCYTES # (AUTO) 1.5 X 10^3 (0.0-1.0); MONOCYTES % (AUTO) 10 % (0-12); NEUTROPHILS # (AUTO) 11.4 X 10^3 (1.8-7.8); NEUTROPHILS % (AUTO) 76 % (42-75); PLATELET COUNT 407 10^3/uL (130-400); RED BLOOD COUNT 2.66 10^6/uL (4.35-5.85); RED CELL DISTRIBUTION WIDTH 15.2 % (10.0-14.5)
[2016-04-30 13:22] LABS: ANISOCYTOSIS SLIGHT; BAND NEUTROPHILS 0 %; BASOPHILS % (MANUAL) 0 %; EOSINOPHILS % (MANUAL) 8 %; HYPOCHROMASIA SLIGHT; LYMPHOCYTES % (MANUAL) 9 %; NEUTROPHILS % (MANUAL) 70 %
--- NOTE | 2016-04-30 14:37 | Therapy Group Daily Note ---
Therapy Daily Group Note Patient Education Topic Home Safety Exercises LE Seated Exercise, UE Exercise Other/Notes Pt was an active participant in OT/PT group. For socialization and memory, she shared information on her first vehicle with the group. She demonstrated good critical thinking skills and problem-solving with a group word activity. She did seated UE and LE exercises, modifying them as needed for post-polio deficits and contributed to discussion/education on home safety communication devices. She was returned to her room per w/c and transferred into bed, 4 rails up, ice pack for L hip, all needs met. Start Time: 13:00 Stop Time: 14:15 Total Billed Treatment Time: 75 Total Billed Treatment visit, 75 minutes group RADHIKA CURTIS OT Apr 30, 2016 14:37
[2016-04-30 18:30] VITALS: BP 119/58
[2016-04-30] MEDS ORDERED: BISACODYL 10 MG SUPP (DULCOLAX) PR PRN (19:45)
[2016-04-30] MEDS: AMITRIPTYLINE 150 MG (ELAVIL) TABLET PO SCH (20:43)
[2016-04-30] MEDS: ATORVASTATIN 40 MG (LIPITOR) TABLET PO SCH (20:43)
[2016-04-30] MEDS: POLYETHYLENE GLYCOL 17 GM (MIRALAX) PACK PO SCH (20:44)
[2016-05-01] MEDS: oxyCODONE/APAP 5/325MG (PERCOCET 5) TABLET PO PRN ×4 (04:18→19:54)
[2016-05-01 04:50] VITALS: BP 116/55
[2016-05-01 05:39] LABS: BASOPHILS # (AUTO) 0.1 10^3/uL (0.0-0.1); BASOPHILS % (AUTO) 1 % (0-10); EOSINOPHILS # (AUTO) 0.8 10^3/uL (0.0-0.3); EOSINOPHILS % (AUTO) 7 % (0-10); LYMPHOCYTES # (AUTO) 2.6 X 10^3 (1.0-4.0); LYMPHOCYTES % (AUTO) 21 % (12-44); MEAN CORPUSCULAR HEMOGLOBIN 30 PG (25-34); MEAN CORPUSCULAR HGB CONC 31 G/DL (32-36); MEAN CORPUSCULAR VOLUME 97 FL (80-99); MEAN PLATELET VOLUME 10.4 FL (7.4-10.4); MONOCYTES # (AUTO) 1.7 X 10^3 (0.0-1.0); MONOCYTES % (AUTO) 14 % (0-12); NEUTROPHILS # (AUTO) 7.2 X 10^3 (1.8-7.8); NEUTROPHILS % (AUTO) 58 % (42-75); PLATELET COUNT 398 10^3/uL (130-400); RED BLOOD COUNT 2.58 10^6/uL (4.35-5.85); RED CELL DISTRIBUTION WIDTH 15.3 % (10.0-14.5); WHITE BLOOD COUNT 12.4 10^3/uL (4.3-11.0)
[2016-05-01] MEDS: RT-ADVAIR HFA 115/21 MCG PER PUFF IH SCH ×2 (06:18→19:31)
[2016-05-01] MEDS: RT-ALBUTEROL/IPRATROPIUM 3 ML (DUONEB) VIAL INH SCH ×4 (06:18→19:31)
[2016-05-01] MEDS: PANTOPRAZOLE 40 MG (PROTONIX) TAB PO SCH (06:35)
[2016-05-01] MEDS: LEVOTHYROXINE 150 MCG (LEVOTHROID) TAB PO SCH (06:36)
[2016-05-01] MEDS: MULTIVIT W/MINERALS TAB (THERAGRAN M) PO SCH (06:36)
[2016-05-01] MEDS: TORSEMIDE 20 MG (DEMADEX) TAB PO SCH ×2 (06:36→17:01)
[2016-05-01] MEDS: KCL 20 MEQ TAB (K-DUR) PO SCH ×2 (06:36→17:01)
[2016-05-01] MEDS: CIPROFLOXACIN 500 MG (CIPRO) TABLET PO SCH ×2 (07:42→20:42)
[2016-05-01] MEDS: CYANOCOBALAMIN 500 MCG TAB (VITAMIN B-12) PO SCH (07:42)
[2016-05-01] MEDS: BISACODYL 5 MG (DULCOLAX) TABLET PO PRN (07:42)
[2016-05-01] MEDS: LACTULOSE SYRUP 10GM/15ML (ENULOSE) 30ML UDC PO SCH ×2 (07:42→20:44)
[2016-05-01] MEDS: DOCUSATE SODIUM 100 MG (COLACE) CAP PO SCH ×2 (07:42→20:43)
[2016-05-01] MEDS: ENOXAPARIN 30 MG/0.3 ML (LOVENOX) SYR SC SCH (07:42)
[2016-05-01] MEDS: VITAMIN D3 5,000 UNITS (CHOLECALCIFEROL ) CAPSULE PO SCH (07:42)
[2016-05-01] MEDS: MILK OF MAGNESIA 400 MG/5 ML 30 ML UDC PO PRN (07:42)
[2016-05-01] MEDS: SENNOSIDES 8.6 MG (SENOKOT) TAB PO SCH ×2 (07:43→20:43)
[2016-05-01] MEDS: LABETALOL 200 MG (NORMODYNE) TAB PO SCH ×2 (07:43→20:43)
[2016-05-01] MEDS: POLYETHYLENE GLYCOL 17 GM (MIRALAX) PACK PO SCH ×2 (08:46→20:44)
[2016-05-01] MEDS: DILTIAZEM 240 MG (CARDIZEM CD) CAP PO SCH (09:34)
[2016-05-01] MEDS: guaiFENesin (MUCINEX) 600 MG TAB PO SCH ×2 (09:34→20:43)
--- NOTE | 2016-05-01 10:42 | Occupational Ther Daily Note ---
OT Current Status-Daily Note Subjective Pt seen in room, up in recliner, agreeable to OT. No pain mentioned. Appearance Alert, cooperative Mental Status/Objective Functional [place] Measure 0=Not Assessed/NA 4=Minimal Assistance 1=Total Assistance 5=Supervision or Setup 2=Maximal Assistance 6=Modified [place] 3=Moderate Assistance 7=Complete [place] Attachments: Central Line, Oxygen (3L/miin) ADL-Treatment All ADLs took longer than usual, limited due to decr R UE function Functional [place] Measure 0=Not Assessed/NA 4=Minimal Assistance 1=Total Assistance 5=Supervision or Setup 2=Maximal Assistance 6=Modified [place] 3=Moderate Assistance 7=Complete IndependenceIRFPAI Quality Coding Scale 6 Independent with activity with or without an assistive device 5 Patient requires set up or clean up by helper. Patient completes activity by themselves 4 Supervision or touching assist (CGA). [place] provide cues , steadying assist 3 The helper provides less than half the effort to complete the activity 2 The helper provides more than half the effort to complete the activity 1 Dependent. The helper does all the effort to complete an activity 7 Patient refused to complete or attempt activity 9 The patient did not perform the activity before the current illness or injury 88 Not attempted due to Medical conditions or safety concerns Bathing (FIM): 4 (Pt was able to wash and dry all parts except back and bottom (declined lower legs), with min assist to stand, CGA to maintain standing, to wash bottom, balancing with FWW, platform. SPonge bath) Upper Body (FIM): 5 (managed buttons with little difficulty) Lower Body Dressing (FIM): 4 (Min assist to stand, CGA to mantain standing, FWW with platform. Pt was able to pull her own pants up. used sock aid to put skipper socks on, used dressing stick to take them off) Transfers (B, C, W/C) (FIM): 4 (Min assist sit to stand and stand to sit, FWW with platform) OT Short Term Goals Short Term Goals Time Frame: May 02, 2016 Bathing(FIM): 4 Lower Body Dressing(FIM): 4 Transfers (B,C,W/C) (FIM): 4 Toilet/Commode Transfer(FIM): 4 Shower Transfer(FIM): 3 Additional Short Term Goals: 3-ImproveStrength/[place]cy 1=Demonstrate adherence to instructed precautions during ADL tasks. 2=Patient will verbalize/demonstrate understanding of assistive devices/ modifications for ADL. 3=Patient will improve strength/tolerance for activity to enable patient to perform ADL's. OT Fci Goals Fci Goals Time Frame: May 09, 2016 Eating (FIM): 7 Eating (QC): 6 Groomin Oral Hygiene (QC): 6 Bathing(FIM): 6 Shower/Bathe Self (QC): 6 Upper Body Dressing(FIM): 6 Upper Body Dressing (QC): 6 Lower Body Dressing(FIM): 6 Lower Body Dressing (QC): 6 On/Off Footwear (QC): 6 Toileting(FIM): 6 Toileting Hygiene (QC): 6 Toilet/Commode Transfer(FIM): 6 Toilet/Commode Transfer (QC): 6 Shower Transfer(FIM): 6 Additional Goals: 2-Verbalize Understanding, 3-ImproveStrength/[place]cy (5/5 bilat elbows and distal) 1=Demonstrate adherence to instructed precautions during ADL tasks. 2=Patient will verbalize/demonstrate understanding of assistive devices/ modifications for ADL. 3=Patient will improve strength/tolerance for activity to enable patient to perform ADL's. OT Education/Plan Problem List/Assessment Pt would benefit from skilled OT to increase her independence in basic self care to allow her to safely return to her home with family support and to decrease caregiver burden. Discharge Recommendations Plan/Recommendations: Continue POC Treatment Plan/Plan of Care Patient would benefit from OT for education, treatment and training to promote independence in ADL's, mobility, safety and/or upper extremity function for ADL' s. Plan of Care: ADL Retraining, Functional Mobility, Group Exercise/Act as Ind ( education, exercise, activity tolerance, functional activities), UE Funct Exercise/Act, UE Neuromus Re-Ed/Coord Treatment Duration: May 16, 2016 Visits Per Week: 10-11 Minutes/Day (M-F): 75-90 Minutes/Day (Sat/Terrell): PRN Agreement: Yes Rehab Potential: Fair Time/GCodes Start Time: 08:30 Stop Time: 09:30 Total Time Billed (hr/min): 60 Billed Treatment Time visit, 60 minutes ADL RADHIKA CURTIS OT May 01, 2016 10:42
--- NOTE | 2016-05-01 12:23 | Physical Therapy Daily Note ---
PT Daily Note-Current Subjective Agreeable to PT. Mental Status Patient Orientation: Person, Place, Time, Situation Transfers Functional [place] Measure 0=Not Assessed/NA 4=Minimal Assistance 1=Total Assistance 5=Supervision or Setup 2=Maximal Assistance 6=Modified [place] 3=Moderate Assistance 7=Complete IndependenceIRFPAI Quality Coding Scale 6 Independent with activity with or without an assistive device 5 Patient requires set up or clean up by helper. Patient completes activity by themselves 4 Supervision or touching assist (CGA). [place] provide cues , steadying assist 3 The helper provides less than half the effort to complete the activity 2 The helper provides more than half the effort to complete the activity 1 Dependent. The helper does all the effort to complete an activity 7 Patient refused to complete or attempt activity 9 The patient did not perform the activity before the current illness or injury 88 Not attempted due to Medical conditions or safety concerns Transfers (B, C, W/C) (FIM): 4 Rollin Roll Left to Right (QC): 4 Supine to/from Sit: 4 (assist with left LE) Sit to/from Stand: 4 (CGA and skilled cues for leaning forward to transfer) Sit to Lying (QC): 4 Sit to Stand (QC): 4 Sit to from supine x 2 reps. Weight Bearing Weight Bearing Restriction: Weight Bearing/Tolerated Gait Training Does the Patient Walk?: Yes Distance (FIM): 3=150 ft Distance: 150 ft x 2; 50 ft x 1 Gait Assistive Device: FWW Pt slow with gait and takes several standing rest breaks, mainly to talk. Pt uses FWW with platform and does need assist to strap right arm on platform. Exercises NuStep Minutes: 10 (For LE strength to progress transfers and gait ability) Assessment Current Status: Good Progress Patient's ability to initiate gait and transfer is improved today versus yesterday. Ambulated further and with decreased assist. Pt did better with sit to stand with the cues to lean further forward. PT Short Term Goals Short Term Goals Time Frame: Apr 30, 2016 Transfers (B,C,W/C) (FIM): 4 (met 05/01/16) Gait (FIM): 1 (met 05/01/16) Gait Distance Comment: 20' Gait Level of Assist: 4 (min A) Gait Assistive Device: FWW Wheelchair Distance: 50' PT Nursing Home Goals Nursing Home Goals PT Nursing Home Goals Time Frame: May 14, 2016 Transfers (B,C,W/C) (FIM): 4 (CGA) Sit to Lying (QC): 4 Lying-Sitting on Side/Bed(QC): 4 Sit to Stand (QC): 4 Rollin Roll Left to Right (QC): 4 Chair/Hsx-ju-Zaioq Xfer(QC): 4 Car Transfer (QC): 4 Gait (FIM): 4 Distance: 150' Walk 10 feet (QC): 4 Walk 10ft-Uneven Surface(QC): 4 Walk 50ft with 2 Turns (QC): 4 Walk 150 ft (QC): 4 Gait Level of Assist: 4 (CGA) Gait Assistive Device: FWW Stairs (FIM): 2 # of Steps: 4 1 Step (curb) (QC): 4 4 Steps (QC): 4 Stairs Level Of Assist: 4 Picking up an Object (QC): 88 PT Plan Problem List Problem List: Activity Tolerance, Functional Strength, Safety, Balance, Gait, Transfer, Bed Mobility Treatment/Plan Treatment Plan: Continue Plan of Care Treatment Plan: Bed Mobility, Education, Functional Activity Percy, Functional Strength, Group Therapy, Gait, Safety, Therapeutic Exercise, Transfers Treatment Duration: May 14, 2016 Visits Per Week: 10-11 Minutes/Day (M-F): 60-90 Minutes/Day (Sat/Terrell): 15-30 Safety Risks/Education Patient Education: Transfer Techniques Teaching Recipient: Patient Teaching Methods: Demonstration, Discussion Response to Teaching: Return Demonstration Time/GCodes Time In: 1000 Time Out: 1100 Total Billed Treatment Time: 60 Total Billed Treatment visit GT 50 EX 10 DEEPTHI RAMEY PT May 01, 2016 12:23
--- NOTE | 2016-05-01 13:34 | Physical Therapy Daily Note ---
PT Daily Note-Current Subjective Pt agreeable to PT. Mental Status Patient Orientation: Person, Place, Time, Situation Transfers Functional [place] Measure 0=Not Assessed/NA 4=Minimal Assistance 1=Total Assistance 5=Supervision or Setup 2=Maximal Assistance 6=Modified [place] 3=Moderate Assistance 7=Complete IndependenceIRFPAI Quality Coding Scale 6 Independent with activity with or without an assistive device 5 Patient requires set up or clean up by helper. Patient completes activity by themselves 4 Supervision or touching assist (CGA). [place] provide cues , steadying assist 3 The helper provides less than half the effort to complete the activity 2 The helper provides more than half the effort to complete the activity 1 Dependent. The helper does all the effort to complete an activity 7 Patient refused to complete or attempt activity 9 The patient did not perform the activity before the current illness or injury 88 Not attempted due to Medical conditions or safety concerns Pt transferred sup to sit EOB with min assist for left LE. Pt needed cues to scoot forward to sit EOB and then required mod assist to stand from the bed (a low surface). Pt also needed cues for forward lean to stand up. Pt was able to transfer sit to stand from firm chair with arm rests with min assist and skilled cuing. Gait Training Pt ambulated x 80 ft x 2 with FWW platform with CGA with step to gait with the right and some difficulty initiating gait this afternoon. Treatments Bed mobility/transfers and gait training. Assessment Current Status: Good Progress More difficulty this afternoon likely secondary to fatigue and decresed functional act tolerance. However, overall, pt is making good gains with therapy services. PT Short Term Goals Short Term Goals Time Frame: Apr 30, 2016 Transfers (B,C,W/C) (FIM): 4 (met 05/01/16) Gait (FIM): 1 (met 05/01/16) Gait Distance Comment: 20' Gait Level of Assist: 4 (min A) Gait Assistive Device: FWW Wheelchair Distance: 50' PT Production Editor Goals Production Editor Goals PT [facility] Goals Time Frame: May 14, 2016 Transfers (B,C,W/C) (FIM): 4 (CGA) Sit to Lying (QC): 4 Lying-Sitting on Side/Bed(QC): 4 Sit to Stand (QC): 4 Rollin Roll Left to Right (QC): 4 Chair/Oir-sz-Qawtl Xfer(QC): 4 Car Transfer (QC): 4 Gait (FIM): 4 Distance: 150' Walk 10 feet (QC): 4 Walk 10ft-Uneven Surface(QC): 4 Walk 50ft with 2 Turns (QC): 4 Walk 150 ft (QC): 4 Gait Level of Assist: 4 (CGA) Gait Assistive Device: FWW Stairs (FIM): 2 # of Steps: 4 1 Step (curb) (QC): 4 4 Steps (QC): 4 Stairs Level Of Assist: 4 Picking up an Object (QC): 88 PT Plan Problem List Problem List: Activity Tolerance, Functional Strength Treatment/Plan Treatment Plan: Continue Plan of Care Treatment Plan: Bed Mobility, Education, Functional Activity Percy, Functional Strength, Group Therapy, Gait, Safety, Therapeutic Exercise, Transfers Treatment Duration: May 14, 2016 Visits Per Week: 10-11 Minutes/Day (M-F): 60-90 Minutes/Day (Sat/Terrell): 15-30 Safety Risks/Education Patient Education: Transfer Techniques Teaching Recipient: Patient Teaching Methods: Demonstration, Discussion Response to Teaching: Verbalize Understanding, Return Demonstration, Reinforcement Needed Time/GCodes Time In: 1229 Time Out: 1400 Total Billed Treatment Time: 31 Total Billed Treatment visit FA 15 GT 16 DEEPTHI RAMEY PT May 01, 2016 13:34
--- NOTE | 2016-05-01 15:51 | Occupational Ther Daily Note ---
OT Current Status-Daily Note Subjective Pt seen in room, up in recliner, agreeable to OT. No pain mentioned Appearance Alert, cooperative Mental Status/Objective Functional [place] Measure 0=Not Assessed/NA 4=Minimal Assistance 1=Total Assistance 5=Supervision or Setup 2=Maximal Assistance 6=Modified [place] 3=Moderate Assistance 7=Complete [place] ADL-Treatment Functional [place] Measure 0=Not Assessed/NA 4=Minimal Assistance 1=Total Assistance 5=Supervision or Setup 2=Maximal Assistance 6=Modified [place] 3=Moderate Assistance 7=Complete IndependenceIRFPAI Quality Coding Scale 6 Independent with activity with or without an assistive device 5 Patient requires set up or clean up by helper. Patient completes activity by themselves 4 Supervision or touching assist (CGA). [place] provide cues , steadying assist 3 The helper provides less than half the effort to complete the activity 2 The helper provides more than half the effort to complete the activity 1 Dependent. The helper does all the effort to complete an activity 7 Patient refused to complete or attempt activity 9 The patient did not perform the activity before the current illness or injury 88 Not attempted due to Medical conditions or safety concerns Other Treatment Pt did 15 reps bilat UE exercise with 1/2# (increased repetitions, limited by weakness from polio). She also did strengthening activities with red (medium) resistance theraputty, all to strengthen arms for ADLs. Pt left up in recliner, all needs met. OT Short Term Goals Short Term Goals Time Frame: May 02, 2016 Bathing(FIM): 4 Lower Body Dressing(FIM): 4 Transfers (B,C,W/C) (FIM): 4 (met 05/01/16) Toilet/Commode Transfer(FIM): 4 Shower Transfer(FIM): 3 Additional Short Term Goals: 3-ImproveStrength/[place] 1=Demonstrate adherence to instructed precautions during ADL tasks. 2=Patient will verbalize/demonstrate understanding of assistive devices/ modifications for ADL. 3=Patient will improve strength/tolerance for activity to enable patient to perform ADL's. OT Snf Goals Snf Goals Time Frame: May 09, 2016 Eating (FIM): 7 Eating (QC): 6 Groomin Oral Hygiene (QC): 6 Bathing(FIM): 6 Shower/Bathe Self (QC): 6 Upper Body Dressing(FIM): 6 Upper Body Dressing (QC): 6 Lower Body Dressing(FIM): 6 Lower Body Dressing (QC): 6 On/Off Footwear (QC): 6 Toileting(FIM): 6 Toileting Hygiene (QC): 6 Toilet/Commode Transfer(FIM): 6 Toilet/Commode Transfer (QC): 6 Shower Transfer(FIM): 6 Additional Goals: 2-Verbalize Understanding, 3-ImproveStrength/[place] (5/5 bilat elbows and distal) 1=Demonstrate adherence to instructed precautions during ADL tasks. 2=Patient will verbalize/demonstrate understanding of assistive devices/ modifications for ADL. 3=Patient will improve strength/tolerance for activity to enable patient to perform ADL's. OT Education/Plan Problem List/Assessment Pt would benefit from skilled OT to increase her independence in basic self care to allow her to safely return to her home with family support and to decrease caregiver burden. Discharge Recommendations Plan/Recommendations: Continue POC Treatment Plan/Plan of Care Patient would benefit from OT for education, treatment and training to promote independence in ADL's, mobility, safety and/or upper extremity function for ADL' s. Plan of Care: ADL Retraining, Functional Mobility, Group Exercise/Act as Ind ( education, exercise, activity tolerance, functional activities), UE Funct Exercise/Act, UE Neuromus Re-Ed/Coord Treatment Duration: May 16, 2016 Visits Per Week: 10-11 Minutes/Day (M-F): 75-90 Minutes/Day (Sat/Terrell): PRN Agreement: Yes Rehab Potential: Fair Time/GCodes Start Time: 14:00 Stop Time: 14:30 Total Time Billed (hr/min): 30 Billed Treatment Time visit, 30 minutes exercise RADHIKA CURTIS OT May 01, 2016 15:51
--- NOTE | 2016-05-01 16:35 | PM & R (SOAP) Progress Note ---
Subjective Subjective/Events-last exam Patient was seen in her rooom this noon hour Patient min assist for transfers Objective Exam Last Set of Vital Signs Vital Signs Date Time Temp Pulse Resp B/P Pulse Ox O2 Delivery O2 Flow Rate FiO2 05/01/16 15:36 93 3.00 05/01/16 09:12 Nasal Cannula 05/01/16 04:50 97.1 62 18 116/55 Capillary Refill : Less Than 3 Seconds I&O Intake and Output 05/01/16 00:00 Intake Total 1250 ml Output Total 450 ml Balance 800 ml Intake Oral 1250 ml Output Urine Total 450 ml # Voids 4 General: Alert, Oriented X3, Cooperative, No Acute Distress HEENT: Atraumatic, PERRLA, EOMI, Mucous Memb Moist/[place] Neck: Supple, No JVD Lungs: Clear to Auscultation Heart: Regular Rate Abdomen: Normal Bowel Sounds, Soft, No Tenderness Extremities: No Edema Neuro: Other (weakness on right as compared to left with limited AROM both shoulders with hx of prox left hum frx s/p repair Dr Jiménez as a result of prior fall) Results Lab Laboratory Tests 04/30/16 09:12: Lab Scanned Report Transfusion Reaction Form 04/30/16 12:45: Anisocytosis SLIGHT, Band Neutrophils 0, Basophils # (Auto) 0.1, Basophils % ( Manual) 0, Basophils (%) (Auto) 1, Eosinophils # (Auto) 0.5H, Eosinophils % ( Manual) 8, Eosinophils (%) (Auto) 4, Hematocrit 26L, Hemoglobin 8.1L, Hypochromasia SLIGHT, Lymphocytes # (Auto) 1.5, Lymphocytes % (Manual) 9, Lymphocytes (%) (Auto) 10L, Mean Corpuscular Hemoglobin 31, Mean Corpuscular Hemoglobin Concent 32, Mean Corpuscular Volume 96, Mean Platelet Volume 10.1, Monocytes # (Auto) 1.5H, Monocytes % (Manual) 13, Monocytes (%) (Auto) 10, Neutrophils # (Auto) 11.4H, Neutrophils % (Manual) 70, Neutrophils (%) (Auto) 76H, Platelet Count 407H, Red Blood Count 2.66L, Red Cell Distribution Width 15.2H, White Blood Count 15.0H 05/01/16 05:00: Basophils # (Auto) 0.1, Basophils (%) (Auto) 1, Eosinophils # (Auto) 0.8H, Eosinophils (%) (Auto) 7, Hematocrit 25L, Hemoglobin 7.8L, Lymphocytes # (Auto) 2.6, Lymphocytes (%) (Auto) 21, Mean Corpuscular Hemoglobin 30, Mean Corpuscular Hemoglobin Concent 31L, Mean Corpuscular Volume 97, Mean Platelet Volume 10.4, Monocytes # (Auto) 1.7H, Monocytes (%) (Auto) 14H, Neutrophils # ( Auto) 7.2, Neutrophils (%) (Auto) 58, Platelet Count 398, Red Blood Count 2.58L , Red Cell Distribution Width 15.3H, White Blood Count 12.4H Microbiology 04/26/16 Gram Stain - Final, Complete 04/26/16 Sputum Culture - Final, Complete Gram Negative Josafat Assessment/Plan Assessment nondisplaced intertrochanteric frx left hip s/p repair Ortho Postop anemia s/p transfusion today Post polio syndrome with residual weakness Rt side prior fall with limited ROM left shoulder s/p repair prox humerus frx Hypoalbuminemia Chronic constipation COPD with recurrent pneumonias HX of pseudomonas UTI Leukocytosis-trending now improving Plan Continue PT/OT F/U Labs-done F/U with Dr Looney and ortho and PULM as per their sched Current labs noted-will recheck CBC-See orders Appreciate Dr Willson note Current meds and labs reviewed Team Conference held yesterday-See report for full functional update and POC and HIRA NARANJO MD May 01, 2016 16:35
[2016-05-01 18:16] VITALS: BP 128/55
[2016-05-01] MEDS: fluCOnazole (DIFLUCAN) 100 MG TAB PO SCH (19:54)
[2016-05-01] MEDS: ATORVASTATIN 40 MG (LIPITOR) TABLET PO SCH (20:42)
[2016-05-01] MEDS: AMITRIPTYLINE 150 MG (ELAVIL) TABLET PO SCH (20:43)
[2016-05-02] MEDS: oxyCODONE/APAP 5/325MG (PERCOCET 5) TABLET PO PRN ×3 (04:22→17:45)
[2016-05-02 04:37] VITALS: BP 123/54
[2016-05-02] MEDS: TORSEMIDE 20 MG (DEMADEX) TAB PO SCH (06:41)
[2016-05-02] MEDS: PANTOPRAZOLE 40 MG (PROTONIX) TAB PO SCH (06:42)
[2016-05-02] MEDS: LEVOTHYROXINE 150 MCG (LEVOTHROID) TAB PO SCH (06:42)
[2016-05-02] MEDS: KCL 20 MEQ TAB (K-DUR) PO SCH ×2 (06:42→17:44)
[2016-05-02] MEDS: MULTIVIT W/MINERALS TAB (THERAGRAN M) PO SCH (06:42)
[2016-05-02] MEDS: RT-ADVAIR HFA 115/21 MCG PER PUFF IH SCH ×2 (06:49→19:21)
[2016-05-02] MEDS: RT-ALBUTEROL/IPRATROPIUM 3 ML (DUONEB) VIAL INH SCH ×4 (06:49→19:21)
[2016-05-02 07:04] LABS: BASOPHILS # (AUTO) 0.1 10^3/uL (0.0-0.1); BASOPHILS % (AUTO) 1 % (0-10); EOSINOPHILS # (AUTO) 1.1 10^3/uL (0.0-0.3); EOSINOPHILS % (AUTO) 9 % (0-10); LYMPHOCYTES # (AUTO) 2.3 X 10^3 (1.0-4.0); LYMPHOCYTES % (AUTO) 19 % (12-44); MEAN CORPUSCULAR HEMOGLOBIN 31 PG (25-34); MEAN CORPUSCULAR HGB CONC 31 G/DL (32-36); MEAN CORPUSCULAR VOLUME 97 FL (80-99); MEAN PLATELET VOLUME 10.4 FL (7.4-10.4); MONOCYTES # (AUTO) 1.9 X 10^3 (0.0-1.0); MONOCYTES % (AUTO) 15 % (0-12); NEUTROPHILS # (AUTO) 6.9 X 10^3 (1.8-7.8); NEUTROPHILS % (AUTO) 57 % (42-75); PLATELET COUNT 446 10^3/uL (130-400); RED BLOOD COUNT 2.66 10^6/uL (4.35-5.85); RED CELL DISTRIBUTION WIDTH 15.5 % (10.0-14.5); RETICULOCYTE % 4.37 % (0.50-2.40); WHITE BLOOD COUNT 12.2 10^3/uL (4.3-11.0)
[2016-05-02 07:12] LABS: INR 1.1 (0.8-1.4); PROTHROMBIN TIME PATIENT 13.5 SEC (12.2-14.7)
[2016-05-02 07:33] LABS: ALBUMIN 3.2 G/DL (3.2-4.5); BILIRUBIN,TOTAL 0.6 MG/DL (0.1-1.0); CALCIUM 8.7 MG/DL (8.5-10.1); CREATININE SERUM 1.44 MG/DL (0.60-1.30); POTASSIUM 4.2 MMOL/L (3.6-5.0); TOTAL PROTEIN 6.7 G/DL (6.4-8.2)
[2016-05-02 07:37] LABS: THYROID STIMULATING HORMONE 26.6 UIU/ML (0.35-4.94)
[2016-05-02 07:43] LABS: ANISOCYTOSIS SLIGHT; BAND NEUTROPHILS 0 %; BASOPHILS % (MANUAL) 0 %; EOSINOPHILS % (MANUAL) 6 %; LYMPHOCYTES % (MANUAL) 17 %; MICROCYTOSIS SLIGHT; NEUTROPHILS % (MANUAL) 62 %
[2016-05-02] MEDS: LACTULOSE SYRUP 10GM/15ML (ENULOSE) 30ML UDC PO SCH ×2 (08:18→20:30)
[2016-05-02] MEDS: guaiFENesin (MUCINEX) 600 MG TAB PO SCH ×2 (08:18→20:29)
[2016-05-02] MEDS: fluCOnazole (DIFLUCAN) 100 MG TAB PO SCH (08:18)
[2016-05-02] MEDS: CYANOCOBALAMIN 500 MCG TAB (VITAMIN B-12) PO SCH (08:18)
[2016-05-02] MEDS: CIPROFLOXACIN 500 MG (CIPRO) TABLET PO SCH ×2 (08:18→20:30)
[2016-05-02] MEDS: VITAMIN D3 5,000 UNITS (CHOLECALCIFEROL ) CAPSULE PO SCH (08:18)
[2016-05-02] MEDS: DILTIAZEM 240 MG (CARDIZEM CD) CAP PO SCH (08:18)
[2016-05-02] MEDS: SENNOSIDES 8.6 MG (SENOKOT) TAB PO SCH ×2 (08:18→20:29)
[2016-05-02] MEDS: LABETALOL 200 MG (NORMODYNE) TAB PO SCH ×2 (08:18→20:29)
[2016-05-02] MEDS: DOCUSATE SODIUM 100 MG (COLACE) CAP PO SCH ×2 (08:18→20:30)
[2016-05-02] MEDS: POLYETHYLENE GLYCOL 17 GM (MIRALAX) PACK PO SCH ×2 (08:21→20:30)
--- NOTE | 2016-05-02 08:49 | PM & R (SOAP) Progress Note ---
Subjective Subjective/Events-last exam Patient was seen in her room this AM Patient min assist for transfers Objective Exam Last Set of Vital Signs Vital Signs Date Time Temp Pulse Resp B/P Pulse Ox O2 Delivery O2 Flow Rate FiO2 05/02/16 06:50 95 3.00 05/02/16 04:37 96.8 63 18 123/54 Nasal Cannula Capillary Refill : Less Than 3 Seconds I&O Intake and Output 05/02/16 00:00 Intake Total 1350 ml Balance 1350 ml Intake Oral 1350 ml # Voids 5 # Bowel Movements 1 General: Alert, Oriented X3, Cooperative, No Acute Distress HEENT: Atraumatic, PERRLA, EOMI, Mucous Memb Moist/[place] Neck: Supple, No JVD Lungs: Clear to Auscultation Heart: Regular Rate Abdomen: Normal Bowel Sounds, Soft, No Tenderness Extremities: No Edema Neuro: Other (weakness on right as compared to left with limited AROM both shoulders with hx of prox left hum frx s/p repair Dr Jiménez as a result of prior fall) Results Lab Laboratory Tests 04/30/16 09:12: Lab Scanned Report Transfusion Reaction Form 04/30/16 12:45: Anisocytosis SLIGHT, Band Neutrophils 0, Basophils # (Auto) 0.1, Basophils % ( Manual) 0, Basophils (%) (Auto) 1, Eosinophils # (Auto) 0.5H, Eosinophils % ( Manual) 8, Eosinophils (%) (Auto) 4, Hematocrit 26L, Hemoglobin 8.1L, Hypochromasia SLIGHT, Lymphocytes # (Auto) 1.5, Lymphocytes % (Manual) 9, Lymphocytes (%) (Auto) 10L, Mean Corpuscular Hemoglobin 31, Mean Corpuscular Hemoglobin Concent 32, Mean Corpuscular Volume 96, Mean Platelet Volume 10.1, Monocytes # (Auto) 1.5H, Monocytes % (Manual) 13, Monocytes (%) (Auto) 10, Neutrophils # (Auto) 11.4H, Neutrophils % (Manual) 70, Neutrophils (%) (Auto) 76H, Platelet Count 407H, Red Blood Count 2.66L, Red Cell Distribution Width 15.2H, White Blood Count 15.0H 05/01/16 05:00: Basophils # (Auto) 0.1, Basophils (%) (Auto) 1, Eosinophils # (Auto) 0.8H, Eosinophils (%) (Auto) 7, Hematocrit 25L, Hemoglobin 7.8L, Lymphocytes # (Auto) 2.6, Lymphocytes (%) (Auto) 21, Mean Corpuscular Hemoglobin 30, Mean Corpuscular Hemoglobin Concent 31L, Mean Corpuscular Volume 97, Mean Platelet Volume 10.4, Monocytes # (Auto) 1.7H, Monocytes (%) (Auto) 14H, Neutrophils # ( Auto) 7.2, Neutrophils (%) (Auto) 58, Platelet Count 398, Red Blood Count 2.58L , Red Cell Distribution Width 15.3H, White Blood Count 12.4H 05/01/16 18:15: Stool Occult Blood Immunoassay NEGATIVE 05/02/16 05:48: Absolute Reticulocyte Count 116H, Activated Partial Thromboplast Time 32, Alanine Aminotransferase (ALT/SGPT) 12, Albumin 3.2, Alkaline Phosphatase 142H, Anion Gap 8, Anisocytosis SLIGHT, Aspartate Amino Transf (AST/SGOT) 30, BUN/ Creatinine Ratio 17, Band Neutrophils 0, Basophils # (Auto) 0.1, Basophils % ( Manual) 0, Basophils (%) (Auto) 1, Blood Urea Nitrogen 24H, Calcium Level 8.7, Carbon Dioxide Level 31, Chloride Level 96L, Creatinine 1.44H, Eosinophils # ( Auto) 1.1H, Eosinophils % (Manual) 6, Eosinophils (%) (Auto) 9, Estimat Glomerular Filtration Rate 35, Glucose Level 91, Hematocrit 26L, Hemoglobin 8.1L , INR Comment 1.1, Lymphocytes # (Auto) 2.3, Lymphocytes % (Manual) 17, Lymphocytes (%) (Auto) 19, Macrocytosis SLIGHT, Mean Corpuscular Hemoglobin 31, Mean Corpuscular Hemoglobin Concent 31L, Mean Corpuscular Volume 97, Mean Platelet Volume 10.4, Microcytosis SLIGHT, Monocytes # (Auto) 1.9H, Monocytes % (Manual) 15, Monocytes (%) (Auto) 15H, Neutrophils # (Auto) 6.9, Neutrophils % ( Manual) 62, Neutrophils (%) (Auto) 57, Percent Reticulocyte Count 4.37H, Platelet Count 446H, Potassium Level 4.2, Prothrombin Time 13.5, Red Blood Count 2.66L, Red Cell Distribution Width 15.5H, Sodium Level 135, Thyroid Stimulating Hormone (TSH) 26.60H, Total Bilirubin 0.6, Total Protein 6.7, White Blood Count 12.2H Microbiology 04/26/16 Gram Stain - Final, Complete 04/26/16 Sputum Culture - Final, Complete Gram Negative Josafat Assessment/Plan Assessment nondisplaced intertrochanteric frx left hip s/p repair Ortho Postop anemia s/p transfusion today Post polio syndrome with residual weakness Rt side prior fall with limited ROM left shoulder s/p repair prox humerus frx Hypoalbuminemia Chronic constipation COPD with recurrent pneumonias HX of pseudomonas UTI Leukocytosis-trending now improving Plan Continue PT/OT F/U Labs-done F/U with Dr Looney and ortho and PULM as per their sched Current labs noted-will recheck CBC-See orders Appreciate Dr Willson note Current meds and labs reviewed Team Conference held 04/30/16 -See report for full functional update and POC and HIRA NARANJO MD May 02, 2016 08:49
--- NOTE | 2016-05-02 09:46 | CONSULTATION REPORT ---
DATE OF CONSULTATION: 05/01/2016 The patient is admitted to room 229 REFERRING PHYSICIAN: Raya Looney DO IMPRESSION: 1. 81-year-old female admitted with a recent history of left hip fracture status post surgical repair. Admitted to rehabilitation services. 2. Anemia of undetermined etiology, rule out bleeding versus other. 3. Remote history of stage II colon cancer. 4. Postpolio syndrome with residual right-sided weakness. 5. Probable Enterobacter and yeast pneumonia. RECOMMENDATIONS: 1. Obtain fecal occult blood test with the next bowel movement. 2. We will discontinue Lovenox and use SCDs for DVT prophylaxis. 3. Agree with PRBC transfusion because of symptomatic anemia. 4. Obtain serum iron studies, B12 folate level and TSH level along with a CBC, retic count and a peripheral smear. 5. Will add Diflucan to the current antibiotic regimen. 6. Continue the rest of the medical care as you are doing. 7. I will follow the patient with you. Mrs. Gillette is an 81-year-old female who had a fall at home with nondisplaced intertrochanteric fracture of her left femur. The patient underwent surgical repair and is admitted to the rehabilitation services. She required packed red blood cell transfusion earlier but had worsening anemia and hence hematology consultation. She has had increased respiratory symptoms and a sputum culture showing Enterobacter cloacae as well as yeast in the sputum. She is on oral antibiotics with ciprofloxacin. She has chronic constipation and has not had a bowel movement for several days. She is on multiple laxatives and stool softeners. PAST MEDICAL HISTORY: 1. Significant for history of stage II colon cancer of the cecum, status post right hemicolectomy in 1997. 2. History of hypertension for more than 35 to 40 years and on treatment. 3. History of polio in childhood and postpolio syndrome with weakness of right upper extremity and to a lesser extent the right lower extremity. 4. History of pilonidal cyst removal in the remote past. 5. JENNIFER/BSO 25 to 30 years ago. 6. Some dental extractions complicated by bleeding and required transfusion. 7. History of right femoral fracture requiring surgical repair. ALLERGIES: 1. She is allergic to PENICILLIN. 2. SULFA DRUGS. 3. TETANUS SHOTS. MEDICATIONS: Her medication list was reviewed in the EMR. SOCIAL HISTORY: The patient is and was living by herself in the [place], [place]. She has 2 children, a son and a daughter, both of whom live close by and checks on her regularly. She has smoked for about 10 to 15 years, but quit smoking before the age of 30 years. No history of alcohol or other recreational drug use. FAMILY HISTORY: Family history is significant for her father who from emphysema at the age of 68 years. He also had a bleeding diathesis but the patient does not know the details of this. One of her sisters with metastatic colon cancer. Another sister with emphysema. No other bleeding problems in the family. PHYSICAL EXAMINATION: Today showed an elderly female, awake, and answering questions fairly and did not appear to be in any acute distress. VITAL SIGNS: Temperature 97.9, pulse rate of 62, respiratory rate 18, blood pressure 116/55, and oxygen saturation was 99% on 3 liters of oxygen by nasal cannula. HEENT: Normocephalic, extraocular muscles intact. Conjunctivae pale, oral mucosa moist. Tongue slightly coated. NECK: Supple with no JVD. No cervical, supraclavicular, or axillary lymphadenopathy palpable. CHEST: Chest was symmetrical. LUNGS: With slightly diminished breath sounds bilaterally with rare scattered wheeze heard. CARDIOVASCULAR EXAM: Was regular in rate and rhythm without murmurs or gallops. ABDOMEN: Soft, nontender, with no hepatosplenomegaly or other masses palpable. EXTREMITIES: Showed postoperative changes in the left hip with surrounding mild ecchymosis. No fluctuation noted. Post polio syndrome involving the right upper extremity with muscle wasting and slight contractures noted. This is unchanged from before. CBC done today showed WBC 12.4, hemoglobin 7.8, MCV 97, RDW 15.3, and platelet count of 398,000. Neutrophil count was 7.2, lymphocyte count 2.6, monocyte count 1.7. Chemistry panel from 04/25/2016 showed normal electrolytes. BUN was 14 and creatinine 1.01 with GFR 53 per minute. Liver function studies were normal except albumin level of 2.8. Thank you for allowing me to participate in this patient's care. I will follow the patient with you. Job ID: [id number] Dictated Date: 05/01/2016 17:52:35 Emergency Technician Date: 05/02/2016 09:24:22/israel STACY
--- NOTE | 2016-05-02 09:52 | Occupational Ther Daily Note ---
OT Current Status-Daily Note Subjective Pt seen in room, agreeable to OT. Pt nauseated and with dry heaves. No pain mentioned. "I don't feel good today." Appearance Alert, cooperative, reluctantly agreeable due to nausea/dry heaves Mental Status/Objective Functional [place] Measure 0=Not Assessed/NA 4=Minimal Assistance 1=Total Assistance 5=Supervision or Setup 2=Maximal Assistance 6=Modified [place] 3=Moderate Assistance 7=Complete [place] ADL-Treatment Functional [place] Measure 0=Not Assessed/NA 4=Minimal Assistance 1=Total Assistance 5=Supervision or Setup 2=Maximal Assistance 6=Modified [place] 3=Moderate Assistance 7=Complete IndependenceIRFPAI Quality Coding Scale 6 Independent with activity with or without an assistive device 5 Patient requires set up or clean up by helper. Patient completes activity by themselves 4 Supervision or touching assist (CGA). [place] provide cues , steadying assist 3 The helper provides less than half the effort to complete the activity 2 The helper provides more than half the effort to complete the activity 1 Dependent. The helper does all the effort to complete an activity 7 Patient refused to complete or attempt activity 9 The patient did not perform the activity before the current illness or injury 88 Not attempted due to Medical conditions or safety concerns Eating (FIM): 6 (Pt was able to open packages and butter bread herself. ) Grooming (FIM): 6 (Brushed hair, washed face and hands, put on makeup, seated) Toileting (FIM): 4 (CGA to SBA for pulling pants up, balancing with FWW, with platform. Able to wipe with CGA. BSC) Transfers (B, C, W/C) (FIM): 4 (Min assist, FWW. ) Toilet/Commode Transfer (FIM): 4 (Min assist to get off BSC, FWW with platform. ) Discussed ADLs for home for discharge planning. Pt states that she has a BSC at home and will place it by her bed. Her family can prepare meals for her but she was unable to identify how she would transport her food while using walker with platform, since she has limitations in functional use in her arms due to polio. Platform interferes with a walker tray. Other Treatment Pt did bilat UE ex with red theraputty, to help with strengthening UEs as needed for ADLs. Education OT Patient Education: Purpose of tx/functional activities, Safety issues, Transfer techniques, Other (discharge problem solving for ADLs) OT Short Term Goals Short Term Goals Time Frame: May 02, 2016 Bathing(FIM): 4 Lower Body Dressing(FIM): 4 Transfers (B,C,W/C) (FIM): 4 (met 05/01/16) Toilet/Commode Transfer(FIM): 4 Shower Transfer(FIM): 3 Additional Short Term Goals: 3-ImproveStrength/Percy 1=Demonstrate adherence to instructed precautions during ADL tasks. 2=Patient will verbalize/demonstrate understanding of assistive devices/ modifications for ADL. 3=Patient will improve strength/tolerance for activity to enable patient to perform ADL's. OT Senior Care Goals Senior Care Goals Time Frame: May 09, 2016 Eating (FIM): 7 Eating (QC): 6 Groomin Oral Hygiene (QC): 6 Bathing(FIM): 6 Shower/Bathe Self (QC): 6 Upper Body Dressing(FIM): 6 Upper Body Dressing (QC): 6 Lower Body Dressing(FIM): 6 Lower Body Dressing (QC): 6 On/Off Footwear (QC): 6 Toileting(FIM): 6 Toileting Hygiene (QC): 6 Toilet/Commode Transfer(FIM): 6 Toilet/Commode Transfer (QC): 6 Shower Transfer(FIM): 6 Additional Goals: 2-Verbalize Understanding, 3-ImproveStrength/Percy (5/5 bilat elbows and distal) 1=Demonstrate adherence to instructed precautions during ADL tasks. 2=Patient will verbalize/demonstrate understanding of assistive devices/ modifications for ADL. 3=Patient will improve strength/tolerance for activity to enable patient to perform ADL's. OT Education/Plan Problem List/Assessment Pt would benefit from skilled OT to increase her independence in basic self care to allow her to safely return to her home with family support and to decrease caregiver burden. Discharge Recommendations Plan/Recommendations: Continue POC Treatment Plan/Plan of Care Patient would benefit from OT for education, treatment and training to promote independence in ADL's, mobility, safety and/or upper extremity function for ADL' s. Plan of Care: ADL Retraining, Functional Mobility, Group Exercise/Act as Ind ( education, exercise, activity tolerance, functional activities), UE Funct Exercise/Act, UE Neuromus Re-Ed/Coord Treatment Duration: May 16, 2016 Visits Per Week: 10-11 Minutes/Day (M-F): 75-90 Minutes/Day (Sat/Terrell): PRN Agreement: Yes Rehab Potential: Fair Time/GCodes Start Time: 08:30 Stop Time: 09:30 Total Time Billed (hr/min): 60 Billed Treatment Time visit, 45 minutes ADL, 15 minutes exercise RADHIKA CURTIS OT May 02, 2016 09:52
[2016-05-02 10:18] VITALS: BP 93/59
[2016-05-02 10:23] VITALS: BP 119/75
[2016-05-02 10:25] VITALS: BP 79/53
[2016-05-02 10:31] VITALS: BP 103/59
--- NOTE | 2016-05-02 11:00 | Physical Therapy Daily Note ---
PT Daily Note-Current Subjective Agrees to try to participate but notes she has had the dry heaves this morning. During treatment, while standing, pt reported feeling like she might pass out. Pain Numeric Pain Scale: 9 Location: Left Location Body Site: Hip Pain Description: Ache Comment: pain pills withheld due to her complaints as noted in subjective Mental Status Patient Orientation: Person, Place, Time, Situation Transfers Functional [place] Measure 0=Not Assessed/NA 4=Minimal Assistance 1=Total Assistance 5=Supervision or Setup 2=Maximal Assistance 6=Modified [place] 3=Moderate Assistance 7=Complete IndependenceIRFPAI Quality Coding Scale 6 Independent with activity with or without an assistive device 5 Patient requires set up or clean up by helper. Patient completes activity by themselves 4 Supervision or touching assist (CGA). [place] provide cues , steadying assist 3 The helper provides less than half the effort to complete the activity 2 The helper provides more than half the effort to complete the activity 1 Dependent. The helper does all the effort to complete an activity 7 Patient refused to complete or attempt activity 9 The patient did not perform the activity before the current illness or injury 88 Not attempted due to Medical conditions or safety concerns Sit to stand transfer x 5 with min assist most attempts and skilled cues to lean forward and push up from the chair. Exercises Supine Ex: Ankle pumps, Quad Set, Glut sets, Heel Slides, Short Arc Quads, Hip abd/add Supine Reps: 15 (to facilitate functional strength for transfers and gait) Treatments Pt had complaints of feeling like she may pass out. Nurse summoned. Monitored Blood Pressure and oxygen sats. after original complaint, her BP was found to be 93/59 and sats at 99%; reclined and waited 3-4 minutes and it was 119/75; pt then returned to sitting up 115/75; standing 79/53; seated and semi reclined 103/59. Post treatment, pt did report she was feeling better. Denied feeling like she might pass out and reported her nausea was improved. Assessment Not feeling well today, but able to participate with light activity and monitoring of BP throughout treatment. Pt feeling better post treatment. PT Short Term Goals Short Term Goals Time Frame: Apr 30, 2016 Transfers (B,C,W/C) (FIM): 4 (met 05/01/16) Gait (FIM): 1 (met 05/01/16) Gait Distance Comment: 20' Gait Level of Assist: 4 (min A) Gait Assistive Device: FWW Wheelchair Distance: 50' PT Custodial Goals Counter Person Goals PT Custodial Goals Time Frame: May 14, 2016 Transfers (B,C,W/C) (FIM): 4 (CGA) Sit to Lying (QC): 4 Lying-Sitting on Side/Bed(QC): 4 Sit to Stand (QC): 4 Rollin Roll Left to Right (QC): 4 Chair/Eic-jd-Ejuxw Xfer(QC): 4 Car Transfer (QC): 4 Gait (FIM): 4 Distance: 150' Walk 10 feet (QC): 4 Walk 10ft-Uneven Surface(QC): 4 Walk 50ft with 2 Turns (QC): 4 Walk 150 ft (QC): 4 Gait Level of Assist: 4 (CGA) Gait Assistive Device: FWW Stairs (FIM): 2 # of Steps: 4 1 Step (curb) (QC): 4 4 Steps (QC): 4 Stairs Level Of Assist: 4 Picking up an Object (QC): 88 PT Plan Problem List Problem List: Activity Tolerance, Functional Strength Treatment/Plan Treatment Plan: Continue Plan of Care Treatment Plan: Bed Mobility, Education, Functional Activity Percy, Functional Strength, Group Therapy, Gait, Safety, Therapeutic Exercise, Transfers Treatment Duration: May 14, 2016 Visits Per Week: 10-11 Minutes/Day (M-F): 60-90 Minutes/Day (Sat/Terrell): 15-30 Safety Risks/Education Patient Education: Safety Issues Teaching Recipient: Patient Teaching Methods: Discussion Response to Teaching: Reinforcement Needed Time/GCodes Time In: 1000 Time Out: 1100 Total Billed Treatment Time: 60 Total Billed Treatment visit FA 40 EX 20 DEEPTHI RAMEY PT May 02, 2016 11:00
[2016-05-02 11:20] LABS: %SAT TOTAL IRON BINDING CAPIC 20 % (15-50); TIBC 239 ug/dL (280-380)
--- NOTE | 2016-05-02 11:35 | Progress Note-Hospitalist ---
Progress Note Progress Notes/Assess & Plan Date Seen 05/02/16 Diagonsis/Assessment & Plan Chart Review: No fever Vitals stable Hgb 8.1 Dr. Avitia Review: Dr. Avitia consulted pt for Anemia yesterday, and TSH levels were abnormal. Pt is on thyroid meds. She is currently on 150 so I changed that to 175 Pharmacy Review: Pt is on day 6 of 7 for Cipro treatment for acute bronchitis, and WBC is hovering around 12. 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 Patient Interview: Pt states that she occasionally feels very dizzy. Dr. Pink discusses anemia and abnormal thyroid levels with pt. No fever, vital signs stable, pleasant, pale, chronically ill Regular rate and rhythm, clear to auscultation bilaterally in the upper lobes but crackles in the lower lobes history of a pulmonary fibrosis so she is never clear on exam No edema Assessment: Severe anemia postop but complicated with kidney disease and chronic illness requiring 2 units of packed red blood cell transfusion consulted Dr. Avitia which I appreciate Acute nondisplaced intertrochanteric fracture left hip s/p repair POD # 10 Severe COPD with recurrent pneumonias and h/o lower lobe pneumonia/sputum positive for MRSA 12/16 now on Cipro for sputum culture sensitivity profile h/o urinary tract infection with pseudomonas 12/16. h/o acute on chronic renal failure Leukocytosis h/o Hyperkalemia Pulmonary congestion on Lasix Poor vascular access s/p port placement last admit Constipation chronic issue now resolved Severe anemia due to kidney disease and co-morbidities and acute blood loss in need of empiric iron infusions Severe debility Acute orthostatic hypotension so will hold Demadex evening dose Plan: Change Thyroid to 175mcg starting tomorrow Pulmonology consultation appreciated due to the severity of her lung disease Monitor Hgb closely Duoneb QID Complete antibiotics of Cipro hold Demadex second dose due to recent Lasix administration per Dr. Pfeiffer for overload on Thursday Scribed by Antony Morfin under the direct supervision of Dr. Pink. DENI PINK DO May 02, 2016 11:35
[2016-05-02 12:48] LABS: UIBC 192 ug/dL (55-450)
--- NOTE | 2016-05-02 13:31 | Therapy Group Daily Note ---
Therapy Daily Group Note Patient Education Topic Home Safety (kitchen safety) Other/Notes Pt attended group therapy session that included home safety education that was specific to the kitchen discussing as a group about keeping objects on the counter for ease, safety with the stove and oven, how to safely transport items in the kitchen. We also discussed use of adaptive devices in the kitchen and the participants gave suggestions and ideas of what works for them in their home. Discussed adaptive eating utensils as well. Socialization is an important part of a lengthy hospital stay, in which this patient is experiencing. Active discussion among group members is beneficial to discuss issues with others that are experiencing similar changes in their life due to medical issues as well as aging. This patient was participatory in group and mentioned use of a gripper device to open cans in her home. She has a history of post polio syndrome, therefore, had some good ideas and suggestions for the group. She was interactive and seemed to enjoy the group session. She indicated that she learned from this session and was happy that she had attended. Pt expressed enjoyment from being with others in similar situation. Start Time: 12:00 Stop Time: 13:10 Total Billed Treatment Time: 70 Total Billed Treatment visit GROUP 70 DEEPTHI RAMEY PT May 02, 2016 13:31
[2016-05-02 18:28] VITALS: BP 124/61
[2016-05-02] MEDS: AMITRIPTYLINE 150 MG (ELAVIL) TABLET PO SCH (20:30)
[2016-05-02] MEDS: ATORVASTATIN 40 MG (LIPITOR) TABLET PO SCH (20:30)
[2016-05-03] MEDS: oxyCODONE/APAP 5/325MG (PERCOCET 5) TABLET PO PRN ×4 (01:48→18:22)
[2016-05-03 05:00] VITALS: BP 132/70
[2016-05-03] MEDS: PANTOPRAZOLE 40 MG (PROTONIX) TAB PO SCH (06:24)
[2016-05-03] MEDS: KCL 20 MEQ TAB (K-DUR) PO SCH ×2 (06:24→17:53)
[2016-05-03] MEDS: LEVOTHYROXINE 150 MCG (LEVOTHROID) TAB PO SCH (06:24)
[2016-05-03] MEDS: MULTIVIT W/MINERALS TAB (THERAGRAN M) PO SCH (06:24)
[2016-05-03] MEDS: LACTULOSE SYRUP 10GM/15ML (ENULOSE) 30ML UDC PO SCH ×2 (08:46→20:21)
[2016-05-03] MEDS: LABETALOL 200 MG (NORMODYNE) TAB PO SCH ×2 (08:47→20:21)
[2016-05-03] MEDS: TORSEMIDE 20 MG (DEMADEX) TAB PO SCH (08:48)
[2016-05-03] MEDS: guaiFENesin (MUCINEX) 600 MG TAB PO SCH ×2 (08:48→20:21)
[2016-05-03] MEDS: CYANOCOBALAMIN 500 MCG TAB (VITAMIN B-12) PO SCH (08:48)
[2016-05-03] MEDS: CIPROFLOXACIN 500 MG (CIPRO) TABLET PO SCH (08:48)
[2016-05-03] MEDS: POLYETHYLENE GLYCOL 17 GM (MIRALAX) PACK PO SCH ×2 (08:48→20:21)
[2016-05-03] MEDS: VITAMIN D3 5,000 UNITS (CHOLECALCIFEROL ) CAPSULE PO SCH (08:48)
[2016-05-03] MEDS: DILTIAZEM 240 MG (CARDIZEM CD) CAP PO SCH (08:48)
[2016-05-03] MEDS: DOCUSATE SODIUM 100 MG (COLACE) CAP PO SCH ×2 (08:48→20:21)
[2016-05-03] MEDS: fluCOnazole (DIFLUCAN) 100 MG TAB PO SCH (08:49)
[2016-05-03] MEDS: SENNOSIDES 8.6 MG (SENOKOT) TAB PO SCH ×2 (08:49→20:21)
[2016-05-03] MEDS: RT-ALBUTEROL/IPRATROPIUM 3 ML (DUONEB) VIAL INH SCH ×4 (09:41→19:50)
[2016-05-03] MEDS: RT-ADVAIR HFA 115/21 MCG PER PUFF IH SCH ×2 (09:41→19:49)
--- NOTE | 2016-05-03 13:19 | Physical Therapy Daily Note ---
PT Daily Note-Current Subjective Pt reports she's been sitting too long and is stiffened up. Mental Status Patient Orientation: Normal For Age Transfers Functional [place] Measure 0=Not Assessed/NA 4=Minimal Assistance 1=Total Assistance 5=Supervision or Setup 2=Maximal Assistance 6=Modified [place] 3=Moderate Assistance 7=Complete IndependenceIRFPAI Quality Coding Scale 6 Independent with activity with or without an assistive device 5 Patient requires set up or clean up by helper. Patient completes activity by themselves 4 Supervision or touching assist (CGA). [place] provide cues , steadying assist 3 The helper provides less than half the effort to complete the activity 2 The helper provides more than half the effort to complete the activity 1 Dependent. The helper does all the effort to complete an activity 7 Patient refused to complete or attempt activity 9 The patient did not perform the activity before the current illness or injury 88 Not attempted due to Medical conditions or safety concerns Sit to/from Stand: 4 Needed min assist to come to standing from chairs. Assist to lift the (R) arm onto platform and boost up from chair. Gait Training Ambulated distances of 50, 40, 50, and 60 feet all with platform walker and seated rests between each. In tight areas Min assist to guide walker. Exercises NuStep Minutes: 10 NuStep Workload: 5 Assessment Pt's second round of ambulation was her best. During this round she had stretched out her involved hip and was able to take a step through gait. She will benefit from therapy to continue working on mobility. PT Short Term Goals Short Term Goals Time Frame: Apr 30, 2016 Transfers (B,C,W/C) (FIM): 4 (met 05/01/16) Gait (FIM): 1 (met 05/01/16) Gait Distance Comment: 20' Gait Level of Assist: 4 (min A) Gait Assistive Device: FWW Wheelchair Distance: 50' PT Halfway Goals Halfway Goals PT Halfway Goals Time Frame: May 14, 2016 Transfers (B,C,W/C) (FIM): 4 (CGA) Sit to Lying (QC): 4 Lying-Sitting on Side/Bed(QC): 4 Sit to Stand (QC): 4 Rollin Roll Left to Right (QC): 4 Chair/Cbn-mu-Yigjq Xfer(QC): 4 Car Transfer (QC): 4 Gait (FIM): 4 Distance: 150' Walk 10 feet (QC): 4 Walk 10ft-Uneven Surface(QC): 4 Walk 50ft with 2 Turns (QC): 4 Walk 150 ft (QC): 4 Gait Level of Assist: 4 (CGA) Gait Assistive Device: FWW Stairs (FIM): 2 # of Steps: 4 1 Step (curb) (QC): 4 4 Steps (QC): 4 Stairs Level Of Assist: 4 Picking up an Object (QC): 88 PT Plan Treatment/Plan Treatment Plan: Continue Plan of Care Treatment Plan: Bed Mobility, Education, Functional Activity Percy, Functional Strength, Group Therapy, Gait, Safety, Therapeutic Exercise, Transfers Treatment Duration: May 14, 2016 Visits Per Week: 10-11 Minutes/Day (M-F): 60-90 Minutes/Day (Sat/Terrell): 15-30 Time/GCodes Time In: 900 Time Out: 940 Total Billed Treatment Time: 40 Total Billed Treatment visit, gait 20 min, ex 10 min, FA 10 min LADAN PRICE PT May 03, 2016 13:19
[2016-05-03 18:00] VITALS: BP 110/62
[2016-05-03] MEDS: MILK OF MAGNESIA 400 MG/5 ML 30 ML UDC PO PRN (18:22)
[2016-05-03] MEDS: BISACODYL 5 MG (DULCOLAX) TABLET PO PRN (18:22)
[2016-05-03] MEDS: ATORVASTATIN 40 MG (LIPITOR) TABLET PO SCH (20:21)
[2016-05-03] MEDS: AMITRIPTYLINE 150 MG (ELAVIL) TABLET PO SCH (20:21)
[2016-05-04 05:14] VITALS: BP 123/70
[2016-05-04] MEDS: LEVOTHYROXINE 150 MCG (LEVOTHROID) TAB PO SCH (06:08)
[2016-05-04] MEDS: MULTIVIT W/MINERALS TAB (THERAGRAN M) PO SCH (06:08)
[2016-05-04] MEDS: PANTOPRAZOLE 40 MG (PROTONIX) TAB PO SCH (06:08)
[2016-05-04] MEDS: KCL 20 MEQ TAB (K-DUR) PO SCH ×2 (06:08→17:06)
[2016-05-04] MEDS: oxyCODONE/APAP 5/325MG (PERCOCET 5) TABLET PO PRN ×4 (06:37→20:52)
[2016-05-04] MEDS: RT-ADVAIR HFA 115/21 MCG PER PUFF IH SCH ×2 (08:00→19:00)
[2016-05-04] MEDS: RT-ALBUTEROL/IPRATROPIUM 3 ML (DUONEB) VIAL INH SCH ×4 (08:26→19:00)
[2016-05-04] MEDS: POLYETHYLENE GLYCOL 17 GM (MIRALAX) PACK PO SCH ×2 (09:00→20:54)
[2016-05-04] MEDS: LACTULOSE SYRUP 10GM/15ML (ENULOSE) 30ML UDC PO SCH ×2 (09:32→20:54)
[2016-05-04] MEDS: SENNOSIDES 8.6 MG (SENOKOT) TAB PO SCH ×2 (09:33→20:53)
[2016-05-04] MEDS: DILTIAZEM 240 MG (CARDIZEM CD) CAP PO SCH (09:33)
[2016-05-04] MEDS: LABETALOL 200 MG (NORMODYNE) TAB PO SCH ×2 (09:34→20:53)
[2016-05-04] MEDS: VITAMIN D3 5,000 UNITS (CHOLECALCIFEROL ) CAPSULE PO SCH (09:34)
[2016-05-04] MEDS: fluCOnazole (DIFLUCAN) 100 MG TAB PO SCH (09:34)
[2016-05-04] MEDS: TORSEMIDE 20 MG (DEMADEX) TAB PO SCH (09:34)
[2016-05-04] MEDS: CYANOCOBALAMIN 500 MCG TAB (VITAMIN B-12) PO SCH (09:34)
[2016-05-04] MEDS: guaiFENesin (MUCINEX) 600 MG TAB PO SCH ×2 (09:34→20:53)
[2016-05-04] MEDS: DOCUSATE SODIUM 100 MG (COLACE) CAP PO SCH ×2 (09:34→20:53)
[2016-05-04] MEDS: MILK OF MAGNESIA 400 MG/5 ML 30 ML UDC PO PRN (16:05)
[2016-05-04 18:00] VITALS: BP 133/58
[2016-05-04] MEDS: ATORVASTATIN 40 MG (LIPITOR) TABLET PO SCH (20:53)
[2016-05-04] MEDS: AMITRIPTYLINE 150 MG (ELAVIL) TABLET PO SCH (20:54)
[2016-05-05 06:00] VITALS: BP 132/62
[2016-05-05] MEDS: MULTIVIT W/MINERALS TAB (THERAGRAN M) PO SCH (06:11)
[2016-05-05] MEDS: PANTOPRAZOLE 40 MG (PROTONIX) TAB PO SCH (06:11)
[2016-05-05] MEDS: LEVOTHYROXINE 150 MCG (LEVOTHROID) TAB PO SCH (06:11)
[2016-05-05] MEDS: oxyCODONE/APAP 5/325MG (PERCOCET 5) TABLET PO PRN ×4 (06:12→21:47)
[2016-05-05] MEDS: KCL 20 MEQ TAB (K-DUR) PO SCH ×2 (06:19→17:46)
[2016-05-05] MEDS: RT-ALBUTEROL/IPRATROPIUM 3 ML (DUONEB) VIAL INH SCH ×4 (06:36→19:28)
[2016-05-05] MEDS: RT-ADVAIR HFA 115/21 MCG PER PUFF IH SCH ×2 (06:41→19:31)
--- NOTE | 2016-05-05 08:25 | Pulmonary Progress Note ---
Subjective Subjective/Events-last exam No complications noted. Exam Exam Vital Signs Date Time Temp Pulse Resp B/P Pulse Ox O2 Delivery O2 Flow Rate FiO2 05/05/16 06:36 91 3.00 05/05/16 06:00 98.0 63 18 132/62 100 Nasal Cannula 3.00 05/04/16 21:00 Nasal Cannula 3.00 05/04/16 19:00 90 3.00 05/04/16 18:00 97.4 68 20 133/58 95 Nasal Cannula 3.00 05/04/16 11:09 93 05/04/16 09:00 Nasal Cannula 3.00 I & O 05/05/16 07:00 Intake Total 990 ml Balance 990 ml General Appearance: No Apparent Distress WD/WN HEENT: PERRL/EOMI Pharynx Normal Neck: Full Range of Motion Normal Inspection Non Tender Supple Respiratory: Chest Non Tender Lungs Clear Normal Breath Sounds No Accessory Muscle Use No Respiratory Distress Decreased Breath Sounds Cardiovascular: Regular Rate, Rhythm Gastrointestinal: normal bowel sounds non tender soft Extremity: Normal Capillary Refill Normal Inspection Normal Range of Motion Non Tender No Calf Tenderness Neurologic/Psychiatric: Alert Skin: Normal Color Warm/Dry Assessment/Plan Assessment/Plan Acute nondisplaced intertrochanteric fracture left hip s/p repair 04/20/[address] Williamson COPD with hx of recurrent PNA -duoneb -I/S Dyspnea hypoxemia -oxygen to keep sats > 92% MRSA 03/07 -Levaquin Leukocytosis Severe anemia- S/p 2 units of packed red blood cell transfusion Severe debility Clinical Quality Measures DVT/VTE Risk/Contraindication: Risk Factor Score Per Nursin RFS Level Per Nursing on Admit: 4+=Very High BRENDON LEACH DO May 05, 2016 08:25
[2016-05-05] MEDS: LACTULOSE SYRUP 10GM/15ML (ENULOSE) 30ML UDC PO SCH ×2 (08:43→20:42)
[2016-05-05] MEDS: DOCUSATE SODIUM 100 MG (COLACE) CAP PO SCH ×2 (08:43→20:41)
[2016-05-05] MEDS: guaiFENesin (MUCINEX) 600 MG TAB PO SCH ×2 (08:43→20:41)
[2016-05-05] MEDS: VITAMIN D3 5,000 UNITS (CHOLECALCIFEROL ) CAPSULE PO SCH (08:43)
[2016-05-05] MEDS: TORSEMIDE 20 MG (DEMADEX) TAB PO SCH (08:43)
[2016-05-05] MEDS: SENNOSIDES 8.6 MG (SENOKOT) TAB PO SCH ×2 (08:44→20:41)
[2016-05-05] MEDS: fluCOnazole (DIFLUCAN) 100 MG TAB PO SCH (08:44)
[2016-05-05] MEDS: CYANOCOBALAMIN 500 MCG TAB (VITAMIN B-12) PO SCH (08:44)
[2016-05-05] MEDS: LABETALOL 200 MG (NORMODYNE) TAB PO SCH ×2 (08:44→20:41)
[2016-05-05] MEDS: DILTIAZEM 240 MG (CARDIZEM CD) CAP PO SCH (08:44)
[2016-05-05] MEDS: POLYETHYLENE GLYCOL 17 GM (MIRALAX) PACK PO SCH ×2 (08:46→20:41)
--- NOTE | 2016-05-05 10:07 | Physical Therapy Daily Note ---
PT Daily Note-Current Subjective Pt up in chair, agreeable. Denied pain prior to treatment, "I haven't moved though". Pt reported increased (L) hip pain with activity but did not provide pain rating. Pt reported feeling nauseous while on NuStep, requesting a bucket and Sprite. Pt reports "I know what it was, it was that last pill I took". No emesis and Pt able to complete treatment with rest breaks. Pt states that she feels she could walk better without platform walker; "I took that off of mine at home". Mental Status Patient Orientation: Person, Place, Time, Situation Attachments: Oxygen Transfers Functional [place] Measure 0=Not Assessed/NA 4=Minimal Assistance 1=Total Assistance 5=Supervision or Setup 2=Maximal Assistance 6=Modified [place] 3=Moderate Assistance 7=Complete IndependenceIRFPAI Quality Coding Scale 6 Independent with activity with or without an assistive device 5 Patient requires set up or clean up by helper. Patient completes activity by themselves 4 Supervision or touching assist (CGA). [place] provide cues , steadying assist 3 The helper provides less than half the effort to complete the activity 2 The helper provides more than half the effort to complete the activity 1 Dependent. The helper does all the effort to complete an activity 7 Patient refused to complete or attempt activity 9 The patient did not perform the activity before the current illness or injury 88 Not attempted due to Medical conditions or safety concerns Sit to/from Stand: 4 Pt places (R) hand up on platform prior to beginning to stand. Retropulsive, requiring min A x 1 to achieve full upright position. Weight Bearing Weight Bearing Restriction: Weight Bearing/Tolerated Location Restriction: L LE Gait Training Does the Patient Walk?: Yes Gait (FIM): 4 Distance (FIM): 3=150 ft Distance: 150 Gait Level of Assist: 4 (CGA) Gait Persons Needed: 1 Gait Assistive Device: FWW (with platform) Pt ambulates with slow, antalgic gait but no LOB. VCS to square completely before beginning to sit. Exercises Seated Therapy Exercises: Ankle pumps, Sit to stand (x2 with skilled VCS for sequencing), Long arc quads, Hamstring Curls Seated Reps: 20 NuStep Minutes: 13 NuStep Workload: 4 Treatments Gait training with platform FWW. NuStep for functional strengthening, activity tolerance and LE functional strengthening. Pt moving very slowly and requiring multiple recovery breaks due to c/o nausea and (L) hip pain. Pt attempted to walk back to room but stated she was unable to due to (L) hip pain so [facility] obtained. Hand-off to OT in room, O2 in situ. Assessment Current Status: Fair Progress Pt tolerated fair. Limited by nausea and (L) hip pain. PT Short Term Goals Short Term Goals Time Frame: Apr 30, 2016 Transfers (B,C,W/C) (FIM): 4 (met 05/01/16) Gait (FIM): 1 (met 05/01/16) Gait Distance Comment: 20' Gait Level of Assist: 4 (min A) Gait Assistive Device: FWW Wheelchair Distance: 50' PT Technical Customer Support Specialist Goals Mcfp Goals PT Mcfp Goals Time Frame: May 14, 2016 Transfers (B,C,W/C) (FIM): 4 (CGA) Sit to Lying (QC): 4 Lying-Sitting on Side/Bed(QC): 4 Sit to Stand (QC): 4 Rollin Roll Left to Right (QC): 4 Chair/Vyi-qm-Wplsx Xfer(QC): 4 Car Transfer (QC): 4 Gait (FIM): 4 Distance: 150' Walk 10 feet (QC): 4 Walk 10ft-Uneven Surface(QC): 4 Walk 50ft with 2 Turns (QC): 4 Walk 150 ft (QC): 4 Gait Level of Assist: 4 (CGA) Gait Assistive Device: FWW Stairs (FIM): 2 # of Steps: 4 1 Step (curb) (QC): 4 4 Steps (QC): 4 Stairs Level Of Assist: 4 Picking up an Object (QC): 88 PT Plan Problem List Problem List: Activity Tolerance, Functional Strength, Safety, Balance, Gait, Transfer, Bed Mobility, ROM Treatment/Plan Treatment Plan: Continue Plan of Care Treatment Plan: Bed Mobility, Education, Functional Activity Percy, Functional Strength, Group Therapy, Gait, Safety, Therapeutic Exercise, Transfers Treatment Duration: May 14, 2016 # of days/week 5-6 Visits Per Week: 10-11 Minutes/Day (M-F): 60-90 Minutes/Day (Sat/Terrell): 15-30 Pt/Family Agrees w/Plan: Yes Safety Risks/Education Patient Education: Transfer Techniques Teaching Recipient: Patient Teaching Methods: Demonstration, Discussion Response to Teaching: Reinforcement Needed Discharge Recommendations Barriers to Progress (L) hip pain, nausea Time/GCodes Time In: 45 Time Out: 944 Total Billed Treatment Time: 60 Total Billed Treatment 1, Gt x 20', Ex x 40' G Codes Necessary: CHEYANNE Gill DPLeela May 05, 2016 10:07
--- NOTE | 2016-05-05 11:57 | Occupational Ther Daily Note ---
OT Current Status-Daily Note Subjective Pt in room, finishing with PT, requests to use restroom. Pt requests pain pill, RN notified and provided pain medication when it was due. Mental Status/Objective Functional [place] Measure 0=Not Assessed/NA 4=Minimal Assistance 1=Total Assistance 5=Supervision or Setup 2=Maximal Assistance 6=Modified [place] 3=Moderate Assistance 7=Complete [place] ADL-Treatment [place] [facility] [place] with minimal assistance, requires skilled cues for safety and use of platform FWW. Pt able to complete toileting hygiene, requires minimal assistance for balance during clothing management. Transfer to chair with minimal assistance. Pt declined shower, requests sponge bath today. Pt able to wash bilateral UE, chest, abdomen, bilateral upper legs, trevor area. Stood with minimal assistance to wash buttocks. Don button up shirt with minimal assistance to manage buttons. Pt used dressing stick to start underwear and pants over feet. Pt fatigues during activity and required mod assist for sit to stand for pant hike. Pt able to mange pulling pants up once standing. Uses walker for balance during pant hike. Doff socks with increased time using dressing stick. Don socks with minimal assistance using rigid sock aid. Requires skilled cues for technique. Pt requests to use restroom again. Gait to restroom with platform FWW, slow pace. Transfer [place] [facility] [place] with cues for safety. Pt able to pull pants down with SBA. Pt requires increased time for all ADL tasks. Occasional rest breaks throughout treatment secondary to fatigue. Pt in restroom with pull cord within reach after session, RN notified. Functional [place] Measure 0=Not Assessed/NA 4=Minimal Assistance 1=Total Assistance 5=Supervision or Setup 2=Maximal Assistance 6=Modified [place] 3=Moderate Assistance 7=Complete IndependenceIRFPAI Quality Coding Scale 6 Independent with activity with or without an assistive device 5 Patient requires set up or clean up by helper. Patient completes activity by themselves 4 Supervision or touching assist (CGA). [place] provide cues , steadying assist 3 The helper provides less than half the effort to complete the activity 2 The helper provides more than half the effort to complete the activity 1 Dependent. The helper does all the effort to complete an activity 7 Patient refused to complete or attempt activity 9 The patient did not perform the activity before the current illness or injury 88 Not attempted due to Medical conditions or safety concerns Upper Body (FIM): 4 Lower Body Dressing (FIM): 3 Toileting (FIM): 4 Toilet/Commode Transfer (FIM): 4 Education OT Patient Education: Modified ADL techniques Teaching Recipient: Patient Teaching Methods: Demonstration Response to Teaching: Verbalize Understanding OT Short Term Goals Short Term Goals Time Frame: May 02, 2016 Bathing(FIM): 4 Lower Body Dressing(FIM): 4 Transfers (B,C,W/C) (FIM): 4 (met 05/01/16) Toilet/Commode Transfer(FIM): 4 Shower Transfer(FIM): 3 Additional Short Term Goals: 3-ImproveStrength/Percy 1=Demonstrate adherence to instructed precautions during ADL tasks. 2=Patient will verbalize/demonstrate understanding of assistive devices/ modifications for ADL. 3=Patient will improve strength/tolerance for activity to enable patient to perform ADL's. OT Shelter Goals Wire Mesh Gate Assembler Goals Time Frame: May 09, 2016 Eating (FIM): 7 Eating (QC): 6 Groomin Oral Hygiene (QC): 6 Bathing(FIM): 6 Shower/Bathe Self (QC): 6 Upper Body Dressing(FIM): 6 Upper Body Dressing (QC): 6 Lower Body Dressing(FIM): 6 Lower Body Dressing (QC): 6 On/Off Footwear (QC): 6 Toileting(FIM): 6 Toileting Hygiene (QC): 6 Toilet/Commode Transfer(FIM): 6 Toilet/Commode Transfer (QC): 6 Shower Transfer(FIM): 6 Additional Goals: 2-Verbalize Understanding, 3-ImproveStrength/Percy (5/5 bilat elbows and distal) 1=Demonstrate adherence to instructed precautions during ADL tasks. 2=Patient will verbalize/demonstrate understanding of assistive devices/ modifications for ADL. 3=Patient will improve strength/tolerance for activity to enable patient to perform ADL's. OT Education/Plan Problem List/Assessment Pt would benefit from skilled OT to increase her independence in basic self care to allow her to safely return to her home with family support and to decrease caregiver burden. Discharge Recommendations Plan/Recommendations: Continue POC Treatment Plan/Plan of Care Patient would benefit from OT for education, treatment and training to promote independence in ADL's, mobility, safety and/or upper extremity function for ADL' s. Plan of Care: ADL Retraining, Functional Mobility, Group Exercise/Act as Ind ( education, exercise, activity tolerance, functional activities), UE Funct Exercise/Act, UE Neuromus Re-Ed/Coord Treatment Duration: May 16, 2016 Visits Per Week: 10-11 Minutes/Day (M-F): 75-90 Minutes/Day (Sat/Terrell): PRN Agreement: Yes Rehab Potential: Fair Time/GCodes Start Time: 09:45 Stop Time: 11:00 Total Time Billed (hr/min): 75 Billed Treatment Time 1 visit, ADLx5(75minutes) JOSE LUIS CURRAN OT May 05, 2016 11:57
--- NOTE | 2016-05-05 12:03 | Occupational Ther Daily Note ---
OT Current Status-Daily Note Subjective Pt sitting in chair, agrees to treatment. Mental Status/Objective Functional [place] Measure 0=Not Assessed/NA 4=Minimal Assistance 1=Total Assistance 5=Supervision or Setup 2=Maximal Assistance 6=Modified [place] 3=Moderate Assistance 7=Complete [place] ADL-Treatment Functional [place] Measure 0=Not Assessed/NA 4=Minimal Assistance 1=Total Assistance 5=Supervision or Setup 2=Maximal Assistance 6=Modified [place] 3=Moderate Assistance 7=Complete IndependenceIRFPAI Quality Coding Scale 6 Independent with activity with or without an assistive device 5 Patient requires set up or clean up by helper. Patient completes activity by themselves 4 Supervision or touching assist (CGA). [place] provide cues , steadying assist 3 The helper provides less than half the effort to complete the activity 2 The helper provides more than half the effort to complete the activity 1 Dependent. The helper does all the effort to complete an activity 7 Patient refused to complete or attempt activity 9 The patient did not perform the activity before the current illness or injury 88 Not attempted due to Medical conditions or safety concerns Other Treatment Pt performed putty activity with bilateral hands to increase strength. Pt then able to remove small beads from putty with increased time. Pt performed left elbow flexion, forearm pronation/supination, and wrist flex/ext x10 reps with 1/ 2# weight to increase strength needed for ADLs and transfers. Pt then requests to use restroom. Sit to stand with minimal assistance. Gait to restroom with platform FWW. [facility] [place] with minimal assistance. Pt able to manage pants down. Pt sitting on toilet with pull cord in reach after session. OT Short Term Goals Short Term Goals Time Frame: May 02, 2016 Bathing(FIM): 4 Lower Body Dressing(FIM): 4 Transfers (B,C,W/C) (FIM): 4 (met 05/01/16) Toilet/Commode Transfer(FIM): 4 Shower Transfer(FIM): 3 Additional Short Term Goals: 3-ImproveStrength/Percy 1=Demonstrate adherence to instructed precautions during ADL tasks. 2=Patient will verbalize/demonstrate understanding of assistive devices/ modifications for ADL. 3=Patient will improve strength/tolerance for activity to enable patient to perform ADL's. OT Alf Goals Traffic Division Commanding Officer Goals Time Frame: May 09, 2016 Eating (FIM): 7 Eating (QC): 6 Groomin Oral Hygiene (QC): 6 Bathing(FIM): 6 Shower/Bathe Self (QC): 6 Upper Body Dressing(FIM): 6 Upper Body Dressing (QC): 6 Lower Body Dressing(FIM): 6 Lower Body Dressing (QC): 6 On/Off Footwear (QC): 6 Toileting(FIM): 6 Toileting Hygiene (QC): 6 Toilet/Commode Transfer(FIM): 6 Toilet/Commode Transfer (QC): 6 Shower Transfer(FIM): 6 Additional Goals: 2-Verbalize Understanding, 3-ImproveStrength/[place] (5/5 bilat elbows and distal) 1=Demonstrate adherence to instructed precautions during ADL tasks. 2=Patient will verbalize/demonstrate understanding of assistive devices/ modifications for ADL. 3=Patient will improve strength/tolerance for activity to enable patient to perform ADL's. OT Education/Plan Problem List/Assessment Pt would benefit from skilled OT to increase her independence in basic self care to allow her to safely return to her home with family support and to decrease caregiver burden. Discharge Recommendations Plan/Recommendations: Continue POC Treatment Plan/Plan of Care Patient would benefit from OT for education, treatment and training to promote independence in ADL's, mobility, safety and/or upper extremity function for ADL' s. Plan of Care: ADL Retraining, Functional Mobility, Group Exercise/Act as Ind ( education, exercise, activity tolerance, functional activities), UE Funct Exercise/Act, UE Neuromus Re-Ed/Coord Treatment Duration: May 16, 2016 Visits Per Week: 10-11 Minutes/Day (M-F): 75-90 Minutes/Day (Sat/Terrell): PRN Agreement: Yes Rehab Potential: Fair Time/GCodes Start Time: 11:30 Stop Time: 11:45 Total Time Billed (hr/min): 15 Billed Treatment Time 1 visit, EX(15minutes) JOSE LUIS CURRAN OT May 05, 2016 12:03
--- NOTE | 2016-05-05 14:08 | Physical Therapy Daily Note ---
PT Daily Note-Current Subjective Agreeable. Reports she has not had breakfast or lunch. Assisted pt in ordering lunch. Mental Status Patient Orientation: Person, Place, Time, Situation Transfers Functional [place] Measure 0=Not Assessed/NA 4=Minimal Assistance 1=Total Assistance 5=Supervision or Setup 2=Maximal Assistance 6=Modified [place] 3=Moderate Assistance 7=Complete IndependenceIRFPAI Quality Coding Scale 6 Independent with activity with or without an assistive device 5 Patient requires set up or clean up by helper. Patient completes activity by themselves 4 Supervision or touching assist (CGA). [place] provide cues , steadying assist 3 The helper provides less than half the effort to complete the activity 2 The helper provides more than half the effort to complete the activity 1 Dependent. The helper does all the effort to complete an activity 7 Patient refused to complete or attempt activity 9 The patient did not perform the activity before the current illness or injury 88 Not attempted due to Medical conditions or safety concerns Worked on sit to stand with much education and work on leaning forward with "nose over toes" idea. Pt continues to require min assist with transfers and heavy cueing for sequencing. Sit to stand x 4 reps. Gait Training Pt ambulated x 50 ft x 2 with FWW platform with SB-CGA with seated rest break. Assessment Pt progressing but still needs assist with transfers and gait progression. Pt pleasant and cooperative but likes to visit and difficult to keep on task with therapy. PT Short Term Goals Short Term Goals Time Frame: Apr 30, 2016 Transfers (B,C,W/C) (FIM): 4 (met 05/01/16) Gait (FIM): 1 (met 05/01/16) Gait Distance Comment: 20' Gait Level of Assist: 4 (min A) Gait Assistive Device: FWW Wheelchair Distance: 50' PT Media Planner Goals Residential Goals PT Media Planner Goals Time Frame: May 14, 2016 Transfers (B,C,W/C) (FIM): 4 (CGA) Sit to Lying (QC): 4 Lying-Sitting on Side/Bed(QC): 4 Sit to Stand (QC): 4 Rollin Roll Left to Right (QC): 4 Chair/Eyn-ud-Momxw Xfer(QC): 4 Car Transfer (QC): 4 Gait (FIM): 4 Distance: 150' Walk 10 feet (QC): 4 Walk 10ft-Uneven Surface(QC): 4 Walk 50ft with 2 Turns (QC): 4 Walk 150 ft (QC): 4 Gait Level of Assist: 4 (CGA) Gait Assistive Device: FWW Stairs (FIM): 2 # of Steps: 4 1 Step (curb) (QC): 4 4 Steps (QC): 4 Stairs Level Of Assist: 4 Picking up an Object (QC): 88 PT Plan Problem List Problem List: Activity Tolerance, Functional Strength, Safety, Balance, Gait, Transfer Treatment/Plan Treatment Plan: Continue Plan of Care Treatment Plan: Bed Mobility, Education, Functional Activity Percy, Functional Strength, Group Therapy, Gait, Safety, Therapeutic Exercise, Transfers Treatment Duration: May 14, 2016 Visits Per Week: 10-11 Minutes/Day (M-F): 60-90 Minutes/Day (Sat/Terrell): 15-30 Safety Risks/Education Patient Education: Transfer Techniques Teaching Recipient: Patient Teaching Methods: Demonstration, Discussion Response to Teaching: Verbalize Understanding, Return Demonstration, Reinforcement Needed Time/GCodes Time In: 1245 Time Out: 1316 Total Billed Treatment Time: 31 Total Billed Treatment visit FA 15 GT 16 DEEPTHI RAMEY PT May 05, 2016 14:08
--- NOTE | 2016-05-05 17:30 | Progress Note-Standard ---
Standard Progress Note Progress Notes/Assess & Plan Progress/Assessment & Plan Labwork reviewed. Iron studies consistant with anemia of chronic disease. TSH elevated and may have contributed to the anemia. Dose of levothyroxine has been increased. Monitor. Recheck CBC weekly. Folate level pending. Will follow with you. MIRIAN MARINO May 05, 2016 17:30
[2016-05-05 17:53] VITALS: BP 145/76
--- NOTE | 2016-05-05 20:02 | PM & R (SOAP) Progress Note ---
Subjective Subjective/Events-last exam Patient was seen in her room this evening Patient CGA for gait with WW Appreciate DR Piedra note Objective Exam Last Set of Vital Signs Vital Signs Date Time Temp Pulse Resp B/P Pulse Ox O2 Delivery O2 Flow Rate FiO2 05/05/16 19:28 98 3.00 05/05/16 09:00 Nasal Cannula 05/05/16 06:00 98.0 63 18 132/62 Capillary Refill : Less Than 3 Seconds I&O Intake and Output 05/05/16 00:00 Intake Total 1090 ml Balance 1090 ml Intake Oral 1090 ml # Voids 5 General: Alert, Oriented X3, Cooperative, No Acute Distress HEENT: Atraumatic, PERRLA, EOMI, Mucous Memb Moist/[place] Neck: Supple, No JVD Lungs: Clear to Auscultation Heart: Regular Rate Abdomen: Normal Bowel Sounds, Soft, No Tenderness Extremities: No Edema Neuro: Other (weakness on right as compared to left with limited AROM both shoulders with hx of prox left hum frx s/p repair Dr Jiménez as a result of prior fall) Results Lab Microbiology 04/26/16 Gram Stain - Final, Complete 04/26/16 Sputum Culture - Final, Complete Gram Negative Josafat Assessment/Plan Assessment nondisplaced intertrochanteric frx left hip s/p repair Ortho Postop anemia s/p transfusion earlier on rehab stay Anemia of chronic d 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
[2016-05-05] MEDS: ATORVASTATIN 40 MG (LIPITOR) TABLET PO SCH (20:41)
[2016-05-05] MEDS: AMITRIPTYLINE 150 MG (ELAVIL) TABLET PO SCH (20:41)
[2016-05-06 04:12] VITALS: BP 110/60
[2016-05-06] MEDS: LEVOTHYROXINE 150 MCG (LEVOTHROID) TAB PO SCH (06:01)
[2016-05-06] MEDS: KCL 20 MEQ TAB (K-DUR) PO SCH ×2 (06:01→17:11)
[2016-05-06] MEDS: PANTOPRAZOLE 40 MG (PROTONIX) TAB PO SCH (06:01)
[2016-05-06] MEDS: MULTIVIT W/MINERALS TAB (THERAGRAN M) PO SCH (06:02)
[2016-05-06] MEDS: oxyCODONE/APAP 5/325MG (PERCOCET 5) TABLET PO PRN ×4 (06:02→21:31)
[2016-05-06 06:33] LABS: BASOPHILS # (AUTO) 0.1 10^3/uL (0.0-0.1); BASOPHILS % (AUTO) 1 % (0-10); EOSINOPHILS # (AUTO) 1.2 10^3/uL (0.0-0.3); EOSINOPHILS % (AUTO) 9 % (0-10); LYMPHOCYTES # (AUTO) 2.9 X 10^3 (1.0-4.0); LYMPHOCYTES % (AUTO) 21 % (12-44); MEAN CORPUSCULAR HEMOGLOBIN 30 PG (25-34); MEAN CORPUSCULAR HGB CONC 31 G/DL (32-36); MEAN CORPUSCULAR VOLUME 98 FL (80-99); MONOCYTES # (AUTO) 1.7 X 10^3 (0.0-1.0); MONOCYTES % (AUTO) 12 % (0-12); NEUTROPHILS # (AUTO) 8.1 X 10^3 (1.8-7.8); NEUTROPHILS % (AUTO) 58 % (42-75); PLATELET COUNT 566 10^3/uL (130-400); RED BLOOD COUNT 2.89 10^6/uL (4.35-5.85); RED CELL DISTRIBUTION WIDTH 15.7 % (10.0-14.5); WHITE BLOOD COUNT 13.9 10^3/uL (4.3-11.0)
[2016-05-06] MEDS: LACTULOSE SYRUP 10GM/15ML (ENULOSE) 30ML UDC PO SCH ×2 (08:13→20:57)
[2016-05-06] MEDS: DILTIAZEM 240 MG (CARDIZEM CD) CAP PO SCH (08:13)
[2016-05-06] MEDS: SENNOSIDES 8.6 MG (SENOKOT) TAB PO SCH ×2 (08:13→20:57)
[2016-05-06] MEDS: VITAMIN D3 5,000 UNITS (CHOLECALCIFEROL ) CAPSULE PO SCH (08:13)
[2016-05-06] MEDS: CYANOCOBALAMIN 500 MCG TAB (VITAMIN B-12) PO SCH (08:13)
[2016-05-06] MEDS: TORSEMIDE 20 MG (DEMADEX) TAB PO SCH (08:13)
[2016-05-06] MEDS: LABETALOL 200 MG (NORMODYNE) TAB PO SCH ×2 (08:13→20:57)
[2016-05-06] MEDS: guaiFENesin (MUCINEX) 600 MG TAB PO SCH ×2 (08:13→20:57)
[2016-05-06] MEDS: fluCOnazole (DIFLUCAN) 100 MG TAB PO SCH (08:13)
[2016-05-06] MEDS: DOCUSATE SODIUM 100 MG (COLACE) CAP PO SCH ×2 (08:13→20:57)
[2016-05-06] MEDS: POLYETHYLENE GLYCOL 17 GM (MIRALAX) PACK PO SCH ×2 (08:15→20:57)
[2016-05-06] MEDS: RT-ALBUTEROL/IPRATROPIUM 3 ML (DUONEB) VIAL INH SCH ×4 (08:20→19:34)
[2016-05-06] MEDS: RT-ADVAIR HFA 115/21 MCG PER PUFF IH SCH ×4 (08:20→19:41)
--- NOTE | 2016-05-06 09:17 | Physical Therapy Daily Note ---
PT Daily Note-Current Subjective Pt resting in bed, agreeable to treatment. Pt rates L hip pain /. Mental Status Attachments: Oxygen Port O2 at 3L/min throughout the treatment. O2 insitu post therapy session. Transfers Functional [place] Measure 0=Not Assessed/NA 4=Minimal Assistance 1=Total Assistance 5=Supervision or Setup 2=Maximal Assistance 6=Modified [place] 3=Moderate Assistance 7=Complete IndependenceIRFPAI Quality Coding Scale 6 Independent with activity with or without an assistive device 5 Patient requires set up or clean up by helper. Patient completes activity by themselves 4 Supervision or touching assist (CGA). [place] provide cues , steadying assist 3 The helper provides less than half the effort to complete the activity 2 The helper provides more than half the effort to complete the activity 1 Dependent. The helper does all the effort to complete an activity 7 Patient refused to complete or attempt activity 9 The patient did not perform the activity before the current illness or injury 88 Not attempted due to Medical conditions or safety concerns Pt demonstrated CGA for all sit to stand transfers today including from bed, 3x from [facility], 1 x from nustep and 1x from standard height chair. Transfers out of bed mod I, and transfer into the bed with min A required for LE. Gait Training Gait Assistive Device: Walker Platform Pt amb with PW and CGA 2 x 65ft, 1 x 15ft, WBAT (L) LE. Exercises Supine Reps: 20 Seated Therapy Exercises: Long arc quads Seated Reps: 20 Pt performed heel slide, AP, QS, SLR (L) LE x 20. NuStep Minutes: 7 NuStep Workload: 1 Assessment Current Status: Good Progress Pt franca well depsite high pain rating. Pt able to manage transfers sit to stand with CGA only this morning. Pt back to bed with call light and all needs met post therapy session. PT Short Term Goals Short Term Goals Time Frame: Apr 30, 2016 Transfers (B,C,W/C) (FIM): 4 (met 05/01/16) Gait (FIM): 1 (met 05/01/16) Gait Distance Comment: 20' Gait Level of Assist: 4 (min A) Gait Assistive Device: FWW Wheelchair Distance: 50' PT Long-Term Goals [employer] School Librarian Goals PT Long-Term Goals Time Frame: May 14, 2016 Transfers (B,C,W/C) (FIM): 4 (CGA) Sit to Lying (QC): 4 Lying-Sitting on Side/Bed(QC): 4 Sit to Stand (QC): 4 Rollin Roll Left to Right (QC): 4 Chair/Fzy-hb-Bonym Xfer(QC): 4 Car Transfer (QC): 4 Gait (FIM): 4 Distance: 150' Walk 10 feet (QC): 4 Walk 10ft-Uneven Surface(QC): 4 Walk 50ft with 2 Turns (QC): 4 Walk 150 ft (QC): 4 Gait Level of Assist: 4 (CGA) Gait Assistive Device: FWW Stairs (FIM): 2 # of Steps: 4 1 Step (curb) (QC): 4 4 Steps (QC): 4 Stairs Level Of Assist: 4 Picking up an Object (QC): 88 PT Plan Treatment/Plan Treatment Plan: Continue Plan of Care Treatment Plan: Bed Mobility, Education, Functional Activity Percy, Functional Strength, Group Therapy, Gait, Safety, Therapeutic Exercise, Transfers Treatment Duration: May 14, 2016 Visits Per Week: 10-11 Minutes/Day (M-F): 60-90 Minutes/Day (Sat/Terrell): 15-30 Time/GCodes Time In: 800 Time Out: 905 Total Billed Treatment Time: 65 Total Billed Treatment 1, gait x 30min, ther ex x 30 min POOJA BOYD May 06, 2016 09:17
--- NOTE | 2016-05-06 12:54 | Occupational Ther Daily Note ---
OT Current Status-Daily Note Subjective Pt. reports 10/10 pain in left hip. Nursing notified to see if she could have pain medication. Appearance Pt. in bed. Alert and oriented. Agrees to shower this date. Mental Status/Objective Patient Orientation: Person, Place Functional [place] Measure 0=Not Assessed/NA 4=Minimal Assistance 1=Total Assistance 5=Supervision or Setup 2=Maximal Assistance 6=Modified [place] 3=Moderate Assistance 7=Complete [place] ADL-Treatment Functional [place] Measure 0=Not Assessed/NA 4=Minimal Assistance 1=Total Assistance 5=Supervision or Setup 2=Maximal Assistance 6=Modified [place] 3=Moderate Assistance 7=Complete IndependenceIRFPAI Quality Coding Scale 6 Independent with activity with or without an assistive device 5 Patient requires set up or clean up by helper. Patient completes activity by themselves 4 Supervision or touching assist (CGA). [place] provide cues , steadying assist 3 The helper provides less than half the effort to complete the activity 2 The helper provides more than half the effort to complete the activity 1 Dependent. The helper does all the effort to complete an activity 7 Patient refused to complete or attempt activity 9 The patient did not perform the activity before the current illness or injury 88 Not attempted due to Medical conditions or safety concerns Grooming (FIM): 5 (Pt. is able to comb her hair by using one hand to hold up the other hand to her head.) Bathing (FIM): 4 (Pt. requires min assist to aging room hand shower and to balance self in shower to wash trevor area.) Shower/Bathe Self (QC): 4 Upper Body (FIM): 5 (SBA to don right UE and then to "throw" over shoulders and get left UE into.) Lower Body Dressing (FIM): 3 (Pt. required mod assist this date to don socks, underwear, and pants.) Transfers (B, C, W/C) (FIM): 3 (Mod assist for sit-stand out of bed and out of shower.) Shower Transfer(FIM): 3 Education OT Patient Education: Correct positioning, Modified ADL techniques, Progress toward Goal/Update tx plan, Purpose of tx/functional activities, Reviewed precautions, Transfer techniques Teaching Recipient: Patient Teaching Methods: Demonstration, Discussion Response to Teaching: Verbalize Understanding, Return Demonstration OT Short Term Goals Short Term Goals Time Frame: May 02, 2016 Bathing(FIM): 4 Lower Body Dressing(FIM): 4 Transfers (B,C,W/C) (FIM): 4 (met 05/01/16) Toilet/Commode Transfer(FIM): 4 Shower Transfer(FIM): 3 Additional Short Term Goals: 3-ImproveStrength/[place] 1=Demonstrate adherence to instructed precautions during ADL tasks. 2=Patient will verbalize/demonstrate understanding of assistive devices/ modifications for ADL. 3=Patient will improve strength/tolerance for activity to enable patient to perform ADL's. OT Chemists Goals Nursing Home Goals Time Frame: May 09, 2016 Eating (FIM): 7 Eating (QC): 6 Groomin Oral Hygiene (QC): 6 Bathing(FIM): 6 Shower/Bathe Self (QC): 6 Upper Body Dressing(FIM): 6 Upper Body Dressing (QC): 6 Lower Body Dressing(FIM): 6 Lower Body Dressing (QC): 6 On/Off Footwear (QC): 6 Toileting(FIM): 6 Toileting Hygiene (QC): 6 Toilet/Commode Transfer(FIM): 6 Toilet/Commode Transfer (QC): 6 Shower Transfer(FIM): 6 Additional Goals: 2-Verbalize Understanding, 3-ImproveStrength/[place] (5/5 bilat elbows and distal) 1=Demonstrate adherence to instructed precautions during ADL tasks. 2=Patient will verbalize/demonstrate understanding of assistive devices/ modifications for ADL. 3=Patient will improve strength/tolerance for activity to enable patient to perform ADL's. OT Education/Plan Problem List/Assessment Assessment: Decreased Activ Tolerance, Decreased UE Strength, Dependent Transfers, Impaired Bed Mobility, Impaired Coordination, Impaired Funct Balance , Impaired I ADL's, Impaired Self-Care Skills, Restricted Funct UE ROM Pt would benefit from skilled OT to increase her independence in basic self care to allow her to safely return to her home with family support and to decrease caregiver burden. Discharge Recommendations Plan/Recommendations: Continue POC Therapy D/C Recommendations: Home w/ Family Support, Occupational Therapy Home Care, Scheduled Assistance Treatment Plan/Plan of Care Treatment,Training & Education: Yes Patient would benefit from OT for education, treatment and training to promote independence in ADL's, mobility, safety and/or upper extremity function for ADL' s. Plan of Care: ADL Retraining, Functional Mobility, Group Exercise/Act as Ind ( education, exercise, activity tolerance, functional activities), UE Funct Exercise/Act, UE Neuromus Re-Ed/Coord Treatment Duration: May 16, 2016 Visits Per Week: 10-11 Minutes/Day (M-F): 75-90 Minutes/Day (Sat/Terrell): PRN Agreement: Yes Rehab Potential: Fair Time/GCodes Start Time: 10:00 Stop Time: 11:00 Total Time Billed (hr/min): 60 Billed Treatment Time 1, ADL x 4 BLAS SINGLETARY OT May 06, 2016 12:54
--- NOTE | 2016-05-06 13:54 | PM & R (SOAP) Progress Note ---
Subjective Subjective/Events-last exam Patient was seen in her room this AM Patient CGA for transfers Objective Exam Last Set of Vital Signs Vital Signs Date Time Temp Pulse Resp B/P Pulse Ox O2 Delivery O2 Flow Rate FiO2 05/06/16 11:45 97 3.00 05/06/16 09:00 Nasal Cannula 05/06/16 04:12 97.6 61 18 110/60 Capillary Refill : Less Than 3 Seconds I&O Intake and Output 05/06/16 00:00 Intake Total 1200 ml Balance 1200 ml Intake Oral 1200 ml # Voids 8 # Bowel Movements 2 General: Alert, Oriented X3, Cooperative, No Acute Distress HEENT: Atraumatic, PERRLA, EOMI, Mucous Memb Moist/[place] Neck: Supple, No JVD Lungs: Clear to Auscultation Heart: Regular Rate Abdomen: Normal Bowel Sounds, Soft, No Tenderness Extremities: No Edema Neuro: Other (weakness on right as compared to left with limited AROM both shoulders with hx of prox left hum frx s/p repair Dr Jiménez as a result of prior fall) Results Lab Laboratory Tests 05/06/16 06:10: Basophils # (Auto) 0.1, Basophils (%) (Auto) 1, Eosinophils # (Auto) 1.2H, Eosinophils (%) (Auto) 9, Hematocrit 28L, Hemoglobin 8.8L, Lymphocytes # (Auto) 2.9, Lymphocytes (%) (Auto) 21, Mean Corpuscular Hemoglobin 30, Mean Corpuscular Hemoglobin Concent 31L, Mean Corpuscular Volume 98, Mean Platelet Volume 10.0, Monocytes # (Auto) 1.7H, Monocytes (%) (Auto) 12, Neutrophils # ( Auto) 8.1H, Neutrophils (%) (Auto) 58, Platelet Count 566H, Red Blood Count 2.89L, Red Cell Distribution Width 15.7H, White Blood Count 13.9H Microbiology 04/26/16 Gram Stain - Final, Complete 04/26/16 Sputum Culture - Final, Complete Gram Negative Josafat Assessment/Plan Assessment nondisplaced intertrochanteric frx left hip s/p repair Ortho Postop anemia s/p transfusion earlier on rehab stay Anemia of chronic d Post polio syndrome with residual weakness Rt side prior fall with limited ROM left shoulder s/p repair prox humerus frx Hypoalbuminemia Chronic constipation COPD with recurrent pneumonias HX of pseudomonas UTI Leukocytosis-trending now improving Plan Continue PT/OT F/U Labs-done F/U with Dr Looney and ortho and PULM as per their sched Current labs noted-will recheck CBC-See orders Appreciate Dr Willson note Current meds and labs reviewed Next Team Conference tomorrow 05/07/16 HIRA CHATMAN MD May 06, 2016 13:54
--- NOTE | 2016-05-06 14:37 | Therapy Group Daily Note ---
Therapy Daily Group Note Patient Education Topic Other List Below (Handwashing, ARU description/expectations) Exercises Balance, Sit to/from Stand, Walking, Fine Motor, UE Exercise Other/Notes Pt transported to OT/PT group via w/c. Group consisted of introductions (name, place living, romantic valentines ideas), socialization, education on handwashing, completed handwashing at sink, fine motor tasks, inspirational words and critical word finding tasks. Pt actively participated in group by contributing to discussions and answer questions appropriately. Pt sat in w/c to wash hands, required assistance due decreased UE ROM. Pt was able to problem solve ways for icing/decorating cookies due to decreased UE ROM. Pt demonstrated good dexterity and coordinations with hands during fine motor tasks. After group, pt lying in bed with call light/phone in reach. All needs met in room. Start Time: 13:00 Stop Time: 14:10 Total Billed Treatment Time: 70 Total Billed Treatment 1-GRP DEEPTHI MORRIS May 06, 2016 14:37
[2016-05-06 18:32] VITALS: BP 124/82
[2016-05-06] MEDS: ATORVASTATIN 40 MG (LIPITOR) TABLET PO SCH (20:57)
[2016-05-06] MEDS: AMITRIPTYLINE 150 MG (ELAVIL) TABLET PO SCH (20:57)
[2016-05-07] MEDS: KCL 20 MEQ TAB (K-DUR) PO SCH ×2 (06:15→17:00)
[2016-05-07] MEDS: PANTOPRAZOLE 40 MG (PROTONIX) TAB PO SCH (06:15)
[2016-05-07] MEDS: oxyCODONE/APAP 5/325MG (PERCOCET 5) TABLET PO PRN ×5 (06:15→23:50)
[2016-05-07] MEDS: LEVOTHYROXINE 150 MCG (LEVOTHROID) TAB PO SCH (06:15)
[2016-05-07] MEDS: MULTIVIT W/MINERALS TAB (THERAGRAN M) PO SCH (06:15)
[2016-05-07] MEDS: RT-ALBUTEROL/IPRATROPIUM 3 ML (DUONEB) VIAL INH SCH ×3 (06:16→20:05)
[2016-05-07 06:22] VITALS: BP 125/69
[2016-05-07 06:53] LABS: RBC FOLATE >1000 (>280)
[2016-05-07 08:19] VITALS: BP 106/56
[2016-05-07] MEDS: LABETALOL 200 MG (NORMODYNE) TAB PO SCH ×2 (08:21→20:23)
[2016-05-07] MEDS: DILTIAZEM 240 MG (CARDIZEM CD) CAP PO SCH (08:22)
[2016-05-07] MEDS: POLYETHYLENE GLYCOL 17 GM (MIRALAX) PACK PO SCH ×3 (08:23→19:31)
[2016-05-07] MEDS: TORSEMIDE 20 MG (DEMADEX) TAB PO SCH (08:23)
[2016-05-07] MEDS: SENNOSIDES 8.6 MG (SENOKOT) TAB PO SCH ×2 (08:23→20:23)
[2016-05-07] MEDS: DOCUSATE SODIUM 100 MG (COLACE) CAP PO SCH ×2 (08:23→20:23)
[2016-05-07] MEDS: VITAMIN D3 5,000 UNITS (CHOLECALCIFEROL ) CAPSULE PO SCH (08:23)
[2016-05-07] MEDS: guaiFENesin (MUCINEX) 600 MG TAB PO SCH ×2 (08:23→20:23)
[2016-05-07] MEDS: CYANOCOBALAMIN 500 MCG TAB (VITAMIN B-12) PO SCH (08:23)
[2016-05-07] MEDS: LACTULOSE SYRUP 10GM/15ML (ENULOSE) 30ML UDC PO SCH ×2 (08:24→20:25)
--- NOTE | 2016-05-07 10:32 | Progress Note-Hospitalist ---
Progress Note Progress Notes/Assess & Plan Date Seen 05/07/16 Diagonsis/Assessment & Plan Chart Review: No fever Vitals stable Labs from yesterday: Hgb 8.8, Creat 1.4 epic beacon specialists: RN states that pt is demanding to DC. The plan was for pt to DC this Thursday. Patient Interview: Pt states that she would like to DC soon. Pt states that she will have her grandson with her after DC. Pt does not wish to go to a care facility. Physical exam stable. Pt denies having BM for the last two days but is taking stool softeners and is not concerned. Pt states that she still has great difficulty ambulating. Pt has no requests at this time. Scribed by Antony Morfin under the direct supervision of Dr. Looney. No fever, vital signs stable, pleasant, pale, chronically ill Regular rate and rhythm, clear to auscultation bilaterally in the upper lobes but crackles in the lower lobes history of a pulmonary fibrosis so she is never clear on exam No edema Assessment: Severe anemia postop but complicated with kidney disease and chronic illness requiring 2 units of packed red blood cell transfusion consulted Dr. Avitia which I appreciate Acute nondisplaced intertrochanteric fracture left hip s/p repair POD # 13 Severe COPD with recurrent pneumonias and h/o lower lobe pneumonia/sputum positive for MRSA 12/16 s/p Cipro for sputum culture sensitivity profile h/o urinary tract infection with pseudomonas 12/16. h/o acute on chronic renal failure Leukocytosis h/o Hyperkalemia Pulmonary congestion on Lasix Poor vascular access s/p port placement last admit Constipation chronic issue now resolved Severe anemia due to kidney disease and co-morbidities and acute blood loss in need of empiric iron infusions Severe debility Acute orthostatic hypotension so will hold Demadex evening dose Plan: Pulmonology consultation appreciated due to the severity of her lung disease Monitor Hgb closely Duoneb QID Completed antibiotics of Cipro Home O2 eval in preparation for DC Thursday DENI LOONEY DO May 07, 2016 10:32
--- NOTE | 2016-05-07 11:44 | Occupational Ther Daily Note ---
OT Current Status-Daily Note Subjective Pt. reports 10/10 pain in left hip after session. Notified nursing. However, not time for pain pill yet. Appearance Pt. is up in chair. Agrees to treatment. Mental Status/Objective Patient Orientation: Person, Place Functional [place] Measure 0=Not Assessed/NA 4=Minimal Assistance 1=Total Assistance 5=Supervision or Setup 2=Maximal Assistance 6=Modified [place] 3=Moderate Assistance 7=Complete [place] ADL-Treatment Functional [place] Measure 0=Not Assessed/NA 4=Minimal Assistance 1=Total Assistance 5=Supervision or Setup 2=Maximal Assistance 6=Modified [place] 3=Moderate Assistance 7=Complete IndependenceIRFPAI Quality Coding Scale 6 Independent with activity with or without an assistive device 5 Patient requires set up or clean up by helper. Patient completes activity by themselves 4 Supervision or touching assist (CGA). [place] provide cues , steadying assist 3 The helper provides less than half the effort to complete the activity 2 The helper provides more than half the effort to complete the activity 1 Dependent. The helper does all the effort to complete an activity 7 Patient refused to complete or attempt activity 9 The patient did not perform the activity before the current illness or injury 88 Not attempted due to Medical conditions or safety concerns Grooming (FIM): 5 (Pt. is able to comb hair with SBA.) Bathing (FIM): 4 (Pt. requires Min assist for balance while standing to wash trevor area.) Shower/Bathe Self (QC): 4 Upper Body (FIM): 3 (Pt. requires mod assist to don shirt over shoulders and thread left UE into.) Upper Body Dressing (QC): 3 Lower Body Dressing (FIM): 4 (Pt. able to thread feet into pants. Required min assist in stance for balance to don over hips. Able to don socks with Sock aide.) Lower Body Dressing (QC): 4 On/Off Footwear (QC): 5 Transfers (B, C, W/C) (FIM): 4 (Min assist for sit-stand.) Other Treatment Pt. required frequent rest breaks throughout treatment. Education OT Patient Education: Correct positioning, Modified ADL techniques, Progress toward Goal/Update tx plan, Purpose of tx/functional activities, Reviewed precautions, Rehab process, Transfer techniques Teaching Recipient: Patient Teaching Methods: Demonstration, Discussion Response to Teaching: Verbalize Understanding, Return Demonstration OT Short Term Goals Short Term Goals Time Frame: May 02, 2016 Bathing(FIM): 4 Lower Body Dressing(FIM): 4 Transfers (B,C,W/C) (FIM): 4 (met 05/01/16) Toilet/Commode Transfer(FIM): 4 Shower Transfer(FIM): 3 Additional Short Term Goals: 3-ImproveStrength/[place] 1=Demonstrate adherence to instructed precautions during ADL tasks. 2=Patient will verbalize/demonstrate understanding of assistive devices/ modifications for ADL. 3=Patient will improve strength/tolerance for activity to enable patient to perform ADL's. OT Jail Goals Jail Goals Time Frame: May 09, 2016 Eating (FIM): 7 Eating (QC): 6 Groomin Oral Hygiene (QC): 6 Bathing(FIM): 6 Shower/Bathe Self (QC): 6 Upper Body Dressing(FIM): 6 Upper Body Dressing (QC): 6 Lower Body Dressing(FIM): 6 Lower Body Dressing (QC): 6 On/Off Footwear (QC): 6 Toileting(FIM): 6 Toileting Hygiene (QC): 6 Toilet/Commode Transfer(FIM): 6 Toilet/Commode Transfer (QC): 6 Shower Transfer(FIM): 6 Additional Goals: 2-Verbalize Understanding, 3-ImproveStrength/[place] (5/5 bilat elbows and distal) 1=Demonstrate adherence to instructed precautions during ADL tasks. 2=Patient will verbalize/demonstrate understanding of assistive devices/ modifications for ADL. 3=Patient will improve strength/tolerance for activity to enable patient to perform ADL's. OT Education/Plan Problem List/Assessment Assessment: Decreased Activ Tolerance, Decreased UE Strength, Dependent Transfers, Impaired Bed Mobility, Impaired Funct Balance, Impaired I ADL's, Impaired Self-Care Skills, Restricted Funct UE ROM Pt would benefit from skilled OT to increase her independence in basic self care to allow her to safely return to her home with family support and to decrease caregiver burden. Discharge Recommendations Plan/Recommendations: Continue POC Therapy D/C Recommendations: Home w/ Family Support, Occupational Therapy Home Care, Scheduled Assistance Equpiment Recommendations-D/C: Hip Kit Treatment Plan/Plan of Care Treatment,Training & Education: Yes Patient would benefit from OT for education, treatment and training to promote independence in ADL's, mobility, safety and/or upper extremity function for ADL' s. Plan of Care: ADL Retraining, Functional Mobility, Group Exercise/Act as Ind ( education, exercise, activity tolerance, functional activities), UE Funct Exercise/Act, UE Neuromus Re-Ed/Coord Treatment Duration: May 16, 2016 Visits Per Week: 10-11 Minutes/Day (M-F): 75-90 Minutes/Day (Sat/Terrell): PRN Agreement: Yes Rehab Potential: Fair Time/GCodes Start Time: 08:15 Stop Time: 09:15 Total Time Billed (hr/min): 60 Billed Treatment Time 1, ADL x 4 BLAS SINGLETARY OT May 07, 2016 11:44
--- NOTE | 2016-05-07 15:23 | Therapy Group Daily Note ---
Therapy Daily Group Note Patient Education Topic Other List Below (Frailty Syndrome and Prevention) Exercises LE Seated Exercise, UE Exercise Other/Notes Pt transported with w/c to [facility] for group. Pt actively participated in OT/PT group. Group consisted of introductions (name, place living, place you'd rather be instead of here), socialization, education on Frailty Syndrome and prevention, UE/LE seated exercises with resistance and other benefits of exercise. Pt contributed to discussions appropriately and demonstrated knowledge of topic by answering verbal questions. Pt was attempted to complete UE/LE seated exercises, had difficulty due to decreased UE ROM. After therapy, pt lying in bed with call light/phone in reach. All needs met. Start Time: 13:00 Stop Time: 14:10 Total Billed Treatment Time: 70 Total Billed Treatment 1-GRP DEEPTHI MORRIS May 07, 2016 15:23
--- NOTE | 2016-05-07 17:00 | Physical Therapy Daily Note ---
PT Daily Note-Current Subjective Pt rates pain 10/10 upon arrival in the (L) hip. Nursing notified. Pt agreeable to treatment. Pain rated 8/10 post therapy session. Mental Status Patient Orientation: Person, Place, Situation Transfers Functional [place] Measure 0=Not Assessed/NA 4=Minimal Assistance 1=Total Assistance 5=Supervision or Setup 2=Maximal Assistance 6=Modified [place] 3=Moderate Assistance 7=Complete IndependenceIRFPAI Quality Coding Scale 6 Independent with activity with or without an assistive device 5 Patient requires set up or clean up by helper. Patient completes activity by themselves 4 Supervision or touching assist (CGA). [place] provide cues , steadying assist 3 The helper provides less than half the effort to complete the activity 2 The helper provides more than half the effort to complete the activity 1 Dependent. The helper does all the effort to complete an activity 7 Patient refused to complete or attempt activity 9 The patient did not perform the activity before the current illness or injury 88 Not attempted due to Medical conditions or safety concerns Sit to stand CGA, Sit to supine min A (B) LE. Weight Bearing Weight Bearing Restriction: Weight Bearing/Tolerated Gait Training Distance: 1 x 200ft, 1 x 100ft, 1 x 5ft Pt amb with PW, WBAT (L) LE and CGA with step to gait pattern. O2 at 3L/min throughout per portable O2 Exercises Supine Ex: Ankle pumps, Quad Set, Heel Slides, Straight leg raise, Hip abd/add Supine Reps: 20 Seated Therapy Exercises: Long arc quads NuStep Minutes: 8 NuStep Workload: 2 Treatments Pt seen for strength training, gait training and transfer training. Pt demonstrated CGA for sit to stand transfers. Pt requires min A for sit to supine transfer. Pt education included training and awareness of O2 while walking and approaching chair. Pt educated safe approach and stand to sit transfers. Pt tends to reach for chair, discarding walker prematurely. Pt able to demonstrate proper approach to a chair. Assessment Current Status: Good Progress Pt showing she would benefit from more practice with safe approach to chair or bed and safe handling of O2 line during functional mobility. Pt demonstrated ability to stand from chair with CGA only. Pt walking distance limited by hip pain this treatment session. Pt continues to be dependent with transfer into the bed requiring assist with (B) LE. Pt franac well with rest breaks despite high pain level. Pt back to bed with (B) LE floating on pillows and call light in reach. O2 insitu. PT Short Term Goals Short Term Goals Time Frame: Apr 30, 2016 Transfers (B,C,W/C) (FIM): 4 (met 05/01/16) Gait (FIM): 1 (met 05/01/16) Gait Distance Comment: 20' Gait Level of Assist: 4 (min A) Gait Assistive Device: FWW Wheelchair Distance: 50' PT Detention Goals Billiard Table Assembler Goals PT Detention Goals Time Frame: May 14, 2016 Transfers (B,C,W/C) (FIM): 4 (CGA) Sit to Lying (QC): 4 Lying-Sitting on Side/Bed(QC): 4 Sit to Stand (QC): 4 Rollin Roll Left to Right (QC): 4 Chair/Xfu-ld-Sfztc Xfer(QC): 4 Car Transfer (QC): 4 Gait (FIM): 4 Distance: 150' Walk 10 feet (QC): 4 Walk 10ft-Uneven Surface(QC): 4 Walk 50ft with 2 Turns (QC): 4 Walk 150 ft (QC): 4 Gait Level of Assist: 4 (CGA) Gait Assistive Device: FWW Stairs (FIM): 2 # of Steps: 4 1 Step (curb) (QC): 4 4 Steps (QC): 4 Stairs Level Of Assist: 4 Picking up an Object (QC): 88 PT Plan Treatment/Plan Treatment Plan: Continue Plan of Care Treatment Plan: Bed Mobility, Education, Functional Activity [place], Functional Strength, Group Therapy, Gait, Safety, Therapeutic Exercise, Transfers Treatment Duration: May 14, 2016 Visits Per Week: 10-11 Minutes/Day (M-F): 60-90 Minutes/Day (Sat/Terrell): 15-30 Time/GCodes Time In: 1015 Time Out: 1115 Total Billed Treatment Time: 60 Total Billed Treatment 1, gait x 30 min, ther ex x 30 min POOJA BOYD May 07, 2016 17:00
[2016-05-07 17:44] VITALS: BP 134/65
--- NOTE | 2016-05-07 19:44 | PM & R (SOAP) Progress Note ---
Subjective Subjective/Events-last exam Patient was seen in her room this AM Patient Min assist for transfers Objective Exam Last Set of Vital Signs Vital Signs Date Time Temp Pulse Resp B/P Pulse Ox O2 Delivery O2 Flow Rate FiO2 05/07/16 17:44 98.5 84 18 134/65 96 05/07/16 09:00 Nasal Cannula 3.00 Capillary Refill : Less Than 3 Seconds I&O Intake and Output 05/07/16 00:00 Intake Total 1200 ml Balance 1200 ml Intake Oral 1200 ml # Voids 7 # Bowel Movements 3 General: Alert, Oriented X3, Cooperative, No Acute Distress HEENT: Atraumatic, PERRLA, EOMI, Mucous Memb Moist/[place] Neck: Supple, No JVD Lungs: Clear to Auscultation Heart: Regular Rate Abdomen: Normal Bowel Sounds, Soft, No Tenderness Extremities: No Edema Neuro: Other (weakness on right as compared to left with limited AROM both shoulders with hx of prox left hum frx s/p repair Dr Jiménez as a result of prior fall) Results Lab Laboratory Tests 05/06/16 06:10: Basophils # (Auto) 0.1, Basophils (%) (Auto) 1, Eosinophils # (Auto) 1.2H, Eosinophils (%) (Auto) 9, Hematocrit 28L, Hemoglobin 8.8L, Lymphocytes # (Auto) 2.9, Lymphocytes (%) (Auto) 21, Mean Corpuscular Hemoglobin 30, Mean Corpuscular Hemoglobin Concent 31L, Mean Corpuscular Volume 98, Mean Platelet Volume 10.0, Monocytes # (Auto) 1.7H, Monocytes (%) (Auto) 12, Neutrophils # ( Auto) 8.1H, Neutrophils (%) (Auto) 58, Platelet Count 566H, Red Blood Count 2.89L, Red Cell Distribution Width 15.7H, White Blood Count 13.9H Microbiology 04/26/16 Gram Stain - Final, Complete 04/26/16 Sputum Culture - Final, Complete Gram Negative Josafat Assessment/Plan Assessment nondisplaced intertrochanteric frx left hip s/p repair Ortho Postop anemia s/p transfusion earlier on rehab stay Anemia of chronic d Post polio syndrome with residual weakness Rt side prior fall with limited ROM left shoulder s/p repair prox humerus frx Hypoalbuminemia Chronic constipation COPD with recurrent pneumonias HX of pseudomonas UTI Leukocytosis-trending now improving Plan Continue PT/OT F/U Labs-done F/U with Dr Looney and ortho and PULM as per their sched Current labs noted-will recheck CBC-See orders-done Appreciate Dr Willson note Current meds and labs reviewed Team Conference held earlier today-See report for full functional update and POC and HIRA NARANJO MD May 07, 2016 19:43
[2016-05-07] MEDS: ATORVASTATIN 40 MG (LIPITOR) TABLET PO SCH (20:23)
[2016-05-07] MEDS: AMITRIPTYLINE 150 MG (ELAVIL) TABLET PO SCH (20:24)
[2016-05-08] MEDS: oxyCODONE/APAP 5/325MG (PERCOCET 5) TABLET PO PRN ×4 (03:53→16:50)
[2016-05-08 04:06] VITALS: BP 137/72
[2016-05-08] MEDS: KCL 20 MEQ TAB (K-DUR) PO SCH ×2 (06:14→16:50)
[2016-05-08] MEDS: PANTOPRAZOLE 40 MG (PROTONIX) TAB PO SCH (06:16)
[2016-05-08] MEDS: LEVOTHYROXINE 150 MCG (LEVOTHROID) TAB PO SCH (06:16)
[2016-05-08] MEDS: MULTIVIT W/MINERALS TAB (THERAGRAN M) PO SCH (06:17)
[2016-05-08] MEDS: CYANOCOBALAMIN 500 MCG TAB (VITAMIN B-12) PO SCH (08:17)
[2016-05-08] MEDS: TORSEMIDE 20 MG (DEMADEX) TAB PO SCH (08:17)
[2016-05-08] MEDS: LABETALOL 200 MG (NORMODYNE) TAB PO SCH ×2 (08:17→20:22)
[2016-05-08] MEDS: DILTIAZEM 240 MG (CARDIZEM CD) CAP PO SCH (08:17)
[2016-05-08] MEDS: guaiFENesin (MUCINEX) 600 MG TAB PO SCH ×2 (08:17→20:21)
[2016-05-08] MEDS: DOCUSATE SODIUM 100 MG (COLACE) CAP PO SCH ×2 (08:17→20:21)
[2016-05-08] MEDS: VITAMIN D3 5,000 UNITS (CHOLECALCIFEROL ) CAPSULE PO SCH (08:18)
[2016-05-08] MEDS: SENNOSIDES 8.6 MG (SENOKOT) TAB PO SCH ×2 (08:18→20:21)
[2016-05-08] MEDS: POLYETHYLENE GLYCOL 17 GM (MIRALAX) PACK PO SCH ×2 (08:18→21:00)
[2016-05-08] MEDS: LACTULOSE SYRUP 10GM/15ML (ENULOSE) 30ML UDC PO SCH ×2 (08:20→20:21)
--- NOTE | 2016-05-08 08:20 | PM & R (SOAP) Progress Note ---
Subjective Subjective/Events-last exam Patient was seen in her room this AM Pain control adequate Sleeping OK Patient CGA for ambulation with Walker Objective Exam Last Set of Vital Signs Vital Signs Date Time Temp Pulse Resp B/P Pulse Ox O2 Delivery O2 Flow Rate FiO2 05/08/16 04:06 96.7 73 18 137/72 95 Nasal Cannula 3.00 Capillary Refill : Less Than 3 Seconds I&O Intake and Output 05/08/16 00:00 Intake Total 1672 ml Balance 1672 ml Intake Oral 1672 ml # Voids 6 General: Alert, Oriented X3, Cooperative, No Acute Distress HEENT: Atraumatic, PERRLA, EOMI, Mucous Memb Moist/[place] Neck: Supple, No JVD Lungs: Clear to Auscultation Heart: Regular Rate Abdomen: Normal Bowel Sounds, Soft, No Tenderness Extremities: No Edema Neuro: Other (weakness on right as compared to left with limited AROM both shoulders with hx of prox left hum frx s/p repair Dr Jiménez as a result of prior fall) Results Lab Laboratory Tests 05/06/16 06:10: Basophils # (Auto) 0.1, Basophils (%) (Auto) 1, Eosinophils # (Auto) 1.2H, Eosinophils (%) (Auto) 9, Hematocrit 28L, Hemoglobin 8.8L, Lymphocytes # (Auto) 2.9, Lymphocytes (%) (Auto) 21, Mean Corpuscular Hemoglobin 30, Mean Corpuscular Hemoglobin Concent 31L, Mean Corpuscular Volume 98, Mean Platelet Volume 10.0, Monocytes # (Auto) 1.7H, Monocytes (%) (Auto) 12, Neutrophils # ( Auto) 8.1H, Neutrophils (%) (Auto) 58, Platelet Count 566H, Red Blood Count 2.89L, Red Cell Distribution Width 15.7H, White Blood Count 13.9H Microbiology 04/26/16 Gram Stain - Final, Complete 04/26/16 Sputum Culture - Final, Complete Gram Negative Josafat Assessment/Plan Assessment nondisplaced intertrochanteric frx left hip s/p repair Ortho Postop anemia s/p transfusion earlier on rehab stay Anemia of chronic d Post polio syndrome with residual weakness Rt side prior fall with limited ROM left shoulder s/p repair prox humerus frx Hypoalbuminemia Chronic constipation COPD with recurrent pneumonias HX of pseudomonas UTI Leukocytosis-trending now improving Plan Continue PT/OT F/U Labs-done F/U with Dr Looney and ortho and PULM as per their sched Current labs noted-will recheck CBC-See orders-done Appreciate Dr Willson note Current meds and labs reviewed Team Conference held yesterdaySee report for full functional update and POC and HIRA NARANJO MD May 08, 2016 08:20
--- NOTE | 2016-05-08 10:16 | Occupational Ther Daily Note ---
OT Current Status-Daily Note Subjective Pt alert, sitting on EOB eating breakfast. Pt agreed to therapy. Nrsg present in room and pt stated that she had pain but didn't rate it stating I just hurt all over. Mental Status/Objective Patient Orientation: Person, Place, Time, Situation Functional [place] Measure 0=Not Assessed/NA 4=Minimal Assistance 1=Total Assistance 5=Supervision or Setup 2=Maximal Assistance 6=Modified [place] 3=Moderate Assistance 7=Complete [place] ADL-Treatment Functional [place] Measure 0=Not Assessed/NA 4=Minimal Assistance 1=Total Assistance 5=Supervision or Setup 2=Maximal Assistance 6=Modified [place] 3=Moderate Assistance 7=Complete IndependenceIRFPAI Quality Coding Scale 6 Independent with activity with or without an assistive device 5 Patient requires set up or clean up by helper. Patient completes activity by themselves 4 Supervision or touching assist (CGA). [place] provide cues , steadying assist 3 The helper provides less than half the effort to complete the activity 2 The helper provides more than half the effort to complete the activity 1 Dependent. The helper does all the effort to complete an activity 7 Patient refused to complete or attempt activity 9 The patient did not perform the activity before the current illness or injury 88 Not attempted due to Medical conditions or safety concerns Eating (FIM): 6 (Pt is able to set own self up and use regular utensils to feed self. Pt has decrease shldr ROM, uses compensatory strategies to get utensils to mouth by supporting forearms with either table or opposite arm.) Eating (QC): 6 (Pt is able to set own self up and use regular utensils to feed self. Pt has decrease shldr ROM, uses compensatory strategies to get utensils to mouth by supporting forearms with either table or opposite arm.) Grooming (FIM): 6 (In sitting, pt completes grooming skills and uses compensatory strategies due to decreased B shldr to reach head.) Oral Hygiene (QC): 6 (In sitting, pt completes grooming skills and uses compensatory strategies due to decreased B shldr to reach head.) Toileting Hygiene (QC): 4 (Using BSC and platform FWW, pt is able to manipulate clothing with SBA. Sitting on toilet pt is able to complete hygiene. ) Bathing (FIM): 4 (Using BSC and platform FWW, pt is able to manipulate clothing with SBA. Sitting on toilet pt is able to complete hygiene.) Shower/Bathe Self (QC): 4 (Using BSC and platform FWW, pt is able to manipulate clothing with SBA. Sitting on toilet pt is able to complete hygiene. ) Upper Body (FIM): 5 (After set up, pt is able to complete upper body dressing by self.) Upper Body Dressing (QC): 5 (After set up, pt is able to complete upper body dressing by self.) Lower Body Dressing (FIM): 5 (After set up, pt is able to complete lower body dressing by self with SBA. Uses sock aide to don socks.) Lower Body Dressing (QC): 4 (After set up, pt is able to complete lower body dressing by self with SBA. Uses sock aide to don socks.) On/Off Footwear (QC): 6 (Using AE, pt is able to don/doff footwear.) Toileting (FIM): 5 (Using BSC and platform FWW, pt is able to manipulate clothing with SBA. Sitting on toilet pt is able to complete hygiene.) Transfers (B, C, W/C) (FIM): 4 (Min A for sit to stand transfers and CGA for stand pivot transfers.) Toilet/Commode Transfer (FIM): 4 (Using platform FWW and BSC pt is able to complete with CGA.) Toilet Transfer (QC): 4 (Using platform FWW and BSC pt is able to complete with CGA.) Shower Transfer(FIM): 4 (Using shower bench, platform FWW and grabbars pt is able to complete transfer with CGA.) Other Treatment Pt worked on reaching arms out with support of opposite arm to grasp items at chest height and below. Pt was able to manipulate items in lap and maintain grasp. Pt then was able to recall from memory family members and different gifts that the have gotten her and she had gotten them. Pt then was able to ambulate from w/c to recliner with CGA using platform FWW. After therapy, pt sitting in recliner with call light/phone in reach. All needs met in room. OT Short Term Goals Short Term Goals Time Frame: May 02, 2016 Bathing(FIM): 4 Lower Body Dressing(FIM): 4 Transfers (B,C,W/C) (FIM): 4 (met 05/01/16) Toilet/Commode Transfer(FIM): 4 Shower Transfer(FIM): 3 Additional Short Term Goals: 3-ImproveStrength/Percy 1=Demonstrate adherence to instructed precautions during ADL tasks. 2=Patient will verbalize/demonstrate understanding of assistive devices/ modifications for ADL. 3=Patient will improve strength/tolerance for activity to enable patient to perform ADL's. OT Senior Care Goals Senior Care Goals Time Frame: May 09, 2016 Eating (FIM): 7 Eating (QC): 6 Groomin Oral Hygiene (QC): 6 Bathing(FIM): 6 Shower/Bathe Self (QC): 6 Upper Body Dressing(FIM): 6 Upper Body Dressing (QC): 6 Lower Body Dressing(FIM): 6 Lower Body Dressing (QC): 6 On/Off Footwear (QC): 6 Toileting(FIM): 6 Toileting Hygiene (QC): 6 Toilet/Commode Transfer(FIM): 6 Toilet/Commode Transfer (QC): 6 Shower Transfer(FIM): 6 Additional Goals: 2-Verbalize Understanding, 3-ImproveStrength/Percy (5/5 bilat elbows and distal) 1=Demonstrate adherence to instructed precautions during ADL tasks. 2=Patient will verbalize/demonstrate understanding of assistive devices/ modifications for ADL. 3=Patient will improve strength/tolerance for activity to enable patient to perform ADL's. OT Education/Plan Problem List/Assessment Pt would benefit from skilled OT to increase her independence in basic self care to allow her to safely return to her home with family support and to decrease caregiver burden. Discharge Recommendations Plan/Recommendations: Continue POC Treatment Plan/Plan of Care Patient would benefit from OT for education, treatment and training to promote independence in ADL's, mobility, safety and/or upper extremity function for ADL' s. Plan of Care: ADL Retraining, Functional Mobility, Group Exercise/Act as Ind ( education, exercise, activity tolerance, functional activities), UE Funct Exercise/Act, UE Neuromus Re-Ed/Coord Treatment Duration: May 16, 2016 Visits Per Week: 10-11 Minutes/Day (M-F): 75-90 Minutes/Day (Sat/Terrell): PRN Agreement: Yes Rehab Potential: Fair Time/GCodes Start Time: 08:15 Stop Time: 09:45 Total Time Billed (hr/min): 90 Billed Treatment Time 1 visit-ADL 4 (60 min) FA 2 (30 min) DEEPTHI MORRIS May 08, 2016 10:15
--- NOTE | 2016-05-08 10:46 | Physical Therapy Daily Note ---
PT Daily Note-Current Subjective Agrees to PT. Says her left hip is hurting more today. Pain Numeric Pain Scale: 6 Location: Left Location Body Site: Hip Pain Description: Ache Comment: at rest and with activity. Mental Status Patient Orientation: Person, Place, Time, Situation Transfers Functional [place] Measure 0=Not Assessed/NA 4=Minimal Assistance 1=Total Assistance 5=Supervision or Setup 2=Maximal Assistance 6=Modified [place] 3=Moderate Assistance 7=Complete IndependenceIRFPAI Quality Coding Scale 6 Independent with activity with or without an assistive device 5 Patient requires set up or clean up by helper. Patient completes activity by themselves 4 Supervision or touching assist (CGA). [place] provide cues , steadying assist 3 The helper provides less than half the effort to complete the activity 2 The helper provides more than half the effort to complete the activity 1 Dependent. The helper does all the effort to complete an activity 7 Patient refused to complete or attempt activity 9 The patient did not perform the activity before the current illness or injury 88 Not attempted due to Medical conditions or safety concerns Treatments Treatment consisted of work on sit to stand transfers x 5 reps with SB-CGA; Pt much improved with this. Removed platform from walker as pt prefers not to use it if possible. Pt ambulated 50 ft x 6 with FWW with CGA. Worked on a step like she has in her home and a grab bar like in her home. Performed 1 step up and down x 3 reps with min assist and skilled cues for sequencing and safety. Pt in room post treatment with oxygen in situ, needs met and cold pack to left hip. Assessment Current Status: Good Progress Much improvement with transfers since last seen by this therapist. Pt walking better as well. She did well with the FWW without the platform, undecided if we will continue to leave it off or not. Will continue to assess. Pt progressing well. PT Short Term Goals Short Term Goals Time Frame: Apr 30, 2016 Transfers (B,C,W/C) (FIM): 4 (met 05/01/16) Gait (FIM): 1 (met 05/01/16) Gait Distance Comment: 20' Gait Level of Assist: 4 (min A) Gait Assistive Device: FWW Wheelchair Distance: 50' PT Group Home Goals Group Home Goals PT Channeler Goals Time Frame: May 14, 2016 Transfers (B,C,W/C) (FIM): 4 (CGA) Sit to Lying (QC): 4 Lying-Sitting on Side/Bed(QC): 4 Sit to Stand (QC): 4 Rollin Roll Left to Right (QC): 4 Chair/Swl-kp-Lgwcs Xfer(QC): 4 Car Transfer (QC): 4 Gait (FIM): 4 Distance: 150' Walk 10 feet (QC): 4 Walk 10ft-Uneven Surface(QC): 4 Walk 50ft with 2 Turns (QC): 4 Walk 150 ft (QC): 4 Gait Level of Assist: 4 (CGA) Gait Assistive Device: FWW Stairs (FIM): 2 # of Steps: 4 1 Step (curb) (QC): 4 4 Steps (QC): 4 Stairs Level Of Assist: 4 Picking up an Object (QC): 88 PT Plan Problem List Problem List: Activity Tolerance, Functional Strength, Safety, Gait, Transfer, Bed Mobility Treatment/Plan Treatment Plan: Continue Plan of Care Treatment Plan: Bed Mobility, Education, Functional Activity Percy, Functional Strength, Group Therapy, Gait, Safety, Therapeutic Exercise, Transfers Treatment Duration: May 14, 2016 Visits Per Week: 10-11 Minutes/Day (M-F): 60-90 Minutes/Day (Sat/Terrell): 15-30 Safety Risks/Education Patient Education: Transfer Techniques, Steps Teaching Recipient: Patient Teaching Methods: Demonstration, Discussion Response to Teaching: Reinforcement Needed Time/GCodes Time In: 945 Time Out: 1045 Total Billed Treatment Time: 60 Total Billed Treatment visit FA 60 DEEPTHI RAMEY PT May 08, 2016 10:46
--- NOTE | 2016-05-08 10:54 | Occ Therapy Rehab Re-Cert ---
OT Re-Certification Form Plan of Care: ADL Retraining, Functional Mobility, Group Exercise/Act as Ind ( education, exercise, activity tolerance, functional activities), UE Funct Exercise/Act, UE Neuromus Re-Ed/Coord Pt has made good progress toward goals but still needs min-CGA assistance with transfers and ADLs such as dressing and toileting. Pt lives alone and must be able to manage toilet transfers at home. Will extend LTG time frames for two weeks and continue same tx plan/interventions. Treatment Duration: May 22, 2016 # of days/week 5-6 Visits Per Week: 10-11 Minutes/Day (M-F): 75-90 Minutes/Day (Sat/Terrell): PRN Agreement: Yes Rehab Potential: Good OT Short Term Goals Short Term Goals Time Frame: May 02, 2016 Bathing(FIM): 4 Lower Body Dressing(FIM): 4 Transfers (B,C,W/C) (FIM): 4 (met 05/01/16) Toilet/Commode Transfer(FIM): 4 Shower Transfer(FIM): 3 Additional Short Term Goals: 3-ImproveStrength/Percy 1=Demonstrate adherence to instructed precautions during ADL tasks. 2=Patient will verbalize/demonstrate understanding of assistive devices/ modifications for ADL. 3=Patient will improve strength/tolerance for activity to enable patient to perform ADL's. OT Skilled Nursing Goals Skilled Nursing Goals Time Frame: May 09, 2016 Eating (FIM): 7 Grooming(FIM): 6 Bathing(FIM): 6 Upper Body Dressing(FIM): 6 Lower Body Dressing(FIM): 6 Toileting(FIM): 6 Toilet/Commode Transfer(FIM): 6 Shower Transfer(FIM): 6 Additional Goals: 2-Verbalize Understanding, 3-ImproveStrength/[place] (5/5 bilat elbows and distal) 1=Demonstrate adherence to instructed precautions during ADL tasks. 2=Patient will verbalize/demonstrate understanding of assistive devices/ modifications for ADL. 3=Patient will improve strength/tolerance for activity to enable patient to perform ADL's. RADHIKA CURTIS OT May 08, 2016 10:54
[2016-05-08] MEDS: RT-ALBUTEROL/IPRATROPIUM 3 ML (DUONEB) VIAL INH SCH ×3 (12:00→19:40)
--- NOTE | 2016-05-08 14:47 | Physical Therapy Daily Note ---
PT Daily Note-Current Subjective Pt agreeable. Wants to walk to the gym instead of ride in the wheelchair. Transfers Functional [place] Measure 0=Not Assessed/NA 4=Minimal Assistance 1=Total Assistance 5=Supervision or Setup 2=Maximal Assistance 6=Modified [place] 3=Moderate Assistance 7=Complete IndependenceIRFPAI Quality Coding Scale 6 Independent with activity with or without an assistive device 5 Patient requires set up or clean up by helper. Patient completes activity by themselves 4 Supervision or touching assist (CGA). [place] provide cues , steadying assist 3 The helper provides less than half the effort to complete the activity 2 The helper provides more than half the effort to complete the activity 1 Dependent. The helper does all the effort to complete an activity 7 Patient refused to complete or attempt activity 9 The patient did not perform the activity before the current illness or injury 88 Not attempted due to Medical conditions or safety concerns Treatments Sit to stand with SBA and gait x 150 ft with FWW with CGA. Nu Step x 15 minutes for LE strength and functional act tolerance. Gait x 10 ft, toileted with CGA for transfers and pulling pants up then gait x 20 ft to the chair. Up in chair post treatment with needs met and oxygen in situ. Assessment Current Status: Good Progress tired this pm but participatory. PT Short Term Goals Short Term Goals Time Frame: Apr 30, 2016 Transfers (B,C,W/C) (FIM): 4 (met 05/01/16) Gait (FIM): 1 (met 05/01/16) Gait Distance Comment: 20' Gait Level of Assist: 4 (min A) Gait Assistive Device: FWW Wheelchair Distance: 50' PT Division Operations Manager Goals Detention Goals PT Division Operations Manager Goals Time Frame: May 14, 2016 Transfers (B,C,W/C) (FIM): 4 (CGA) Sit to Lying (QC): 4 Lying-Sitting on Side/Bed(QC): 4 Sit to Stand (QC): 4 Rollin Roll Left to Right (QC): 4 Chair/Rne-sh-Atabz Xfer(QC): 4 Car Transfer (QC): 4 Gait (FIM): 4 Distance: 150' Walk 10 feet (QC): 4 Walk 10ft-Uneven Surface(QC): 4 Walk 50ft with 2 Turns (QC): 4 Walk 150 ft (QC): 4 Gait Level of Assist: 4 (CGA) Gait Assistive Device: FWW Stairs (FIM): 2 # of Steps: 4 1 Step (curb) (QC): 4 4 Steps (QC): 4 Stairs Level Of Assist: 4 Picking up an Object (QC): 88 PT Plan Problem List Problem List: Activity Tolerance, Functional Strength Treatment/Plan Treatment Plan: Continue Plan of Care Treatment Plan: Bed Mobility, Education, Functional Activity Percy, Functional Strength, Group Therapy, Gait, Safety, Therapeutic Exercise, Transfers Treatment Duration: May 14, 2016 Visits Per Week: 10-11 Minutes/Day (M-F): 60-90 Minutes/Day (Sat/Terrell): 15-30 Time/GCodes Time In: 1300 Time Out: 1330 Total Billed Treatment Time: 30 Total Billed Treatment visit EX 15 GT 15 DEEPTHI RAMEY PT May 08, 2016 14:47
[2016-05-08 18:45] VITALS: BP 106/61
[2016-05-08] MEDS: ATORVASTATIN 40 MG (LIPITOR) TABLET PO SCH (20:21)
[2016-05-08] MEDS: AMITRIPTYLINE 150 MG (ELAVIL) TABLET PO SCH (20:22)
[2016-05-09] MEDS: oxyCODONE/APAP 5/325MG (PERCOCET 5) TABLET PO PRN ×4 (05:08→16:58)
[2016-05-09 06:00] VITALS: BP 109/63
[2016-05-09] MEDS: LEVOTHYROXINE 150 MCG (LEVOTHROID) TAB PO SCH (06:08)
[2016-05-09] MEDS: PANTOPRAZOLE 40 MG (PROTONIX) TAB PO SCH (06:09)
[2016-05-09] MEDS: KCL 20 MEQ TAB (K-DUR) PO SCH ×2 (06:09→16:56)
[2016-05-09] MEDS: MULTIVIT W/MINERALS TAB (THERAGRAN M) PO SCH (06:09)
--- NOTE | 2016-05-09 07:59 | PM & R (SOAP) Progress Note ---
Subjective Subjective/Events-last exam Patient was seen in her room this AM She c/o increased pain left hip The left hip is quite swollen and the left leg appears shorter then the rt Will check XRay to r/o dislocation discussed with RN Extra dose of Percocet generic ordered as well See orderes. Objective Exam Last Set of Vital Signs Vital Signs Date Time Temp Pulse Resp B/P Pulse Ox O2 Delivery O2 Flow Rate FiO2 05/09/16 06:00 98.2 75 20 109/63 95 Nasal Cannula 2.50 Capillary Refill : Less Than 3 Seconds I&O Intake and Output 05/09/16 00:00 Intake Total 950 ml Balance 950 ml Intake Oral 950 ml # Voids 5 General: Alert, Oriented X3, Cooperative, No Acute Distress HEENT: Atraumatic, PERRLA, EOMI, Mucous Memb Moist/[place] Neck: Supple, No JVD Lungs: Clear to Auscultation Heart: Regular Rate Abdomen: Normal Bowel Sounds, Soft, No Tenderness Extremities: No Edema, Other (left hip swollen and tender with leg length discrepancy) Neuro: Other (weakness on right as compared to left with limited AROM both shoulders with hx of prox left hum frx s/p repair Dr Jiménez as a result of prior fall) Results Lab Microbiology 04/26/16 Gram Stain - Final, Complete 04/26/16 Sputum Culture - Final, Complete Gram Negative Josafat Assessment/Plan Assessment nondisplaced intertrochanteric frx left hip s/p repair Ortho-now with increased pain as per above Postop anemia s/p transfusion earlier on rehab stay Anemia of chronic d Post polio syndrome with residual weakness Rt side prior fall with limited ROM left shoulder s/p repair prox humerus frx Hypoalbuminemia Chronic constipation COPD with recurrent pneumonias HX of pseudomonas UTI Leukocytosis-trending now improving Plan Continue PT/OT once Xray cleared F/U Labs-done F/U with Dr Looney and ortho and [facility]UL[facility] as per their sched Current labs noted-will recheck CBC-See orders-done Appreciate Dr Willson note Current meds and labs reviewed Recheck Xray left hip as per above-See ordeers-Discussed with HIRA LÓPZE MD May 09, 2016 07:59
[2016-05-09] MEDS: RT-ALBUTEROL/IPRATROPIUM 3 ML (DUONEB) VIAL INH SCH ×4 (08:00→19:46)
[2016-05-09] MEDS ORDERED: oxyCODONE/APAP 10/325MG (PERCOCET 10) TABLET PO NR (08:00)
--- NOTE | 2016-05-09 08:29 | Physical Therapy Daily Note ---
PT Daily Note-Current Subjective Pt states "I can't do PT. There is something wrong with this hip." Pain rated 10/10 (L) hip. Transfers Functional [place] Measure 0=Not Assessed/NA 4=Minimal Assistance 1=Total Assistance 5=Supervision or Setup 2=Maximal Assistance 6=Modified [place] 3=Moderate Assistance 7=Complete IndependenceIRFPAI Quality Coding Scale 6 Independent with activity with or without an assistive device 5 Patient requires set up or clean up by helper. Patient completes activity by themselves 4 Supervision or touching assist (CGA). [place] provide cues , steadying assist 3 The helper provides less than half the effort to complete the activity 2 The helper provides more than half the effort to complete the activity 1 Dependent. The helper does all the effort to complete an activity 7 Patient refused to complete or attempt activity 9 The patient did not perform the activity before the current illness or injury 88 Not attempted due to Medical conditions or safety concerns Assessment Pt unable to tolerate treatment at this time. Pt allowed to rest. Awaiting the x-ray results. PT Short Term Goals Short Term Goals Time Frame: Apr 30, 2016 Transfers (B,C,W/C) (FIM): 4 (met 05/01/16) Gait (FIM): 1 (met 05/01/16) Gait Distance Comment: 20' Gait Level of Assist: 4 (min A) Gait Assistive Device: FWW Wheelchair Distance: 50' PT Chcf Goals Tr[place] Goals PT [facility] Goals Time Frame: May 14, 2016 Transfers (B,C,W/C) (FIM): 4 (CGA) Sit to Lying (QC): 4 Lying-Sitting on Side/Bed(QC): 4 Sit to Stand (QC): 4 Rollin Roll Left to Right (QC): 4 Chair/Cen-eg-Utxcv Xfer(QC): 4 Car Transfer (QC): 4 Gait (FIM): 4 Distance: 150' Walk 10 feet (QC): 4 Walk 10ft-Uneven Surface(QC): 4 Walk 50ft with 2 Turns (QC): 4 Walk 150 ft (QC): 4 Gait Level of Assist: 4 (CGA) Gait Assistive Device: FWW Stairs (FIM): 2 # of Steps: 4 1 Step (curb) (QC): 4 4 Steps (QC): 4 Stairs Level Of Assist: 4 Picking up an Object (QC): 88 PT Plan Treatment/Plan Treatment Plan: Continue Plan of Care Treatment Plan: Bed Mobility, Education, Functional Activity Percy, Functional Strength, Group Therapy, Gait, Safety, Therapeutic Exercise, Transfers Treatment Duration: May 14, 2016 Visits Per Week: 10-11 Minutes/Day (M-F): 60-90 Minutes/Day (Sat/Terrell): 15-30 Time/GCodes Time In: 805 Time Out: 815 Total Billed Treatment Time: 0 Total Billed Treatment 1, no treatment rendered at this time. POOJA BOYD CPTA May 09, 2016 08:29
[2016-05-09 08:44] VITALS: BP 132/68
[2016-05-09] MEDS: SENNOSIDES 8.6 MG (SENOKOT) TAB PO SCH ×2 (08:45→20:03)
[2016-05-09] MEDS: DILTIAZEM 240 MG (CARDIZEM CD) CAP PO SCH (08:45)
[2016-05-09] MEDS: CYANOCOBALAMIN 500 MCG TAB (VITAMIN B-12) PO SCH (08:45)
[2016-05-09] MEDS: VITAMIN D3 5,000 UNITS (CHOLECALCIFEROL ) CAPSULE PO SCH (08:45)
[2016-05-09] MEDS: BISACODYL 5 MG (DULCOLAX) TABLET PO PRN (08:45)
[2016-05-09] MEDS: MILK OF MAGNESIA 400 MG/5 ML 30 ML UDC PO PRN (08:45)
[2016-05-09] MEDS: LACTULOSE SYRUP 10GM/15ML (ENULOSE) 30ML UDC PO SCH ×2 (08:45→20:03)
[2016-05-09] MEDS: DOCUSATE SODIUM 100 MG (COLACE) CAP PO SCH ×2 (08:45→20:03)
[2016-05-09] MEDS: TORSEMIDE 20 MG (DEMADEX) TAB PO SCH (08:45)
[2016-05-09] MEDS: LABETALOL 200 MG (NORMODYNE) TAB PO SCH ×2 (08:45→20:03)
[2016-05-09] MEDS: guaiFENesin (MUCINEX) 600 MG TAB PO SCH ×2 (08:46→20:03)
[2016-05-09] MEDS: POLYETHYLENE GLYCOL 17 GM (MIRALAX) PACK PO SCH ×2 (08:46→20:03)
--- NOTE | 2016-05-09 09:39 | Diagnostic Imaging Report ---
INDICATION: Left hip pain. AP and oblique views of the left hip are obtained and compared with 04/21/2016. Orthopedic hardware in the left femoral neck and proximal shaft again noted with unchanged alignment compared to the prior study. The intertrochanteric fracture is in good alignment. There is underlying degenerative change of the hip joint with joint space narrowing and osteophyte formation. IMPRESSION: Stable alignment of orthopedic hardware in left hip with well-aligned intertrochanteric fracture. There is underlying degenerative change of the hip joint. There is no new bony abnormality. Dictated by: Dictated on workstation # [id number]
[2016-05-09 10:33] LABS: BASOPHILS # (AUTO) 0.1 10^3/uL (0.0-0.1); BASOPHILS % (AUTO) 1 % (0-10); EOSINOPHILS # (AUTO) 0.9 10^3/uL (0.0-0.3); EOSINOPHILS % (AUTO) 7 % (0-10); LYMPHOCYTES # (AUTO) 1.8 X 10^3 (1.0-4.0); LYMPHOCYTES % (AUTO) 14 % (12-44); MEAN CORPUSCULAR HEMOGLOBIN 31 PG (25-34); MEAN CORPUSCULAR HGB CONC 31 G/DL (32-36); MEAN CORPUSCULAR VOLUME 97 FL (80-99); MEAN PLATELET VOLUME 9.9 FL (7.4-10.4); MONOCYTES # (AUTO) 1.7 X 10^3 (0.0-1.0); MONOCYTES % (AUTO) 13 % (0-12); NEUTROPHILS # (AUTO) 8.4 X 10^3 (1.8-7.8); NEUTROPHILS % (AUTO) 66 % (42-75); PLATELET COUNT 541 10^3/uL (130-400); RED BLOOD COUNT 2.91 10^6/uL (4.35-5.85); RED CELL DISTRIBUTION WIDTH 15.5 % (10.0-14.5); WHITE BLOOD COUNT 12.8 10^3/uL (4.3-11.0)
--- NOTE | 2016-05-09 10:40 | Occupational Ther Daily Note ---
OT Current Status-Daily Note Subjective Pt had just gotten back from X-ray and nrsg had given her pain meds. Pt agreed to therapy in room. Pt states that the pain meds are working. Mental Status/Objective Patient Orientation: Person, Place, Time, Situation Functional [place] Measure 0=Not Assessed/NA 4=Minimal Assistance 1=Total Assistance 5=Supervision or Setup 2=Maximal Assistance 6=Modified [place] 3=Moderate Assistance 7=Complete [place] ADL-Treatment Pt sitting up in recliner with feet elevated. Pt agrees to complete UE activities and exercises in room. Pt has decreased B shldr extension and required surface on lap to complete fine motor tasks. Pt completed fine motor tasks that promotes gross motor UE movements within pt's limits. Pt demonstrated ability to complete resistive hand exercises and coordination/ dexterity fine motor. Using 1# wt to complete bicep curls 3 sets 10 reps. Pt was able to complete 5 arm chair pushups throughout tx session using R hand and L elbow to relieve pressure from L hip. After therapy, nrsg present in room, call light/phone in reach. All needs met in room. Functional [place] Measure 0=Not Assessed/NA 4=Minimal Assistance 1=Total Assistance 5=Supervision or Setup 2=Maximal Assistance 6=Modified [place] 3=Moderate Assistance 7=Complete IndependenceIRFPAI Quality Coding Scale 6 Independent with activity with or without an assistive device 5 Patient requires set up or clean up by helper. Patient completes activity by themselves 4 Supervision or touching assist (CGA). [place] provide cues , steadying assist 3 The helper provides less than half the effort to complete the activity 2 The helper provides more than half the effort to complete the activity 1 Dependent. The helper does all the effort to complete an activity 7 Patient refused to complete or attempt activity 9 The patient did not perform the activity before the current illness or injury 88 Not attempted due to Medical conditions or safety concerns OT Short Term Goals Short Term Goals Time Frame: May 02, 2016 Bathing(FIM): 4 Lower Body Dressing(FIM): 4 Transfers (B,C,W/C) (FIM): 4 (met 05/01/16) Toilet/Commode Transfer(FIM): 4 Shower Transfer(FIM): 3 Additional Short Term Goals: 3-ImproveStrength/[place]cy 1=Demonstrate adherence to instructed precautions during ADL tasks. 2=Patient will verbalize/demonstrate understanding of assistive devices/ modifications for ADL. 3=Patient will improve strength/tolerance for activity to enable patient to perform ADL's. OT Clinical Product Specialist Goals Mcfp Goals Time Frame: May 09, 2016 Eating (FIM): 7 Eating (QC): 6 Groomin Oral Hygiene (QC): 6 Bathing(FIM): 6 Shower/Bathe Self (QC): 6 Upper Body Dressing(FIM): 6 Upper Body Dressing (QC): 6 Lower Body Dressing(FIM): 6 Lower Body Dressing (QC): 6 On/Off Footwear (QC): 6 Toileting(FIM): 6 Toileting Hygiene (QC): 6 Toilet/Commode Transfer(FIM): 6 Toilet/Commode Transfer (QC): 6 Shower Transfer(FIM): 6 Additional Goals: 2-Verbalize Understanding, 3-ImproveStrength/Percy (5/5 bilat elbows and distal) 1=Demonstrate adherence to instructed precautions during ADL tasks. 2=Patient will verbalize/demonstrate understanding of assistive devices/ modifications for ADL. 3=Patient will improve strength/tolerance for activity to enable patient to perform ADL's. OT Education/Plan Problem List/Assessment Pt would benefit from skilled OT to increase her independence in basic self care to allow her to safely return to her home with family support and to decrease caregiver burden. Discharge Recommendations Plan/Recommendations: Continue POC Treatment Plan/Plan of Care Patient would benefit from OT for education, treatment and training to promote independence in ADL's, mobility, safety and/or upper extremity function for ADL' s. Plan of Care: ADL Retraining, Functional Mobility, Group Exercise/Act as Ind ( education, exercise, activity tolerance, functional activities), UE Funct Exercise/Act, UE Neuromus Re-Ed/Coord Treatment Duration: May 16, 2016 Visits Per Week: 10-11 Minutes/Day (M-F): 75-90 Minutes/Day (Sat/Terrell): PRN Agreement: Yes Rehab Potential: Good Time/GCodes Start Time: 09:00 Stop Time: 10:30 Total Time Billed (hr/min): 90 Billed Treatment Time 1 visit-EX 6 (90 min) DEEPTHI MORRIS May 09, 2016 10:40
--- NOTE | 2016-05-09 11:40 | Physical Therapy Daily Note ---
PT Daily Note-Current Subjective Pt sitting in recliner with feet up upon arrival. Pt reports having received a laxative a little while ago and feels the need to use the restroom. Pt reports more pain when walking than any other time. Xray report came back okay and notified pt that nothing was found so could do PT. Pt agrees to PT. Pain Numeric Pain Scale: 8 Location: Left Location Body Site: Hip Pain Description: Ache, Tightness Mental Status Patient Orientation: Person, Place, Time, Situation Attachments: Oxygen Transfers Functional [place] Measure 0=Not Assessed/NA 4=Minimal Assistance 1=Total Assistance 5=Supervision or Setup 2=Maximal Assistance 6=Modified [place] 3=Moderate Assistance 7=Complete IndependenceIRFPAI Quality Coding Scale 6 Independent with activity with or without an assistive device 5 Patient requires set up or clean up by helper. Patient completes activity by themselves 4 Supervision or touching assist (CGA). [place] provide cues , steadying assist 3 The helper provides less than half the effort to complete the activity 2 The helper provides more than half the effort to complete the activity 1 Dependent. The helper does all the effort to complete an activity 7 Patient refused to complete or attempt activity 9 The patient did not perform the activity before the current illness or injury 88 Not attempted due to Medical conditions or safety concerns Scootin Rollin Roll Left to Right (QC): 5 Supine to/from Sit: 4 Sit to/from Stand: 4 Sit to Lying (QC): 4 Sit to Stand (QC): 4 Chair/Ofn-wh-Nbtfp Xfer(QC): 4 Bed to/from Chair: 4 Weight Bearing Weight Bearing Restriction: Weight Bearing/Tolerated Location Restriction: L LE Gait Training Does the Patient Walk?: Yes Distance (FIM): 1=up to 49 ft Distance: 30' Walk 10 feet (QC): 4 Gait Assistive Device: FWW Pt walks with antalgic gait pattern due to pain in L hip. Pt reports more pain when putting weight through LLE. Exercises Supine Ex: Ankle pumps, Quad Set, Heel Slides, Straight leg raise, Hip abd/add Supine Reps: 15 Treatments Pt transferred from recliner to standing at [facility] then ambulated to restroom using FWW at [facility]. Pt was able to mauro & doff pants for toileting. PT had received laxative and having BM. After using restroom, pt ambulated to bed to rest since having pain and sitting up in chair for extended time. Pt transferred standing to EOB at SBA then EOB to supine at Min A for assistance with getting legs to bed. Pt was positioned in bed. Pt then completed supine EX. Pt needed a couple of rest breaks due to legs fatiguing. Pt was left with all needs met at end of tx. Assessment Current Status: Fair Progress Pt is motivated to work and get stronger but fatigues easy and continues to report pain. Xray came back with no changes, stability is good. PT Short Term Goals Short Term Goals Time Frame: Apr 30, 2016 Transfers (B,C,W/C) (FIM): 4 (met 05/01/16) Gait (FIM): 1 (met 05/01/16) Gait Distance Comment: 20' Gait Level of Assist: 4 (min A) Gait Assistive Device: FWW Wheelchair Distance: 50' PT Meter Mechanic Goals Prison Goals PT Prison Goals Time Frame: May 14, 2016 Transfers (B,C,W/C) (FIM): 4 (CGA) Sit to Lying (QC): 4 Lying-Sitting on Side/Bed(QC): 4 Sit to Stand (QC): 4 Rollin Roll Left to Right (QC): 4 Chair/Clq-qr-Vgbix Xfer(QC): 4 Car Transfer (QC): 4 Gait (FIM): 4 Distance: 150' Walk 10 feet (QC): 4 Walk 10ft-Uneven Surface(QC): 4 Walk 50ft with 2 Turns (QC): 4 Walk 150 ft (QC): 4 Gait Level of Assist: 4 (CGA) Gait Assistive Device: FWW Stairs (FIM): 2 # of Steps: 4 1 Step (curb) (QC): 4 4 Steps (QC): 4 Stairs Level Of Assist: 4 Picking up an Object (QC): 88 PT Plan Problem List Problem List: Activity Tolerance, Functional Strength, Safety, Balance, Gait, Transfer Treatment/Plan Treatment Plan: Continue Plan of Care Treatment Plan: Bed Mobility, Education, Functional Activity Percy, Functional Strength, Group Therapy, Gait, Safety, Therapeutic Exercise, Transfers Treatment Duration: May 14, 2016 Visits Per Week: 10-11 Minutes/Day (M-F): 60-90 Minutes/Day (Sat/Terrell): 15-30 Safety Risks/Education Patient Education: Gait Training, Transfer Techniques, Correct Positioning, Safety Issues Teaching Recipient: Patient Teaching Methods: Discussion Response to Teaching: Verbalize Understanding Time/GCodes Time In: 1030 Time Out: 1130 Total Billed Treatment Time: 60 Total Billed Treatment visit, FA X2 (30m) & EX X2 (30m) MITCH SHI PTA May 09, 2016 11:40
--- NOTE | 2016-05-09 13:32 | Physical Therapy Daily Note ---
PT Daily Note-Current Subjective Patient states she is not feeling well but agrees to PT. Pain Numeric Pain Scale: 5-Moderate Pain Location: Left Location Body Site: Hip Pain Description: Pressure Mental Status Patient Orientation: Normal For Age Attachments: Oxygen Transfers Functional [place] Measure 0=Not Assessed/NA 4=Minimal Assistance 1=Total Assistance 5=Supervision or Setup 2=Maximal Assistance 6=Modified [place] 3=Moderate Assistance 7=Complete IndependenceIRFPAI Quality Coding Scale 6 Independent with activity with or without an assistive device 5 Patient requires set up or clean up by helper. Patient completes activity by themselves 4 Supervision or touching assist (CGA). [place] provide cues , steadying assist 3 The helper provides less than half the effort to complete the activity 2 The helper provides more than half the effort to complete the activity 1 Dependent. The helper does all the effort to complete an activity 7 Patient refused to complete or attempt activity 9 The patient did not perform the activity before the current illness or injury 88 Not attempted due to Medical conditions or safety concerns Transfers (B, C, W/C) (FIM): 4 Scootin Rollin Roll Left to Right (QC): 5 Supine to/from Sit: 5 Sit to/from Stand: 4 Sit to Lying (QC): 5 Sit to Stand (QC): 5 Weight Bearing Weight Bearing Restriction: Weight Bearing/Tolerated Location Restriction: L LE Gait Training Does the Patient Walk?: Yes Gait (FIM): 2 Distance (FIM): 8=837-98 ft Distance: 75' x 2 Gait Level of Assist: 4 Gait Persons Needed: 1 Gait Assistive Device: FWW CGA; steady gait sequence; antalgic gait sequence Exercises Supine Ex: Ankle pumps, Quad Set, Heel Slides Supine Reps: 10 Seated Therapy Exercises: Ankle pumps, Long arc quads, Hip flexion Seated Reps: 15 Assessment Patient tolerated treatment well and remains up in recliner with needs met. Patient progressing slowly with treatment. PT Short Term Goals Short Term Goals Time Frame: Apr 30, 2016 Transfers (B,C,W/C) (FIM): 4 (met 05/01/16) Gait (FIM): 1 (met 05/01/16) Gait Distance Comment: 20' Gait Level of Assist: 4 (min A) Gait Assistive Device: FWW Wheelchair Distance: 50' PT Mold Yard Worker Goals Jail Goals PT Jail Goals Time Frame: May 14, 2016 Transfers (B,C,W/C) (FIM): 4 (CGA) Sit to Lying (QC): 4 Lying-Sitting on Side/Bed(QC): 4 Sit to Stand (QC): 4 Rollin Roll Left to Right (QC): 4 Chair/Zxw-ox-Wpqcu Xfer(QC): 4 Car Transfer (QC): 4 Gait (FIM): 4 Distance: 150' Walk 10 feet (QC): 4 Walk 10ft-Uneven Surface(QC): 4 Walk 50ft with 2 Turns (QC): 4 Walk 150 ft (QC): 4 Gait Level of Assist: 4 (CGA) Gait Assistive Device: FWW Stairs (FIM): 2 # of Steps: 4 1 Step (curb) (QC): 4 4 Steps (QC): 4 Stairs Level Of Assist: 4 Picking up an Object (QC): 88 PT Plan Treatment/Plan Treatment Plan: Continue Plan of Care Treatment Plan: Bed Mobility, Education, Functional Activity Percy, Functional Strength, Group Therapy, Gait, Safety, Therapeutic Exercise, Transfers Treatment Duration: May 14, 2016 Visits Per Week: 10-11 Minutes/Day (M-F): 60-90 Minutes/Day (Sat/Terrell): 15-30 Time/GCodes Time In: 1300 Time Out: 1330 Total Billed Treatment Time: 30 Total Billed Treatment 1 visit GT 15 min EX 15 min RENAN LARA PT May 09, 2016 13:32
[2016-05-09 18:40] VITALS: BP 107/60
[2016-05-09] MEDS: AMITRIPTYLINE 150 MG (ELAVIL) TABLET PO SCH (20:03)
[2016-05-09] MEDS: ATORVASTATIN 40 MG (LIPITOR) TABLET PO SCH (20:03)
[2016-05-10] MEDS: oxyCODONE/APAP 5/325MG (PERCOCET 5) TABLET PO PRN ×5 (03:46→21:45)
[2016-05-10 05:05] VITALS: BP 113/70
[2016-05-10] MEDS: KCL 20 MEQ TAB (K-DUR) PO SCH ×3 (06:19→17:00)
[2016-05-10] MEDS: PANTOPRAZOLE 40 MG (PROTONIX) TAB PO SCH (06:19)
[2016-05-10] MEDS: LEVOTHYROXINE 150 MCG (LEVOTHROID) TAB PO SCH (06:19)
[2016-05-10] MEDS: MULTIVIT W/MINERALS TAB (THERAGRAN M) PO SCH (06:19)
[2016-05-10] MEDS: RT-ALBUTEROL/IPRATROPIUM 3 ML (DUONEB) VIAL INH SCH ×3 (06:45→19:56)
--- NOTE | 2016-05-10 08:25 | Physical Therapy Daily Note ---
PT Daily Note-Current Subjective PT sitting in chair. Reports her L hip is hurting too bad to walk. She says that they x rayed the hip yesterday. Rates 8/10. Agrees to LE exercise. Mental Status Patient Orientation: Normal For Age Attachments: Oxygen Transfers Functional [place] Measure 0=Not Assessed/NA 4=Minimal Assistance 1=Total Assistance 5=Supervision or Setup 2=Maximal Assistance 6=Modified [place] 3=Moderate Assistance 7=Complete IndependenceIRFPAI Quality Coding Scale 6 Independent with activity with or without an assistive device 5 Patient requires set up or clean up by helper. Patient completes activity by themselves 4 Supervision or touching assist (CGA). [place] provide cues , steadying assist 3 The helper provides less than half the effort to complete the activity 2 The helper provides more than half the effort to complete the activity 1 Dependent. The helper does all the effort to complete an activity 7 Patient refused to complete or attempt activity 9 The patient did not perform the activity before the current illness or injury 88 Not attempted due to Medical conditions or safety concerns Transfers (B, C, W/C) (FIM): 5 Scootin Supine to/from Sit: 5 Sit to/from Stand: 5 pt performed transfer at SBA level with assist to move O2 tubes and position bed. Exercises Supine Ex: Ankle pumps, Quad Set, Heel Slides, Short Arc Quads, Straight leg raise, Hip abd/add Supine Reps: 20 Performed both passive and active assist exercise for the (L) LE. 2 sets of 10 repetitions. Pt's primary limitation was pain running from the lateral hip to the knee. pain ranged 3/10 to 8/10. Assessment Pt x ray did not reveal any displacement of the (L) hip fx. Increased symptoms possibly a result of soft tissue inflammation from overuse. Treatment reduced this date to allow soft tissue recovery. Pt will benefit from continued therapy to work on function. PT Short Term Goals Short Term Goals Time Frame: Apr 30, 2016 Transfers (B,C,W/C) (FIM): 4 (met 05/01/16) Gait (FIM): 1 (met 05/01/16) Gait Distance Comment: 20' Gait Level of Assist: 4 (min A) Gait Assistive Device: FWW Wheelchair Distance: 50' PT Copy Worker Goals Copy Worker Goals PT Copy Worker Goals Time Frame: May 14, 2016 Transfers (B,C,W/C) (FIM): 4 (CGA) Sit to Lying (QC): 4 Lying-Sitting on Side/Bed(QC): 4 Sit to Stand (QC): 4 Rollin Roll Left to Right (QC): 4 Chair/Kog-uz-Ivssy Xfer(QC): 4 Car Transfer (QC): 4 Gait (FIM): 4 Distance: 150' Walk 10 feet (QC): 4 Walk 10ft-Uneven Surface(QC): 4 Walk 50ft with 2 Turns (QC): 4 Walk 150 ft (QC): 4 Gait Level of Assist: 4 (CGA) Gait Assistive Device: FWW Stairs (FIM): 2 # of Steps: 4 1 Step (curb) (QC): 4 4 Steps (QC): 4 Stairs Level Of Assist: 4 Picking up an Object (QC): 88 PT Plan Treatment/Plan Treatment Plan: Continue Plan of Care Treatment Plan: Bed Mobility, Education, Functional Activity Percy, Functional Strength, Group Therapy, Gait, Safety, Therapeutic Exercise, Transfers Treatment Duration: May 14, 2016 Visits Per Week: 10-11 Minutes/Day (M-F): 60-90 Minutes/Day (Sat/Terrell): 15-30 Time/GCodes Time In: 800 Time Out: 815 Total Billed Treatment Time: 15 Total Billed Treatment visit, exercise 15 min LADAN PRICE PT May 10, 2016 08:25
[2016-05-10] MEDS: DILTIAZEM 240 MG (CARDIZEM CD) CAP PO SCH (08:28)
[2016-05-10] MEDS: LABETALOL 200 MG (NORMODYNE) TAB PO SCH ×2 (08:28→20:18)
[2016-05-10] MEDS: TORSEMIDE 20 MG (DEMADEX) TAB PO SCH (08:28)
[2016-05-10] MEDS: VITAMIN D3 5,000 UNITS (CHOLECALCIFEROL ) CAPSULE PO SCH (08:28)
[2016-05-10] MEDS: guaiFENesin (MUCINEX) 600 MG TAB PO SCH ×2 (08:28→20:17)
[2016-05-10] MEDS: CYANOCOBALAMIN 500 MCG TAB (VITAMIN B-12) PO SCH (08:29)
[2016-05-10] MEDS: DOCUSATE SODIUM 100 MG (COLACE) CAP PO SCH ×2 (08:35→20:16)
[2016-05-10] MEDS: SENNOSIDES 8.6 MG (SENOKOT) TAB PO SCH ×2 (08:36→20:17)
[2016-05-10] MEDS: POLYETHYLENE GLYCOL 17 GM (MIRALAX) PACK PO SCH ×2 (08:36→20:16)
[2016-05-10] MEDS: LACTULOSE SYRUP 10GM/15ML (ENULOSE) 30ML UDC PO SCH ×2 (08:36→20:16)
[2016-05-10 18:30] VITALS: BP 103/52
[2016-05-10] MEDS: ATORVASTATIN 40 MG (LIPITOR) TABLET PO SCH (20:17)
[2016-05-10] MEDS: AMITRIPTYLINE 150 MG (ELAVIL) TABLET PO SCH (20:17)
[2016-05-11] MEDS: oxyCODONE/APAP 5/325MG (PERCOCET 5) TABLET PO PRN ×4 (03:33→19:23)
[2016-05-11 05:17] VITALS: BP 105/56
[2016-05-11] MEDS: KCL 20 MEQ TAB (K-DUR) PO SCH ×2 (05:54→16:39)
[2016-05-11] MEDS: LEVOTHYROXINE 150 MCG (LEVOTHROID) TAB PO SCH (06:18)
[2016-05-11] MEDS: MULTIVIT W/MINERALS TAB (THERAGRAN M) PO SCH (06:18)
[2016-05-11] MEDS: PANTOPRAZOLE 40 MG (PROTONIX) TAB PO SCH (06:18)
[2016-05-11] MEDS: RT-ALBUTEROL/IPRATROPIUM 3 ML (DUONEB) VIAL INH SCH ×3 (07:21→19:56)
[2016-05-11] MEDS: TORSEMIDE 20 MG (DEMADEX) TAB PO SCH (08:39)
[2016-05-11] MEDS: DOCUSATE SODIUM 100 MG (COLACE) CAP PO SCH ×2 (08:39→19:52)
[2016-05-11] MEDS: LABETALOL 200 MG (NORMODYNE) TAB PO SCH ×2 (08:39→19:53)
[2016-05-11] MEDS: DILTIAZEM 240 MG (CARDIZEM CD) CAP PO SCH (08:39)
[2016-05-11] MEDS: VITAMIN D3 5,000 UNITS (CHOLECALCIFEROL ) CAPSULE PO SCH (08:39)
[2016-05-11] MEDS: guaiFENesin (MUCINEX) 600 MG TAB PO SCH ×2 (08:39→19:52)
[2016-05-11] MEDS: SENNOSIDES 8.6 MG (SENOKOT) TAB PO SCH ×2 (08:40→19:52)
[2016-05-11] MEDS: CYANOCOBALAMIN 500 MCG TAB (VITAMIN B-12) PO SCH (08:40)
[2016-05-11] MEDS ORDERED: DICLOFENAC 1% GEL 100 GM (VOLTAREN) TUBE TOP PRN (08:45)
[2016-05-11 08:55] VITALS: BP 109/47
[2016-05-11] MEDS: POLYETHYLENE GLYCOL 17 GM (MIRALAX) PACK PO SCH ×2 (09:05→19:53)
[2016-05-11] MEDS: LACTULOSE SYRUP 10GM/15ML (ENULOSE) 30ML UDC PO SCH ×2 (09:05→19:53)
[2016-05-11 16:43] VITALS: BP 119/60
[2016-05-11] MEDS: AMITRIPTYLINE 150 MG (ELAVIL) TABLET PO SCH (19:52)
[2016-05-11] MEDS: ATORVASTATIN 40 MG (LIPITOR) TABLET PO SCH (19:52)
[2016-05-12] MEDS: oxyCODONE/APAP 5/325MG (PERCOCET 5) TABLET PO PRN ×5 (04:41→20:27)
[2016-05-12 05:11] VITALS: BP 128/59
[2016-05-12] MEDS: MULTIVIT W/MINERALS TAB (THERAGRAN M) PO SCH ×2 (06:33→06:39)
[2016-05-12] MEDS: LEVOTHYROXINE 150 MCG (LEVOTHROID) TAB PO SCH (06:33)
[2016-05-12] MEDS: PANTOPRAZOLE 40 MG (PROTONIX) TAB PO SCH (06:33)
[2016-05-12] MEDS: KCL 20 MEQ TAB (K-DUR) PO SCH ×3 (06:33→16:41)
[2016-05-12] MEDS: RT-ALBUTEROL/IPRATROPIUM 3 ML (DUONEB) VIAL INH SCH ×3 (06:35→20:57)
[2016-05-12] MEDS: DILTIAZEM 240 MG (CARDIZEM CD) CAP PO SCH (08:32)
[2016-05-12] MEDS: LACTULOSE SYRUP 10GM/15ML (ENULOSE) 30ML UDC PO SCH ×2 (08:32→20:26)
[2016-05-12] MEDS: DOCUSATE SODIUM 100 MG (COLACE) CAP PO SCH ×2 (08:32→20:26)
[2016-05-12] MEDS: VITAMIN D3 5,000 UNITS (CHOLECALCIFEROL ) CAPSULE PO SCH (08:33)
[2016-05-12] MEDS: LABETALOL 200 MG (NORMODYNE) TAB PO SCH ×2 (08:33→20:26)
[2016-05-12] MEDS: TORSEMIDE 20 MG (DEMADEX) TAB PO SCH (08:33)
[2016-05-12] MEDS: SENNOSIDES 8.6 MG (SENOKOT) TAB PO SCH ×2 (08:33→20:26)
[2016-05-12] MEDS: CYANOCOBALAMIN 500 MCG TAB (VITAMIN B-12) PO SCH (08:33)
[2016-05-12] MEDS: guaiFENesin (MUCINEX) 600 MG TAB PO SCH ×2 (08:33→20:26)
[2016-05-12] MEDS: POLYETHYLENE GLYCOL 17 GM (MIRALAX) PACK PO SCH ×2 (08:34→20:26)
--- NOTE | 2016-05-12 09:01 | Physical Therapy Daily Note ---
PT Daily Note-Current Subjective Pt sitting in recliner upon arrival. Pt reports pain of 10/10 to nursing at beginning of tx. Nursing gives pain meds and pt agrees to PT. Pain Numeric Pain Scale: 10-Worst Possible Pain Location: Left, Lateral, Dorsal Location Body Site: Back Pain Description: Ache, Tightness Comment: Pt reports pain in low back & LLE Mental Status Patient Orientation: Person, Place, Time, Situation Attachments: Oxygen Transfers Functional [place] Measure 0=Not Assessed/NA 4=Minimal Assistance 1=Total Assistance 5=Supervision or Setup 2=Maximal Assistance 6=Modified [place] 3=Moderate Assistance 7=Complete IndependenceIRFPAI Quality Coding Scale 6 Independent with activity with or without an assistive device 5 Patient requires set up or clean up by helper. Patient completes activity by themselves 4 Supervision or touching assist (CGA). [place] provide cues , steadying assist 3 The helper provides less than half the effort to complete the activity 2 The helper provides more than half the effort to complete the activity 1 Dependent. The helper does all the effort to complete an activity 7 Patient refused to complete or attempt activity 9 The patient did not perform the activity before the current illness or injury 88 Not attempted due to Medical conditions or safety concerns Scootin Rollin Roll Left to Right (QC): 5 Supine to/from Sit: 5 Sit to/from Stand: 5 Sit to Lying (QC): 5 Sit to Stand (QC): 5 Chair/Fnz-ng-Cdbbk Xfer(QC): 5 Bed to/from Chair: 5 Car Transfer (QC): 5 Pt completed stimulated car transfer in [facility] due to rain today and unsafe for pt to attempt outside. Weight Bearing Weight Bearing Restriction: Full Weight Bearing Location Restriction: LE Bilateral Gait Training Does the Patient Walk?: Yes Distance (FIM): 3=150 ft Distance: 150' Walk 10 feet (QC): 5 Walk 50 ft with 2 Turns(QC): 4 Walk 150 ft (QC): 4 Walking 10ft/uneven surface-QC: 4 Gait Level of Assist: 4 Gait Persons Needed: 1 Gait Assistive Device: FWW Pt walks with antalgic gait pattern. Pt walks with slight Trendelenburg on R side. Pt continues to have weak rotary filter operator strength on RUE. Wheelchair Training Does the Pt Use a Wheelchair?: No Stair Training Stairs (FIM): 88 1 Step (curb) (QC): 88 4 Steps (QC): 88 12 Steps (QC): 88 Pt does not have LE strength to ambulate stairs safely. Treatments Pt transferred sit to stand from recliner using FWW at SBA. Pt ambulated in [facility] using FWW at [facility] due to weakness on R side. Pt ambulated to [facility] to complete transfer practice at mat. Pt transferred stand to sit to supine at SBA. Pt then rolled side to side at SBA with slight extra effort. Pt then transferred supine to EOB to standing at SBA using FWW to stand. Pt then ambulated back towards room for rest. Pt transferred back to recliner at SBA to rest and await OT for shower. Pt was left with all needs met at end of tx. Assessment Current Status: Good Progress Pt is improving with activity tolerance and strength. Pt doesn't need rest breaks as frequently but continues to c/o pain in both low back and LLE. Pt reports pain meds help decrease pain but doesn't completely go away. PT Short Term Goals Short Term Goals Time Frame: Apr 30, 2016 Transfers (B,C,W/C) (FIM): 4 (met 05/01/16) Gait (FIM): 1 (met 05/01/16) Gait Distance Comment: 20' Gait Level of Assist: 4 (min A) Gait Assistive Device: FWW Wheelchair Distance: 50' PT Intermediate Goals Meter Calibrator Goals PT Intermediate Goals Time Frame: May 14, 2016 Transfers (B,C,W/C) (FIM): 4 (CGA) Sit to Lying (QC): 4 Lying-Sitting on Side/Bed(QC): 4 Sit to Stand (QC): 4 Rollin Roll Left to Right (QC): 4 Chair/Ikc-go-Gusfj Xfer(QC): 4 Car Transfer (QC): 4 Gait (FIM): 4 Distance: 150' Walk 10 feet (QC): 4 Walk 10ft-Uneven Surface(QC): 4 Walk 50ft with 2 Turns (QC): 4 Walk 150 ft (QC): 4 Gait Level of Assist: 4 (CGA) Gait Assistive Device: FWW Stairs (FIM): 2 # of Steps: 4 1 Step (curb) (QC): 4 4 Steps (QC): 4 Stairs Level Of Assist: 4 Picking up an Object (QC): 88 PT Plan Problem List Problem List: Functional Strength, Safety, Balance, Gait Treatment/Plan Treatment Plan: Continue Plan of Care Treatment Plan: Bed Mobility, Education, Functional Activity Percy, Functional Strength, Group Therapy, Gait, Safety, Therapeutic Exercise, Transfers Treatment Duration: May 14, 2016 Visits Per Week: 10-11 Minutes/Day (M-F): 60-90 Minutes/Day (Sat/Terrell): 15-30 Safety Risks/Education Patient Education: Gait Training, Correct Positioning, Safety Issues Teaching Recipient: Patient Teaching Methods: Discussion Response to Teaching: Verbalize Understanding Time/GCodes Time In: 815 Time Out: 900 Total Billed Treatment Time: 45 Total Billed Treatment visit, GT (15m) & FA X2 (30m) MITCH SHI PTA May 12, 2016 09:01
--- NOTE | 2016-05-12 10:37 | Occupational Ther Daily Note ---
OT Current Status-Daily Note Subjective Pt alert, sitting in recliner. Pt agreed to therapy. Pt had taken pain medication before therapy. Pt states that back hurt. Mental Status/Objective Patient Orientation: Person, Time, Situation Functional [place] Measure 0=Not Assessed/NA 4=Minimal Assistance 1=Total Assistance 5=Supervision or Setup 2=Maximal Assistance 6=Modified [place] 3=Moderate Assistance 7=Complete [place] Attachments: Oxygen ADL-Treatment Functional [place] Measure 0=Not Assessed/NA 4=Minimal Assistance 1=Total Assistance 5=Supervision or Setup 2=Maximal Assistance 6=Modified [place] 3=Moderate Assistance 7=Complete IndependenceIRFPAI Quality Coding Scale 6 Independent with activity with or without an assistive device 5 Patient requires set up or clean up by helper. Patient completes activity by themselves 4 Supervision or touching assist (CGA). [place] provide cues , steadying assist 3 The helper provides less than half the effort to complete the activity 2 The helper provides more than half the effort to complete the activity 1 Dependent. The helper does all the effort to complete an activity 7 Patient refused to complete or attempt activity 9 The patient did not perform the activity before the current illness or injury 88 Not attempted due to Medical conditions or safety concerns Eating (FIM): 6 (Pt is able to open packages and containers then use regular utensils to eat with. Dentures) Eating (QC): 6 (Pt is able to open packages and containers then use regular utensils to eat with. Dentures) Grooming (FIM): 6 (Using FWW, pt stands at sink to complete grooming.) Oral Hygiene (QC): 6 (Using FWW, pt stands at sink for oral hygiene.) Toileting Hygiene (QC): 6 (Pt is able to manipulate clothing and cleanse self using FWW and grabbars.) Bathing (FIM): 6 (Using grabbar, shower bench and hand held shower pt is able to complete own bathing.) Shower/Bathe Self (QC): 6 (Using grabbar, shower bench and hand held shower pt is able to complete own bathing.) Upper Body (FIM): 6 (Using FWW, pt is able to retrieve clothing from closet, transport to bathroom and then don/doff upper body clothing by self.) Upper Body Dressing (QC): 6 (Using FWW, pt is able to retrieve clothing from closet, transport to bathroom and then don/doff upper body clothing by self.) Lower Body Dressing (FIM): 6 (Using FWW, pt is able to retrieve clothing from closet, transport to bathroom and then don/doff lower body clothing by self. Uses sock aide to don socks.) Lower Body Dressing (QC): 6 (Using FWW, pt is able to retrieve clothing from closet, transport to bathroom and then don/doff lower body clothing by self. Uses sock aide to don socks.) On/Off Footwear (QC): 6 (Using AE, pt is able to don/doff footwear.) Toileting (FIM): 6 (Pt is able to manipulate clothing and cleanse self using FWW and grabbars.) Transfers (B, C, W/C) (FIM): 6 (Using FWW, pt is able to complete transfers.) Toilet/Commode Transfer (FIM): 6 (Using FWW and grabbars, pt is able to complete transfer.) Toilet Transfer (QC): 6 (Using FWW and grabbars, pt is able to complete transfer.) Shower Transfer(FIM): 6 (Using FWW, shower bench and grabbars, pt is able to complete transfer.) Pt ambulated to and from bathroom with FWW. After therapy, pt sitting in recliner with feet elevated. Call light/phone in reach. O2 in place, all needs met in room. OT Short Term Goals Short Term Goals Time Frame: May 02, 2016 Bathing(FIM): 4 Lower Body Dressing(FIM): 4 Transfers (B,C,W/C) (FIM): 4 (met 05/01/16) Toilet/Commode Transfer(FIM): 4 Shower Transfer(FIM): 3 Additional Short Term Goals: 3-ImproveStrength/Percy 1=Demonstrate adherence to instructed precautions during ADL tasks. 2=Patient will verbalize/demonstrate understanding of assistive devices/ modifications for ADL. 3=Patient will improve strength/tolerance for activity to enable patient to perform ADL's. OT International Account Representative Goals Intermediate Goals Time Frame: May 09, 2016 Eating (FIM): 7 Eating (QC): 6 (met-05/12/16) Groomin (met-05/12/16) Oral Hygiene (QC): 6 (met-05/12/16) Bathing(FIM): 6 (met-05/12/16) Shower/Bathe Self (QC): 6 (met-05/12/16) Upper Body Dressing(FIM): 6 (met-05/12/16) Upper Body Dressing (QC): 6 (met-05/12/16) Lower Body Dressing(FIM): 6 (met-05/12/16) Lower Body Dressing (QC): 6 (met-05/12/16) On/Off Footwear (QC): 6 (met-05/12/16) Toileting(FIM): 6 (met-05/12/16) Toileting Hygiene (QC): 6 (met-05/12/16) Toilet/Commode Transfer(FIM): 6 (met-05/12/16) Toilet/Commode Transfer (QC): 6 (met-05/12/16) Shower Transfer(FIM): 6 (met-05/12/16) Additional Goals: 2-Verbalize Understanding, 3-ImproveStrength/Percy (5/5 bilat elbows and distal) 1=Demonstrate adherence to instructed precautions during ADL tasks. 2=Patient will verbalize/demonstrate understanding of assistive devices/ modifications for ADL. 3=Patient will improve strength/tolerance for activity to enable patient to perform ADL's. OT Education/Plan Problem List/Assessment Pt would benefit from skilled OT to increase her independence in basic self care to allow her to safely return to her home with family support and to decrease caregiver burden. Discharge Recommendations Plan/Recommendations: Continue POC Treatment Plan/Plan of Care Patient would benefit from OT for education, treatment and training to promote independence in ADL's, mobility, safety and/or upper extremity function for ADL' s. Plan of Care: ADL Retraining, Functional Mobility, Group Exercise/Act as Ind ( education, exercise, activity tolerance, functional activities), UE Funct Exercise/Act, UE Neuromus Re-Ed/Coord Treatment Duration: May 16, 2016 Visits Per Week: 10-11 Minutes/Day (M-F): 75-90 Minutes/Day (Sat/Terrell): PRN Agreement: Yes Rehab Potential: Good Time/GCodes Start Time: :00 Stop Time: 10:30 Total Time Billed (hr/min): 90 Billed Treatment Time 1 visit-ADL 6 (90 min) DEEPTHI MORRIS May 12, 2016 10:37
--- NOTE | 2016-05-12 13:05 | Physical Therapy Daily Note ---
PT Daily Note-Current Subjective Pt reports that pain is down to 8/10 after pain meds started working this morning. Pt is in recliner upon arrival and agrees to PT. Pain Numeric Pain Scale: 8 Location: Dorsal Location Body Site: Back Pain Description: Ache Mental Status Patient Orientation: Person, Place, Time, Situation Attachments: Oxygen Transfers Functional [place] Measure 0=Not Assessed/NA 4=Minimal Assistance 1=Total Assistance 5=Supervision or Setup 2=Maximal Assistance 6=Modified [place] 3=Moderate Assistance 7=Complete IndependenceIRFPAI Quality Coding Scale 6 Independent with activity with or without an assistive device 5 Patient requires set up or clean up by helper. Patient completes activity by themselves 4 Supervision or touching assist (CGA). [place] provide cues , steadying assist 3 The helper provides less than half the effort to complete the activity 2 The helper provides more than half the effort to complete the activity 1 Dependent. The helper does all the effort to complete an activity 7 Patient refused to complete or attempt activity 9 The patient did not perform the activity before the current illness or injury 88 Not attempted due to Medical conditions or safety concerns Exercises Seated Therapy Exercises: Ankle pumps, Long arc quads, Hip flexion, Kicking activity Seated Reps: 15 Treatments Pt completed seated EX at recliner to work on strengthening. Pt took one short rest break to rest legs and help with pain flare ups. Pt left in recliner with all needs met at end of tx. Pt's daughter to arrive shortly to have lunch with pt. Assessment Current Status: Fair Progress Pt is motivated to get better and get home although continues to have pain that stays rather high even if pain meds and rest. PT Short Term Goals Short Term Goals Time Frame: Apr 30, 2016 Transfers (B,C,W/C) (FIM): 4 (met 05/01/16) Gait (FIM): 1 (met 05/01/16) Gait Distance Comment: 20' Gait Level of Assist: 4 (min A) Gait Assistive Device: FWW Wheelchair Distance: 50' PT Jail Goals Glass Blowing Lathe Operator Goals PT Jail Goals Time Frame: May 14, 2016 Transfers (B,C,W/C) (FIM): 4 (CGA) Sit to Lying (QC): 4 Lying-Sitting on Side/Bed(QC): 4 Sit to Stand (QC): 4 Rollin Roll Left to Right (QC): 4 Chair/Ogl-ed-Qtvpy Xfer(QC): 4 Car Transfer (QC): 4 Gait (FIM): 4 Distance: 150' Walk 10 feet (QC): 4 Walk 10ft-Uneven Surface(QC): 4 Walk 50ft with 2 Turns (QC): 4 Walk 150 ft (QC): 4 Gait Level of Assist: 4 (CGA) Gait Assistive Device: FWW Stairs (FIM): 2 # of Steps: 4 1 Step (curb) (QC): 4 4 Steps (QC): 4 Stairs Level Of Assist: 4 Picking up an Object (QC): 88 PT Plan Problem List Problem List: Activity Tolerance, Functional Strength, Gait Treatment/Plan Treatment Plan: Continue Plan of Care Treatment Plan: Bed Mobility, Education, Functional Activity Percy, Functional Strength, Group Therapy, Gait, Safety, Therapeutic Exercise, Transfers Treatment Duration: May 14, 2016 Visits Per Week: 10-11 Minutes/Day (M-F): 60-90 Minutes/Day (Sat/Terrell): 15-30 Safety Risks/Education Patient Education: Correct Positioning, Safety Issues Teaching Recipient: Patient Teaching Methods: Discussion Response to Teaching: Verbalize Understanding Time/GCodes Time In: 1110 Time Out: 1125 Total Billed Treatment Time: 15 Total Billed Treatment visit, EX (15m) MITCH SHI PTA May 12, 2016 13:05
--- NOTE | 2016-05-12 14:58 | Physical Therapy Daily Note ---
PT Daily Note-Current Subjective Pt was sitting in recliner upon arrival. Pt reports pain at 8/10 in low back and L knee. Pt agrees to PT. Pain Numeric Pain Scale: 8 Location: Left, Lower Location Body Site: Back Pain Description: Ache Comment: Pt has pain in low back & L thigh/knee Mental Status Patient Orientation: Person, Place, Time, Situation Attachments: Oxygen Transfers Functional [place] Measure 0=Not Assessed/NA 4=Minimal Assistance 1=Total Assistance 5=Supervision or Setup 2=Maximal Assistance 6=Modified [place] 3=Moderate Assistance 7=Complete IndependenceIRFPAI Quality Coding Scale 6 Independent with activity with or without an assistive device 5 Patient requires set up or clean up by helper. Patient completes activity by themselves 4 Supervision or touching assist (CGA). [place] provide cues , steadying assist 3 The helper provides less than half the effort to complete the activity 2 The helper provides more than half the effort to complete the activity 1 Dependent. The helper does all the effort to complete an activity 7 Patient refused to complete or attempt activity 9 The patient did not perform the activity before the current illness or injury 88 Not attempted due to Medical conditions or safety concerns Transfers (B, C, W/C) (FIM): 5 Scootin Rollin Roll Left to Right (QC): 5 Supine to/from Sit: 5 Sit to/from Stand: 5 Sit to Lying (QC): 5 Sit to Stand (QC): 5 Chair/Mug-fa-Aljsv Xfer(QC): 5 Bed to/from Chair: 5 Car Transfer (QC): 5 Weight Bearing Weight Bearing Restriction: Full Weight Bearing Location Restriction: LE Bilateral Gait Training Does the Patient Walk?: Yes Gait (FIM): 5 Distance (FIM): 3=150 ft Distance: 150' Walk 10 feet (QC): 5 Walk 50 ft with 2 Turns(QC): 5 Walk 150 ft (QC): 5 Walking 10ft/uneven surface-QC: 5 Gait Level of Assist: 5 Gait Persons Needed: 1 Gait Assistive Device: FWW Pt has weakness on R side and pain on LLE so pt walks with a slight Trendelenburg and antalgic gait pattern. Wheelchair Training Does the Pt Use a Wheelchair?: No Exercises NuStep Minutes: 20 NuStep Workload: 3 Treatments Pt transfers from recliner to standing using FWW at [facility]. Pt ambulates to Therapy Gym using FWW at [facility]. Pt transfers to NuStep at [facility]. Pt uses NuStep for 20m at Workload 3. Pt then takes short rest before transferring to standing from [place] using FWW at [facility]. Pt ambulates back to room and rest in recliner with feet up. Pt has all needs met at end of tx. Assessment Current Status: Good Progress Pt continues to have pain but has improved with mobility and transfers. PT Short Term Goals Short Term Goals Time Frame: Apr 30, 2016 Transfers (B,C,W/C) (FIM): 4 (met 05/01/16) Gait (FIM): 1 (met 05/01/16) Gait Distance Comment: 20' Gait Level of Assist: 4 (min A) Gait Assistive Device: FWW Wheelchair Distance: 50' PT Intermediate Goals Intermediate Goals PT Intermediate Goals Time Frame: May 14, 2016 Transfers (B,C,W/C) (FIM): 4 (CGA) Sit to Lying (QC): 4 Lying-Sitting on Side/Bed(QC): 4 Sit to Stand (QC): 4 Rollin Roll Left to Right (QC): 4 Chair/Def-rw-Rjuhm Xfer(QC): 4 Car Transfer (QC): 4 Gait (FIM): 4 Distance: 150' Walk 10 feet (QC): 4 Walk 10ft-Uneven Surface(QC): 4 Walk 50ft with 2 Turns (QC): 4 Walk 150 ft (QC): 4 Gait Level of Assist: 4 (CGA) Gait Assistive Device: FWW Stairs (FIM): 2 # of Steps: 4 1 Step (curb) (QC): 4 4 Steps (QC): 4 Stairs Level Of Assist: 4 Picking up an Object (QC): 88 PT Plan Problem List Problem List: Activity Tolerance, Functional Strength, Gait Treatment/Plan Treatment Plan: Continue Plan of Care Treatment Plan: Bed Mobility, Education, Functional Activity Percy, Functional Strength, Group Therapy, Gait, Safety, Therapeutic Exercise, Transfers Treatment Duration: May 14, 2016 Visits Per Week: 10-11 Minutes/Day (M-F): 60-90 Minutes/Day (Sat/Terrell): 15-30 Safety Risks/Education Patient Education: Gait Training, Transfer Techniques, Correct Positioning, Safety Issues Teaching Recipient: Patient Teaching Methods: Discussion Response to Teaching: Verbalize Understanding Time/GCodes Time In: 1400 Time Out: 1430 Total Billed Treatment Time: 30 Total Billed Treatment visit, GT (10m) & EX (20m) MITCH SHI PTA May 12, 2016 14:58
[2016-05-12 18:00] VITALS: BP 115/56
--- NOTE | 2016-05-12 19:25 | PM & R (SOAP) Progress Note ---
Subjective Subjective/Events-last exam Patient was seen in her room earlier today Patient SBA for transfers Objective Exam Last Set of Vital Signs Vital Signs Date Time Temp Pulse Resp B/P Pulse Ox O2 Delivery O2 Flow Rate FiO2 05/12/16 18:00 98.9 77 18 115/56 96 05/12/16 16:55 3.00 05/12/16 09:00 Nasal Cannula Capillary Refill : Less Than 3 Seconds I&O Intake and Output 05/11/16 23:59 Intake Total 1630 ml Balance 1630 ml Intake Oral 1630 ml # Voids 7 General: Alert, Oriented X3, Cooperative, No Acute Distress HEENT: Atraumatic, PERRLA, EOMI, Mucous Memb Moist/[place] Neck: Supple, No JVD Lungs: Clear to Auscultation Heart: Regular Rate Abdomen: Normal Bowel Sounds, Soft, No Tenderness Extremities: No Edema, Other (left hip swollen and tender with leg length discrepancy) Neuro: Other (weakness on right as compared to left with limited AROM both shoulders with hx of prox left hum frx s/p repair Dr Jiménez as a result of prior fall) Results Lab Microbiology 04/26/16 Gram Stain - Final, Complete 04/26/16 Sputum Culture - Final, Complete Gram Negative Josafat Assessment/Plan Assessment nondisplaced intertrochanteric frx left hip s/p repair Ortho-now with increased pain as per above Postop anemia s/p transfusion earlier on rehab stay Anemia of chronic d Post polio syndrome with residual weakness Rt side prior fall with limited ROM left shoulder s/p repair prox humerus frx Hypoalbuminemia Chronic constipation COPD with recurrent pneumonias HX of pseudomonas UTI Leukocytosis-trending now improving Plan Continue PT/OT/Pain management F/U Labs-done F/U with Dr Looney and ortho and PULM as per their schedule Current labs noted-will recheck CBC-See orders-done Appreciate Dr Willson note Current meds and labs reviewed Discharge set for tomorrow tentatively-Will confirm with SW in AM HIRA CHATMAN MD May 12, 2016 19:25
[2016-05-12] MEDS: ATORVASTATIN 40 MG (LIPITOR) TABLET PO SCH (20:26)
[2016-05-12] MEDS: AMITRIPTYLINE 150 MG (ELAVIL) TABLET PO SCH (20:26)
[2016-05-13] MEDS: oxyCODONE/APAP 5/325MG (PERCOCET 5) TABLET PO PRN ×2 (02:27→08:45)
[2016-05-13 05:11] VITALS: BP 102/61
[2016-05-13] MEDS: PANTOPRAZOLE 40 MG (PROTONIX) TAB PO SCH (06:25)
[2016-05-13] MEDS: KCL 20 MEQ TAB (K-DUR) PO SCH (06:26)
[2016-05-13] MEDS: LEVOTHYROXINE 150 MCG (LEVOTHROID) TAB PO SCH (06:26)
[2016-05-13] MEDS: MULTIVIT W/MINERALS TAB (THERAGRAN M) PO SCH (06:26)
[2016-05-13] MEDS: TORSEMIDE 20 MG (DEMADEX) TAB PO SCH (08:44)
[2016-05-13] MEDS: DOCUSATE SODIUM 100 MG (COLACE) CAP PO SCH (08:44)
[2016-05-13] MEDS: VITAMIN D3 5,000 UNITS (CHOLECALCIFEROL ) CAPSULE PO SCH (08:44)
[2016-05-13] MEDS: LABETALOL 200 MG (NORMODYNE) TAB PO SCH (08:44)
[2016-05-13] MEDS: CYANOCOBALAMIN 500 MCG TAB (VITAMIN B-12) PO SCH (08:44)
[2016-05-13] MEDS: DILTIAZEM 240 MG (CARDIZEM CD) CAP PO SCH (08:44)
[2016-05-13] MEDS: guaiFENesin (MUCINEX) 600 MG TAB PO SCH (08:44)
[2016-05-13] MEDS: SENNOSIDES 8.6 MG (SENOKOT) TAB PO SCH (08:44)
[2016-05-13] MEDS: LACTULOSE SYRUP 10GM/15ML (ENULOSE) 30ML UDC PO SCH (08:45)
[2016-05-13] MEDS: POLYETHYLENE GLYCOL 17 GM (MIRALAX) PACK PO SCH (08:45)
--- NOTE | 2016-05-13 09:22 | PM & R (SOAP) Progress Note ---
Subjective Subjective/Events-last exam Patient was seen in her room this AM Has progressed well Current meds reviewed Objective Exam Last Set of Vital Signs Vital Signs Date Time Temp Pulse Resp B/P Pulse Ox O2 Delivery O2 Flow Rate FiO2 05/13/16 05:11 96.6 66 20 102/61 99 Nasal Cannula 3.00 Capillary Refill : Less Than 3 Seconds I&O Intake and Output 05/13/16 00:00 Intake Total 1520 ml Balance 1520 ml Intake Oral 1520 ml # Voids 4 # Bowel Movements 1 General: Alert, Oriented X3, Cooperative, No Acute Distress HEENT: Atraumatic, PERRLA, EOMI, Mucous Memb Moist/[place] Neck: Supple, No JVD Lungs: Clear to Auscultation Heart: Regular Rate Abdomen: Normal Bowel Sounds, Soft, No Tenderness Extremities: No Edema, Other (left hip swollen and tender with leg length discrepancy) Neuro: Other (weakness on right as compared to left with limited AROM both shoulders with hx of prox left hum frx s/p repair Dr Jiménez as a result of prior fall) Results Lab Microbiology 04/26/16 Gram Stain - Final, Complete 04/26/16 Sputum Culture - Final, Complete Gram Negative Josafat Assessment/Plan Assessment nondisplaced intertrochanteric frx left hip s/p repair Ortho-now with increased pain as per above Postop anemia s/p transfusion earlier on rehab stay Anemia of chronic d Post polio syndrome with residual weakness Rt side prior fall with limited ROM left shoulder s/p repair prox humerus frx Hypoalbuminemia Chronic constipation COPD with recurrent pneumonias HX of pseudomonas UTI Leukocytosis-trending now improving Plan Discharge today to home with family and HHC F/U with PCP DR Abraham and Orthopedics See orders HIRA CHATMAN MD May 13, 2016 09:22
[2016-05-13] MEDS ORDERED: TORS20TA3 PO (09:28)
[2016-05-13] MEDS ORDERED: OXYC-471 PO (09:28)
[2016-05-13] MEDS ORDERED: LABE200T3 PO (09:28)
[2016-05-13] MEDS: RT-ALBUTEROL/IPRATROPIUM 3 ML (DUONEB) VIAL INH SCH (10:15)
--- NOTE | 2016-05-13 10:16 | Therapy Team Discharge Summary ---
Therapy Discharge Summary Discharge Recommendations Date of Discharge Therapy D/C Recommendations: Home w/ Family Support, Occupational Therapy Home Care, Scheduled Assistance Occupational Therapy Pt was seen for skilled OT to increase her independence in basic self care to allow her to safely return to her home after repaired hip fx. Pt's independence complicated by polio as a child and post polio syndrome. On admission pt was unable to complete a shower transfer, required max assist with toilet transfer and lower body dressing, mod assist with toileting and bathing and setup for eating, grooming and upper body dressing. By discharge she had progressed to being modified independent with all basic ADLs and will be going back to her own home, with family support. Equipment used included FWW, sock aid, dressing stick, BSC over toilet, shower bench, grab bars, and hand held shower. Pt does not need additional equipment for home. Home health OT is recommended. See tx plan for goals met. DC OT PT Mcfp Goals Mcfp Goals PT Mcfp Goals Time Frame: May 14, 2016 Transfers (B,C,W/C) (FIM): 4 (CGA) Roll Left to Right (QC): 4 Sit to Lying (QC): 4 Lying-Sitting on Side/Bed(QC): 4 Sit to Stand (QC): 4 Chair/Xsw-fa-Fsmpj Xfer(QC): 4 Car Transfer (QC): 4 Gait (FIM): 4 Distance: 150' Walk 10 feet (QC): 4 Walk 10ft-Uneven Surface(QC): 4 Walk 50ft with 2 Turns (QC): 4 Walk 150 ft (QC): 4 Gait Level of Assist: 4 (CGA) Gait Assistive Device: FWW Stairs (FIM): 2 # of Steps: 4 1 Step (curb) (QC): 4 4 Steps (QC): 4 Stairs Level Of Assist: 4 Picking up an Object (QC): 88 OT Facility Examiner Goals Mcfp Goals Time Frame: May 09, 2016 Eating (FIM): 7 Eating (QC): 6 (met-05/12/16) Oral Hygiene (QC): 6 (met-05/12/16) Grooming(FIM): 6 (met-05/12/16) Bathing(FIM): 6 (met-05/12/16) Shower/Bathe Self (QC): 6 (met-05/12/16) Upper Body Dressing(FIM): 6 (met-05/12/16) Upper Body Dressing (QC): 6 (met-05/12/16) Lower Body Dressing(FIM): 6 (met-05/12/16) Lower Body Dressing (QC): 6 (met-05/12/16) On/Off Footwear (QC): 6 (met-05/12/16) Toileting(FIM): 6 (met-05/12/16) Toileting Hygiene (QC): 6 (met-05/12/16) Toilet/Commode Transfer(FIM): 6 (met-05/12/16) Toilet/Commode Transfer (QC): 6 (met-05/12/16) Shower Transfer(FIM): 6 (met-05/12/16) Additional Goals: 2-Verbalize Understanding, 3-ImproveStrength/[place] (5/5 bilat elbows and distal) 1=Demonstrate adherence to instructed precautions during ADL tasks. 2=Patient will verbalize/demonstrate understanding of assistive devices/ modifications for ADL. 3=Patient will improve strength/tolerance for activity to enable patient to perform ADL's. RADHIKA CURTIS OT May 13, 2016 10:16
--- NOTE | 2016-05-13 11:03 | Therapy Team Discharge Summary ---
Therapy Discharge Summary Discharge Recommendations Date of Discharge Therapy D/C Recommendations: Home w/ Family Support, Occupational Therapy Home Care, Scheduled Assistance Physical Therapy Patient came to rehab following a left hip fracture and repair. Upon admission patient performed bed mobility with mod to min assist and transfers with max assist, ambulated 2' with a rolling walker with mod assist, and propelled a manual wheelchair 20' with min assist, no stairs at this time. Patient has been performing bed mobility and transfer training, balance and endurance training, functional strengthening, stair training, gait training, and education. Patient has made fair progress and has met all of her prison goals except for stairs. Now, patient performs bed mobility and transfers with SBA, car transfers with SBA, ambulates 150' with a rolling walker with SBA, she is still not able to traverse stairs. Patient is being discharged from this facility today and will be discharged from PT at this time. PT Material Control Specialist Goals Material Control Specialist Goals PT Material Control Specialist Goals Time Frame: May 14, 2016 Transfers (B,C,W/C) (FIM): 4 (CGA) Roll Left to Right (QC): 4 Sit to Lying (QC): 4 Lying-Sitting on Side/Bed(QC): 4 Sit to Stand (QC): 4 Chair/Vqp-mp-Ekudm Xfer(QC): 4 Car Transfer (QC): 4 Gait (FIM): 4 Distance: 150' Walk 10 feet (QC): 4 Walk 10ft-Uneven Surface(QC): 4 Walk 50ft with 2 Turns (QC): 4 Walk 150 ft (QC): 4 Gait Level of Assist: 4 (CGA) Gait Assistive Device: FWW Stairs (FIM): 2 # of Steps: 4 1 Step (curb) (QC): 4 4 Steps (QC): 4 Stairs Level Of Assist: 4 Picking up an Object (QC): 88 OT Material Control Specialist Goals Material Control Specialist Goals Time Frame: May 09, 2016 Eating (FIM): 7 Eating (QC): 6 (met-05/12/16) Oral Hygiene (QC): 6 (met-05/12/16) Grooming(FIM): 6 (met-05/12/16) Bathing(FIM): 6 (met-05/12/16) Shower/Bathe Self (QC): 6 (met-05/12/16) Upper Body Dressing(FIM): 6 (met-05/12/16) Upper Body Dressing (QC): 6 (met-05/12/16) Lower Body Dressing(FIM): 6 (met-05/12/16) Lower Body Dressing (QC): 6 (met-05/12/16) On/Off Footwear (QC): 6 (met-05/12/16) Toileting(FIM): 6 (met-05/12/16) Toileting Hygiene (QC): 6 (met-05/12/16) Toilet/Commode Transfer(FIM): 6 (met-05/12/16) Toilet/Commode Transfer (QC): 6 (met-05/12/16) Shower Transfer(FIM): 6 (met-05/12/16) Additional Goals: 2-Verbalize Understanding, 3-ImproveStrength/[place] (5/5 bilat elbows and distal) 1=Demonstrate adherence to instructed precautions during ADL tasks. 2=Patient will verbalize/demonstrate understanding of assistive devices/ modifications for ADL. 3=Patient will improve strength/tolerance for activity to enable patient to perform ADL's. LEIGH KELLY PT May 13, 2016 11:03
[2016-05-13 13:40] VITALS: BP 102/61
--- NOTE | 2016-05-18 13:49 | DISCHARGE SUMMARY ---
DATE OF ADMISSION: 04/23/2016 DATE OF DISCHARGE: 05/13/2016 HISTORY OF PRESENT ILLNESS: This patient is an 81-year-old female who multiple admissions over the past year involving infections either due to UTI or pneumonia, who fell while getting out of her shower at home where she lives alone in [place]. She sustained a fracture of the left hip and underwent repair with Dr. Williamson after being admitted to [facility] on 04/20. She is being followed by Dr. Looney and hospitalist service. Therapies were begun and she was felt to be appropriate for inpatient rehabilitation. She has a history of polio on the right side with residual right-sided weakness and a proximal left humerus fracture repaired by Dr. Jiménez in the past with limited active range of motion of the left shoulder. She has a daughter and grandchildren. PAST MEDICAL HISTORY: 1. Falls. 2. Polio with right-sided weakness. 3. Hypercholesteremia. 4. Hypertension. 5. TIA. 6. Bladder infection. 7. UTI. 8. Pneumonia. 9. GERD. 10. Hemorrhoids. 11. Degenerative disc disease. 12. Arthritis. 13. Fibromyalgia. 14. Chronic back pain. 15. Hypothyroidism. 16. Cataracts. 17. Colon cancer. 18. Anxiety. 19. Anemia. 20. Has been receiving iron infusion replacements. Her hemoglobin was 7 on 04/23. 21. Colon resection. 22. . 23. Eye surgery for cataract extraction. 24. Hysterectomy. 25. Left humeral fracture. 26. Thyroidectomy on replacement. She has a daughter and grandchildren in [place], [place] and a son in [place], [place]. PCP Dr. Abraham. MEDICAL COURSE: The patient was followed by Dr. Hunt and Dr. Looney and Dr. Pfeiffer while on rehab unit. She had a follow-up chest x-ray on 04/28 showing questionable right upper lobe and left basal infiltrates. Dr. Pfeiffer's impression was COPD with history of recurrent PNA and incentive spirometry and DuoNeb was provided, oxygen p.r.n. The patient did have 2 units of packed red blood cells for anemia. Dr. Avitia was consulted hematology who felt part of her anemia was due to anemia of chronic disease. CBC on 05/09 showed improvement of hemoglobin and hematocrit 8.9/28, WBC 12.8, platelet count 541,000, hemoglobin was 7.8 on 05/01 and 6.7 on 04/24, improved, status post transfusion. Chemistry on 05/02 showed chloride 96. Otherwise electrolytes within normal limits. BUN was 24, creatinine 1.4, alkaline phosphatase 142, TSH 26.60. BNP was 118.5 on 04/28. Stool for occult blood was negative on 04/30. Ferritin level was elevated at 255 on 05/02, TIBC, low at 239, iron B12 elevated at 1606. Sputum culture on 04/28 showed gram-negative praveena scant growth. Two WBC's mixed bacterial meenu. Sputum on 04/27 showed Enterobacter cloacae and yeast species. O2 sats were 97% on 3 liters of 02 on 05/13. Blood pressure 102/61, respirations 20, pulse 66. She was afebrile. The patient was seen by Dr. Kelley, bilingual trainer for foot care, which his impression was idiopathic bilateral neuropathy, onychomycosis, hammer digit syndrome and drop foot on the left. The toenails were debrided manually and mechanically, Betadine applied. Antifungal agents discussed. Chest x-ray on 04/28 showed questionable right upper lobe and left basal infiltrates. The patient was afebrile during her stay. Her incision was healing well. She had decreased pain complaints. REHABILITATION COURSE: The patient was seen by speech therapy found to be cognitively intact. She signed off. PT notes upon admission, the patient performed bed mobility with mod to minimal assist and transfers with max assist, could ambulate 2 feet with a rolling walker with mod assist to propel wheelchair 23 minutes. Upon discharge the patient performed bed mobility and transfers and standby assist, car transfers standby assist and ambulate 150 feet with a wheeled walker with standby assist. OT notes upon admission, the patient was unable to complete a shower transfer, required max assist for toilet transfers, and lower body dressing. Mod assist for toileting, and bathing and set-up for eating, grooming, and upper body dressing. By discharge she had progressed to being modified independent with all basic, ADLs home and will be going back to her own home with family support. Equipment used included front wheel walker, sock aide. Dressing stick and bedside commode over toilet, shower bench, grab bars and hand-held shower. She does not need additional equipment at home. DISCHARGE INSTRUCTIONS: Continue current diet. The patient will have follow-up with orthopedics and Dr. Abraham, PCP and home health care. DISCHARGE MEDICATIONS: 1. Labetalol 200 mg p.o. b.i.d. 2. Percocet generic 5/325, 1 tablet p.o. q.4 hours p.r.n. moderate pain. 3. Torsemide 20 mg p.o. daily. 4. Amitriptyline 150 mg p.o. at bedtime. 5. Lipitor 10 mg p.o. daily. 6. Dulcolax 5 mg p.o. daily p.r.n. constipation. 7. Vitamin D3 5000 units p.o. daily. 8. Vitamin B12 1000 mcg p.o. daily. 9. Diltiazem 240 mg p.o. daily. 10. Colace 100 mg p.o. at bedtime. 11. Mucinex DMER 1 tablet p.o. b.i.d. 12. Levothyroxine 150 mcg p.o. daily. 13. Milk of magnesia 30 mL p.o. daily p.r.n. constipation. 14. Multivitamins 1 tablet p.o. daily. 15. Omeprazole 20 mg p.o. daily. 16. KCL 20 mEq p.o. b.i.d. DISCHARGE DIAGNOSES: 1. Rehabilitation ambulatory dysfunction, secondary to fall with nondisplaced intertrochanteric fracture of the left hip, status post repair Dr. Williamson orthopedics, improving. 2. COPD with recurrent pneumonia, treated. 3. Past history of pseudomonas UTI. 4. Chronic anemia. 5. Anemia of blood loss, improved status post transfusion 2 units packed red blood cells. 6. Chronic constipation on medications. 7. Hypertension, controlled with medication. 8. Hypercholesteremia, on medication. 9. Surgical hypothyroidism. 10. Hypothyroidism, status post thyroidectomy on replacement. 11. Chronic back pain with degenerative disc disease of the lumbar spine. 12. 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 14. Onychomycosis of the toenails, status post debridement Dr. Kelley. 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 PROGNOSIS: Rehab prognosis appears good for some continued improvement at home with family and home health care and eventually she may require a more formal assisted living setting. Job ID: [id number] Dictated Date: 05/16/2016 12:33:41 Nuclear Medical Tech Date: 05/18/2016 13:26:09/israel STACY
[2016-07-16] MEDS ORDERED: METR500P4 IV (13:03)
[2016-07-16] MEDS ORDERED: ACET-77 PO (13:03)
[2016-07-16] MEDS ORDERED: POLY17PO23 PO (13:03)
[2016-07-16] MEDS ORDERED: ALBU2.5V4 IH (13:03)
[2016-07-16] MEDS ORDERED: VANC500F IV (13:03)
[2016-07-16] MEDS ORDERED: FENT1PAT58 TD (13:03)
[2016-07-16] MEDS ORDERED: OXYC-465 PO (13:03)
[2016-07-16] MEDS ORDERED: SODI473S7 TOP (13:03)
[2016-07-17] MEDS ORDERED: VANC500F IV (08:40)
[2016-07-17] MEDS ORDERED: METR500T PO (10:39)
== END 2016-05-13 13:40 | disposition home health service (06) | DRG 561 ==
PROVIDERS: ADMIT Physical Medicine & Rehabilitation; ATTEND Physical Medicine & Rehabilitation
DX: S72.145D Nondisplaced intertrochanteric fracture of left femur, subsequent encounter for closed fracture with routine healing (principal); Z86.12 Personal history of poliomyelitis; R29.898 Other symptoms and signs involving the musculoskeletal system; J44.9 Chronic obstructive pulmonary disease, unspecified; D64.9 Anemia, unspecified; D63.8 Anemia in other chronic diseases classified elsewhere; K59.00 Constipation, unspecified; I10 Essential (primary) hypertension; E88.09 Other disorders of plasma-protein metabolism, not elsewhere classified; E78.00 Pure hypercholesterolemia, unspecified; Z66 Do not resuscitate; E89.0 Postprocedural hypothyroidism; M51.36 Other intervertebral disc degeneration, lumbar region; W19.XXXD Unspecified fall, subsequent encounter
CPT/HCPCS: 36415; 71020; 73502; 80053; 82274; 82607; 82728; 82747; 83540; 83880; 84443; 85007; 85025; 85027; 85045; 85610; 85730; 86850; 86900; 86901; 86920; 87070; 87077; 87186; 87205; 94640; 94664; 94760; 94761

== ENCOUNTER → 2016-06-02 | Outpatient (CLI) | payer MEDICARE, MEDICAID ==
[~2016-06-02] MED LIST changes: +ACET-77 PO; +ALBU2.5V4 IH; +ALBU2.5V4 NEB; +CIPR500T4 PO; +CLIN300C11 PO; +FENT1PAT58 TD; +FENT1PAT9 TD; +LACT10SO64 PO; +METR500P4 IV; +METR500T PO; +METR500T21 PO; +NF-SKEL800 PO; +OXYC-202 PO; +OXYC-465 PO; +POLY17PO23 PO; +SODI473S7 TOP; +VANC500F IV
--- OUTSIDE RECORDS SUMMARY | 2016-06-02 15:17 | XMS REPORT | Continuity of Care Document ---
Author Author [facility] Organization [facility] Address Unknown Phone Unavailable Care Team Providers Care Student Financial Aid Manager Name Role Phone Minoo Martel PCP [phone] Source Comments Some departments are not documenting in the electronic medical record. If you do not see the information that you expected, contact Release of Information in the Health Information Management department at [phone] for further assistance in locating additional records.[facility] Active Allergies and Adverse Reactions Allergen Noted [...] examination 11/28/2013 Overview: 02/2011 - Pharmacologic MPI ([facility]): EF 65%. Non-ischemic. L ast Assessment & Plan: Patients surgical risk is low, and acceptable given the situation, urgency & circumstances. Her cardiac risk score is 0.43% risk for cardiovascular complication. Patient has had a recent stress test last year at [facility] which was likely normal, will obtain record for stress test from [facility] otherwise per latest guidelines, patient may undergo [...] Taken Blood Pressure 108/61 01/26/2014 9:06 AM CHILDREN'S SERVICE WORKER Pulse 66 01/26/2014 9:06 AM CHILDREN'S SERVICE WORKER Temperature 37 C (98.6 F) 12/08/2013 3:09 PM CDT Respiratory Rate 12 11/28/2013 1:34 PM CDT Height 1.702 m (5' 7") 01/26/2014 9:06 AM CHILDREN'S SERVICE WORKER Weight 87.454 kg (192 lb 12.8 01/26/2014 9:06 AM CHILDREN'S SERVICE WORKER oz) Body Mass Index 30.19 01/26/2014 9:06 AM CHILDREN'S SERVICE WORKER Oxygen Saturation 92% 12/08/2013 3:09 PM CDT Plan of Care Health Maintenance Due Date Last Done Comments Physical (Comprehensive) 1942 Exam Pertussis Vaccine 1946 Tetanus Vaccine 02/24/1952 Shingles Vaccine 1995 Osteoporosis Screening 02/24/2000 Prevnar/Pneumovax (#1) 02/24/2000 Influenza Vaccine 11/22/2015 Results from Last 3 Months Not on file
--- NOTE | 2016-06-02 16:16 | Diagnostic Imaging Report ---
EXAMINATION: Two views of the left hip. INDICATION: Injury. FINDINGS: There is internal fixation hardware seen within the proximal left femur. Interlocking screw distally within the hardware in the proximal femur shaft is located anterior to the expected location and does not go through the intramedullary nail. There is still lucency at the fracture line identifiable in the intertrochanteric region although the medial aspect appears to be healed. Advanced degenerative changes in the hip joint with significant joint space loss is noted. IMPRESSION: 1. Advanced osteoarthritis. 2. There is early osseous bridging along the intertrochanteric fracture line seen. 3. Position of the screw anterior to the intramedullary nail in the proximal femoral shaft as described. Dictated by: Dictated on workstation # [id number]
--- NOTE | 2016-06-02 16:18 | Diagnostic Imaging Report ---
Three views of the lumbar spine. INDICATION: Injury. FINDINGS: There are advanced degenerative changes in the lumbar spine with scoliosis seen convex to the right at the L3-L4 level with a compensatory curve convex to the left in the upper lumbar spine. There is significant disc height loss and vacuum phenomenon seen at multiple levels but most notable at L4-L5 left side of the disc and at the right side of L3-L4 and L2-L3. There are no significant alignment abnormalities identified along the posterior spinal line however. There are from some posterior osteophytes suggested in the lumbar spine. Facet joint sclerotic changes are also seen. The SI joints appear grossly unremarkable. IMPRESSION: Prominent lumbar spine scoliosis. Advanced disc degenerative changes and facet arthropathy with posterior osteophytes seen in the lumbar spine. Effect on the spinal canal and neural foramina can be better assessed with MRI. Dictated by: Dictated on workstation # [id number]
== END ==
LOC: RAD 15:13
PROVIDERS: ATTEND Internal Medicine
DX: S79.912A Unspecified injury of left hip, initial encounter (principal); S39.92XA Unspecified injury of lower back, initial encounter; X58.XXXA Exposure to other specified factors, initial encounter; Y99.8 Other external cause status
CPT/HCPCS: 72100; 73502

== ENCOUNTER 2016-06-25 00:16 | Observation (INO) | payer MEDICAID, MEDICARE ==
[~2016-06-25] VITALS: Ht 177.8 cm; Wt 76.7 kg
[~2016-06-25 00:16] MED LIST changes: -ACET-77 PO; -ALBU2.5V4 IH; -ALBU2.5V4 NEB; -CIPR500T4 PO; -CLIN300C11 PO; -FENT1PAT58 TD; -FENT1PAT9 TD; -LACT10SO64 PO; -METR500P4 IV; -METR500T PO; -METR500T21 PO; -NF-SKEL800 PO; -OXYC-202 PO; -OXYC-465 PO; -POLY17PO23 PO; -SODI473S7 TOP; -VANC500F IV
[2016-06-25] MEDS ORDERED: LACT10SO64 PO (00:32)
[2016-06-25] MEDS ORDERED: CIPR500T4 PO (00:32)
[2016-06-25] MEDS ORDERED: FENT1PAT9 TD (00:32)
[2016-06-25 00:37] LABS: BASOPHILS # (AUTO) 0.1 10^3/uL (0.0-0.1); BASOPHILS % (AUTO) 1 % (0-10); EOSINOPHILS # (AUTO) 0.6 10^3/uL (0.0-0.3); EOSINOPHILS % (AUTO) 5 % (0-10); LYMPHOCYTES # (AUTO) 2.5 X 10^3 (1.0-4.0); LYMPHOCYTES % (AUTO) 20 % (12-44); MEAN CORPUSCULAR HEMOGLOBIN 30 PG (25-34); MEAN CORPUSCULAR HGB CONC 31 G/DL (32-36); MEAN CORPUSCULAR VOLUME 95 FL (80-99); MEAN PLATELET VOLUME 10.2 FL (7.4-10.4); MONOCYTES # (AUTO) 2.1 X 10^3 (0.0-1.0); MONOCYTES % (AUTO) 17 % (0-12); NEUTROPHILS # (AUTO) 7.3 X 10^3 (1.8-7.8); NEUTROPHILS % (AUTO) 58 % (42-75); PLATELET COUNT 379 10^3/uL (130-400); RED BLOOD COUNT 3.25 10^6/uL (4.35-5.85); RED CELL DISTRIBUTION WIDTH 13.9 % (10.0-14.5); WHITE BLOOD COUNT 12.6 10^3/uL (4.3-11.0)
[2016-06-25 00:53] LABS: ABG BASE EXCESS 3.1 MMOL/L (-2.5-2.5); ABG HCO3 28 MMOL/L (23-27); ABG OXYGEN SATURATION 100 % (94-100); ABG PCO2 50 MMHG (35-45); ABG PH 7.37 (7.37-7.43); ABG PO2 145 MMHG (79-93); ABG TCO2 29.5 MMOL/L (21.0-31.0); ALLENS TEST YES-POS; PATIENT TEMP 98.7
[2016-06-25 01:07] LABS: ALANINE AMINOTRANSFERASE 9 U/L (0-55); ALBUMIN 3.5 G/DL (3.2-4.5); ANION GAP 14 MMOL/L (5-14); ASPARTATE AMINO TRANSFERASE 21 U/L (5-34); BILIRUBIN,TOTAL 0.2 MG/DL (0.1-1.0); BLOOD UREA NITROGEN 27 MG/DL (7-18); BUN/CREATININE RATIO 12; CALCIUM 8.7 MG/DL (8.5-10.1); CARBON DIOXIDE 24 MMOL/L (21-32); CHLORIDE 99 MMOL/L (98-107); CREATINE KINASE 101 U/L (29-168); CREATININE SERUM 2.27 MG/DL (0.60-1.30); GFR ESTIMATED 21; GLUCOSE 98 MG/DL (70-105); POTASSIUM 4.5 MMOL/L (3.6-5.0); SODIUM 137 MMOL/L (135-145); TOTAL PROTEIN 7.3 G/DL (6.4-8.2)
[2016-06-25 01:14] LABS: TROPONIN I < 0.30 NG/ML (<0.30)
[2016-06-25] MEDS ORDERED: RT-ALBUTEROL/IPRATROPIUM 3 ML (DUONEB) VIAL INH ONE (01:15)
[2016-06-25] MEDS ORDERED: methylPREDNISolone 125 MG (Solu-MEDROL) VIAL IVP ONE (01:45)
[2016-06-25] MEDS ORDERED: FUROSEMIDE 40 MG/4 ML INJ (LASIX) IVP ONE (01:45)
--- NOTE | 2016-06-25 01:50 | ED Respiratory ---
General Chief Complaint: Respiratory Problems Stated Complaint: SOB Nursing Triage Note: BROUGHT IN BY [facility] FOR C/O LOW SPO2, FEELING SOA. Source: patient (SOMEWHAT LIMITED HISTORIAN), family (DAUGHTER), EMS History of Present Illness Time seen by provider: 00:25 Initial Comments PT ARRIVES VIA EMS FROM HOME EMS WAS CALLED TO HOME FOR C/O SHORTNESS OF BREATH, O2 SATS IN 70'S AND FAMILY WAS UNABLE TO WAKE HER UP EMS REPORT O2 SAT WAS 91% ON 3L/NC ON THEIR ARRIVAL AT SCENE AND PT WAS AWAKE AND TALKING PT HAS COPD AND WEARS HOME O2 CONTINUOUSLY--WAS INCREASED FROM 2L/NC TO 3L/NC LAST WEEK PT IS SUPPOSED TO USE NEBULIZER AND INHALERS, BUT DOES NOT--SATES "IT'S TOO MUCH OF A HASSLE" NO CHEST PAIN NO FEVER NO SIGNIFICANT COUGH PT DOES HAVE SWELLING TO RIGHT LEG--PT STATES HAS BEEN THAT WAY "FOR AWHILE" PT HAS AN OPEN WOUND TO SACRAL / BUTTOCKS AREA--STATES IS THE SITE OF A PILONIDAL CYST THAT SHE HAD REMOVED 50 YEARS AGO, AND RECENTLY "BROKE OPEN" AND IS CAUSING SEVERE PAIN. PT HAS BEEN TAKING OXYCODONE FOR PAIN, BUT 2 DAYS AGO WAS STARTED ON FENTANYL PATCH 50 MCG IN ADDITION TO OXYCODONE PT HAS A NEW PT APPOINTMENT WITH DR. TAVERAS ON THURSDAY FOR THIS PROBLEM ADDITIONALLY, PT WAS GIVEN A BLOOD TRANSFUSION 2 WEEKS AGO--STATES CAUSE OF ANEMIA IS UNKNOWN TO HER PCP: DR. FRASER--SEEN 2 DAYS AGO AND LAST WEEK Allergies and Home Medications Allergies Coded Allergies: cephalexin (Verified Allergy, Severe, TONGUE SWELLS, SOB (PT HAS HAD ROCEPHIN W/O ISSUE), 03/13/16) PER DR. MAYFIELD, PATIENT HAS RECEIVED ROCEPHIN IN THE PAST WITHOUT INCIDENT Penicillins (Verified Allergy, Mild, 03/13/16) celecoxib (Verified Allergy, Mild, PATIEN CAN TAKE MOBIC, 03/13/16) clindamycin (Verified Allergy, Mild, 03/13/16) propoxyphene (Verified Allergy, Mild, 03/13/16) rofecoxib (Verified Allergy, Mild, 03/13/16) Sulfa (Sulfonamide Antibiotics) (Verified Allergy, Unknown, 03/13/16) Tetanus Vaccines and Toxoid (Verified Allergy, Unknown, 03/13/16) doxycycline (Verified Allergy, Unknown, 03/13/16) levofloxacin (Verified Allergy, Unknown, 03/13/16) meloxicam (Verified Allergy, Unknown, 03/13/16) nitrofurantoin (Verified Allergy, Unknown, RASH, 03/13/16) Home Medications Amitriptyline HCl 150 Mg Tablet, 150 MG PO HS, (Reported) Atorvastatin Calcium 10 Mg Tablet, 10 MG PO DAILY, (Reported) Bisacodyl 5 Mg Tablet.dr, 5 MG PO DAILY PRN for CONSTIPATION, (Reported) Cholecalciferol (Vitamin D3) 5,000 Unit Capsule, 5,000 UNIT PO DAILY@1400, ( Reported) Ciprofloxacin HCl 500 Mg Tablet, 1 CAP PO UD, #20 (Reported) Cyanocobalamin (Vitamin B-12) 1,000 Mcg Tablet, 1,000 MCG PO DAILY@1400, ( Reported) Diltiazem HCl 240 Mg Cap.er.24h, 240 MG PO DAILY@1400, (Reported) Docusate Sodium 100 Mg Capsule, 100 MG PO HS, (Reported) Fentanyl 1 Each Patch.td72, 1 PATCH TD UD, #10 (Reported) Guaifenesin/Dextromethorphan 1 Each Tbmp.12hr, 1 TAB PO BID, (Reported) Labetalol HCl 200 Mg Tablet, 200 MG PO BID, #60 Prescribed by: HIRA CHATMAN on 05/13/16927 Lactulose 10 Gm/15 Ml Solution, #946 (Reported) Levothyroxine Sodium 150 Mcg Tablet, 150 MCG PO DAILY, (Reported) Magnesium Hydroxide 400 Mg/5 Ml Oral.susp, 4 TBS PO DAILY PRN for CONSTIPATION, (Reported) Multivitamin 1 Each Tablet, 1 TAB PO DAILY@1400, (Reported) Omeprazole 20 Mg Capsule.dr, 20 MG PO DAILY, (Reported) Oxycodone HCl/Acetaminophen 1 Each Tablet, 1-2 TAB PO Q4H PRN for MODERATE PAIN , #60 Prescribed by: HIRA CHATMAN on 05/13/16927 Potassium Chloride 10 Meq Capsule.er, 20 MEQ PO BID, (Reported) TAKES 2 (10 MEQ) CAPSULES Torsemide 20 Mg Tablet, 20 MG PO DAILY, #30 Prescribed by: HIRA CHATMAN on 05/13/1628 Constitutional: see HPI, No dizziness, No fever, malaise, weakness EENTM: no symptoms reported Respiratory: see HPI Cardiovascular: see HPI, No chest pain, edema, No palpitations, No syncope Gastrointestinal: no symptoms reported, No abdominal pain, No nausea, No vomiting Genitourinary: no symptoms reported Musculoskeletal: see HPI Skin: no symptoms reported Psychiatric/Neurological: Denies Headache, Denies Numbness, Denies Paresthesia , Denies Weakness Hematologic/Lymphatic: No Symptoms Reported Immunological/Allergic: no symptoms reported Past Xfzxbxn-Lwohke-Unpszn Hx Patient Social History Alcohol Use: Denies Use Recreational Drug Use: No Smoking Status: Former Smoker Type Used: Cigarettes Former Smoker/When Quit: Feb 27, 1965 2nd Hand Smoke Exposure: No Recent Foreign Travel: No Contact w/Someone Who Travel: No Recent Infectious Disease Expo: No Recent Hopitalizations: Yes Immunizations Up To Date Tetanus Booster (TDap): Unknown PED Vaccines UTD: No Date of Pneumonia Vaccine: Nov 30, 2013 Date of Influenza Vaccine: Dec 22, 2015 Seasonal Allergies Seasonal Allergies: No Surgeries HX Surgeries: Yes (GROWTH BACK OF NECK, 1 ON HER FOOT,L CARPAL TUNNEL; PORT RIGHT CHEST; PILONIDAL CYST; COLON RESECTION) Surgeries: Abdominal, Bowel Surgery, Section, Eye Surgery, Hysterectomy, Orthopedic, Thyroidectomy Respiratory Hx Respiratory Disorders: Yes Respiratory Disorders: Asthma, Pneumonia, Chronic Bronchitis, Sleep Apnea Cardiovascular Hx Cardiac Disorders: Yes (CHRONIC CHEST PAIN, PER PT) Cardiac Disorders: Chronic Edema/Swelling, High Cholesterol, Hypertension Neurological Hx Neurological Disorders: Yes (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) Neurological Disorders: TIA Reproductive System Hx Reproductive Disorders: No Sexually Transmitted Disease: No HIV/AIDS: No Female Reproductive Disorders: Denies Genitourinary Hx Genitourinary Disorders: Yes (MILD RENAL INSUFFICIENCY) Genitourinary Disorders: Bladder Infection Gastrointestinal Hx Gastrointestinal Disorders: Yes (HX COLON CANCER) Gastrointestinal Disorders: Gastroesophageal Reflux, Hemorrhoids Musculoskeletal Hx Musculoskeletal Disorders: Yes Musculoskeletal Disorders: Degenerate Disk Disease, Arthritis, Fibromyalgia, Chronic Back Pain Endocrine Hx Endocrine Disorders: Yes (HX THYROIDECTOMY FOR GOITER;STEROID INDUCED HYPERGLYCEMIA) Endocrine Disorders: Hypothyroidsim HEENT HX ENT Disorders: Yes (CHRONIC RECURRENT RIGHT SUBMANDIBULAR GLAND SWELLING) HEENT Disorders: Cataract Loss of Vision: Denies Hearing Impairment: Denies Cancer Hx Cancer: Yes (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) Cancer: Colon, Thyroid Psychosocial Hx Psychiatric Problems: Yes Behavioral Health Disorders: Anxiety Integumentary HX Skin/Integumentary Disorder: Yes (WOUND TO BUTTOCKS) Blood Transfusions Hx Blood Disorders: Yes (ANEMIA) Adverse Reaction to a Blood Tr: No Family Medical History Significant Family History: No Pertinent Family Hx Family Medial History: Colon cancer 09 SISTER Congestive heart failure 03 MOTHER Deafness or hearing loss 03 FATHER 03 MOTHER 09 BROTHER Family history: Arthritis 03 FATHER 03 MOTHER History of - respiratory disease 09 BROTHER (kurtis-smoker) Hypertension 03 MOTHER Myocardial infarction 03 FATHER Myocardial infarction 03 FATHER Neoplasm 09 SISTER Respiratory disorder Severe allergy No Family History of: AIDS Abdominal aortic aneurysm Hale's disease Alcoholism Alzheimer's disease Aphasia Arthritis Asthma Cancer of mouth Cardiovascular disease Cataracts Completed stroke Congenital disease Congenital heart disease Coronary thrombosis Cystic fibrosis Dementia Diabetes mellitus Drug abuse Dysphasia Fibrocystic disease of breast Gastroenteritis Glaucoma Headache disorder Hypercholesterolemia Infertility Kidney disease Not obtainable due to adoption Osteoporosis Parkinson's disease Prostate cancer Psychosocial problem Seizure disorder Thyroid disease Tuberculosis Visual disorder Physical Exam Vital Signs Vital Sign - Last 12Hours 06/25/16 00:20 Temp 97.6 Pulse 81 Resp 20 B/P (MAP) 114/68 Pulse Ox 96 O2 Delivery Nasal Cannula O2 Flow Rate 3.00 Capillary Refill : Less Than 3 Seconds General Appearance: WD/WN, no apparent distress, other (SPEECH SLIGHTLY THICK- TONGUED) HEENT: PERRL/EOMI Neck: normal inspection Respiratory: no respiratory distress, no accessory muscle use, rales (IN BASES BILATERALLY) Cardiovascular: regular rate, rhythm, no murmur Gastrointestinal: non tender, soft Extremities: no calf tenderness, normal capillary refill, pedal edema (2+ ON RIGHT, 1+ ON LEFT) Neurologic/Psychiatric: aids social worker II-XII nml as tested, no motor/sensory deficits, alert, normal mood/affect, oriented x 3 (BUT DIFFICULTY CONCENTRATING, GIVES CONFLICTING INFORMATION) Skin: normal color, warm/dry, other (WOUND TO BUTTOCK / SACRAL AREA WITH DRESSING IN PLACE) Progress/Results/Core Measures Results/Orders Lab Results Laboratory Tests Test 06/25/16 00:25 06/25/16 00:40 Range/Units White Blood Count 12.6 H 4.3-11.0 10^3/uL Red Blood Count 3.25 L 4.35-5.85 10^6/uL Hemoglobin 9.7 L 11.5-16.0 G/DL Hematocrit 31 L 35-52 % Mean Corpuscular Volume 95 80-99 FL Mean Corpuscular Hemoglobin 30 25-34 PG Mean Corpuscular Hemoglobin Concent 31 L 32-36 G/DL Red Cell Distribution Width 13.9 10.0-14.5 % Platelet Count 379 130-400 10^3/uL Mean Platelet Volume 10.2 7.4-10.4 FL Neutrophils (%) (Auto) 58 42-75 % Lymphocytes (%) (Auto) 20 12-44 % Monocytes (%) (Auto) 17 H 0-12 % Eosinophils (%) (Auto) 5 0-10 % Basophils (%) (Auto) 1 0-10 % Neutrophils # (Auto) 7.3 1.8-7.8 X 10^3 Lymphocytes # (Auto) 2.5 1.0-4.0 X 10^3 Monocytes # (Auto) 2.1 H 0.0-1.0 X 10^3 Eosinophils # (Auto) 0.6 H 0.0-0.3 10^3/uL Basophils # (Auto) 0.1 0.0-0.1 10^3/uL Sodium Level 137 135-145 MMOL/L Potassium Level 4.5 3.6-5.0 MMOL/L Chloride Level 99 98-107 MMOL/L Carbon Dioxide Level 24 21-32 MMOL/L Anion Gap 14 5-14 MMOL/L Blood Urea Nitrogen 27 H 7-18 MG/DL Creatinine 2.27 H 0.60-1.30 MG/DL Estimat Glomerular Filtration Rate 21 BUN/Creatinine Ratio 12 Glucose Level 98 70-105 MG/DL Calcium Level 8.7 8.5-10.1 MG/DL Magnesium Level 2.0 1.8-2.4 MG/DL Total Bilirubin 0.2 0.1-1.0 MG/DL Aspartate Amino Transf (AST/SGOT) 21 5-34 U/L Alanine Aminotransferase (ALT/SGPT) 9 0-55 U/L Alkaline Phosphatase 128 40-136 U/L Total Creatine Kinase 101 29-168 U/L Creatine Kinase MB 1.8 <6.6 NG/ML Troponin I < 0.30 <0.30 NG/ML B-Type Natriuretic Peptide 371.1 H <100.0 PG/ML Total Protein 7.3 6.4-8.2 G/DL Albumin 3.5 3.2-4.5 G/DL Blood Gas Puncture Site R RAD Blood Gas Patient Temperature 98.7 Arterial Blood pH 7.37 7.37-7.43 Arterial Blood Partial Pressure CO2 50 H 35-45 MMHG Arterial Blood Partial Pressure O2 145 H 79-93 MMHG Arterial Blood HCO3 28 H 23-27 MMOL/L Arterial Blood Total CO2 29.5 21.0-31.0 MMOL/L Arterial Blood Oxygen Saturation 100 94-100 % Arterial Blood Base Excess 3.1 H -2.5-2.5 MMOL/L Mg Test YES-POS Blood Gas Ventilator Setting NO Blood Gas Inspired Oxygen 3L My Orders Orders - LISBETH GARCIA DO Saline Lock/Iv-Start (06/25/16:) Ekg Tracing (06/25/16) O2 (06/25/16) Monitor-Rhythm Ecg Trace Only (06/25/16) Arterial Blood Gas (06/25/16) BNP (06/25/16) Cbc With Automated Diff (06/25/16) Comprehensive Metabolic Panel (06/25/16) Creatine Kinase (06/25/16) Creatine Kinase Mb (06/25/16) Magnesium (06/25/16) Troponin I (06/25/16) Chest 1 View, Ap/Pa Only (06/25/16:26) Albuterol/Ipra Inhalation Soln (Duoneb I (06/25/16 01:15) Rt Request For Service (06/25/16 01:01) Svn Sm Volume Nebulizer Rt-Rfs (06/25/16 01:01) Protime With Inr (06/25/16 01:20) Partial Thromboplastin Time (06/25/16 01:20) Medications Given in ED Current Medications Medications Dose Ordered Sig/Karen Route Start Time Stop Time Status Last Admin Dose Admin Albuterol/ Ipratropium 3 ml ONCE ONCE INH 06/25/16 01:15 06/25/16 01:16 DC 06/25/16 01:25 3 ML Vital Signs/I&O Vital Sign - Last 12Hours 06/25/16 06/25/16 06/25/16 00:20 00:20 01:25 Temp 97.6 Pulse 81 Resp 20 B/P (MAP) 114/68 Pulse Ox 96 96 O2 Delivery Nasal Cannula Nasal Cannula O2 Flow Rate 3.00 3.00 3.00 Blood Pressure Mean: 83 Progress Note : Progress Note O2 SATS REMAINED 95-100% ON O2 AT 3L/NC INCREASED AERATION AND DECREASED RALES AFTER NEB TREATMENT PT REMAINED AWAKE AND ALERT THROUGHOUT ER STAY, WITH IMPROVEMENT IN CONCENTRATION FENTANYL PATCH REMOVED--SUSPECT MAY BE CAUSE OF HYPOXIA AND DECREASED MENTATION AT HOME ECG Initial ECG Impression Time: 00:53 Initial ECG Rate: 64 Initial ECG Rhythm: Normal Sinus Initial ECG Impression: 1st Degree AV Block Initial ECG Comparisson: Changed (LATERAL T-WAVES ARE NO LONGER INVERTED. ) Diagnostic Imaging Comments CXR--CHRONIC CHANGES, PENDING RADIOLOGIST REVIEW Reviewed: Reviewed by Me Departure Communication Progress Notes 0130--SPOKE WITH DR. PINK, ACCEPTS PT FOR ADMIT Impression Impression: Primary Impression: Hypoxia Additional Impressions: COPD (chronic obstructive pulmonary disease) MILD CHF Open wound of buttock Renal insufficiency Non compliance w medication regimen Disposition: ADMITTED INPATIENT Condition: Improved Decision to Admit Reason: Admit from ER (General) Decision to Admit/Date: Jun 25, 2016 Time/Decision to Admit Time: 01:30 Departure-Patient Inst. Referrals: MERT FRASER DO (PCP/Family) Primary Care Physician LISBETH GARCIA DO Jun 25, 2016 1:50 am
[2016-06-25 02:03] LABS: INR 1.1 (0.8-1.4); PROTHROMBIN TIME PATIENT 14.1 SEC (12.2-14.7)
[2016-06-25 02:56] VITALS: BP 106/48
[2016-06-25 04:48] VITALS: BP 98/49
[2016-06-25 05:52] LABS: ALBUMIN 3.4 G/DL (3.2-4.5); BILIRUBIN,TOTAL 0.2 MG/DL (0.1-1.0); CALCIUM 8.6 MG/DL (8.5-10.1); CREATININE SERUM 2.11 MG/DL (0.60-1.30)
[2016-06-25] MEDS: fentaNYL INJECTION 100 MCG/2 ML AMP IV PRN ×2 (06:17→07:56)
--- NOTE | 2016-06-25 06:25 | Diagnostic Imaging Report ---
INDICATION: Cough and congestion. Compared 04/28/2016 FINDINGS: Right IJ catheter upper SVC near the junction of the innominate unchanged. Interstitial opacities bilaterally unchanged from prior. The heart size and configuration stable. No effusion or pneumothorax. IMPRESSION: Unchanged prominence of the lung markings likely chronic. No new abnormality or pleural pathology. Dictated by: Dictated on workstation # [id number]
[2016-06-25] MEDS ORDERED: methylPREDNISolone 125 MG (Solu-MEDROL) VIAL IV ONE (07:00)
[2016-06-25] MEDS ORDERED: CATHETER FLUSH 10 ML SYR IV PRN (07:15)
--- NOTE | 2016-06-25 07:41 | Pulmonary Consultation ---
History of Present Illness History of Present Illness Date of Consultation 06/25/16 07:35 Date of Admission History of Present Illness 81yo with hx of severe COPD requiring oxygen who presented to ED secondary to worsening SOB and found to have Sp02 in the 70's and family was unable to wake her up. Pt has required hospitalization in the past for similar episodes. I am consulted for pulmonary management. Allergies and Home Medications Allergies Coded Allergies: cephalexin (Verified Allergy, Severe, TONGUE SWELLS, SOB (PT HAS HAD ROCEPHIN W/O ISSUE), 03/13/16) PER DR. MAYFIELD, PATIENT HAS RECEIVED ROCEPHIN IN THE PAST WITHOUT INCIDENT Penicillins (Verified Allergy, Mild, 03/13/16) celecoxib (Verified Allergy, Mild, PATIEN CAN TAKE MOBIC, 03/13/16) clindamycin (Verified Allergy, Mild, 03/13/16) propoxyphene (Verified Allergy, Mild, 03/13/16) rofecoxib (Verified Allergy, Mild, 03/13/16) Sulfa (Sulfonamide Antibiotics) (Verified Allergy, Unknown, 03/13/16) Tetanus Vaccines and Toxoid (Verified Allergy, Unknown, 03/13/16) doxycycline (Verified Allergy, Unknown, 03/13/16) levofloxacin (Verified Allergy, Unknown, 03/13/16) meloxicam (Verified Allergy, Unknown, 03/13/16) nitrofurantoin (Verified Allergy, Unknown, RASH, 03/13/16) Home Medications Amitriptyline HCl 150 Mg Tablet, 150 MG PO HS, (Reported) Atorvastatin Calcium 10 Mg Tablet, 10 MG PO DAILY, (Reported) Bisacodyl 5 Mg Tablet.dr, 5 MG PO DAILY PRN for CONSTIPATION, (Reported) Cholecalciferol (Vitamin D3) 5,000 Unit Capsule, 5,000 UNIT PO DAILY@1400, ( Reported) Ciprofloxacin HCl 500 Mg Tablet, 1 CAP PO UD, #20 (Reported) Cyanocobalamin (Vitamin B-12) 1,000 Mcg Tablet, 1,000 MCG PO DAILY@1400, ( Reported) Diltiazem HCl 240 Mg Cap.er.24h, 240 MG PO DAILY@1400, (Reported) Docusate Sodium 100 Mg Capsule, 100 MG PO HS, (Reported) Fentanyl 1 Each Patch.td72, 1 PATCH TD UD, #10 (Reported) Guaifenesin/Dextromethorphan 1 Each Tbmp.12hr, 1 TAB PO BID, (Reported) Labetalol HCl 200 Mg Tablet, 200 MG PO BID, #60 Prescribed by: HIRA CHATMAN on 05/13/16927 Lactulose 10 Gm/15 Ml Solution, #946 (Reported) Levothyroxine Sodium 150 Mcg Tablet, 150 MCG PO DAILY, (Reported) Magnesium Hydroxide 400 Mg/5 Ml Oral.susp, 4 TBS PO DAILY PRN for CONSTIPATION, (Reported) Multivitamin 1 Each Tablet, 1 TAB PO DAILY@1400, (Reported) Omeprazole 20 Mg Capsule.dr, 20 MG PO DAILY, (Reported) Oxycodone HCl/Acetaminophen 1 Each Tablet, 1-2 TAB PO Q4H PRN for MODERATE PAIN , #60 Prescribed by: HIRA CHATMAN on 05/13/16927 Potassium Chloride 10 Meq Capsule.er, 20 MEQ PO BID, (Reported) TAKES 2 (10 MEQ) CAPSULES Torsemide 20 Mg Tablet, 20 MG PO DAILY, #30 Prescribed by: HIRA CHATMAN on 05/13/16927 Past Ykprzuf-Vcohbs-Ucflid Hx Patient Social History Alcohol Use: Denies Use Recreational Drug Use: No Smoking Status: Former Smoker Type Used: Cigarettes Former Smoker/When Quit: Feb 27, 1965 2nd Hand Smoke Exposure: No Recent Foreign Travel: No Contact w/Someone Who Travel: No Recent Infectious Disease Expo: No Recent Hopitalizations: Yes Physical Abuse Screen: No Sexual Abuse: No Immunizations Up To Date Tetanus Booster (TDap): Unknown PED Vaccines UTD: No Date of Pneumonia Vaccine: Nov 30, 2013 Date of Influenza Vaccine: Dec 22, 2015 Seasonal Allergies Seasonal Allergies: No Surgeries HX Surgeries: Yes (GROWTH BACK OF NECK, 1 ON HER FOOT,L CARPAL TUNNEL; PORT RIGHT CHEST; PILONIDAL CYST; COLON RESECTION) Surgeries: Abdominal, Bowel Surgery, Section, Eye Surgery, Hysterectomy, Orthopedic, Thyroidectomy Respiratory Hx Respiratory Disorders: Yes Respiratory Disorders: Asthma, Pneumonia, Chronic Bronchitis, Sleep Apnea Cardiovascular Hx Cardiac Disorders: Yes (CHRONIC CHEST PAIN, PER PT) Cardiac Disorders: Chronic Edema/Swelling, High Cholesterol, Hypertension Neurological Hx Neurological Disorders: Yes (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) Neurological Disorders: TIA Reproductive System Hx Reproductive Disorders: No Sexually Transmitted Disease: No HIV/AIDS: No Female Reproductive Disorders: Denies Genitourinary Hx Genitourinary Disorders: Yes (MILD RENAL INSUFFICIENCY) Genitourinary Disorders: Bladder Infection Gastrointestinal Hx Gastrointestinal Disorders: Yes (HX COLON CANCER) Gastrointestinal Disorders: Gastroesophageal Reflux, Hemorrhoids Musculoskeletal Hx Musculoskeletal Disorders: Yes Musculoskeletal Disorders: Degenerate Disk Disease, Arthritis, Fibromyalgia, Chronic Back Pain Endocrine Hx Endocrine Disorders: Yes (HX THYROIDECTOMY FOR GOITER;STEROID INDUCED HYPERGLYCEMIA) Endocrine Disorders: Hypothyroidsim HEENT HX ENT Disorders: Yes (CHRONIC RECURRENT RIGHT SUBMANDIBULAR GLAND SWELLING) HEENT Disorders: Cataract Loss of Vision: Denies Hearing Impairment: Denies Cancer Hx Cancer: Yes (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) Cancer: Colon, Thyroid Psychosocial Hx Psychiatric Problems: Yes Behavioral Health Disorders: Anxiety Integumentary HX Skin/Integumentary Disorder: Yes (WOUND TO BUTTOCKS) Skin/Integumentary Disorders: Recent Skin Changes Blood Transfusions Hx Blood Disorders: Yes (ANEMIA) Adverse Reaction to a Blood Tr: No Family Medical History Significant Family History: No Pertinent Family Hx Family Medial History: Colon cancer 09 SISTER Congestive heart failure 03 MOTHER Deafness or hearing loss 03 FATHER 03 MOTHER 09 BROTHER Family history: Arthritis 03 FATHER 03 MOTHER History of - respiratory disease 09 BROTHER (kurtis-smoker) Hypertension 03 MOTHER Myocardial infarction 03 FATHER Myocardial infarction 03 FATHER Neoplasm 09 SISTER Respiratory disorder Severe allergy No Family History of: AIDS Abdominal aortic aneurysm Isma's disease Alcoholism Alzheimer's disease Aphasia Arthritis Asthma Cancer of mouth Cardiovascular disease Cataracts Completed stroke Congenital disease Congenital heart disease Coronary thrombosis Cystic fibrosis Dementia Diabetes mellitus Drug abuse Dysphasia Fibrocystic disease of breast Gastroenteritis Glaucoma Headache disorder Hypercholesterolemia Infertility Kidney disease Not obtainable due to adoption Osteoporosis Parkinson's disease Prostate cancer Psychosocial problem Seizure disorder Thyroid disease Tuberculosis Visual disorder Exam Exam Vital Signs Date Time Temp Pulse Resp B/P (MAP) Pulse Ox O2 Delivery O2 Flow Rate FiO2 06/25/16 04:48 97.3 72 16 98/49 98 Nasal Cannula 3.00 06/25/16 04:08 94 3.00 06/25/16 02:56 97.3 69 20 106/48 96 Nasal Cannula 3.00 06/25/16 02:37 97 3.00 06/25/16 01:56 97.3 64 18 97 3.00 06/25/16 01:25 3.00 06/25/16 00:20 97.6 81 20 114/68 96 Nasal Cannula 3.00 06/25/16 00:20 96 Nasal Cannula 3.00 I & O 06/25/16 07:00 Intake Total 700 ml Output Total 1200 ml Balance -500 ml General Appearance: WD/WN, Anxious, Mild Distress Neck: Full Range of Motion, Normal Inspection, Non Tender Respiratory: Decreased Breath Sounds Capillary Refill: Less Than 3 Seconds Gastrointestinal: non tender, soft Neurologic/Psychiatric: Alert, Oriented x3 Skin: Normal Color, Warm/Dry Results Lab Laboratory Tests 06/25/16 00:25 06/25/16 05:15 Assessment/Plan Assessment/Plan COPDAE -SVNs, solumedrol, advair Chronic renal failure -IVF Open wound of buttock -wound care consulted Clinical Quality Measures DVT/VTE Risk/Contraindication: Risk Factor Score Per Nursin RFS Level Per Nursing on Admit: 4+=Very High BRENDON LEACH DO Jun 25, 2016 07:40
[2016-06-25 08:00] VITALS: BP 124/56
[2016-06-25] MEDS ORDERED: morphine INJ 4 MG/ML 1 ML (VIAL/SYRINGE) IVP PRN ×2 (08:45)
[2016-06-25] MEDS ORDERED: RT-ALBUTEROL/IPRATROPIUM 3 ML (DUONEB) VIAL INH PRN (09:00)
[2016-06-25] MEDS: morphine INJ 4 MG/ML 1 ML (VIAL/SYRINGE) IVP PRN ×3 (09:13→16:11)
[2016-06-25] MEDS: methylPREDNISolone 40 MG/ML (Solu-MEDROL) VIAL IV SCH ×2 (09:13→14:12)
[2016-06-25] MEDS ORDERED: OXYC-465 PO (09:52)
[2016-06-25] MEDS ORDERED: NAPR500T3 PO (09:52)
[2016-06-25] MEDS ORDERED: LABE200T3 PO (09:52)
--- NOTE | 2016-06-25 10:50 | Diagnostic Imaging Report ---
Ventilation/ perfusion lung scan. INDICATION: Respiratory distress. There are no prior ventilation/perfusion lung scans available for comparison. The plain film examination of the chest performed on 06/25/2016, noted chronic pulmonary disease but failed to show any sign of an acute abnormality. This exam is incomplete as the patient declined the perfusion sequence. The patient was administered 41.2 mCi of Tc99m DTPA for the ventilation portion of the exam. The ventilation images show generally good distribution of the radiotracer throughout both lungs. There does appear to be an accumulation of the radiotracer in the proximal trachea. This is of uncertain etiology. IMPRESSION: 1. This exam is incomplete as the perfusion sequence could not be performed. 2. There is generalized distribution of the radiotracer throughout both lungs on the ventilation images. There is an accumulation of the radiotracer within the trachea also. Drs. Raya Looney and Marcial Pfeiffer were informed that the exam was not completed. Dictated by: Dictated on workstation # [id number]
[2016-06-25] MEDS: RT-ALBUTEROL/IPRATROPIUM 3 ML (DUONEB) VIAL INH SCH ×2 (10:51→15:25)
[2016-06-25] MEDS ORDERED: LACTULOSE SYRUP 10GM/15ML (ENULOSE) 30ML UDC PO SCH (11:00)
[2016-06-25] MEDS ORDERED: CIPROFLOXACIN 500 MG (CIPRO) TABLET PO SCH ×2 (11:00→21:00)
--- NOTE | 2016-06-25 11:34 | Short Stay Summary-Hospitalist ---
HPI History of Present Illness: HPI/Chief Complaint CC: Oversedation with hypoxia Dr. Pfeiffer Review: Pt has open wound on sacrum. Pt had Fentanyl patch removed. Pt can be DC today. Pharmacy Review: Pt was taken off Fentanyl patch. Pt has been on Percocet in the past. SW Review: Pt refuses to go to a NH. Pt is in observation and there is not a medically necessary reason to keep pt in hospital. Patient Interview: Pt states she is doing okay. Pt was told she may be DC today. Pt states her sacral wound opened when her hip was fixed. Pt states she has not had a BM recently for 2 weeks so I started on Lactulose and bowel regimen. Physical exam was stable. Pt states she was not breathing well. Pt states she was not aware she had to breathe through her nose to receive O2. Pt 14yo grandchild called ambulance around midnight. Pt states her patch was removed when she arrived. Pt states she started the patch on Thursday and this was her first time being placed on a Fentanyl patch. Pt states she did not take her meds for two days. Pt then states she took her morning meds yesterday and may have taken a double dose at that time. Scribed by Yogi Dozier under the direct supervision of Dr. Pink. Source: patient Exam Limitations: no limitations Date Seen 06/25/16 Attending Physician Bryon Parker MD PCP Cheng Abraham DO Referring Physician Date of Admission Jun 25, 2016 at 01:30 Home Medications & Allergies Home Medications Reviewed patient Home Medication Reconciliation Form Allergies Allergies Coded Allergies cephalexin (Verified Allergy, Severe, TONGUE SWELLS, SOB (PT HAS HAD ROCEPHIN W/O ISSUE), 03/13/16) PER DR. MAYFIELD, PATIENT HAS RECEIVED ROCEPHIN IN THE PAST WITHOUT INCIDENT Penicillins (Verified Allergy, Mild, 03/13/16) celecoxib (Verified Allergy, Mild, PATIEN CAN TAKE MOBIC, 03/13/16) clindamycin (Verified Allergy, Mild, 03/13/16) propoxyphene (Verified Allergy, Mild, 03/13/16) rofecoxib (Verified Allergy, Mild, 03/13/16) Sulfa (Sulfonamide Antibiotics) (Verified Allergy, Unknown, 03/13/16) Tetanus Vaccines and Toxoid (Verified Allergy, Unknown, 03/13/16) doxycycline (Verified Allergy, Unknown, 03/13/16) levofloxacin (Verified Allergy, Unknown, 03/13/16) meloxicam (Verified Allergy, Unknown, 03/13/16) nitrofurantoin (Verified Allergy, Unknown, RASH, 03/13/16) Past Inikklg-Chtdqa-Wrghmw Hx Patient Social History Marrital Status: Employed/Student: retired Alcohol Use: Denies Use Recreational Drug Use: No Smoking Status: Former Smoker Former smoker/When Quit: Feb 27, 1965 Type Used: Cigarettes 2nd Hand Smoke Exposure: No Physical Abuse Screen: No Sexual Abuse: No Recent Foreign Travel: No Contact w/other who traveled: No Recent Hopitalizations: Yes Recent Infectious Disease Expo: No Immunizations Up To Date Tetanus Booster (TDap): Unknown Date of Pneumonia Vaccine: Nov 30, 2013 Date of Influenza Vaccine: Dec 22, 2015 Seasonal Allergies Seasonal Allergies: No Surgeries HX Surgeries: Yes (GROWTH BACK OF NECK, 1 ON HER FOOT,L CARPAL TUNNEL; PORT RIGHT CHEST; PILONIDAL CYST; COLON RESECTION) Surgeries: Abdominal, Bowel Surgery, Section, Eye Surgery, Hysterectomy, Orthopedic, Thyroidectomy Respiratory Hx Respiratory Disorders: Yes Cardiovascular Hx Cardiovascular Disorders: Yes (CHRONIC CHEST PAIN, PER PT) Cardiac Disorders: Chronic Edema/Swelling, High Cholesterol, Hypertension Neurological Hx Neurological Disorders: Yes (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) Neurological Disorders: TIA Reproductive System Hx Reproductive Disorders: No Sexually Transmitted Disease: No HIV/AIDS: No Female Reproductive Disorders: Denies Genitourinary Hx Genitourinary Disorders: Yes (MILD RENAL INSUFFICIENCY) Genitourinary Disorders: Bladder Infection Gastrointestinal Hx Gastrointestinal Disorders: Yes (HX COLON CANCER) Gastrointestinal Disorders: Gastroesophageal Reflux, Hemorrhoids Musculoskeletal Hx Musculoskeletal Disorders: Yes Musculoskeletal Disorders: Degenerate Disk Disease, Arthritis, Fibromyalgia, Chronic Back Pain Endocrine Hx Endocrine Disorders: Yes (HX THYROIDECTOMY FOR GOITER;STEROID INDUCED HYPERGLYCEMIA) Endocrine Disorders: Hypothyroidsim HEENT HX ENT Disorders: Yes (CHRONIC RECURRENT RIGHT SUBMANDIBULAR GLAND SWELLING) HEENT Disorders: Cataract Loss of Vision: Denies Hearing Impairment: Denies Cancer Hx Cancer: Yes (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) Cancer: Colon, Thyroid Psychosocial Hx Psychiatric Problems: Yes Behavioral Health Disorders: Anxiety Integumentary HX Skin/Integumentary Disorder: Yes (WOUND TO BUTTOCKS) Skin/Integumentary Disorders: Recent Skin Changes Blood Transfusions Hx Blood Disorders: Yes (ANEMIA) Adverse Reaction to a Blood Tr: No Family Medical History Significant Family History: No Pertinent Family Hx Family Hx: Colon cancer 09 SISTER Congestive heart failure 03 MOTHER Deafness or hearing loss 03 FATHER 03 MOTHER 09 BROTHER Family history: Arthritis 03 FATHER 03 MOTHER History of - respiratory disease 09 BROTHER (kurtis-smoker) Hypertension 03 MOTHER Myocardial infarction 03 FATHER Myocardial infarction 03 FATHER Neoplasm 09 SISTER Respiratory disorder Severe allergy No Family History of: AIDS Abdominal aortic aneurysm Isma's disease Alcoholism Alzheimer's disease Aphasia Arthritis Asthma Cancer of mouth Cardiovascular disease Cataracts Completed stroke Congenital disease Congenital heart disease Coronary thrombosis Cystic fibrosis Dementia Diabetes mellitus Drug abuse Dysphasia Fibrocystic disease of breast Gastroenteritis Glaucoma Headache disorder Hypercholesterolemia Infertility Kidney disease Not obtainable due to adoption Osteoporosis Parkinson's disease Prostate cancer Psychosocial problem Seizure disorder Thyroid disease Tuberculosis Visual disorder Review of Systems Constitutional: see HPI, weakness EENTM: no symptoms reported Respiratory: dyspnea on exertion Cardiovascular: no symptoms reported Gastrointestinal: no symptoms reported Genitourinary: no symptoms reported Musculoskeletal: back pain Skin: see HPI Psychiatric/Neurological: Depressed All Other Systems Reviewed Negative Unless Noted: Yes Physical Exam Physical Exam Vital Signs Vital Sign - Last 12Hours 06/25/16 00:20 Temp 97.6 Pulse 81 Resp 20 B/P (MAP) 114/68 Pulse Ox 96 O2 Delivery Nasal Cannula O2 Flow Rate 3.00 Capillary Refill : Less Than 3 Seconds General Appearance: No Apparent Distress, WD/WN, Chronically ill, Obese Eyes: Bilateral Eye Normal Inspection, Bilateral Eye PERRL HEENT: PERRL/EOMI, Normal ENT Inspection, Pharynx Normal Neck: Full Range of Motion, Normal Inspection, Non Tender, Supple, Carotid Bruit Respiratory: Chest Non Tender, Lungs Clear, No Accessory Muscle Use, No Respiratory Distress, Decreased Breath Sounds Cardiovascular: Regular Rate, Rhythm, No Edema, No Gallop, No JVD, No Murmur, Normal Peripheral Pulses Gastrointestinal: Normal Bowel Sounds, No Organomegaly, No Pulsatile Mass, Non Tender, Soft Back: Normal Inspection, No CVA Tenderness, No Vertebral Tenderness Extremity: Normal Capillary Refill, Normal Inspection, Normal Range of Motion, Non Tender, No Calf Tenderness, No Pedal Edema Neurologic/Psychiatric: Alert, Oriented x3, No Motor/Sensory Deficits, Normal Mood/Affect Skin: Normal Color, Warm/Dry, Other (sacral decubitus ulcer with no erythema and stage III noted) Lymphatic: No Adenopathy Results Results/Procedures Lab Laboratory Tests 06/25/16 00:25 06/25/16 05:15 Short Stay Diagnosis Discharge Diagnosis-Short Stay Admission Diagnosis Assessment: Oversedation due to fentanyl patch accompanied with hypoxia Sacral decubitus ulcer owing to wound care placed on Cipro 500 MG empirically Hypertension Coronary artery disease Pulmonary fibrosis Anemia Chronic renal insufficiency Final Discharge Diagnosis Assessment: Oversedation due to fentanyl patch accompanied with hypoxia Sacral decubitus ulcer going to wound care placed on Cipro 500 MG empirically Hypertension Coronary artery disease Pulmonary fibrosis Anemia Chronic renal insufficiency Conclusion Plan Plan: DC fentanyl patch Maintain oxygen Cipro 500 MG empirically Wound care per Dirk Carias Refuses to go to [place] but it is recommended. Resume Clinical Quality Measures DVT/VTE Risk/Contraindication: Risk Factor Score Per Nursin RFS Level Per Nursing on Admit: 4+=Very High DENI PINK DO Jun 25, 2016 11:34
[2016-06-25] MEDS ORDERED: TORS20TA3 PO (11:52)
[2016-06-25 12:00] VITALS: BP 144/64
[2016-06-25] MEDS ORDERED: BISACODYL 5 MG (DULCOLAX) TABLET PO PRN (12:00)
[2016-06-25] MEDS ORDERED: fentaNYL PATCH 50 MCG (DURAGESIC) TD SCH (12:00)
[2016-06-25] MEDS ORDERED: MILK OF MAGNESIA 400 MG/5 ML 30 ML UDC PO PRN (12:00)
[2016-06-25] MEDS ORDERED: oxyCODONE/APAP 10/325MG (PERCOCET 10) TABLET PO PRN (12:00)
[2016-06-25] MEDS ORDERED: LACTULOSE SYRUP 10GM/15ML (ENULOSE) 30ML UDC PO PRN (13:45)
[2016-06-25] MEDS ORDERED: CYANOCOBALAMIN 500 MCG TAB (VITAMIN B-12) PO SCH (14:00)
[2016-06-25] MEDS ORDERED: CATHETER FLUSH 10 ML SYR IV SCH (14:00)
[2016-06-25] MEDS ORDERED: MULTIVIT W/MINERALS TAB (THERAGRAN M) PO SCH (14:00)
[2016-06-25] MEDS ORDERED: DILTIAZEM 240 MG (CARDIZEM CD) CAP PO SCH (14:00)
[2016-06-25] MEDS ORDERED: VITAMIN D3 5,000 UNITS (CHOLECALCIFEROL ) CAPSULE PO SCH (14:00)
[2016-06-25 16:09] VITALS: BP 148/77
[2016-06-25] MEDS ORDERED: RT-ADVAIR HFA 115/21 MCG PER PUFF IH SCH (20:00)
[2016-06-25] MEDS ORDERED: NAPROXEN 250 MG (NAPROSYN) TABLET PO PRN (21:00)
[2016-06-25] MEDS ORDERED: guaiFENesin (MUCINEX) 600 MG TAB PO SCH (21:00)
[2016-06-25] MEDS ORDERED: DOCUSATE SODIUM 100 MG (COLACE) CAP PO SCH (21:00)
[2016-06-25] MEDS ORDERED: KCL 20 MEQ TAB (K-DUR) PO SCH (21:00)
[2016-06-25] MEDS ORDERED: AMITRIPTYLINE 150 MG (ELAVIL) TABLET PO SCH (21:00)
[2016-06-25] MEDS ORDERED: LABETALOL 200 MG (NORMODYNE) TAB PO SCH (21:00)
[2016-06-26] MEDS ORDERED: PANTOPRAZOLE 20 MG TABLET (PROTONIX) PO SCH (07:00)
[2016-06-26] MEDS ORDERED: LEVOTHYROXINE 150 MCG (LEVOTHROID) TAB PO SCH (09:00)
[2016-06-26] MEDS ORDERED: ATORVASTATIN 10 MG (LIPITOR) TABLET PO SCH (09:00)
[2016-06-26] MEDS ORDERED: TORSEMIDE 20 MG (DEMADEX) TAB PO SCH (09:00)
[2016-07-16] MEDS ORDERED: VANC500F IV (13:03)
[2016-07-16] MEDS ORDERED: SODI473S7 TOP (13:03)
[2016-07-16] MEDS ORDERED: METR500P4 IV (13:03)
[2016-07-16] MEDS ORDERED: FENT1PAT58 TD (13:03)
[2016-07-16] MEDS ORDERED: ACET-77 PO (13:03)
[2016-07-16] MEDS ORDERED: ALBU2.5V4 IH (13:03)
[2016-07-16] MEDS ORDERED: OXYC-465 PO (13:03)
[2016-07-16] MEDS ORDERED: POLY17PO23 PO (13:03)
[2016-07-17] MEDS ORDERED: VANC500F IV (08:40)
[2016-07-17] MEDS ORDERED: METR500T PO (10:39)
--- OUTSIDE RECORDS SUMMARY | 2016-07-27 15:37 | XMS REPORT | Continuity of Care Document ---
Author Author [facility] Organization [facility] Address Unknown Phone Unavailable Care Team Providers Care Retail Selling Specialist Name Role Phone Minoo Martel PCP [phone] Source Comments Some departments are not documenting in the electronic medical record. If you do not see the information that you expected, contact Release of Information in the Health Information Management department at [phone] for further assistance in locating additional records.[facility] Active Allergies and Adverse Reactions Allergen [...] examination 11/28/2013 Overview: 02/2011 - Pharmacologic MPI ([facility]): EF 65%. Non-ischemic. L ast Assessment [...] Taken Blood Pressure 108/61 01/26/2014 9:06 AM LOCKSTITCH WAISTLINE JOINER Pulse 66 01/26/2014 9:06 AM LOCKSTITCH WAISTLINE JOINER Temperature 37 C (98.6 F) 12/08/2013 3:09 PM CDT Respiratory Rate 12 11/28/2013 1:34 PM CDT Height 1.702 m (5' 7") 01/26/2014 9:06 AM LOCKSTITCH WAISTLINE JOINER Weight 87.454 kg (192 lb 12.8 01/26/2014 9:06 AM LOCKSTITCH WAISTLINE JOINER oz) Body Mass Index 30.19 01/26/2014 9:06 AM LOCKSTITCH WAISTLINE JOINER Oxygen Saturation 92% 12/08/2013 3:09 PM CDT Plan of Care Health Maintenance Due Date Last Done Comments Physical (Comprehensive) 1942 Exam Pertussis Vaccine 1946 Tetanus Vaccine 02/24/1952 Shingles Vaccine 1995 Osteoporosis Screening 02/24/2000 Prevnar/Pneumovax (#1) 02/24/2000 Influenza Vaccine 11/21/2016 Results from Last 3 Months Not on file
--- OUTSIDE RECORDS SUMMARY | 2016-07-27 15:49 | XMS REPORT | Continuity of Care Document ---
Author Author [facility] Organization [facility] Address Unknown Phone Unavailable Care Team Providers Care Shredded Filler Hopper Feeder Name Role Phone Minoo Martel PCP [phone] Source Comments Some departments are not documenting in the electronic medical record. If you do not see the information that you expected, contact Release of Information in the Health Information Management department at [phone] for further assistance in locating additional records.[facility] Active Allergies and Adverse Reactions [...] examination 11/28/2013 Overview: 02/2011 - Pharmacologic MPI ([facility]): EF 65%. Non-ischemic. L ast [...] Taken Blood Pressure 108/61 01/26/2014 9:06 AM POWER WOOD SAWYER Pulse 66 01/26/2014 9:06 AM POWER WOOD SAWYER Temperature 37 C (98.6 F) 12/08/2013 3:09 PM CDT Respiratory Rate 12 11/28/2013 1:34 PM CDT Height 1.702 m (5' 7") 01/26/2014 9:06 AM POWER WOOD SAWYER Weight 87.454 kg (192 lb 12.8 01/26/2014 9:06 AM POWER WOOD SAWYER oz) Body Mass Index 30.19 01/26/2014 9:06 AM POWER WOOD SAWYER Oxygen Saturation 92% 12/08/2013 3:09 PM CDT Plan of Care Health Maintenance Due Date Last Done Comments Physical (Comprehensive) 1942 Exam Pertussis Vaccine 1946 Tetanus Vaccine 02/24/1952 Shingles Vaccine 1995 Osteoporosis Screening 02/24/2000 Prevnar/Pneumovax (#1) 02/24/2000 Influenza Vaccine 11/21/2016 Results from Last 3 Months Not on file
== END 2016-06-25 12:00 | disposition home health service (06) ==
LOC: EDUNIT# 00:16 → ER 00:18 → 4TH 01:30 → UNDOADMOB 01:30 → 4TH 02:15 → UNDODISOB 12:00
PROVIDERS: ADMIT Internal Medicine; ATTEND Internal Medicine
DX: R09.02 Hypoxemia (principal); J44.1 Chronic obstructive pulmonary disease with (acute) exacerbation; I12.9 Hypertensive chronic kidney disease with stage 1 through stage 4 chronic kidney disease, or unspecified chronic kidney disease; N18.9 Chronic kidney disease, unspecified; L89.159 Pressure ulcer of sacral region, unspecified stage; I25.10 Atherosclerotic heart disease of native coronary artery without angina pectoris; J84.10 Pulmonary fibrosis, unspecified; D64.9 Anemia, unspecified; T40.4X5A Adverse effect of other synthetic narcotics, initial encounter
CPT/HCPCS: 36415; 71010; 78579; 80053; 82550; 82553; 82805; 83735; 83880; 84484; 85025; 85610; 85730; 93005; 93041; 94640; 94760; 96374; 96375; G0378

== ENCOUNTER 2016-07-05 13:18 | Observation (INO) | payer MEDICARE ==
[~2016-07-05] VITALS: Ht 157.5 cm; Wt 54.4 kg
[~2016-07-05 13:18] MED LIST changes: +CIPR500T4 PO; +FENT1PAT9 TD; +LACT10SO64 PO; +OXYC-465 PO
--- NOTE | 2016-07-05 14:33 | ED General ---
General Chief Complaint: General Problems/Pain Stated Complaint: AMS Nursing Triage Note: ARRIVED VIA EMS FROM HOME. ACCORDING TO FAMILY THEY STATES SHE WOKE UP THIS AM AT 11 WEAK AND NOT ACTING HERSELF. STATES THEY TOOK HER VITALS AND HER PULSE WAS IN THE 40'S ET PULSE OX IN THE 70'S ON 3L NC. PT'S ONLY COMPLAINT WAS SOA INITIALLY BUT NOW STATES SHE IS BETTER. PT IS ALERT TO NAME AND PLACE BUT CONFUSED ON MONTH AND PRESIDENT. DAUGHTER STATES THAT IT IS NOT HER. Nursing Sepsis Screen: No Definite Risk Source of Information: Patient, Family (daughter) Exam Limitations: No Limitations History of Present Illness Time Seen by Provider: 14:23 Initial Comments Patient presents to the ER with a 1 day feeling of malaise and shortness of breath. She is on 3 L nasal cannula at home by oxygen concentrator. Saturations are okay on arrival. She has not had a bowel movement in over a week. Patient is on fentanyl 50 g patch as well as hydrocodone 10 mg every 4-6 hours around- the-clock. She is recently began a year had a right femoral neck fracture repaired with plate and screws. Since that time she has also developed a sacral pressure ulcer that has just initiated wound care treatment outpatient. Her daughter is present and is participating in her cares by caring for her wounds as well as setting up her meds. The patient states she is still in a lot of pain with some nausea and shortness of breath. She denies a cough, fever, chills , rash, vomiting, diarrhea. No painful urination or burning. No discharge. Allergies and Home Medications Allergies Coded Allergies: cephalexin (Verified Allergy, Severe, TONGUE SWELLS, SOB (PT HAS HAD ROCEPHIN W/O ISSUE), 03/13/16) PER DR. MAYFIELD, PATIENT HAS RECEIVED ROCEPHIN IN THE PAST WITHOUT INCIDENT Penicillins (Verified Allergy, Mild, 03/13/16) celecoxib (Verified Allergy, Mild, PATIEN CAN TAKE MOBIC, 03/13/16) clindamycin (Verified Allergy, Mild, 03/13/16) propoxyphene (Verified Allergy, Mild, 03/13/16) rofecoxib (Verified Allergy, Mild, 03/13/16) Sulfa (Sulfonamide Antibiotics) (Verified Allergy, Unknown, 03/13/16) Tetanus Vaccines and Toxoid (Verified Allergy, Unknown, 03/13/16) doxycycline (Verified Allergy, Unknown, 03/13/16) levofloxacin (Verified Allergy, Unknown, 03/13/16) meloxicam (Verified Allergy, Unknown, 03/13/16) nitrofurantoin (Verified Allergy, Unknown, RASH, 03/13/16) Home Medications Amitriptyline HCl 150 Mg Tablet, 150 MG PO HS, (Reported) Atorvastatin Calcium 10 Mg Tablet, 10 MG PO DAILY, (Reported) Bisacodyl 5 Mg Tablet.dr, 5 MG PO DAILY PRN for CONSTIPATION, (Reported) Cholecalciferol (Vitamin D3) 5,000 Unit Capsule, 5,000 UNIT PO 1400, (Reported) Ciprofloxacin HCl 500 Mg Tablet, 500 MG PO BID for 10 Days, (Reported) 10 DAY SUPPLY FILLED 06-23-16 Cyanocobalamin (Vitamin B-12) 1,000 Mcg Tablet, 1,000 MCG PO 1400, (Reported) Diltiazem HCl 240 Mg Cap.er.24h, 240 MG PO 1400, (Reported) Docusate Sodium 100 Mg Capsule, 100 MG PO HS, (Reported) Guaifenesin/Dextromethorphan 1 Each Tbmp.12hr, 1 TAB PO BID, (Reported) Labetalol HCl 200 Mg Tablet, 200 MG PO BID, (Reported) Lactulose 10 Gm/15 Ml Solution, 30 ML PO DAILY PRN for CONSTIPATION-1ST LINE, ( Reported) Levothyroxine Sodium 150 Mcg Tablet, 150 MCG PO DAILY, (Reported) Magnesium Hydroxide 400 Mg/5 Ml Oral.susp, 4 TBS PO DAILY PRN for CONSTIPATION, (Reported) Multivitamin 1 Each Tablet, 1 TAB PO 1400, (Reported) Naproxen 500 Mg Tablet, 500 MG PO BID PRN for PAIN, (Reported) Omeprazole 20 Mg Capsule.dr, 20 MG PO DAILY, (Reported) Oxycodone HCl/Acetaminophen 1 Each Tablet, 1 TAB PO Q6H PRN for PAIN, (Reported) Potassium Chloride 10 Meq Capsule.er, 20 MEQ PO BID, (Reported) TAKES 2 (10 MEQ) CAPSULES Torsemide 20 Mg Tablet, 20 MG PO DAILY, (Reported) LAST FILLED 04/18/16 #60 Constitutional: chills, No diaphoresis, No fever, malaise EENTM: No ear pain, No eye pain, No hoarseness, No nose congestion Respiratory: No cough, short of breath, No wheezing Cardiovascular: No chest pain, edema (stable left leg edema), No palpitations, No syncope Gastrointestinal: No abdominal pain, constipation, No diarrhea, loss of appetite, nausea, No vomiting Genitourinary: No dysuria, No frequency, No hematuria Musculoskeletal: No back pain, joint pain (right hip and coccyx pain) Skin: No pruritus, No rash, other (open coccyx painful with drainage) Psychiatric/Neurological: Denies Headache, Numbness (right ankle) Hematologic/Lymphatic: Denies Blood Clots, Denies Easy Bleeding, Denies Easy Bruising Past [id number]-[id number] Hx Patient Social History Alcohol Use: Denies Use Recreational Drug Use: No Smoking Status: Never a Smoker Type Used: Cigarettes Former Smoker/When Quit: Feb 27, 1965 2nd Hand Smoke Exposure: No Recent Foreign Travel: No Contact w/Someone Who Travel: No Recent Infectious Disease Expo: No Recent Hopitalizations: Yes Immunizations Up To Date Tetanus Booster (TDap): Unknown PED Vaccines UTD: No Date of Pneumonia Vaccine: Nov 30, 2013 Date of Influenza Vaccine: Dec 22, 2015 Seasonal Allergies Seasonal Allergies: No Surgeries HX Surgeries: Yes Surgeries: Abdominal, Bowel Surgery, Section, Eye Surgery, Hysterectomy, Orthopedic, Thyroidectomy Respiratory Hx Respiratory Disorders: Yes Respiratory Disorders: Asthma, Pneumonia, Chronic Bronchitis, Sleep Apnea Cardiovascular Hx Cardiac Disorders: Yes (CHRONIC CHEST PAIN, PER PT) Cardiac Disorders: Chronic Edema/Swelling, High Cholesterol, Hypertension Neurological Hx Neurological Disorders: Yes (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) Neurological Disorders: TIA Reproductive System Hx Reproductive Disorders: No Sexually Transmitted Disease: No HIV/AIDS: No Female Reproductive Disorders: Denies Genitourinary Hx Genitourinary Disorders: Yes (MILD RENAL INSUFFICIENCY) Genitourinary Disorders: Bladder Infection Gastrointestinal Hx Gastrointestinal Disorders: Yes (HX COLON CANCER) Gastrointestinal Disorders: Gastroesophageal Reflux, Hemorrhoids Musculoskeletal Hx Musculoskeletal Disorders: Yes Musculoskeletal Disorders: Degenerate Disk Disease, Arthritis, Fibromyalgia, Chronic Back Pain Endocrine Hx Endocrine Disorders: Yes (HX THYROIDECTOMY FOR GOITER;STEROID INDUCED HYPERGLYCEMIA) Endocrine Disorders: Hypothyroidsim HEENT HX ENT Disorders: Yes (CHRONIC RECURRENT RIGHT SUBMANDIBULAR GLAND SWELLING) HEENT Disorders: Cataract Loss of Vision: Denies Hearing Impairment: Denies Cancer Hx Cancer: Yes (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) Cancer: Colon, Thyroid Psychosocial Hx Psychiatric Problems: Yes Behavioral Health Disorders: Anxiety Integumentary HX Skin/Integumentary Disorder: Yes (WOUND TO BUTTOCKS) Skin/Integumentary Disorders: Recent Skin Changes Blood Transfusions Hx Blood Disorders: Yes (ANEMIA) Adverse Reaction to a Blood Tr: No Family Medical History Significant Family History: No Pertinent Family Hx Family Medial History: Colon cancer 09 SISTER Congestive heart failure 03 MOTHER Deafness or hearing loss 03 FATHER 03 MOTHER 09 BROTHER Family history: Arthritis 03 FATHER 03 MOTHER History of - respiratory disease 09 BROTHER (kurtis-smoker) Hypertension 03 MOTHER Myocardial infarction 03 FATHER Myocardial infarction 03 FATHER Neoplasm 09 SISTER Respiratory disorder Severe allergy No Family History of: AIDS Abdominal aortic aneurysm Goldsmith's disease Alcoholism Alzheimer's disease Aphasia Arthritis Asthma Cancer of mouth Cardiovascular disease Cataracts Completed stroke Congenital disease Congenital heart disease Coronary thrombosis Cystic fibrosis Dementia Diabetes mellitus Drug abuse Dysphasia Fibrocystic disease of breast Gastroenteritis Glaucoma Headache disorder Hypercholesterolemia Infertility Kidney disease Not obtainable due to adoption Osteoporosis Parkinson's disease Prostate cancer Psychosocial problem Seizure disorder Thyroid disease Tuberculosis Visual disorder Physical Exam-Suspected Sepsis Physical Exam Vital Signs Vital Sign - Last 12Hours 07/05/16 13:18 Temp 97.4 Pulse 108 Resp 16 B/P (MAP) 90/61 Pulse Ox 97 Capillary Refill : Less Than 3 Seconds Blood Pressure Mean: 71 General Appearance: Mild Distress, Thin (right hand wasting) Eyes: Bilateral Eye EOMI, Bilateral Eye Normal Inspection HEENT: PERRL/EOMI, TMs Normal, Pharynx Normal Neck: Full Range of Motion, Non Tender Respiratory: Chest Non Tender, No Accessory Muscle Use, No Respiratory Distress , Crackles (RLL), No Wheezing Cardiovascular: Regular Rate, Rhythm, No Murmur, Normal Peripheral Pulses, Other (Right ankle with trace edema) Gastrointestinal: No Organomegaly, Non Tender, Abnormal Bowel Sounds ( hypoactive BS), Distended Back: No CVA Tenderness, No Vertebral Tenderness Extremity: Normal Capillary Refill, Normal Inspection, Non Tender, No Calf Tenderness Neurologic/Psychiatric: Alert, Oriented x3, No Motor/Sensory Deficits, 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 ) Lymphatic: No Adenopathy Focused Exam Lactic Acid Level Laboratory Tests Test 07/05/16 15:15 Lactic Acid Level 0.87 MMOL/L (0.50-2.00) Progress/Results/Core Measures Suspected Sepsis Recent Fever Within 48 Hours: No Infection Criteria Present: None New/Unexplained Altered Menta: Yes Sepsis Screen: No Definite Risk Sepsis Diagnosis: SIRS Temperature:97.4 Pulse: 108 Respiratory Rate: 16 Laboratory Tests 07/05/16 15:15: White Blood Count 13.8H Blood Pressure 90 /61 Mean: 71 Laboratory Tests 07/05/16 15:15: Creatinine 1.82H, INR Comment 1.0, Platelet Count 368, Total Bilirubin 0.3 Results/Orders Lab Results Laboratory Tests Test 07/05/16 13:45 07/05/16 15:15 Range/Units Urine Color YELLOW Urine Clarity CLEAR Urine pH 5 5-9 Urine Specific [place] 1.020 1.016-1.022 Urine Protein NEGATIVE NEGATIVE Urine Glucose (UA) NEGATIVE NEGATIVE Urine Ketones NEGATIVE NEGATIVE Urine Nitrite NEGATIVE NEGATIVE Urine Bilirubin NEGATIVE NEGATIVE Urine Urobilinogen NORMAL NORMAL MG/DL Urine Leukocyte Esterase 2+ H NEGATIVE Urine RBC (Auto) NEGATIVE NEGATIVE Urine RBC NONE /HPF Urine WBC RARE /HPF Urine Squamous Epithelial Cells 2-5 /HPF Urine Crystals NONE /LPF Urine Bacteria TRACE /HPF Urine Casts PRESENT /LPF Urine Hyaline Casts >50 H /LPF Urine Mucus NEGATIVE /LPF Urine Culture Indicated NO White Blood Count 13.8 H 4.3-11.0 10^3/uL Red Blood Count 3.38 L 4.35-5.85 10^6/uL Hemoglobin 10.2 L 11.5-16.0 G/DL Hematocrit 32 L 35-52 % Mean Corpuscular Volume 95 80-99 FL Mean Corpuscular Hemoglobin 30 25-34 PG Mean Corpuscular Hemoglobin Concent 32 32-36 G/DL Red Cell Distribution Width 13.8 10.0-14.5 % Platelet Count 368 130-400 10^3/uL Mean Platelet Volume 10.5 H 7.4-10.4 FL Neutrophils (%) (Auto) 71 42-75 % Lymphocytes (%) (Auto) 10 L 12-44 % Monocytes (%) (Auto) 16 H 0-12 % Eosinophils (%) (Auto) 3 0-10 % Basophils (%) (Auto) 0 0-10 % Neutrophils # (Auto) 9.8 H 1.8-7.8 X 10^3 Lymphocytes # (Auto) 1.4 1.0-4.0 X 10^3 Monocytes # (Auto) 2.2 H 0.0-1.0 X 10^3 Eosinophils # (Auto) 0.4 H 0.0-0.3 10^3/uL Basophils # (Auto) 0.0 0.0-0.1 10^3/uL Prothrombin Time 13.3 12.2-14.7 SEC INR Comment 1.0 0.8-1.4 Activated Partial Thromboplast Time 29 24-35 SEC Sodium Level 136 135-145 MMOL/L Potassium Level 4.3 3.6-5.0 MMOL/L Chloride Level 101 98-107 MMOL/L Carbon Dioxide Level 22 21-32 MMOL/L Anion Gap 13 5-14 MMOL/L Blood Urea Nitrogen 20 H 7-18 MG/DL Creatinine 1.82 H 0.60-1.30 MG/DL Estimat Glomerular Filtration Rate 27 BUN/Creatinine Ratio 11 Glucose Level 98 70-105 MG/DL Lactic Acid Level 0.87 0.50-2.00 MMOL/L Calcium Level 8.5 8.5-10.1 MG/DL Magnesium Level 1.8 1.8-2.4 MG/DL Total Bilirubin 0.3 0.1-1.0 MG/DL Aspartate Amino Transf (AST/SGOT) 18 5-34 U/L Alanine Aminotransferase (ALT/SGPT) 10 0-55 U/L Alkaline Phosphatase 113 40-136 U/L Total Protein 6.8 6.4-8.2 G/DL Albumin 3.4 3.2-4.5 G/DL My Orders Orders - BILL OBANDO Cbc With Automated Diff (07/05/16 14:33) Comprehensive Metabolic Panel (07/05/16 14:33) Lactic Acid Analyzer (07/05/16 14:33) Magnesium (07/05/16 14:33) Ua Culture If Indicated (07/05/16 14:33) Blood Culture (07/05/16 14:33) Chest Pa/Lat (2 View) (07/05/16 14:33) Abdomen/Kub 1view (07/05/16 14:33) Protime With Inr (07/05/16 14:33) Partial Thromboplastin Time (07/05/16 14:33) O2 (07/05/16 14:33) Ondansetron Injection (Zofran Injectio (07/05/16 14:45) Saline Lock/Iv-Start (07/05/16 14:33) Saline Lock/Iv-Start (07/05/16 14:33) Vital Signs Adult Sepsis Patie Q1HR (07/05/16 14:33) Remove Rings In Anticipation O (07/05/16 14:33) Fentanyl Injection (Sublimaze Injection (07/05/16 14:45) Ct Abdomen/Pelvis Wo (07/05/16 16:15) Medications Given in ED Current Medications Medications Dose Ordered Sig/Karen Route Start Time Stop Time Status Last Admin Dose Admin Fentanyl Citrate 25 mcg ONCE PRN IVP 07/05/16 14:45 07/05/16 14:50 25 MCG Ondansetron HCl 4 mg ONCE PRN IVP 07/05/16 14:45 07/05/16 14:51 DC 07/05/16 14:50 4 MG Vital Signs/I&O Vital Sign - Last 12Hours 07/05/16 13:18 Temp 97.4 Pulse 108 Resp 16 B/P (MAP) 90/61 Pulse Ox 97 Capillary Refill : Less Than 3 Seconds Blood Pressure Mean: 71 Progress Note : Time: 14:48 Progress Note Patient with malaise and weakness and increased shortness of breath with a poor appetite recently worsening wound on her coccyx that erupted after a right femoral neck fracture and no longer participating in home health physical therapy per patient and family presents with a acute concern for sepsis. No cough but she does have rails and she does appear to be acutely constipated so we will get a abdominal x-ray as well. She will probably benefit from antibiotics we will determine whether she needs to stay inpt she has any signs of sepsis on laboratory. 1620: Pt has enlarged colon gas pattern consistent with possible obstruction. We 'll get a CT of the abdomen and pelvis without contrast. It is much less likely now the patient is having any pulmonary embolism as the entire time she's been at her home oxygen satting into the upper 90s. No chest pains. The patient is not eager to spend the night however she does have a modest white count a large open wound on the coccyx and is going to need bowel care regimen. She is taking by mouth clindamycin outpatient. X-ray and CT imaging did not show transition point however there is air-fluid levels consistent with an ileus secondary to constipation secondary to opioid use. Diagnostic Imaging Diagonstic Imaging: Xray Plain Films/CT/US/NM/MRI: abdomen Comments Distended loops of bowel with no obvious transition point. [place]IA [place], [place] NAME: RADHA HILLIARD [facility] REC#: [id number] PT STATUS: REG ER : 1935 PHYSICIAN: BILL OBANDO MD ADMIT DATE: 07/05/16/ER Draft Date of Exam:07/05/16 ABDOMEN/KUB 1VIEW Abdomen at 3:51 p.m. INDICATION: Abdominal pain. Two supine views were obtained. FINDINGS: There is marked distention of the ascending, transverse and descending colon by gas. There also appears to be a fecal impaction within the rectum and sigmoid portion of colon. Most likely, the fecal material within the distal colon accounts for the distention of the descending, transverse and ascending colon. There is no mass or organomegaly appreciated. The osseous structures are intact. There is levoscoliosis of the thoracolumbar junction and there is severe degenerative disc and bony disease throughout the lumbar spine. There has also been prior repair of an intertrochanteric fracture left femur. IMPRESSION: . There is considerable distention of the ascending, transverse and descending colon. Most likely, this is due to a sizable fecal impaction involving the sigmoid colon and rectum. 2. There is no acute abnormality identified otherwise. Dictated on workstation # [id number] Dict: 07/05/16 1549 Trans: 07/05/16 1605 KB [id number] Interpreted by: BARRY WRIGHT MD Electronically signed by: Reviewed: Reviewed by Me Diagonstic Imaging: Xray Plain Films/CT/US/NM/MRI: chest Comments No acute cardiopulmonary processes noted. Compared to previous x-rays. [facility] [place], [place] NAME: RADHA HILL[facility]ARD [facility] REC#: [id number] PT STATUS: REG ER : 1935 PHYSICIAN: BILL OBANDO MD ADMIT DATE: 07/05/16/ER Draft Date of Exam:07/05/16 CHEST PA/LAT (2 VIEW) INDICATION: Shortness of air. COMPARISON: 06/25/2016. FINDINGS: Stable right basilar heterogeneous reticular opacities. Left basilar reticular opacities are also similar. No new airspace disease. No pleural effusion or pneumothorax. Stable cardiomegaly. Stable atherosclerotic aorta. Stable right IJ Port-A-Cath. IMPRESSION: 1. Stable chest radiograph compared to 06/26/2015. Basilar pulmonary opacities are likely chronic in nature. Dictated on workstation # [id number] Dict: 07/05/16 1552 Trans: 07/05/16 1556 [id number] Interpreted by: DANI FRANCIS MD Electronically signed by: Reviewed: Reviewed by Me Diagonstic Imaging: CT Plain Films/CT/US/NM/MRI: abdomen (without contrast), pelvis Comments ileus with distal fecal impaction Reviewed: Reviewed by Me Departure Communication Time/Spoke to Admitting Phy: 16:[address] Martinez agrees with observation stay, NG tube and IV fluids. Impression Impression: Primary Impression: Abdominal pain Qualified Codes: R10.84 - Generalized abdominal pain Disposition: ADMITTED INPATIENT (obs) Condition: Stable Decision to Admit Reason: Admit from ER (General) Decision to Admit/Date: Jul 05, 2016 Time/Decision to Admit Time: 16:59 Departure-Patient Inst. Referrals: MERT FRASER DO (PCP/Family) Primary Care Physician Copy Copies To 1: MERT FRASER TITUS J Jul 05, 2016 14:33
[2016-07-05] MEDS ORDERED: ONDANSETRON 4 MG/2 ML (SDV) Z0FRAN IVP PRN (14:45)
[2016-07-05] MEDS: fentaNYL INJECTION 100 MCG/2 ML AMP IVP PRN ×2 (14:50→17:09)
[2016-07-05 15:22] LABS: BILIRUBIN,URINE NEGATIVE (NEGATIVE); KETONES,URINE NEGATIVE (NEGATIVE); LEUKOCYTE ESTERASE ,URINE 2+ (NEGATIVE); NITRITE,URINE NEGATIVE (NEGATIVE); PH,URINE 5 (5-9); PROTEIN,URINE NEGATIVE (NEGATIVE); UROBILINOGEN,URINE NORMAL (NORMAL)
[2016-07-05 15:32] LABS: HYALINE CASTS, URINE >50 /LPF; WBC,URINE RARE /HPF
[2016-07-05 15:33] LABS: PROTHROMBIN TIME PATIENT 13.3 SEC (12.2-14.7)
[2016-07-05 15:42] LABS: BASOPHILS % (AUTO) 0 % (0-10); EOSINOPHILS # (AUTO) 0.4 10^3/uL (0.0-0.3); EOSINOPHILS % (AUTO) 3 % (0-10); LYMPHOCYTES # (AUTO) 1.4 X 10^3 (1.0-4.0); LYMPHOCYTES % (AUTO) 10 % (12-44); MEAN CORPUSCULAR HEMOGLOBIN 30 PG (25-34); MEAN CORPUSCULAR HGB CONC 32 G/DL (32-36); MEAN CORPUSCULAR VOLUME 95 FL (80-99); MEAN PLATELET VOLUME 10.5 FL (7.4-10.4); MONOCYTES # (AUTO) 2.2 X 10^3 (0.0-1.0); MONOCYTES % (AUTO) 16 % (0-12); NEUTROPHILS # (AUTO) 9.8 X 10^3 (1.8-7.8); NEUTROPHILS % (AUTO) 71 % (42-75); PLATELET COUNT 368 10^3/uL (130-400); RED BLOOD COUNT 3.38 10^6/uL (4.35-5.85); RED CELL DISTRIBUTION WIDTH 13.8 % (10.0-14.5); WHITE BLOOD COUNT 13.8 10^3/uL (4.3-11.0)
[2016-07-05 15:48] LABS: ALBUMIN 3.4 G/DL (3.2-4.5); BILIRUBIN,TOTAL 0.3 MG/DL (0.1-1.0); CALCIUM 8.5 MG/DL (8.5-10.1); CREATININE SERUM 1.82 MG/DL (0.60-1.30); MAGNESIUM 1.8 MG/DL (1.8-2.4); POTASSIUM 4.3 MMOL/L (3.6-5.0); TOTAL PROTEIN 6.8 G/DL (6.4-8.2)
--- NOTE | 2016-07-05 15:57 | Diagnostic Imaging Report ---
INDICATION: Shortness of air. COMPARISON: 06/25/2016. FINDINGS: Stable right basilar heterogeneous reticular opacities. Left basilar reticular opacities are also similar. No new airspace disease. No pleural effusion or pneumothorax. Stable cardiomegaly. Stable atherosclerotic aorta. Stable right IJ Port-A-Cath. IMPRESSION: 1. Stable chest radiograph compared to 06/26/2015. Basilar pulmonary opacities are likely chronic in nature. Dictated by: Dictated on workstation # [id number]
--- NOTE | 2016-07-05 16:06 | Diagnostic Imaging Report ---
Abdomen at 3:51 p.m. INDICATION: Abdominal pain. Two supine views were obtained. FINDINGS: There is marked distention of the ascending, transverse and descending colon by gas. There also appears to be a fecal impaction within the rectum and sigmoid portion of colon. Most likely, the fecal material within the distal colon accounts for the distention of the descending, transverse and ascending colon. There is no mass or organomegaly appreciated. The osseous structures are intact. There is levoscoliosis of the thoracolumbar junction and there is severe degenerative disc and bony disease throughout the lumbar spine. There has also been prior repair of an intertrochanteric fracture left femur. IMPRESSION: . There is considerable distention of the ascending, transverse and descending colon. Most likely, this is due to a sizable fecal impaction involving the sigmoid colon and rectum. 2. There is no acute abnormality identified otherwise. Dictated by: Dictated on workstation # [id number]
[2016-07-05] MEDS ORDERED: fentaNYL INJECTION 100 MCG/2 ML AMP IVP PRN ×2 (17:15→18:15)
--- NOTE | 2016-07-05 17:20 | Diagnostic Imaging Report ---
PROCEDURE: CT abdomen and pelvis without contrast. TECHNIQUE: Multiple contiguous axial images were obtained through the abdomen and pelvis without the use of intravenous contrast. INDICATION: Left-sided abdominal pain. COMPARISON: CT abdomen and pelvis of 04/09/15. FINDINGS: Chronic atelectasis/scar in the bilateral lung bases. This is unchanged since prior exam. No pleural or pericardial effusion. The heart is mildly enlarged. Coronary artery calcifications are present. No free intraperitoneal air or fluid. Evaluation of abdominal viscera is limited without IV contrast. Allowing for this, the liver, gallbladder and spleen demonstrate no acute abnormality. There is fatty infiltration of the pancreas without discrete mass lesion or peripancreatic inflammatory changes. The adrenals are normal. No renal or ureteral calculi. Basilar opacification is present in the left renal hilum. No obstructive uropathy. There is a small hiatus hernia. The stomach is distended with air. No dilated small bowel loops. The colon is very distended with air and stool. The transverse colon measures up to 8 cm in diameter. There is a large volume of fecal material at the level of the rectum concerning for fecal impaction. Tortuous atherosclerotic aorta is normal in caliber. No discrete abdominal or pelvic lymphadenopathy. Urinary bladder is distended without wall thickening. Partially imaged gamma nail fixation in the proximal left femur. No acute osseous abnormality. Degenerative changes in the spine with degenerative levoscoliosis. IMPRESSION: 1. Findings are most compatible with fecal impaction resulting in a large volume of colonic stool as well as gaseous distention of the colon. No bowel obstruction. 2. Small hiatus hernia. 3. Chronic scarring/atelectasis within the lung bases. Dictated by: Dictated on workstation # [id number]
[2016-07-05 18:04] VITALS: BP 99/54
[2016-07-05] MEDS ORDERED: ACETAMINOPHEN 500 MG TAB (TYLENOL) PO PRN (18:15)
[2016-07-05 19:22] VITALS: BP 121/57
[2016-07-05] MEDS ORDERED: MILK OF MAGNESIA 400 MG/5 ML 30 ML UDC PO PRN (19:45)
[2016-07-05] MEDS ORDERED: AMITRIPTYLINE 150 MG (ELAVIL) TABLET PO SCH (21:00)
[2016-07-05] MEDS ORDERED: DOCUSATE SODIUM 100 MG (COLACE) CAP PO SCH (21:00)
[2016-07-05] MEDS: LABETALOL 200 MG (NORMODYNE) TAB PO SCH (21:54)
[2016-07-05] MEDS: NS IV 1000 ML 1,000 ML IV SCH (21:55)
[2016-07-05] MEDS: oxyCODONE/APAP 10/325MG (PERCOCET 10) TABLET PO PRN (21:58)
[2016-07-05] MEDS: METOCLOPRAMIDE INJ 10 MG/2 ML (REGLAN) IVP SCH (23:47)
[2016-07-06] VITALS (7 sets, daily range): BP systolic 106–137; BP diastolic 54–75
[2016-07-06] MEDS: NS IV 1000 ML 1,000 ML IV SCH ×2 (04:44→14:28)
[2016-07-06 06:06] LABS: BASOPHILS % (AUTO) 0 % (0-10); EOSINOPHILS # (AUTO) 0.6 10^3/uL (0.0-0.3); EOSINOPHILS % (AUTO) 5 % (0-10); LYMPHOCYTES # (AUTO) 2.3 X 10^3 (1.0-4.0); LYMPHOCYTES % (AUTO) 18 % (12-44); MEAN CORPUSCULAR HEMOGLOBIN 30 PG (25-34); MEAN CORPUSCULAR HGB CONC 32 G/DL (32-36); MEAN CORPUSCULAR VOLUME 95 FL (80-99); MEAN PLATELET VOLUME 10.1 FL (7.4-10.4); MONOCYTES # (AUTO) 2.2 X 10^3 (0.0-1.0); NEUTROPHILS # (AUTO) 7.5 X 10^3 (1.8-7.8); PLATELET COUNT 333 10^3/uL (130-400); RED CELL DISTRIBUTION WIDTH 13.9 % (10.0-14.5); WHITE BLOOD COUNT 12.6 10^3/uL (4.3-11.0)
[2016-07-06 06:15] LABS: MONOCYTES % (AUTO) 17 % (0-12); NEUTROPHILS % (AUTO) 60 % (42-75)
[2016-07-06] MEDS: METOCLOPRAMIDE INJ 10 MG/2 ML (REGLAN) IVP SCH ×3 (06:34→18:27)
[2016-07-06 06:37] LABS: ALBUMIN 2.9 G/DL (3.2-4.5); BILIRUBIN,TOTAL 0.3 MG/DL (0.1-1.0); CREATININE SERUM 1.87 MG/DL (0.60-1.30); POTASSIUM 3.7 MMOL/L (3.6-5.0); TOTAL PROTEIN 5.7 G/DL (6.4-8.2)
[2016-07-06] MEDS ORDERED: PANTOPRAZOLE 40 MG (PROTONIX) TAB PO SCH (07:00)
[2016-07-06] MEDS: TORSEMIDE 20 MG (DEMADEX) TAB PO SCH (08:46)
[2016-07-06] MEDS: LABETALOL 200 MG (NORMODYNE) TAB PO SCH ×2 (08:46→21:24)
[2016-07-06] MEDS ORDERED: LEVOTHYROXINE 150 MCG (LEVOTHROID) TAB PO SCH (09:00)
[2016-07-06] MEDS ORDERED: ATORVASTATIN 10 MG (LIPITOR) TABLET PO SCH (09:00)
[2016-07-06] MEDS ORDERED: OMEPRAZOLE 20 MG (PriLOSEC) CAP NON-FORMULARY PO SCH (09:00)
[2016-07-06] MEDS: oxyCODONE/APAP 10/325MG (PERCOCET 10) TABLET PO PRN ×2 (11:27→18:58)
[2016-07-06] MEDS ORDERED: BISACODYL 5 MG (DULCOLAX) TABLET PO PRN ×2 (12:30→16:30)
[2016-07-06] MEDS ORDERED: LACTULOSE 10 GM/15 ML 30 ML POUR BOTTLE FOR ENEMA PO PRN (12:30)
--- NOTE | 2016-07-06 12:36 | History & Physical-Hospitalist ---
HPI History of Present Illness: HPI/Chief Complaint 81-year-old white female who presents with increased shortness of breath and abdominal discomfort. fecal impaction is identified. This morning the patient has had 2 bowel movements is and is feeling better. she is somewhat short of breath but is not wearing her oxygen. He complains of having been falling recently. Source: patient, family Exam Limitations: no limitations Date Seen 07/06/16 Attending Physician Mark Martinez MD PCP Cheng Abraham DO Referring Physician Date of Admission Jul 05, 2016 at 16:56 Home Medications & Allergies Home Medications Reviewed patient Home Medication Reconciliation Form Allergies Allergies Coded Allergies cephalexin (Verified Allergy, Severe, TONGUE SWELLS, SOB (PT HAS HAD ROCEPHIN W/O ISSUE), 03/13/16) PER DR. MAYFIELD, PATIENT HAS RECEIVED ROCEPHIN IN THE PAST WITHOUT INCIDENT Penicillins (Verified Allergy, Mild, 03/13/16) celecoxib (Verified Allergy, Mild, PATIEN CAN TAKE MOBIC, 03/13/16) clindamycin (Verified Allergy, Mild, 03/13/16) propoxyphene (Verified Allergy, Mild, 03/13/16) rofecoxib (Verified Allergy, Mild, 03/13/16) Sulfa (Sulfonamide Antibiotics) (Verified Allergy, Unknown, 03/13/16) Tetanus Vaccines and Toxoid (Verified Allergy, Unknown, 03/13/16) doxycycline (Verified Allergy, Unknown, 03/13/16) levofloxacin (Verified Allergy, Unknown, 03/13/16) meloxicam (Verified Allergy, Unknown, 03/13/16) nitrofurantoin (Verified Allergy, Unknown, RASH, 03/13/16) Past Rodyuug-Axwhll-Alwkcv Hx Patient Social History Marrital Status: Employed/Student: retired Alcohol Use: Denies Use Recreational Drug Use: No Smoking Status: Former Smoker Former smoker/When Quit: Feb 27, 1965 Type Used: Cigarettes 2nd Hand Smoke Exposure: No Physical Abuse Screen: No Sexual Abuse: No Recent Foreign Travel: No Contact w/other who traveled: No Recent Hopitalizations: Yes Recent Infectious Disease Expo: No Immunizations Up To Date Tetanus Booster (TDap): Unknown Date of Pneumonia Vaccine: Nov 30, 2013 Date of Influenza Vaccine: Dec 22, 2015 Seasonal Allergies Seasonal Allergies: No Surgeries HX Surgeries: Yes Surgeries: Abdominal, Bowel Surgery, Section, Eye Surgery, Hysterectomy, Orthopedic, Thyroidectomy Respiratory Hx Respiratory Disorders: Yes Respiratory Disorders: COPD Cardiovascular Hx Cardiovascular Disorders: Yes (CHRONIC CHEST PAIN, PER PT) Cardiac Disorders: Chronic Edema/Swelling, High Cholesterol, Hypertension Neurological Hx Neurological Disorders: Yes (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) Neurological Disorders: TIA Reproductive System Hx Reproductive Disorders: No Sexually Transmitted Disease: No HIV/AIDS: No Female Reproductive Disorders: Denies Genitourinary Hx Genitourinary Disorders: Yes (MILD RENAL INSUFFICIENCY) Genitourinary Disorders: Bladder Infection Gastrointestinal Hx Gastrointestinal Disorders: Yes (HX COLON CANCER) Gastrointestinal Disorders: Gastroesophageal Reflux, Hemorrhoids Musculoskeletal Hx Musculoskeletal Disorders: Yes Musculoskeletal Disorders: Degenerate Disk Disease, Arthritis, Fibromyalgia, Chronic Back Pain Endocrine Hx Endocrine Disorders: Yes (HX THYROIDECTOMY FOR GOITER;STEROID INDUCED HYPERGLYCEMIA) Endocrine Disorders: Hypothyroidsim HEENT HX ENT Disorders: Yes (CHRONIC RECURRENT RIGHT SUBMANDIBULAR GLAND SWELLING) HEENT Disorders: Cataract Loss of Vision: Denies Hearing Impairment: Denies Cancer Hx Cancer: Yes (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) Cancer: Colon, Thyroid Psychosocial Hx Psychiatric Problems: Yes Behavioral Health Disorders: Anxiety Integumentary HX Skin/Integumentary Disorder: Yes (WOUND TO BUTTOCKS) Skin/Integumentary Disorders: Recent Skin Changes Blood Transfusions Hx Blood Disorders: Yes (ANEMIA) Adverse Reaction to a Blood Tr: No Family Medical History Significant Family History: No Pertinent Family Hx Family Hx: Colon cancer 09 SISTER Congestive heart failure 03 MOTHER Deafness or hearing loss 03 FATHER 03 MOTHER 09 BROTHER Family history: Arthritis 03 FATHER 03 MOTHER History of - respiratory disease 09 BROTHER (kurtis-smoker) Hypertension 03 MOTHER Myocardial infarction 03 FATHER Myocardial infarction 03 FATHER Neoplasm 09 SISTER Respiratory disorder Severe allergy No Family History of: AIDS Abdominal aortic aneurysm Isma's disease Alcoholism Alzheimer's disease Aphasia Arthritis Asthma Cancer of mouth Cardiovascular disease Cataracts Completed stroke Congenital disease Congenital heart disease Coronary thrombosis Cystic fibrosis Dementia Diabetes mellitus Drug abuse Dysphasia Fibrocystic disease of breast Gastroenteritis Glaucoma Headache disorder Hypercholesterolemia Infertility Kidney disease Not obtainable due to adoption Osteoporosis Parkinson's disease Prostate cancer Psychosocial problem Seizure disorder Thyroid disease Tuberculosis Visual disorder Review of Systems Constitutional: weakness EENTM: no symptoms reported Respiratory: dyspnea on exertion Cardiovascular: no symptoms reported Gastrointestinal: constipation Genitourinary: no symptoms reported Musculoskeletal: muscle pain, muscle weakness Skin: other (Baugh of breakdown over hip) Psychiatric/Neurological: No Symptoms Reported Physical Exam Physical Exam Vital Signs Vital Sign - Last 12Hours 07/05/16 13:18 Temp 97.4 Pulse 108 Resp 16 B/P (MAP) 90/61 Pulse Ox 97 O2 Delivery Nasal Cannula O2 Flow Rate 3.00 Capillary Refill : Less Than 3 Seconds General Appearance: Chronically ill, Mild Distress Neck: Supple Respiratory: Crackles, Rales Cardiovascular: Regular Rate, Rhythm Gastrointestinal: Normal Bowel Sounds, No Organomegaly, Non Tender, Soft Rectal: Deferred Extremity: No Pedal Edema Neurologic/Psychiatric: Alert, Oriented x3, No Motor/Sensory Deficits, Normal Mood/Affect Skin: Normal Color, Warm/Dry Results Results/Procedures Lab Laboratory Tests 07/05/16 15:15 07/06/16 05:50 Assessment/Plan Admission Diagnosis 1. constipation 2. Anemia-history of iron deficiency 3. Abdominal pain secondary to number 1 4. Shortness of breath secondary to number 1 and COPD O2 dependent 5. Recent hip fracture with overlying pressure ulcer 6. Chronic pain with narcotic pain use- 7. remote history of cancer of the colon no evidence of disease. 8. right-sided weakness secondary to post polio syndrome Plan to continue the Cipro that she's been on consult wound care in the morning continue to work on bowel program and consider strengthening Copy Copies To 1: CHENG ABRAHAM DO Clinical Quality Measures DVT/VTE Risk/Contraindication: Risk Factor Score Per Nursin RFS Level Per Nursing on Admit: 4+=Very High MARK MARTINEZ MD Jul 06, 2016 12:36
[2016-07-06] MEDS ORDERED: CIPROFLOXACIN 500 MG (CIPRO) TABLET PO SCH (13:00)
[2016-07-06] MEDS ORDERED: PATIENT MAY USE OWN MEDS, ALL MC SCH (13:15)
[2016-07-06] MEDS ORDERED: DILTIAZEM 240 MG (CARDIZEM CD) CAP PO SCH (14:00)
[2016-07-06] MEDS ORDERED: ACETAMINOPHEN 325 MG TABLET/CAPLET (TYLENOL) PO PRN (16:15)
[2016-07-06] MEDS ORDERED: FENT1PAT58 TD (16:25)
[2016-07-06] MEDS ORDERED: AMITRIPTYLINE 150 MG (ELAVIL) TABLET PO SCH (21:00)
[2016-07-06] MEDS ORDERED: DOCUSATE SODIUM 100 MG (COLACE) CAP PO SCH (21:00)
[2016-07-07] MEDS: METOCLOPRAMIDE INJ 10 MG/2 ML (REGLAN) IVP SCH ×2 (00:08→06:48)
[2016-07-07] MEDS: NS IV 1000 ML 1,000 ML IV SCH ×2 (00:13→10:23)
[2016-07-07 00:23] VITALS: BP 147/65
[2016-07-07 04:16] VITALS: BP 122/55
[2016-07-07] MEDS ORDERED: LEVOTHYROXINE 150 MCG (LEVOTHROID) TAB PO SCH ×2 (06:30)
[2016-07-07] MEDS ORDERED: CIPROFLOXACIN 500 MG (CIPRO) TABLET PO SCH (07:00)
[2016-07-07 08:00] VITALS: BP 122/58
[2016-07-07] MEDS: TORSEMIDE 20 MG (DEMADEX) TAB PO SCH (08:13)
[2016-07-07] MEDS: LABETALOL 200 MG (NORMODYNE) TAB PO SCH (08:13)
[2016-07-07] MEDS ORDERED: ATORVASTATIN 10 MG (LIPITOR) TABLET PO SCH (09:00)
[2016-07-07] MEDS ORDERED: OMEPRAZOLE 20 MG (PriLOSEC) CAP NON-FORMULARY PO SCH (09:00)
[2016-07-07] MEDS ORDERED: CLIN300C11 PO (10:45)
[2016-07-07 12:00] VITALS: BP 121/58
[2016-07-07] MEDS ORDERED: METOCLOPRAMIDE INJ 10 MG/2 ML (REGLAN) IVP SCH (12:00)
--- NOTE | 2016-07-07 12:14 | Progress Note-Hospitalist ---
Standard Progress Note Progress Notes/Assess & Plan Date Seen 07/07/16 Diagnosis 1. constipation 2. Anemia-history of iron deficiency 3. Abdominal pain secondary to number 1 4. Shortness of breath secondary to number 1 and COPD O2 dependent 5. Recent hip fracture with overlying pressure ulcer 6. Chronic pain with narcotic pain use- 7. remote history of cancer of the colon no evidence of disease. 8. 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 She would rather like to go home. She has an open pressure sore over her subacute hip fracture repair. As well as the coccyx. This was cultured on [address] Buckley's office. Culture report is made available to me and grew MRSA as would be expected in addition a moderate growth of a Bacteroides species was reported the patient has an extensive history of antibiotic allergies to the extent that the only reasonable treatments would be metronidazole and imipenem for the Bacteroides or linezolid, monocyte clean, vancomycin, rifampin for the MRSA. She is to be seen this afternoon by Dr. Leyva from the Wound Care Department. Physical exam. She is alert and reports she is feeling reasonably well. She states that she had not been taking any medication at home for management of constipation. The lungs are clear to auscultation. CV is regular. Impression: 1.constipation secondary to narcotic pain relievers. 2.ischemic cardiomyopathy with ejection fraction in the tendon 15 percent range after MT in March 2015. 3.Subacute hip fracture repair with pressure sore evidence. 4.decubitus over her coccyx. Plan: Advance diet. 2.MiraLAX on a schedule. 3.await wound care. Labs Laboratory Tests 07/05/16 15:15 07/06/16 05:50 BREANNA ROBLES MD Jul 07, 2016 12:14
[2016-07-07] MEDS ORDERED: DILTIAZEM 240 MG (CARDIZEM CD) CAP PO SCH (14:00)
--- NOTE | 2016-07-07 14:17 | Discharge Inst-Home Health ---
Discharge Inst-to Home Health Patient Instructions Patient Instructions/FollowUp: Medications as listed in the discharge sequence Resume wound care Resume home health services Patient Problems: Ischemic cardiomyopathy with markedly depressed ejection fraction COPD Pressure ulcers Goal: Comfort in home setting VIA [place], [place] DISCHARGE ORDERS Allergies: Coded Allergies: cephalexin (Verified Allergy, Severe, TONGUE SWELLS, SOB (PT HAS HAD ROCEPHIN W/O ISSUE), 03/13/16) PER DR. MAYFIELD, PATIENT HAS RECEIVED ROCEPHIN IN THE PAST WITHOUT INCIDENT Penicillins (Verified Allergy, Mild, 03/13/16) celecoxib (Verified Allergy, Mild, PATIEN CAN TAKE MOBIC, 03/13/16) clindamycin (Verified Allergy, Mild, 03/13/16) propoxyphene (Verified Allergy, Mild, 03/13/16) rofecoxib (Verified Allergy, Mild, 03/13/16) Sulfa (Sulfonamide Antibiotics) (Verified Allergy, Unknown, 03/13/16) Tetanus Vaccines and Toxoid (Verified Allergy, Unknown, 03/13/16) doxycycline (Verified Allergy, Unknown, 03/13/16) levofloxacin (Verified Allergy, Unknown, 03/13/16) meloxicam (Verified Allergy, Unknown, 03/13/16) nitrofurantoin (Verified Allergy, Unknown, RASH, 03/13/16) Height (Feet): 5 Height (Inches): 2.00 Weight (Pounds): 120 Weight (Ounces): 0.0 Weight (Kilograms): 77.0 Home Health Need/Face to Face Reason Pt Homebound Illness I Have Seen Pt [id number]: Yes Date of Face to Face: Jul 07, 2016 Discharged To: Home Diagnosis/Conditions HH Order: End-stage ischemic cardiomyopathy Yes againy Consult/Follow Up/New Order *I certify that based on my findings, the following services are medically necessary Home Health Services: Services: Nursing Services clinical findings support the need for the above services; see Diagnosis. Yet [facility] Orders Resume present orders and skin care Dicharge Diet: No Restrictions Daily Activity as Tolerated: Yes I certify that this patient is under my care and that I, a nurse practitioner or a physician; a pharmacist assistant working with me, had a face to face encounter that - meets the physician face to face encounter requirements with this patient a Yes BREANNA ROBLES MD Jul 07, 2016 14:17
[2016-07-07] MEDS: oxyCODONE/APAP 10/325MG (PERCOCET 10) TABLET PO PRN (15:40)
[2016-07-07 16:25] VITALS: BP 129/59
--- NOTE | 2016-07-07 17:12 | Wound Care Progress Note ---
Subjective Subjective Subjective/Events-last exam 81 year old female admitted for constipation, noted to have pressure ulcer of sacrum. States it has been present since hip operation 2 months ago. Wound is painful. Swab culture shows MRSA and polymicrobial meenu. The patient is to be discharged today. She has multiple allergies. No clear oral coverage identified given the multiple allergies. Wound base is necrotic tissue. She is on regular mattress at home. PMH: COPD, chronic chest pain, uncertain etiology, HTN, Hx of polio with weakness R side, CRF, Hx colon CA. FH: + for cancer, heart disease, respiratory disease. SH: , Non-smoker. Review of Systems General: No Chills, Fatigue HEENT: Head Aches Pulmonary: No Dyspnea Cardiovascular: Chest Pain Gastrointestinal: Constipation Genitourinary: No Dysuria Neurological: Weakness (right side.) Objective Exam Last Set of Vital Signs Vital Signs Date Time Temp Pulse Resp B/P (MAP) Pulse Ox O2 Delivery O2 Flow Rate FiO2 07/07/16 16:25 97.3 68 20 129/59 98 Nasal Cannula 3.00 Capillary Refill : Less Than 3 Seconds I&O Intake and Output 07/07/16 00:00 Intake Total 3800 ml Balance 3800 ml Intake Oral 1800 ml IV Total 2000 ml # Voids 8 # Bowel Movements 7 General: Alert, No Acute Distress HEENT: Atraumatic Neck: Supple Lungs: Normal Air Movement Abdomen: Soft Skin: Other (Sacral wound -- 4.0 x 5.8 x 2.0 cm, base necrotic subcutaneous tissue, mod. s.s. drainage, moderate odor.) Neuro: Other (Bed fast.) Psych/Mental Status: Mental Status NL Results Lab Microbiology 07/05/16 Blood Culture - Preliminary, Resulted No growth Assessment/Plan Assessment/Plan Assessment/Plan 1. Pressure ulcer, sacral, unstageable. 2. Debility, and decreased mobility, s/p L hip fracture, Hx of polio. 3. Chronic pain syndrome. Plan: Will change to skin drier dressing that can breathe, and will follow-up as out -patient in [place]. JUDITH WRIGHT MD Jul 07, 2016 17:12
[2016-07-07 18:15] VITALS: BP 129/59
[2016-07-08] MEDS ORDERED: CIPROFLOXACIN 500 MG (CIPRO) TABLET PO SCH (07:00)
[2016-07-16] MEDS ORDERED: FENT1PAT58 TD (13:03)
[2016-07-16] MEDS ORDERED: METR500P4 IV (13:03)
[2016-07-16] MEDS ORDERED: ACET-77 PO (13:03)
[2016-07-16] MEDS ORDERED: VANC500F IV (13:03)
[2016-07-16] MEDS ORDERED: POLY17PO23 PO (13:03)
[2016-07-16] MEDS ORDERED: SODI473S7 TOP (13:03)
[2016-07-16] MEDS ORDERED: OXYC-465 PO (13:03)
[2016-07-16] MEDS ORDERED: ALBU2.5V4 IH (13:03)
[2016-07-17] MEDS ORDERED: VANC500F IV (08:40)
[2016-07-17] MEDS ORDERED: METR500T PO (10:39)
== END 2016-07-07 14:12 | disposition home health service (06) ==
LOC: EDUNIT# 13:18 → ER 13:19 → 4TH 16:56 → UNDOADMOB 16:56 → 4TH 18:00 → UNDODISOB 07-07 18:15
PROVIDERS: ADMIT Internal Medicine; ATTEND Internal Medicine
DX: R41.82 Altered mental status, unspecified (principal); K59.03 Drug induced constipation; J44.9 Chronic obstructive pulmonary disease, unspecified; G89.29 Other chronic pain; I10 Essential (primary) hypertension; L89.150 Pressure ulcer of sacral region, unstageable; S72.001D Fracture of unspecified part of neck of right femur, subsequent encounter for closed fracture with routine healing; K21.9 Gastro-esophageal reflux disease without esophagitis; K44.9 Diaphragmatic hernia without obstruction or gangrene; D50.9 Iron deficiency anemia, unspecified; G14 Postpolio syndrome; R29.898 Other symptoms and signs involving the musculoskeletal system; I25.5 Ischemic cardiomyopathy; G89.4 Chronic pain syndrome; Z85.038 Personal history of other malignant neoplasm of large intestine; Z99.81 Dependence on supplemental oxygen; Z87.891 Personal history of nicotine dependence; T40.605A Adverse effect of unspecified narcotics, initial encounter
CPT/HCPCS: 36415; 71020; 74000; 74176; 80053; 81000; 83605; 83735; 85025; 85610; 85730; 87040; 94760; 96374; 96375; 96376; G0378

== ENCOUNTER 2016-07-09 14:00 | Outpatient (RCR) | payer MEDICARE, MEDICAID ==
[~2016-07-09 14:00] MED LIST changes: +CLIN300C11 PO; +FENT1PAT58 TD
[2016-07-16] MEDS ORDERED: METR500P4 IV (13:03)
[2016-07-16] MEDS ORDERED: VANC500F IV (13:03)
[2016-07-16] MEDS ORDERED: SODI473S7 TOP (13:03)
[2016-07-16] MEDS ORDERED: ALBU2.5V4 IH (13:03)
[2016-07-16] MEDS ORDERED: POLY17PO23 PO (13:03)
[2016-07-16] MEDS ORDERED: ACET-77 PO (13:03)
[2016-07-16] MEDS ORDERED: OXYC-465 PO (13:03)
[2016-07-16] MEDS ORDERED: FENT1PAT58 TD (13:03)
[2016-07-17] MEDS ORDERED: VANC500F IV (08:40)
[2016-07-17] MEDS ORDERED: METR500T PO (10:39)
== END 2016-07-15 16:00 | disposition home or self-care (01) ==
LOC: WOUNDCARE 14:00
PROVIDERS: ATTEND Surgery
DX: L05.01 Pilonidal cyst with abscess (principal); L89.150 Pressure ulcer of sacral region, unstageable; N18.3 Chronic kidney disease, stage 3 (moderate)
CPT/HCPCS: 11043; 11046; 87070; 87075; 87077; 87186; 87205; 99213

== ENCOUNTER 2016-07-21 18:56 | Observation (INO) | payer MEDICARE ==
[2016-07-21] VITALS (11 sets, daily range): BP systolic 122–149; BP diastolic 59–75
[~2016-07-21] VITALS: Ht 167.6 cm; Wt 82.6 kg
[~2016-07-21 18:56] MED LIST changes: +ACET-77 PO; +ALBU2.5V4 IH; +METR500P4 IV; +METR500T PO; +POLY17PO23 PO; +SODI473S7 TOP; +VANC500F IV
[2016-07-21] MEDS ORDERED: ONDANSETRON 4 MG/2 ML (SDV) Z0FRAN ONE (19:03)
--- NOTE | 2016-07-21 19:03 | ED Neurological Problem ---
General Stated Complaint: STROKE Source: patient, family, EMS, RN notes reviewed, care home records Exam Limitations: clinical condition History of Present Illness Time seen by provider: 19:03 Initial Comments Patient presents c/ c/o AMS. Daughter reports this is exactly the was she was when she was here recently c/ a narcotic withdrawal seizure. Currently in care home for wound care. Reportedly didn't recent any narcotics until 15: 00 today. 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) Associated Symptoms: confusion, seizures (?) Allergies and Home Medications Allergies Coded Allergies: Cephalosporins (Verified Allergy, Severe, TONGUE SWELLING, SOB, SWELLING, 07/22/16) Penicillins (Verified Allergy, Mild, 03/13/16) celecoxib (Verified Allergy, Mild, PATIEN CAN TAKE MOBIC, 03/13/16) clindamycin (Verified Allergy, Mild, 03/13/16) propoxyphene (Verified Allergy, Mild, 03/13/16) rofecoxib (Verified Allergy, Mild, 03/13/16) Sulfa (Sulfonamide Antibiotics) (Verified Allergy, Unknown, 03/13/16) Tetanus Vaccines and Toxoid (Verified Allergy, Unknown, 03/13/16) doxycycline (Verified Allergy, Unknown, 03/13/16) levofloxacin (Verified Allergy, Unknown, 03/13/16) meloxicam (Verified Allergy, Unknown, 03/13/16) nitrofurantoin (Verified Allergy, Unknown, RASH, 03/13/16) Home Medications Acetaminophen 500 Mg Tablet, 500 MG PO Q4H PRN for MILD for 30 Days Prescribed by: DENI PINK on 07/16/16 1303 Albuterol Sulfate 2.5 Mg/3 Ml Vial.neb, 2.5 MG NEB 0800,1200,1600, (Reported) Amitriptyline HCl 150 Mg Tablet, 150 MG PO HS, (Reported) Atorvastatin Calcium 10 Mg Tablet, 10 MG PO 1700, (Reported) Bisacodyl 5 Mg Tablet.dr, 5 MG PO DAILY PRN for CONSTIPATION-4TH LINE, (Reported ) Cholecalciferol (Vitamin D3) 5,000 Unit Capsule, 5,000 UNIT PO DAILY, (Reported) Cyanocobalamin (Vitamin B-12) 1,000 Mcg Tablet, 1,000 MCG PO DAILY, (Reported) Diltiazem HCl 240 Mg Cap.er.24h, 240 MG PO DAILY, (Reported) Docusate Sodium 100 Mg Capsule, 100 MG PO HS, (Reported) Fentanyl 1 Each Patch.td72, 50 MCG TD Q72H, #10 Prescribed by: DENI PINK on 07/16/16 1303 Guaifenesin/Dextromethorphan 1 Each Tbmp.12hr, 1 TAB PO BID, (Reported) Labetalol HCl 200 Mg Tablet, 200 MG PO BID, (Reported) Lactulose 10 Gm/15 Ml Solution, 30 ML PO DAILY PRN for CONSTIPATION-3RD LINE, ( Reported) Levothyroxine Sodium 150 Mcg Tablet, 150 MCG PO DAILY, (Reported) Magnesium Hydroxide 400 Mg/5 Ml Oral.susp, 60 ML PO DAILY PRN for CONSTIPATION- 7TH LINE, (Reported) Metaxalone 800 Mg Tablet, 800 MG PO Q8H PRN for MUSCLE SPASMS, (Reported) Metronidazole 500 Mg Tablet, 500 MG PO TID for 21 Days Prescribed by: DENI PINK on 07/17/16 1039 Multivitamin 1 Each Tablet, 1 TAB PO DAILY, (Reported) Naproxen 500 Mg Tablet, 500 MG PO BID PRN for PAIN, (Reported) Omeprazole 20 Mg Capsule.dr, 20 MG PO DAILY, (Reported) Oxycodone HCl/Acetaminophen 1 Each Tablet, 1 TAB PO Q6H PRN for PAIN, #60 Prescribed by: DENI PINK on 07/16/16 1303 Oxycodone HCl/Acetaminophen 1 Each Tablet, 1 TAB PO Q12H, (Reported) Polyethylene Glycol 3350 17 Gm Powd.pack, 34 GM PO BID for 30 Days Prescribed by: DENI PINK on 07/16/16 1303 Potassium Chloride 10 Meq Capsule.er, 20 MEQ PO BID, (Reported) Sodium Hypochlorite 473 Ml Solution, 0 ML TOP DAILY for 30 Days Prescribed by: DENI PINK on 07/16/16 1303 Torsemide 20 Mg Tablet, 20 MG PO BID, (Reported) Vancomycin HCl/D5w 500 Mg/100 Ml Froz.piggy, 500 MG IV Q48H for 21 Days NEXT DOSE DUE ON 07/18/16 Prescribed by: DENI PINK on 07/17/16 0840 Constitutional: see HPI, other (patient unable to provide any info; available info is from care home, EMS, and daughter) Psychiatric/Neurological: See HPI, Cognitive Dysfunction, Tonic Clonic Seizures (???) All Other Systems Reviewed Negative Unless Noted: No Past Qvlawfe-Riutcx-Glcnkx Hx Patient Social History Type Used: Cigarettes Former Smoker/When Quit: Feb 27, 1965 2nd Hand Smoke Exposure: No Recent Hopitalizations: Yes (d/c'd 3 days ago ) Immunizations Up To Date Tetanus Booster (TDap): Unknown PED Vaccines UTD: No Date of Pneumonia Vaccine: Nov 30, 2013 Date of Influenza Vaccine: Dec 22, 2015 Seasonal Allergies Seasonal Allergies: No Surgeries HX Surgeries: Yes Surgeries: Abdominal, Bowel Surgery, Section, Eye Surgery, Hysterectomy, Orthopedic, Thyroidectomy Respiratory Hx Respiratory Disorders: Yes Respiratory Disorders: Asthma, Pneumonia, Chronic Bronchitis, Sleep Apnea Cardiovascular Hx Cardiac Disorders: Yes (CHRONIC CHEST PAIN, PER PT) Cardiac Disorders: Chronic Edema/Swelling, High Cholesterol, Hypertension Neurological Hx Neurological Disorders: Yes (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) Neurological Disorders: TIA Reproductive System Hx Reproductive Disorders: No Sexually Transmitted Disease: No HIV/AIDS: No Female Reproductive Disorders: Denies Genitourinary Hx Genitourinary Disorders: Yes (MILD RENAL INSUFFICIENCY) Genitourinary Disorders: Bladder Infection Gastrointestinal Hx Gastrointestinal Disorders: Yes (HX COLON CANCER) Gastrointestinal Disorders: Gastroesophageal Reflux, Hemorrhoids Musculoskeletal Hx Musculoskeletal Disorders: Yes Musculoskeletal Disorders: Degenerate Disk Disease, Arthritis, Fibromyalgia, Chronic Back Pain Endocrine Hx Endocrine Disorders: Yes (HX THYROIDECTOMY FOR GOITER;STEROID INDUCED HYPERGLYCEMIA) Endocrine Disorders: Hypothyroidsim HEENT HX ENT Disorders: Yes (CHRONIC RECURRENT RIGHT SUBMANDIBULAR GLAND SWELLING) HEENT Disorders: Cataract Loss of Vision: Denies Hearing Impairment: Denies Cancer Hx Cancer: Yes (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) Cancer: Colon, Thyroid Psychosocial Hx Psychiatric Problems: Yes Behavioral Health Disorders: Anxiety Integumentary HX Skin/Integumentary Disorder: Yes (WOUND TO BUTTOCKS) Skin/Integumentary Disorders: Recent Skin Changes Blood Transfusions Hx Blood Disorders: Yes (ANEMIA) Adverse Reaction to a Blood Tr: No Family Medical History Significant Family History: No Pertinent Family Hx Family Medial History: Colon cancer 09 SISTER Congestive heart failure 03 MOTHER Deafness or hearing loss 03 FATHER 03 MOTHER 09 BROTHER Family history: Arthritis 03 FATHER 03 MOTHER History of - respiratory disease 09 BROTHER (kurtis-smoker) Hypertension 03 MOTHER Myocardial infarction 03 FATHER Myocardial infarction 03 FATHER Neoplasm 09 SISTER Respiratory disorder Severe allergy No Family History of: AIDS Abdominal aortic aneurysm Runnels's disease Alcoholism Alzheimer's disease Aphasia Arthritis Asthma Cancer of mouth Cardiovascular disease Cataracts Completed stroke Congenital disease Congenital heart disease Coronary thrombosis Cystic fibrosis Dementia Diabetes mellitus Drug abuse Dysphasia Fibrocystic disease of breast Gastroenteritis Glaucoma Headache disorder Hypercholesterolemia Infertility Kidney disease Not obtainable due to adoption Osteoporosis Parkinson's disease Prostate cancer Psychosocial problem Seizure disorder Thyroid disease Tuberculosis Visual disorder Physical Exam Vital Signs Capillary Refill : General Appearance: WD/WN, no apparent distress HEENT: normal ENT inspection Neck: normal inspection Respiratory: lungs clear Cardiovascular: regular rate, rhythm Gastrointestinal: soft Neurologic/Psychiatric: aphasia, other (seems postictal) Skin: warm/dry, other (reported large decubitus that wasn't inspected per myself.) Progress/Results/Core Measures Results/Orders My Orders Orders - MERT HONEYCUTT DO Ct Head Wo (07/21/16 18:59) Progress Note : Progress Note Was called into room and patient appears to be seizing. She is unresponsive and mouth/lips are quivering. Eyes were twitching horizontally to her left. Symptoms resolved p/ given some Ativan and she once again seems postictal. Diagnostic Imaging Diagonstic Imaging: Xray, CT Plain Films/CT/US/NM/MRI: chest (nothing acute), head (nothing acute) Departure Communication Time/Spoke to Admitting Phy: 20:45 Impression Impression: Primary Impression: Seizure Additional Impression: Post-ictal state Disposition: ADMITTED INPATIENT Condition: Stable/Unchanged Decision to Admit Reason: Admit from ER (General) Decision to Admit/Date: July 21, 2016 Time/Decision to Admit Time: 20:45 Departure-Patient Inst. Referrals: MERT FRASER DO (PCP/Family) Primary Care Physician MERT HONEYCUTT DO July 21, 2016 19:03
[2016-07-21] MEDS ORDERED: ONDANSETRON 4 MG/2 ML (SDV) Z0FRAN IVP ONE ×2 (19:15)
--- NOTE | 2016-07-21 19:17 | Diagnostic Imaging Report ---
INDICATION: Possible stroke symptoms. TECHNIQUE: Noncontrast CT imaging of the head. COMPARISON: 07/12/2016 FINDINGS: The ventricles and sulci appearing generally stable and unremarkable. No new areas of decreased attenuation to suggest edema. No intracranial hemorrhage. No midline shift or mass effect. IMPRESSION: Stable noncontrast CT imaging of the head demonstrates no acute intracranial abnormality. Dictated by: Dictated on workstation # [id number]
--- NOTE | 2016-07-21 19:22 | Diagnostic Imaging Report ---
INDICATION: Stroke symptoms. TECHNIQUE: Single-view chest at 7:05 p.m. CORRELATION STUDY: 07/13/2016. FINDINGS: Right IJ Teqxfc-W-Juvn catheter is stable with tip in the high right paramediastinal region. Heart size is enlarged. Mediastinum is prominent but appears stable. Vasculature is slightly prominent but less severe from prior study. There are what appear to be likely chronic changes about the lung parenchyma. No definitive acute infiltrate. Unchanged asymmetric elevation of the right hemidiaphragm. Prior left shoulder surgery. Marked narrowing of the subacromial joint space, likely rotator cuff pathology. IMPRESSION: 1. Negative for acute findings of the chest. Stable cardiac enlargement with vasculature slightly prominent but less severe from prior study. Dictated by: Dictated on workstation # [id number]
[2016-07-21] MEDS ORDERED: LORazepam INJ 2 MG/ML (ATIVAN) VIAL ONE (19:38)
[2016-07-21] MEDS ORDERED: LORazepam INJ 2 MG/ML (ATIVAN) VIAL IVP STA (19:40)
[2016-07-21 19:45] LABS: BASOPHILS % (AUTO) 0 % (0-10); EOSINOPHILS % (AUTO) 0 % (0-10); LYMPHOCYTES # (AUTO) 1.9 X 10^3 (1.0-4.0); LYMPHOCYTES % (AUTO) 15 % (12-44); MEAN CORPUSCULAR HEMOGLOBIN 30 PG (25-34); MEAN CORPUSCULAR HGB CONC 32 G/DL (32-36); MEAN CORPUSCULAR VOLUME 93 FL (80-99); MEAN PLATELET VOLUME 10.3 FL (7.4-10.4); MONOCYTES # (AUTO) 1.9 X 10^3 (0.0-1.0); MONOCYTES % (AUTO) 15 % (0-12); NEUTROPHILS # (AUTO) 8.8 X 10^3 (1.8-7.8); NEUTROPHILS % (AUTO) 70 % (42-75); PLATELET COUNT 418 10^3/uL (130-400); RED BLOOD COUNT 3.16 10^6/uL (4.35-5.85); RED CELL DISTRIBUTION WIDTH 13.5 % (10.0-14.5); WHITE BLOOD COUNT 12.6 10^3/uL (4.3-11.0)
[2016-07-21] MEDS ORDERED: NS IV 1000 ML 1,000 ML IV ONE (19:51)
[2016-07-21 19:55] LABS: INR 1.1 (0.8-1.4); PROTHROMBIN TIME PATIENT 14.1 SEC (12.2-14.7)
[2016-07-21 20:02] LABS: ALANINE AMINOTRANSFERASE 13 U/L (0-55); ALBUMIN 3.5 G/DL (3.2-4.5); ANION GAP 10 MMOL/L (5-14); ASPARTATE AMINO TRANSFERASE 31 U/L (5-34); BILIRUBIN,TOTAL 0.2 MG/DL (0.1-1.0); BLOOD UREA NITROGEN 9 MG/DL (7-18); BUN/CREATININE RATIO 7; CALCIUM 8.5 MG/DL (8.5-10.1); CARBON DIOXIDE 32 MMOL/L (21-32); CHLORIDE 91 MMOL/L (98-107); GFR ESTIMATED 39; GLUCOSE 127 MG/DL (70-105); POTASSIUM 3.9 MMOL/L (3.6-5.0); SODIUM 133 MMOL/L (135-145)
[2016-07-21 20:07] LABS: TROPONIN I < 0.30 NG/ML (<0.30)
[2016-07-21 20:48] LABS: BILIRUBIN,URINE NEGATIVE (NEGATIVE); KETONES,URINE NEGATIVE (NEGATIVE); LEUKOCYTE ESTERASE ,URINE 1+ (NEGATIVE); NITRITE,URINE NEGATIVE (NEGATIVE); PH,URINE 6 (5-9); PROTEIN,URINE NEGATIVE (NEGATIVE); UROBILINOGEN,URINE NORMAL (NORMAL)
[2016-07-21 20:58] LABS: YEAST,URINE MODERATE /HPF
[2016-07-21] MEDS: NS IV 1000 ML 1,000 ML IV SCH (22:22)
[2016-07-21] MEDS ORDERED: RT-ALBUTEROL/IPRATROPIUM 3 ML (DUONEB) VIAL INH PRN (22:30)
[2016-07-21] MEDS ORDERED: NALOXONE 0.4 MG/ML 1 ML (NARCAN) VIAL ONE (23:27)
[2016-07-21] MEDS ORDERED: NALOXONE 0.4 MG/ML 1 ML (NARCAN) VIAL IV ONE (23:45)
[2016-07-22] VITALS (25 sets, daily range): BP systolic 105–166; BP diastolic 56–91
[2016-07-22 02:06] LABS: ABG BASE EXCESS 8.3 MMOL/L (-2.5-2.5); ABG HCO3 34 MMOL/L (23-27); ABG OXYGEN SATURATION 99 % (94-100); ABG PO2 122 MMHG (79-93); ABG TCO2 36.6 MMOL/L (21.0-31.0)
[2016-07-22 02:07] LABS: ABG PCO2 72 MMHG (35-45); ABG PH 7.31 (7.37-7.43); ALLENS TEST POSITIVE
[2016-07-22 02:08] LABS: PATIENT TEMP 99.8
[2016-07-22 03:16] LABS: BASOPHILS % (AUTO) 0 % (0-10); EOSINOPHILS % (AUTO) 0 % (0-10); LYMPHOCYTES # (AUTO) 1.1 X 10^3 (1.0-4.0); LYMPHOCYTES % (AUTO) 11 % (12-44); MEAN CORPUSCULAR HEMOGLOBIN 30 PG (25-34); MEAN CORPUSCULAR HGB CONC 32 G/DL (32-36); MEAN CORPUSCULAR VOLUME 94 FL (80-99); MEAN PLATELET VOLUME 10.2 FL (7.4-10.4); MONOCYTES # (AUTO) 1.1 X 10^3 (0.0-1.0); MONOCYTES % (AUTO) 11 % (0-12); NEUTROPHILS % (AUTO) 78 % (42-75); PLATELET COUNT 363 10^3/uL (130-400); RED BLOOD COUNT 2.99 10^6/uL (4.35-5.85); RED CELL DISTRIBUTION WIDTH 13.4 % (10.0-14.5); WHITE BLOOD COUNT 10.2 10^3/uL (4.3-11.0)
[2016-07-22 03:34] LABS: CALCIUM 8.2 MG/DL (8.5-10.1); CREATININE SERUM 1.12 MG/DL (0.60-1.30); MAGNESIUM 1.6 MG/DL (1.8-2.4); PHOSPHORUS 3.6 MG/DL (2.3-4.7); POTASSIUM 3.4 MMOL/L (3.6-5.0)
[2016-07-22] MEDS: MAGNESIUM 1 GM/100 ML IVPB 100 ML IV SCH ×2 (05:54→06:45)
[2016-07-22] MEDS: POTASSIUM CL 10MEQ/50ML IVPB 50 ML IV SCH ×2 (05:54→06:57)
[2016-07-22] MEDS ORDERED: KCL 20 MEQ TAB (K-DUR) PO SCH (06:00)
[2016-07-22] MEDS ORDERED: MAGNESIUM 1 GM/100 ML IVPB 100 ML IV SCH (06:00)
[2016-07-22] MEDS ORDERED: POTASSIUM CL 10MEQ/50ML IVPB 50 ML IV SCH (06:00)
[2016-07-22] MEDS: NS IV 1000 ML 1,000 ML IV SCH ×2 (06:26→18:51)
[2016-07-22] MEDS ORDERED: AZITHROMYCIN INJECTION 500 MG in NS (IVPB) 250 ML IV SCH (07:45)
--- NOTE | 2016-07-22 07:49 | Pulmonary Consultation ---
History of Present Illness History of Present Illness Date of Consultation 07/22/16 07:45 Date of Admission Allergies and Home Medications Allergies Coded Allergies: cephalexin (Verified Allergy, Severe, TONGUE SWELLS, SOB (PT HAS HAD ROCEPHIN W/O ISSUE), 03/13/16) PER DR. MAYFIELD, PATIENT HAS RECEIVED ROCEPHIN IN THE PAST WITHOUT INCIDENT Penicillins (Verified Allergy, Mild, 03/13/16) celecoxib (Verified Allergy, Mild, PATIEN CAN TAKE MOBIC, 03/13/16) clindamycin (Verified Allergy, Mild, 03/13/16) propoxyphene (Verified Allergy, Mild, 03/13/16) rofecoxib (Verified Allergy, Mild, 03/13/16) Sulfa (Sulfonamide Antibiotics) (Verified Allergy, Unknown, 03/13/16) Tetanus Vaccines and Toxoid (Verified Allergy, Unknown, 03/13/16) doxycycline (Verified Allergy, Unknown, 03/13/16) levofloxacin (Verified Allergy, Unknown, 03/13/16) meloxicam (Verified Allergy, Unknown, 03/13/16) nitrofurantoin (Verified Allergy, Unknown, RASH, 03/13/16) Home Medications Acetaminophen 500 Mg Tablet, 500 MG PO Q4H PRN for MILD for 30 Days Prescribed by: DENI IPNK on 07/16/16 1303 Albuterol Sulfate 2.5 Mg/3 Ml Vial.neb, 2.5 MG IH RTTID for 30 Days Prescribed by: DENI PINK on 07/16/16 1303 Amitriptyline HCl 150 Mg Tablet, 150 MG PO HS, (Reported) Atorvastatin Calcium 10 Mg Tablet, 10 MG PO DAILY, (Reported) Bisacodyl 5 Mg Tablet.dr, 5 MG PO DAILY PRN for CONSTIPATION-4TH LINE, (Reported ) Cholecalciferol (Vitamin D3) 5,000 Unit Capsule, 5,000 UNIT PO 1400, (Reported) Cyanocobalamin (Vitamin B-12) 1,000 Mcg Tablet, 1,000 MCG PO 1400, (Reported) Diltiazem HCl 240 Mg Cap.er.24h, 240 MG PO 1400, (Reported) Docusate Sodium 100 Mg Capsule, 100 MG PO HS, (Reported) Fentanyl 1 Each Patch.td72, 50 MCG TD Q72H, #10 Prescribed by: DENI PINK on 07/16/16 1303 Guaifenesin/Dextromethorphan 1 Each Tbmp.12hr, 1 TAB PO BID, (Reported) Labetalol HCl 200 Mg Tablet, 200 MG PO BID, (Reported) Lactulose 10 Gm/15 Ml Solution, 30 ML PO DAILY PRN for CONSTIPATION-3RD LINE, ( Reported) Levothyroxine Sodium 150 Mcg Tablet, 150 MCG PO DAILY, (Reported) Magnesium Hydroxide 400 Mg/5 Ml Oral.susp, 4 TBS PO DAILY PRN for CONSTIPATION- 7TH LINE, (Reported) Metronidazole 500 Mg Tablet, 500 MG PO TID for 21 Days Prescribed by: DENI PINK on 07/17/16 1039 Multivitamin 1 Each Tablet, 1 TAB PO 1400, (Reported) Naproxen 500 Mg Tablet, 500 MG PO BID PRN for PAIN, (Reported) Omeprazole 20 Mg Capsule.dr, 20 MG PO DAILY, (Reported) Oxycodone HCl/Acetaminophen 1 Each Tablet, 1 TAB PO Q6H PRN for PAIN, #60 Prescribed by: DENI PINK on 07/16/16 1303 Polyethylene Glycol 3350 17 Gm Powd.pack, 34 GM PO BID for 30 Days Prescribed by: DENI PINK on 07/16/16 1303 Potassium Chloride 10 Meq Capsule.er, 20 MEQ PO BID, (Reported) LAST FILLED #120 03-31-16 ([facility] REQUIRES PRIOR AUTH AT PHARMACY) TAKES 2 ( 10 MEQ) CAPSULES Sodium Hypochlorite 473 Ml Solution, 0 ML TOP DAILY for 30 Days Prescribed by: DENI PINK on 07/16/16 1303 Torsemide 20 Mg Tablet, 20 MG PO BID, (Reported) LAST FILLED 04/18/16 #60 Vancomycin HCl/D5w 500 Mg/100 Ml Froz.piggy, 500 MG IV Q48H for 21 Days NEXT DOSE DUE ON 07/18/16 Prescribed by: DENI PINK on 07/17/16 0840 Past Ujzxbip-Pcomig-Gpuvjj Hx Patient Social History Alcohol Use: Denies Use Recreational Drug Use: No Smoking Status: Former Smoker Type Used: Cigarettes Former Smoker/When Quit: Feb 27, 1965 2nd Hand Smoke Exposure: No Recent Foreign Travel: No Contact w/Someone Who Travel: No Recent Infectious Disease Expo: No Recent Hopitalizations: Yes (d/c'd 3 days ago ) Physical Abuse Screen: No Sexual Abuse: No Immunizations Up To Date Tetanus Booster (TDap): Unknown PED Vaccines UTD: No Date of Pneumonia Vaccine: Nov 30, 2013 Date of Influenza Vaccine: Dec 22, 2015 Seasonal Allergies Seasonal Allergies: No Surgeries HX Surgeries: Yes Surgeries: Abdominal, Bowel Surgery, Section, Eye Surgery, Hysterectomy, Orthopedic, Thyroidectomy Respiratory Hx Respiratory Disorders: Yes Respiratory Disorders: Asthma, Pneumonia, Chronic Bronchitis, Sleep Apnea Cardiovascular Hx Cardiac Disorders: Yes (CHRONIC CHEST PAIN, PER PT) Cardiac Disorders: Chronic Edema/Swelling, High Cholesterol, Hypertension Neurological Hx Neurological Disorders: Yes (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) Neurological Disorders: TIA Reproductive System Hx Reproductive Disorders: No Sexually Transmitted Disease: No HIV/AIDS: No Female Reproductive Disorders: Denies Genitourinary Hx Genitourinary Disorders: Yes (MILD RENAL INSUFFICIENCY) Genitourinary Disorders: Bladder Infection Gastrointestinal Hx Gastrointestinal Disorders: Yes (HX COLON CANCER) Gastrointestinal Disorders: Gastroesophageal Reflux, Hemorrhoids Musculoskeletal Hx Musculoskeletal Disorders: Yes Musculoskeletal Disorders: Degenerate Disk Disease, Arthritis, Fibromyalgia, Chronic Back Pain Endocrine Hx Endocrine Disorders: Yes (HX THYROIDECTOMY FOR GOITER;STEROID INDUCED HYPERGLYCEMIA) Endocrine Disorders: Hypothyroidsim HEENT HX ENT Disorders: Yes (CHRONIC RECURRENT RIGHT SUBMANDIBULAR GLAND SWELLING) HEENT Disorders: Cataract Loss of Vision: Denies Hearing Impairment: Denies Cancer Hx Cancer: Yes (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) Cancer: Colon, Thyroid Psychosocial Hx Psychiatric Problems: Yes Behavioral Health Disorders: Anxiety Integumentary HX Skin/Integumentary Disorder: Yes (WOUND TO BUTTOCKS) Skin/Integumentary Disorders: Recent Skin Changes Blood Transfusions Hx Blood Disorders: Yes (ANEMIA) Adverse Reaction to a Blood Tr: No Family Medical History Significant Family History: No Pertinent Family Hx Family Medial History: Colon cancer 09 SISTER Congestive heart failure 03 MOTHER Deafness or hearing loss 03 FATHER 03 MOTHER 09 BROTHER Family history: Arthritis 03 FATHER 03 MOTHER History of - respiratory disease 09 BROTHER (kurtis-smoker) Hypertension 03 MOTHER Myocardial infarction 03 FATHER Myocardial infarction 03 FATHER Neoplasm 09 SISTER Respiratory disorder Severe allergy No Family History of: AIDS Abdominal aortic aneurysm Trail's disease Alcoholism Alzheimer's disease Aphasia Arthritis Asthma Cancer of mouth Cardiovascular disease Cataracts Completed stroke Congenital disease Congenital heart disease Coronary thrombosis Cystic fibrosis Dementia Diabetes mellitus Drug abuse Dysphasia Fibrocystic disease of breast Gastroenteritis Glaucoma Headache disorder Hypercholesterolemia Infertility Kidney disease Not obtainable due to adoption Osteoporosis Parkinson's disease Prostate cancer Psychosocial problem Seizure disorder Thyroid disease Tuberculosis Visual disorder Exam Exam Vital Signs Date Time Temp Pulse Resp B/P (MAP) Pulse Ox O2 Delivery O2 Flow Rate FiO2 07/22/16 06:00 85 15 138/70 100 Nasal Cannula 3.00 07/22/16 05:00 83 15 144/62 100 Nasal Cannula 3.00 07/22/16 04:00 98 3.00 07/22/16 04:00 99.5 80 15 129/57 93 Nasal Cannula 3.00 07/22/16 03:00 79 13 138/56 89 Nasal Cannula 3.00 07/22/16 02:00 78 14 135/65 91 Nasal Cannula 3.00 07/22/16 01:00 78 07/22/16 01:00 78 9 137/68 94 Nasal Cannula 3.00 07/22/16 00:00 98 3.00 07/22/16 00:00 82 21 133/76 96 Nasal Cannula 3.00 07/21/16 23:45 86 19 141/70 78 Nasal Cannula 3.00 07/21/16 23:30 72 7 141/70 96 Nasal Cannula 3.00 07/21/16 23:15 72 11 142/70 97 Nasal Cannula 3.00 07/21/16 23:00 73 15 149/75 97 Nasal Cannula 3.00 07/21/16 22:45 72 12 141/69 94 Nasal Cannula 3.00 07/21/16 22:30 70 14 138/68 97 Nasal Cannula 3.00 07/21/16 22:15 69 17 144/69 97 Nasal Cannula 3.00 07/21/16 22:13 95 07/21/16 22:12 95 3.00 07/21/16 22:00 69 27 142/69 95 Nasal Cannula 3.00 07/21/16 21:45 69 8 136/67 99 Nasal Cannula 3.00 07/21/16 21:30 68 9 132/67 94 Nasal Cannula 3.00 07/21/16 21:27 68 07/21/16 21:27 97.5 68 16 122/59 90 Nasal Cannula 3.00 07/21/16 21:15 96 3.00 07/21/16 21:13 65 16 98 3.00 07/21/16 19:00 95 Nasal Cannula 3.00 07/21/16 18:56 99.1 78 20 122/69 93 Nasal Cannula I & O 07/22/16 07:00 Intake Total 2150 ml Output Total 2175 ml Balance -25 ml Capillary Refill: Less Than 3 Seconds Results Lab Laboratory Tests 07/21/16 19:39 07/22/16 03:05 Assessment/Plan Assessment/Plan Encephalopathy probably secondary to sedative meds and C02 narcosis -D/C all sedative meds - check UDS -Head CT is negative - pt is waking up with heavy stimulation and moves all extremities COPDAE - acute on chronic respiratory failure -SVNS -solumedrol -BiPAP Electrolyte abnormalities -Replacement protocol obesity/deconditioning Clinical Quality Measures DVT/VTE Risk/Contraindication: Risk Factor Score Per Nursin RFS Level Per Nursing on Admit: 4+=Very High BRENDON LEACH DO July 22, 2016 07:49
[2016-07-22] MEDS ORDERED: RT-ALBUTEROL/IPRATROPIUM 3 ML (DUONEB) VIAL INH SCH (08:00)
[2016-07-22] MEDS: methylPREDNISolone 40 MG/ML (Solu-MEDROL) VIAL IV SCH ×3 (08:10→20:14)
--- NOTE | 2016-07-22 08:49 | Diagnostic Imaging Report ---
EXAMINATION: Portable upright AP view of the chest. INDICATION: Altered mental status. Seizures. FINDINGS: There is cardiomegaly with mild pulmonary vascular congestion. Bibasilar patchy infiltrates are seen. No effusion or pneumothorax. The cardiac size is moderately enlarged. A right internal jugular infusion port is seen with the tip at the SVC level. IMPRESSION: Cardiomegaly with pulmonary vascular congestion. Patchy bibasilar infiltrates or atelectasis. Dictated by: Dictated on workstation # [id number]
[2016-07-22] MEDS ORDERED: ALBU2.5V4 NEB (09:45)
[2016-07-22] MEDS ORDERED: METR500T21 PO (09:45)
[2016-07-22] MEDS ORDERED: OXYC-202 PO (09:55)
[2016-07-22] MEDS ORDERED: NF-SKEL800 PO (09:55)
--- NOTE | 2016-07-22 10:28 | Occ Therapy Progress Note ---
Therapy Progress Note OT order received. Attempted treatment with pt. Pt. on bipap. Is able to flutter eyelids when OT/nursing talks with her, but closes again and unresponsive. Nursing in room with pt. as well and unable to get her awake. Will continue to monitor pt. and treat when pt. is medically ready. Will hold treatment today. [id number] 1, visit Hold treatment today. BLAS SINGLETARY OT July 22, 2016 10:28
[2016-07-22] MEDS ORDERED: VANCOMYCIN HCL IV SCH (11:00)
[2016-07-22] MEDS ORDERED: ACETAMINOPHEN 500 MG TAB (TYLENOL) PO PRN (11:00)
[2016-07-22] MEDS ORDERED: [UNRECOGNIZED DRUG - OTHER] IV SCH (11:00)
[2016-07-22] MEDS ORDERED: BISACODYL 5 MG (DULCOLAX) TABLET PO PRN (11:00)
[2016-07-22] MEDS ORDERED: oxyCODONE/APAP 10/325MG (PERCOCET 10) TABLET PO SCH ×2 (11:00→21:00)
[2016-07-22] MEDS ORDERED: MILK OF MAGNESIA 400 MG/5 ML 30 ML UDC PO PRN (11:00)
[2016-07-22] MEDS ORDERED: oxyCODONE/APAP 10/325MG (PERCOCET 10) TABLET PO PRN (11:00)
[2016-07-22] MEDS ORDERED: DEXTROSE IV SCH (11:00)
[2016-07-22] MEDS ORDERED: ENOXAPARIN 30 MG/0.3 ML (LOVENOX) SYR SC SCH (11:00)
[2016-07-22] MEDS ORDERED: LACTULOSE SYRUP 10GM/15ML (ENULOSE) 30ML UDC PO PRN (11:15)
[2016-07-22] MEDS: LEVETIRACETAM 500 MG (KEPPRA) TAB PO SCH ×2 (11:54→20:14)
[2016-07-22] MEDS ORDERED: FENTANYL PATCH REMOVAL TP SCH (11:59)
[2016-07-22] MEDS ORDERED: RT-ALBUTEROL SULF 2.5 MG/3 ML PRE-MIX VIAL IH SCH (12:00)
[2016-07-22] MEDS ORDERED: fentaNYL PATCH 50 MCG (DURAGESIC) TD SCH (12:00)
[2016-07-22] MEDS ORDERED: VANCOMYCIN 500 MG/NS 100 ML IVPB IV SCH ×2 (13:00)
--- NOTE | 2016-07-22 14:00 | Code Blue Response-Hospitalist ---
General Date Seen/Responded 07/22/16 Source: RN/MD, EMS, old records Exam Limitations: no limitations History of Present Illness Time seen by provider: 14:00 Allergies and Home Medications Allergies Coded Allergies: Cephalosporins (Verified Allergy, Severe, TONGUE SWELLING, SOB, SWELLING, 07/22/16) Penicillins (Verified Allergy, Mild, 03/13/16) celecoxib (Verified Allergy, Mild, PATIEN CAN TAKE MOBIC, 03/13/16) clindamycin (Verified Allergy, Mild, 03/13/16) propoxyphene (Verified Allergy, Mild, 03/13/16) rofecoxib (Verified Allergy, Mild, 03/13/16) Sulfa (Sulfonamide Antibiotics) (Verified Allergy, Unknown, 03/13/16) Tetanus Vaccines and Toxoid (Verified Allergy, Unknown, 03/13/16) doxycycline (Verified Allergy, Unknown, 03/13/16) levofloxacin (Verified Allergy, Unknown, 03/13/16) meloxicam (Verified Allergy, Unknown, 03/13/16) nitrofurantoin (Verified Allergy, Unknown, RASH, 03/13/16) Home Medications Acetaminophen 500 Mg Tablet, 500 MG PO Q4H PRN for MILD for 30 Days Prescribed by: DENI PINK on 07/16/16 1303 Albuterol Sulfate 2.5 Mg/3 Ml Vial.neb, 2.5 MG NEB 0800,1200,1600, (Reported) Amitriptyline HCl 150 Mg Tablet, 150 MG PO HS, (Reported) Atorvastatin Calcium 10 Mg Tablet, 10 MG PO 1700, (Reported) Bisacodyl 5 Mg Tablet.dr, 5 MG PO DAILY PRN for CONSTIPATION-4TH LINE, (Reported ) Cholecalciferol (Vitamin D3) 5,000 Unit Capsule, 5,000 UNIT PO DAILY, (Reported) Cyanocobalamin (Vitamin B-12) 1,000 Mcg Tablet, 1,000 MCG PO DAILY, (Reported) Diltiazem HCl 240 Mg Cap.er.24h, 240 MG PO DAILY, (Reported) Docusate Sodium 100 Mg Capsule, 100 MG PO HS, (Reported) Fentanyl 1 Each Patch.td72, 50 MCG TD Q72H, #10 Prescribed by: DENI PINK on 07/16/16 1303 Guaifenesin/Dextromethorphan 1 Each Tbmp.12hr, 1 TAB PO BID, (Reported) Labetalol HCl 200 Mg Tablet, 200 MG PO BID, (Reported) Lactulose 10 Gm/15 Ml Solution, 30 ML PO DAILY PRN for CONSTIPATION-3RD LINE, ( Reported) Levothyroxine Sodium 150 Mcg Tablet, 150 MCG PO DAILY, (Reported) Magnesium Hydroxide 400 Mg/5 Ml Oral.susp, 60 ML PO DAILY PRN for CONSTIPATION- 7TH LINE, (Reported) Metaxalone 800 Mg Tablet, 800 MG PO Q8H PRN for MUSCLE SPASMS, (Reported) Metronidazole 500 Mg Tablet, 500 MG PO TID for 21 Days Prescribed by: DENI PINK on 07/17/16 1039 Multivitamin 1 Each Tablet, 1 TAB PO DAILY, (Reported) Naproxen 500 Mg Tablet, 500 MG PO BID PRN for PAIN, (Reported) Omeprazole 20 Mg Capsule.dr, 20 MG PO DAILY, (Reported) Oxycodone HCl/Acetaminophen 1 Each Tablet, 1 TAB PO Q6H PRN for PAIN, #60 Prescribed by: DENI PINK on 07/16/16 1303 Oxycodone HCl/Acetaminophen 1 Each Tablet, 1 TAB PO Q12H, (Reported) Polyethylene Glycol 3350 17 Gm Powd.pack, 34 GM PO BID for 30 Days Prescribed by: DENI PINK on 07/16/16 1303 Potassium Chloride 10 Meq Capsule.er, 20 MEQ PO BID, (Reported) Sodium Hypochlorite 473 Ml Solution, 0 ML TOP DAILY for 30 Days Prescribed by: DENI PINK on 07/16/16 1303 Torsemide 20 Mg Tablet, 20 MG PO BID, (Reported) Vancomycin HCl/D5w 500 Mg/100 Ml Froz.piggy, 500 MG IV Q48H for 21 Days NEXT DOSE DUE ON 07/18/16 Prescribed by: DENI PINK on 07/17/16 0840 Physical Exam Vital Signs Vital Sign - Last 12Hours 07/21/16 07/21/16 07/22/16 18:56 19:00 07:45 Temp 99.1 Pulse 78 Resp 20 B/P (MAP) 122/69 Pulse Ox 93 O2 Delivery Nasal Cannula O2 Flow Rate 3.00 FiO2 30 Capillary Refill : Less Than 3 Seconds Progress/Results/Core Measures Results/Orders Lab Results Laboratory Tests Test 07/21/16 19:38 07/21/16 19:39 07/21/16 20:40 07/22/16 01:55 Range/Units Glucometer 121 H 70-110 MG/DL White Blood Count 12.6 H 4.3-11.0 10^3/uL Red Blood Count 3.16 L 4.35-5.85 10^6/uL Hemoglobin 9.4 L 11.5-16.0 G/DL Hematocrit 30 L 35-52 % Mean Corpuscular Volume 93 80-99 FL Mean Corpuscular Hemoglobin 30 25-34 PG Mean Corpuscular Hemoglobin Concent 32 32-36 G/DL Red Cell Distribution Width 13.5 10.0-14.5 % Platelet Count 418 H 130-400 10^3/uL Mean Platelet Volume 10.3 7.4-10.4 FL Neutrophils (%) (Auto) 70 42-75 % Lymphocytes (%) (Auto) 15 12-44 % Monocytes (%) (Auto) 15 H 0-12 % Eosinophils (%) (Auto) 0 0-10 % Basophils (%) (Auto) 0 0-10 % Neutrophils # (Auto) 8.8 H 1.8-7.8 X 10^3 Lymphocytes # (Auto) 1.9 1.0-4.0 X 10^3 Monocytes # (Auto) 1.9 H 0.0-1.0 X 10^3 Eosinophils # (Auto) 0.0 0.0-0.3 10^3/uL Basophils # (Auto) 0.0 0.0-0.1 10^3/uL Prothrombin Time 14.1 12.2-14.7 SEC INR Comment 1.1 0.8-1.4 Activated Partial Thromboplast Time 46 H 24-35 SEC Sodium Level 133 L 135-145 MMOL/L Potassium Level 3.9 3.6-5.0 MMOL/L Chloride Level 91 L 98-107 MMOL/L Carbon Dioxide Level 32 21-32 MMOL/L Anion Gap 10 5-14 MMOL/L Blood Urea Nitrogen 9 7-18 MG/DL Creatinine 1.30 0.60-1.30 MG/DL Estimat Glomerular Filtration Rate 39 BUN/Creatinine Ratio 7 Glucose Level 127 H 70-105 MG/DL Calcium Level 8.5 8.5-10.1 MG/DL Total Bilirubin 0.2 0.1-1.0 MG/DL Aspartate Amino Transf (AST/SGOT) 31 5-34 U/L Alanine Aminotransferase (ALT/SGPT) 13 0-55 U/L Alkaline Phosphatase 90 40-136 U/L Troponin I < 0.30 <0.30 NG/ML Total Protein 7.0 6.4-8.2 G/DL Albumin 3.5 3.2-4.5 G/DL Urine Color YELLOW Urine Clarity CLEAR Urine pH 6 5-9 Urine Specific [place] 1.010 L 1.016-1.022 Urine Protein NEGATIVE NEGATIVE Urine Glucose (UA) NEGATIVE NEGATIVE Urine Ketones NEGATIVE NEGATIVE Urine Nitrite NEGATIVE NEGATIVE Urine Bilirubin NEGATIVE NEGATIVE Urine Urobilinogen NORMAL NORMAL MG/DL Urine Leukocyte Esterase 1+ H NEGATIVE Urine RBC (Auto) NEGATIVE NEGATIVE Urine RBC NONE /HPF Urine WBC 2-5 /HPF Urine Crystals NONE /LPF Urine Bacteria TRACE /HPF Urine Casts NONE /LPF Urine Mucus NEGATIVE /LPF Urine Yeast MODERATE H /HPF Urine Culture Indicated YES Urine Opiates Screen POSITIVE H NEGATIVE Urine Oxycodone Screen POSITIVE H NEGATIVE Urine Methadone Screen NEGATIVE NEGATIVE Urine Propoxyphene Screen NEGATIVE NEGATIVE Urine Barbiturates Screen NEGATIVE NEGATIVE Ur Tricyclic Antidepressants Screen POSITIVE H NEGATIVE Urine Phencyclidine Screen NEGATIVE NEGATIVE Urine Amphetamines Screen NEGATIVE NEGATIVE Urine Methamphetamines Screen NEGATIVE NEGATIVE Urine Benzodiazepines Screen NEGATIVE NEGATIVE Urine Cocaine Screen NEGATIVE NEGATIVE Urine Cannabinoids Screen NEGATIVE NEGATIVE Blood Gas Puncture Site LEFT RADIAL Blood Gas Patient Temperature 99.8 Arterial Blood pH 7.31 *L 7.37-7.43 Arterial Blood Partial Pressure CO2 72 *H 35-45 MMHG Arterial Blood Partial Pressure O2 122 H 79-93 MMHG Arterial Blood HCO3 34 H 23-27 MMOL/L Arterial Blood Total CO2 36.6 H 21.0-31.0 MMOL/L Arterial Blood Oxygen Saturation 99 94-100 % Arterial Blood Base Excess 8.3 H -2.5-2.5 MMOL/L Mg Test POSITIVE Blood Gas Ventilator Setting NO Blood Gas Inspired Oxygen 3 LNC Test 07/22/16 03:05 07/23/16 06:37 07/23/16 06:45 Range/Units White Blood Count 10.2 9.4 4.3-11.0 10^3/uL Red Blood Count 2.99 L 3.10 L 4.35-5.85 10^6/uL Hemoglobin 8.9 L 9.3 L 11.5-16.0 G/DL Hematocrit 28 L 30 L 35-52 % Mean Corpuscular Volume 94 96 80-99 FL Mean Corpuscular Hemoglobin 30 30 25-34 PG Mean Corpuscular Hemoglobin Concent 32 31 L 32-36 G/DL Red Cell Distribution Width 13.4 13.6 10.0-14.5 % Platelet Count 363 377 130-400 10^3/uL Mean Platelet Volume 10.2 10.1 7.4-10.4 FL Neutrophils (%) (Auto) 78 H 82 H 42-75 % Lymphocytes (%) (Auto) 11 L 9 L 12-44 % Monocytes (%) (Auto) 11 9 0-12 % Eosinophils (%) (Auto) 0 0 0-10 % Basophils (%) (Auto) 0 0 0-10 % Neutrophils # (Auto) 8.0 H 7.7 1.8-7.8 X 10^3 Lymphocytes # (Auto) 1.1 0.8 L 1.0-4.0 X 10^3 Monocytes # (Auto) 1.1 H 0.8 0.0-1.0 X 10^3 Eosinophils # (Auto) 0.0 0.0 0.0-0.3 10^3/uL Basophils # (Auto) 0.0 0.0 0.0-0.1 10^3/uL Sodium Level 135 137 135-145 MMOL/L Potassium Level 3.4 L 4.1 3.6-5.0 MMOL/L Chloride Level 93 L 98 98-107 MMOL/L Carbon Dioxide Level 32 31 21-32 MMOL/L Anion Gap 10 8 5-14 MMOL/L Blood Urea Nitrogen 8 10 7-18 MG/DL Creatinine 1.12 1.02 0.60-1.30 MG/DL Estimat Glomerular Filtration Rate 47 52 BUN/Creatinine Ratio 7 10 Glucose Level 121 H 165 H 70-105 MG/DL Lactic Acid Level 0.36 L 0.50-2.00 MMOL/L Calcium Level 8.2 L 8.5 8.5-10.1 MG/DL Phosphorus Level 3.6 3.8 2.3-4.7 MG/DL Magnesium Level 1.6 L 2.2 1.8-2.4 MG/DL Blood Gas Puncture Site LEFT RADIAL Blood Gas Patient Temperature 99.5 Arterial Blood pH 7.17 *L 7.37-7.43 Arterial Blood Partial Pressure CO2 96 *H 35-45 MMHG Arterial Blood Partial Pressure O2 137 H 79-93 MMHG Arterial Blood HCO3 34 H 23-27 MMOL/L Arterial Blood Total CO2 36.4 H 21.0-31.0 MMOL/L Arterial Blood Oxygen Saturation 99 94-100 % Arterial Blood Base Excess 5.5 H -2.5-2.5 MMOL/L Mg Test POSITIVE Blood Gas Ventilator Setting NO Blood Gas Inspired Oxygen 40% BIPAP B-Type Natriuretic Peptide 2174.4 H <100.0 PG/ML Micro Results Microbiology 07/21/16 MRSA Screen - Final, Complete MRSA not isolated 07/21/16 Urine Culture - Final, Complete Presumptive Dayana Gl[place] My Orders Orders - BREANNA ROBLES MD Admission (Physician Order) (07/21/16 21:18) Initiate Admission Nursing Pro .admission (07/21/16 21:35) Isolation Central Supply Req (07/21/16 21:35) Notify Physician UD (07/21/16 21:35) Rt Request For Service (07/21/16 21:35) Nothing By Mouth (07/21/16 Dinner) Intake & Output Shift Assessme 06,14,22 (07/21/16 21:35) Activity As Ordered UD (07/21/16 21:35) Nursing Communication (Pt.Care UD (07/21/16 21:35) Mrsa Screen (Icu,Preop,Cath) (07/21/16 22:42) Cbc With Automated Diff (07/22/16 04:30) Basic Metabolic Panel (07/22/16 04:30) Magnesium (07/22/16 04:30) Phosphorus (07/22/16 04:30) Chest 1 View, Ap/Pa Only (07/22/16 04:30) Catheter(Urinary) To Dependent UD (07/21/16 21:47) Mat Protocol-Rt Rfs (07/21/16 22:16) Albuterol/Ipra Inhalation Soln (Duoneb I (07/22/16 08:00) Svn Sm Volume Nebulizer Rt-Rfs (07/21/16 22:16) Albuterol/Ipra Inhalation Soln (Duoneb I (07/21/16 22:30) Ns Iv 1000 Ml (Sodium Chloride 0.9%) (07/21/16 22:30) Naloxone Injection (Narcan Injection) (07/21/16 23:27) Potassium Chloride (Tablet) (K Dur Table (07/22/16 06:00) Magnesium 1 Gm/100 Ml Ivpb (Magnesium Terrell (07/22/16 06:00) Potassium Cl 10meq/50ml Ivpb (Kcl 10 Meq (07/22/16 06:00) Potassium Cl 10meq/50ml Ivpb (Kcl 10 Meq (07/22/16 05:45) Magnesium 1 Gm/100 Ml Ivpb (Magnesium Terrell (07/22/16 05:45) Consult Physician (07/22/16 06:30) Acetaminophen Tablet (Tylenol Tablet) (07/22/16 11:00) Albuterol Pre-Mix Nebs (Rt) (Proventil P (07/22/16 12:00) Amitriptyline Tablet (Elavil Tablet) (07/22/16 21:00) Atorvastatin Tablet (Lipitor Tablet) (07/22/16 17:00) Bisacodyl Tablet (Dulcolax Tablet) (07/22/16 11:00) Diltiazem Cd 24 Hr Capsule (Cardizem Cd (07/23/16 09:00) Docusate Sodium Capsule (Colace Capsule) (07/22/16 21:00) Fentanyl Patch (Duragesic Patch) (07/22/16 12:00) Labetalol Tablet (Normodyne Tablet) (07/22/16 21:00) Levothyroxine Tablet (Synthroid Tablet) (07/23/16 06:30) Magnesium Hydroxide Oral Susp (Mom Oral (07/22/16 11:00) Metronidazole Tablet (Flagyl Tablet) (07/22/16 14:00) Omeprazole (Non-Formulary) (Prilosec (No (07/23/16 09:00) Oxycodone/Acet 10/325mg Tablet (Percocet (07/22/16 11:00) Oxycodone/Acet 10/325mg Tablet (Percocet (07/22/16 11:00) Polyethylene Glycol Powder Pkt (Miralax (07/22/16 21:00) Sodium Hypochlorite 0.125% Rina (Dakin's (07/23/16 09:00) Torsemide Tablet (Demadex Tablet) (07/22/16 17:00) (Nf) Potassium Chloride (Klor-Con Sprink (07/22/16 21:00) (Nf) Vancomycin Hcl/D5w (Vancomycin-D5w (07/22/16 11:00) Enoxaparin Injection (Lovenox Injection) (07/22/16 11:00) Levetiracetam Tablet (Keppra Tablet) (07/22/16 11:13) Lactulose Oral Solution (Enulose Oral So (07/22/16 11:15) Pantoprazole Tablet (Protonix Tablet) (07/23/16 07:00) Patch Removal (Patch Removal) (07/22/16 11:59) Potassium Chloride (Tablet) (Klor Con Ta (07/22/16 17:00) Oxycodone/Acet 10/325mg Tablet (Percocet (07/22/16 21:00) Tizanidine Tablet (Zanaflex Tablet) (07/22/16 12:30) Vancomycin Injection (Vancomycin Injecti (07/22/16 13:00) Trough Order (Trough Order-Pharmacy Orde (07/24/16 12:00) Cpoe Transfer Order Process (07/22/16 14:19) Code/Resuscitation (07/22/16 14:19) Clear Liquid (07/22/16 Lunch) Cpoe Transfer Order Process (07/22/16 14:53) Naloxone Injection (Narcan Injection) (07/22/16 15:06) Naloxone Injection (Narcan Injection) (07/22/16 15:30) Midazolam Injection (Versed Injection) (07/22/16 15:29) Midazolam Injection (Versed Injection) (07/22/16 16:00) Ondansetron Injection (Zofran Injectio (07/22/16 18:00) Medications Given in ED Current Medications Medications Dose Ordered Sig/Karen Route Start Time Stop Time Status Last Admin Dose Admin Glycopyrrolate 0.2 mg Q4H PRN IV 07/24/16 06:00 07/24/16 06:09 0.2 MG Vital Signs/I&O Vital Sign - Last 12Hours 07/21/16 07/21/16 07/21/16 07/21/16 18:56 19:00 21:13 21:15 Temp 99.1 Pulse 78 65 Resp 20 16 B/P (MAP) 122/69 Pulse Ox 93 95 98 96 O2 Delivery Nasal Cannula Nasal Cannula O2 Flow Rate 3.00 3.00 3.00 07/21/16 07/21/16 07/21/16 07/21/16 21:27 21:27 21:30 21:45 Temp 97.5 Pulse 68 68 68 69 Resp 16 9 8 B/P (MAP) 122/59 132/67 136/67 Pulse Ox 90 94 99 O2 Delivery Nasal Cannula Nasal Cannula Nasal Cannula O2 Flow Rate 3.00 3.00 3.00 07/21/16 07/21/16 07/21/16 07/21/16 22:00 22:12 22:13 22:15 Pulse 69 69 Resp 27 17 B/P (MAP) 142/69 144/69 Pulse Ox 95 95 95 97 O2 Delivery Nasal Cannula Nasal Cannula O2 Flow Rate 3.00 3.00 3.00 07/21/16 07/21/16 07/21/16 07/21/16 22:30 22:45 23:00 23:15 Pulse 70 72 73 72 Resp 14 12 15 11 B/P (MAP) 138/68 141/69 149/75 142/70 Pulse Ox 97 94 97 97 O2 Delivery Nasal Cannula Nasal Cannula Nasal Cannula Nasal Cannula O2 Flow Rate 3.00 3.00 3.00 3.00 07/21/16 07/21/16 07/22/16 07/22/16 23:30 23:45 00:00 00:00 Pulse 72 86 82 Resp 7 19 21 B/P (MAP) 141/70 141/70 133/76 Pulse Ox 96 78 96 98 O2 Delivery Nasal Cannula Nasal Cannula Nasal Cannula O2 Flow Rate 3.00 3.00 3.00 3.00 07/22/16 07/22/16 07/22/16 07/22/16 01:00 01:00 02:00 03:00 Pulse 78 78 78 79 Resp 9 14 13 B/P (MAP) 137/68 135/65 138/56 Pulse Ox 94 91 89 O2 Delivery Nasal Cannula Nasal Cannula Nasal Cannula O2 Flow Rate 3.00 3.00 3.00 07/22/16 07/22/16 07/22/16 07/22/16 04:00 04:00 05:00 06:00 Temp 99.5 Pulse 80 83 85 Resp 15 15 15 B/P (MAP) 129/57 144/62 138/70 Pulse Ox 93 98 100 100 O2 Delivery Nasal Cannula Nasal Cannula Nasal Cannula O2 Flow Rate 3.00 3.00 3.00 3.00 07/22/16 07/22/16 07/22/16 07/22/16 07:00 07:00 07:25 07:44 Pulse 82 82 Resp 15 17 B/P (MAP) 128/61 Pulse Ox 89 100 O2 Delivery Nasal Cannula O2 Flow Rate 3.00 3.00 30.00 07/22/16 07/22/16 07/22/16 07/22/16 07:45 08:00 09:00 10:00 Temp 99.4 Pulse 76 84 82 Resp 18 15 19 B/P (MAP) 139/69 144/66 142/70 Pulse Ox 98 99 99 O2 Delivery NIV Bilevel NIV Bilevel NIV Bilevel O2 Flow Rate 3.00 30.00 30.00 30.00 FiO2 30 07/22/16 07/22/16 07/22/16 07/22/16 10:27 11:00 12:15 12:15 Temp 99.7 Pulse 87 89 88 Resp 12 23 18 B/P (MAP) 105/91 Pulse Ox 100 99 93 O2 Delivery NIV Bilevel NIV Bilevel O2 Flow Rate 30.00 30.00 3.00 30.00 FiO2 30 07/22/16 07/22/16 07/22/16 07/22/16 13:00 13:00 14:00 14:11 Pulse 87 87 82 83 Resp 21 25 26 B/P (MAP) 129/64 123/60 Pulse Ox 97 99 96 O2 Delivery NIV Bilevel NIV Bilevel O2 Flow Rate 30.00 30.00 30.00 07/22/1607/22/07/22/07/22/16 15:00 16:00 16:00 16:15 Temp 100.6 Pulse 91 94 Resp 22 20 B/P (MAP) 141/70 131/72 Pulse Ox 96 97 O2 Delivery NIV Bilevel NIV Bilevel NIV Bilevel O2 Flow Rate 30.00 30.00 30.00 FiO2 30 07/22/1607/22/07/22/07/22/16 17:00 17:53 18:00 19:00 Temp 100.0 Pulse 99 99 100 Resp 9 9 B/P (MAP) 138/68 Pulse Ox 95 95 O2 Delivery Nasal Cannula Nasal Cannula Nasal Cannula O2 Flow Rate 3.00 3.00 3.00 07/22/16 07/22/16 07/22/16 07/22/16 19:00 20:00 20:00 20:30 Temp 99.5 Pulse 100 98 Resp 12 11 B/P (MAP) 166/79 Pulse Ox 93 96 93 O2 Delivery Nasal Cannula Nasal Cannula O2 Flow Rate 3.00 3.00 3.00 3.00 07/22/16 07/22/16 07/22/16 07/22/16 21:00 21:50 22:00 23:00 Pulse 89 84 85 84 Resp 21 25 14 12 B/P (MAP) 143/77 138/73 150/77 Pulse Ox 95 96 96 O2 Delivery Nasal Cannula NIV Bilevel NIV Bilevel O2 Flow Rate 3.00 30.00 30.00 30.00 07/23/16 07/23/16 07/23/16 07/23/16 00:00 00:00 00:20 01:00 Temp 99.4 Pulse 84 87 87 Resp 19 16 B/P (MAP) 159/79 Pulse Ox 96 98 O2 Delivery NIV Bilevel O2 Flow Rate 30.00 30.00 FiO2 30 07/23/16 07/23/16 07/23/16 07/23/16 01:00 02:00 02:19 03:00 Pulse 87 89 90 92 Resp 18 17 18 8 B/P (MAP) 170/93 169/92 161/89 Pulse Ox 98 95 97 91 O2 Delivery NIV Bilevel NIV Bilevel NIV Bilevel O2 Flow Rate 30.00 30.00 30.00 30.00 07/23/16 07/23/16 07/23/16 07/23/16 04:00 04:00 04:00 05:00 Temp 99.0 Pulse 96 93 98 Resp 16 9 11 B/P (MAP) 163/89 168/94 Pulse Ox 92 90 92 O2 Delivery NIV Bilevel NIV Bilevel O2 Flow Rate 3.00 30.00 30.00 30.00 07/23/1607/23/07/23/07/23/16 06:00 06:30 06:50 07:00 Pulse 97 98 97 97 Resp 19 15 24 B/P (MAP) 149/77 Pulse Ox 87 96 97 O2 Delivery NIV Bilevel NIV Bilevel O2 Flow Rate 30.00 40.00 40.00 07/23/16 07/23/16 07/23/16 07/23/16 07:00 08:00 08:00 09:00 Pulse 97 96 96 Resp 16 12 18 B/P (MAP) 154/73 161/82 164/85 Pulse Ox 97 97 97 O2 Delivery NIV Bilevel NIV Bilevel NIV Bilevel O2 Flow Rate 40.00 40.00 40.00 FiO2 40 07/23/16 07/23/16 07/23/16 07/23/16 10:00 11:00 20:00 21:02 Pulse 96 Resp 13 B/P (MAP) 158/84 Pulse Ox 99 O2 Delivery NIV Bilevel O2 Flow Rate 40.00 2.00 2.00 2.00 Intake and Output 07/24/16 00:00 Intake Total 200 ml Output Total 800 ml Balance -600 ml Blood Pressure Mean: 96 Point of Care Testing Finger Stick Blood Glucose: 121 Blood Glucose Action Taken: MORE NOTIFIED. DR HONEYCUTT NOTIFIED BREANNA ROBLES MD July 22, 2016 14:00
[2016-07-22] MEDS: RT-ALBUTEROL/IPRATROPIUM 3 ML (DUONEB) VIAL INH SCH ×3 (14:10→20:30)
--- NOTE | 2016-07-22 14:11 | History & Physical-Hospitalist ---
HPI History of Present Illness: HPI/Chief Complaint The patient is an 81-year-old white female who has spent extensive periods of time in the hospital over the past year and a half. She was [facility] to a [facility] on July 17. She had fractured a hip in April and had operative repair. She had returned home and developed pressure sores over the left hip repair and her sacrum. She was seen in outpatient wound care and was admitted for cellulitis. She was followed inpatient [facility] by Dr. Leyva and her wounds were reported clean and satisfactory. She was discharged to her home to continue outpatient wound therapy and returned in less than 48 hours with the diagnosis of cellulitis and the condition of the wounds most unsatisfactory. During the admission that followed she exhibited a seizure. There was no previous history of seizure disorder. The resultant CT scan of the head showed no intracranial pathology. It was surmised that this was a narcotic withdrawal seizure as she had been prescribed large amounts of narcotics outside the hospital and the whereabouts of same could not be verified. She was then discharged to the [facility] on July 17 in order to employ the best wound care possible. She will return to the emergency room last night having suffered another seizure. Subsequently she suffered a second seizure in the emergency room. It was stated to the ER staff by the daughter that she had apparently missed a dose of her narcotic pain reliever while at the [facility]. Source: patient Exam Limitations: no limitations Date Seen 07/22/16 Attending Physician Zeferino Robles MD PCP Cheng Abraham DO Referring Physician Date of Admission July 21, 2016 at 20:19 Home Medications & Allergies Home Medications Reviewed patient Home Medication Reconciliation Form Allergies Allergies Coded Allergies Cephalosporins (Verified Allergy, Severe, TONGUE SWELLING, SOB, SWELLING, ) Penicillins (Verified Allergy, Mild, 03/13/16) celecoxib (Verified Allergy, Mild, PATIEN CAN TAKE MOBIC, 03/13/16) clindamycin (Verified Allergy, Mild, 03/13/16) propoxyphene (Verified Allergy, Mild, 03/13/16) rofecoxib (Verified Allergy, Mild, 03/13/16) Sulfa (Sulfonamide Antibiotics) (Verified Allergy, Unknown, 03/13/16) Tetanus Vaccines and Toxoid (Verified Allergy, Unknown, 03/13/16) doxycycline (Verified Allergy, Unknown, 03/13/16) levofloxacin (Verified Allergy, Unknown, 03/13/16) meloxicam (Verified Allergy, Unknown, 03/13/16) nitrofurantoin (Verified Allergy, Unknown, RASH, 03/13/16) Past Kcfggfu-Fjryaj-Jnpuao Hx Patient Social History Alcohol Use: Denies Use Recreational Drug Use: No Smoking Status: Former Smoker Former smoker/When Quit: Feb 27, 1965 Type Used: Cigarettes 2nd Hand Smoke Exposure: No Physical Abuse Screen: No Sexual Abuse: No Recent Foreign Travel: No Contact w/other who traveled: No Recent Hopitalizations: Yes (d/c'd 3 days ago ) Recent Infectious Disease Expo: No Immunizations Up To Date Tetanus Booster (TDap): Unknown Date of Pneumonia Vaccine: Nov 30, 2013 Date of Influenza Vaccine: Dec 22, 2015 Seasonal Allergies Seasonal Allergies: No Surgeries HX Surgeries: Yes Surgeries: Abdominal, Bowel Surgery, Section, Eye Surgery, Hysterectomy, Orthopedic, Thyroidectomy Respiratory Hx Respiratory Disorders: Yes Respiratory Disorders: COPD Cardiovascular Hx Cardiovascular Disorders: Yes (CHRONIC CHEST PAIN, PER PT) Cardiac Disorders: Chronic Edema/Swelling, High Cholesterol, Hypertension Neurological Hx Neurological Disorders: Yes (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) Neurological Disorders: TIA Reproductive System Hx Reproductive Disorders: No Sexually Transmitted Disease: No HIV/AIDS: No Female Reproductive Disorders: Denies Genitourinary Hx Genitourinary Disorders: Yes (MILD RENAL INSUFFICIENCY) Genitourinary Disorders: Bladder Infection Gastrointestinal Hx Gastrointestinal Disorders: Yes (HX COLON CANCER) Gastrointestinal Disorders: Gastroesophageal Reflux, Hemorrhoids Musculoskeletal Hx Musculoskeletal Disorders: Yes Musculoskeletal Disorders: Degenerate Disk Disease, Arthritis, Fibromyalgia, Chronic Back Pain Endocrine Hx Endocrine Disorders: Yes (HX THYROIDECTOMY FOR GOITER;STEROID INDUCED HYPERGLYCEMIA) Endocrine Disorders: Hypothyroidsim HEENT HX ENT Disorders: Yes (CHRONIC RECURRENT RIGHT SUBMANDIBULAR GLAND SWELLING) HEENT Disorders: Cataract Loss of Vision: Denies Hearing Impairment: Denies Cancer Hx Cancer: Yes (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) Cancer: Colon, Thyroid Psychosocial Hx Psychiatric Problems: Yes Behavioral Health Disorders: Anxiety Integumentary HX Skin/Integumentary Disorder: Yes (WOUND TO BUTTOCKS) Skin/Integumentary Disorders: Recent Skin Changes Blood Transfusions Hx Blood Disorders: Yes (ANEMIA) Adverse Reaction to a Blood Tr: No Family Medical History Significant Family History: No Pertinent Family Hx Family Hx: Colon cancer 09 SISTER Congestive heart failure 03 MOTHER Deafness or hearing loss 03 FATHER 03 MOTHER 09 BROTHER Family history: Arthritis 03 FATHER 03 MOTHER History of - respiratory disease 09 BROTHER (kurtis-smoker) Hypertension 03 MOTHER Myocardial infarction 03 FATHER Myocardial infarction 03 FATHER Neoplasm 09 SISTER Respiratory disorder Severe allergy No Family History of: AIDS Abdominal aortic aneurysm Haakon's disease Alcoholism Alzheimer's disease Aphasia Arthritis Asthma Cancer of mouth Cardiovascular disease Cataracts Completed stroke Congenital disease Congenital heart disease Coronary thrombosis Cystic fibrosis Dementia Diabetes mellitus Drug abuse Dysphasia Fibrocystic disease of breast Gastroenteritis Glaucoma Headache disorder Hypercholesterolemia Infertility Kidney disease Not obtainable due to adoption Osteoporosis Parkinson's disease Prostate cancer Psychosocial problem Seizure disorder Thyroid disease Tuberculosis Visual disorder Review of Systems Constitutional: see HPI EENTM: no symptoms reported Respiratory: cough, short of breath Cardiovascular: no symptoms reported Gastrointestinal: no symptoms reported Genitourinary: no symptoms reported Musculoskeletal: other (childhood polio with residual impairment right upper and lower extremity. Left hip fracture with repair April 2016) Skin: other (pressure sores left hip and presacral) Psychiatric/Neurological: Depressed Physical Exam Physical Exam Vital Signs Vital Sign - Last 12Hours 07/21/16 07/21/16 07/22/16 18:56 19:00 07:45 Temp 99.1 Pulse 78 Resp 20 B/P (MAP) 122/69 Pulse Ox 93 O2 Delivery Nasal Cannula O2 Flow Rate 3.00 FiO2 30 Capillary Refill : Less Than 3 Seconds General Appearance: Other Eyes: Bilateral Eye Normal Inspection HEENT: Normal ENT Inspection Neck: Normal Inspection Respiratory: Decreased Breath Sounds Gastrointestinal: Normal Bowel Sounds, No Organomegaly, No Pulsatile Mass, Non Tender, Soft Neurologic/Psychiatric: Other (somnolent) Skin: Normal Color, Warm/Dry Lymphatic: No Adenopathy Comments The ICU nurses report that although the initial presumption was a seizure after missed dose of narcotic, she was given a dose of Narcan in the ICU and awakened for a period of time. Results Results/Procedures Lab Laboratory Tests 07/21/16 19:39 07/22/16 03:05 Assessment/Plan Admission Diagnosis Recurrent tonic-clonic seizure. Severe COPD. Recent admission for pressure sores left hip and presacral. April left hip fracture and repair Assessment and Plan Initiate Keppra. Transfer to floor. Clinical Quality Measures DVT/VTE Risk/Contraindication: Risk Factor Score Per Nursin RFS Level Per Nursing on Admit: 4+=Very High ZEFERINO ROBLES MD July 22, 2016 14:11
[2016-07-22] MEDS: metroNIDAZOLE 500 MG (FLAGYL) TAB PO SCH ×2 (15:05→20:13)
[2016-07-22] MEDS ORDERED: NALOXONE 0.4 MG/ML 1 ML (NARCAN) VIAL ONE (15:06)
[2016-07-22] MEDS ORDERED: MIDAZOLAM 2 MG/2 ML (VERSED) VIAL ONE (15:29)
[2016-07-22] MEDS ORDERED: NALOXONE 0.4 MG/ML 1 ML (NARCAN) VIAL IV NR (15:30)
[2016-07-22] MEDS ORDERED: MIDAZOLAM 2 MG/2 ML (VERSED) VIAL IV PRN (16:00)
[2016-07-22] MEDS ORDERED: ATORVASTATIN 10 MG (LIPITOR) TABLET PO SCH (17:00)
[2016-07-22] MEDS ORDERED: TORSEMIDE 20 MG (DEMADEX) TAB PO SCH (17:00)
[2016-07-22] MEDS ORDERED: KCL 10 MEQ TAB (MICRO K) PO SCH (17:00)
[2016-07-22] MEDS ORDERED: ONDANSETRON 4 MG/2 ML (SDV) Z0FRAN IVP PRN (18:00)
[2016-07-22] MEDS ORDERED: POLYETHYLENE GLYCOL 17 GM (MIRALAX) PACK PO SCH (21:00)
[2016-07-22] MEDS ORDERED: LABETALOL 200 MG (NORMODYNE) TAB PO SCH (21:00)
[2016-07-22] MEDS ORDERED: POTASSIUM CHLORIDE 20 MEQ PO SCH (21:00)
[2016-07-22] MEDS ORDERED: AMITRIPTYLINE 150 MG (ELAVIL) TABLET PO SCH (21:00)
[2016-07-22] MEDS ORDERED: DOCUSATE SODIUM 100 MG (COLACE) CAP PO SCH (21:00)
[2016-07-23] VITALS (14 sets, daily range): BP systolic 149–170; BP diastolic 73–94
[2016-07-23] MEDS: methylPREDNISolone 40 MG/ML (Solu-MEDROL) VIAL IV SCH (02:14)
[2016-07-23] MEDS: RT-ALBUTEROL/IPRATROPIUM 3 ML (DUONEB) VIAL INH SCH ×2 (02:19→06:50)
[2016-07-23] MEDS: NS IV 1000 ML 1,000 ML IV SCH (04:27)
--- NOTE | 2016-07-23 06:26 | Pulmonary Progress Note ---
Subjective Subjective/Events-last exam Pt is still sedated she received versed and narcotics yesterday. Exam Exam Vital Signs Date Time Temp Pulse Resp B/P (MAP) Pulse Ox O2 Delivery O2 Flow Rate FiO2 07/23/16 05:00 98 11 168/94 92 NIV Bilevel 30.00 07/23/16 04:00 99.0 93 9 163/89 90 NIV Bilevel 30.00 07/23/16 04:00 96 16 92 30.00 07/23/16 04:00 3.00 07/23/16 03:00 92 8 161/89 91 NIV Bilevel 30.00 07/23/16 02:19 90 18 97 30.00 07/23/16 02:00 89 17 169/92 95 NIV Bilevel 30.00 07/23/16 01:00 87 18 170/93 98 NIV Bilevel 30.00 07/23/16 01:00 87 07/23/16 00:20 87 16 98 30.00 07/23/16 00:00 30 07/23/16 00:00 99.4 84 19 159/79 96 NIV Bilevel 30.00 07/22/16 23:00 84 12 150/77 96 NIV Bilevel 30.00 07/22/16 22:00 85 14 138/73 96 NIV Bilevel 30.00 07/22/16 21:50 84 25 95 30.00 07/22/16 21:00 89 21 143/77 Nasal Cannula 3.00 07/22/16 20:30 93 3.00 07/22/16 20:00 3.00 07/22/16 20:00 99.5 98 11 166/79 96 Nasal Cannula 3.00 07/22/16 19:00 100 12 93 Nasal Cannula 3.00 07/22/16 19:00 100 07/22/16 18:00 99 9 95 Nasal Cannula 3.00 07/22/16 17:53 100.0 Nasal Cannula 3.00 07/22/16 17:00 99 9 138/68 95 Nasal Cannula 3.00 07/22/16 16:15 100.6 NIV Bilevel 30.00 07/22/16 16:00 30 07/22/16 16:00 94 20 131/72 97 NIV Bilevel 30.00 07/22/16 15:00 91 22 141/70 96 NIV Bilevel 30.00 07/22/16 14:11 83 26 96 30.00 07/22/16 14:00 82 25 123/60 99 NIV Bilevel 30.00 07/22/16 13:00 87 21 129/64 97 NIV Bilevel 30.00 07/22/16 13:00 87 07/22/16 12:15 99.7 88 18 105/91 93 NIV Bilevel 30.00 07/22/16 12:15 3.00 30 07/22/16 11:00 89 23 99 NIV Bilevel 30.00 07/22/16 10:27 87 12 100 30.00 07/22/16 10:00 82 19 142/70 99 NIV Bilevel 30.00 07/22/16 09:00 84 15 144/66 99 NIV Bilevel 30.00 07/22/16 08:00 99.4 76 18 139/69 98 NIV Bilevel 30.00 07/22/16 07:45 3.00 30 07/22/16 07:44 17 30.00 07/22/16 07:25 100 3.00 07/22/16 07:00 82 15 128/61 89 Nasal Cannula 3.00 07/22/16 07:00 82 I & O 07/23/16 07:00 Intake Total 1900 ml Output Total 970 ml Balance 930 ml General Appearance: Other HEENT: Normal ENT Inspection Neck: Normal Inspection Respiratory: Decreased Breath Sounds Capillary Refill: Less Than 3 Seconds Gastrointestinal: soft Neurologic/Psychiatric: Other (somnolent) Skin: Normal Color, Warm/Dry Lymphatic: No Adenopathy Results Lab Laboratory Tests 07/21/16 19:39 07/22/16 03:05 Assessment/Plan Assessment/Plan Encephalopathy secondary to sedative meds and C02 narcosis -D/C all sedative meds -Head CT is negative - pt is waking up with heavy stimulation and moves all extremities COPDAE - acute on chronic respiratory failure -SVNS -solumedrol -BiPAP Electrolyte abnormalities -Replacement protocol obesity/deconditioning Clinical Quality Measures DVT/VTE Risk/Contraindication: Risk Factor Score Per Nursin RFS Level Per Nursing on Admit: 4+=Very High BRENDON LEACH DO July 23, 2016 06:25
[2016-07-23] MEDS ORDERED: LEVOTHYROXINE 150 MCG (LEVOTHROID) TAB PO SCH (06:30)
[2016-07-23 06:44] LABS: ABG BASE EXCESS 5.5 MMOL/L (-2.5-2.5); ABG HCO3 34 MMOL/L (23-27); ABG OXYGEN SATURATION 99 % (94-100); ABG PCO2 96 MMHG (35-45); ABG PO2 137 MMHG (79-93); ABG TCO2 36.4 MMOL/L (21.0-31.0)
[2016-07-23 06:45] LABS: ABG PH 7.17 (7.37-7.43); ALLENS TEST POSITIVE
[2016-07-23 06:46] LABS: PATIENT TEMP 99.5
[2016-07-23 06:53] LABS: BASOPHILS % (AUTO) 0 % (0-10); EOSINOPHILS % (AUTO) 0 % (0-10); LYMPHOCYTES # (AUTO) 0.8 X 10^3 (1.0-4.0); LYMPHOCYTES % (AUTO) 9 % (12-44); MEAN CORPUSCULAR HEMOGLOBIN 30 PG (25-34); MEAN CORPUSCULAR HGB CONC 31 G/DL (32-36); MEAN CORPUSCULAR VOLUME 96 FL (80-99); MEAN PLATELET VOLUME 10.1 FL (7.4-10.4); MONOCYTES # (AUTO) 0.8 X 10^3 (0.0-1.0); MONOCYTES % (AUTO) 9 % (0-12); NEUTROPHILS # (AUTO) 7.7 X 10^3 (1.8-7.8); NEUTROPHILS % (AUTO) 82 % (42-75); PLATELET COUNT 377 10^3/uL (130-400); RED CELL DISTRIBUTION WIDTH 13.6 % (10.0-14.5); WHITE BLOOD COUNT 9.4 10^3/uL (4.3-11.0)
[2016-07-23] MEDS ORDERED: NALOXONE 0.4 MG/ML 1 ML (NARCAN) VIAL IV ONE (07:00)
[2016-07-23] MEDS ORDERED: PANTOPRAZOLE 20 MG TABLET (PROTONIX) PO SCH (07:00)
[2016-07-23 07:08] LABS: CALCIUM 8.5 MG/DL (8.5-10.1); CREATININE SERUM 1.02 MG/DL (0.60-1.30); MAGNESIUM 2.2 MG/DL (1.8-2.4); PHOSPHORUS 3.8 MG/DL (2.3-4.7); POTASSIUM 4.1 MMOL/L (3.6-5.0)
[2016-07-23] MEDS: NALOXONE 0.4 MG/ML 1 ML (NARCAN) VIAL IV NR ×2 (08:51→10:50)
[2016-07-23] MEDS ORDERED: DAKIN'S 1/4 STRENGTH (0.125%) 473 ML BTL TOP SCH (09:00)
[2016-07-23] MEDS ORDERED: DILTIAZEM 240 MG (CARDIZEM CD) CAP PO SCH (09:00)
[2016-07-23] MEDS ORDERED: OMEPRAZOLE 20 MG (PriLOSEC) CAP NON-FORMULARY PO SCH (09:00)
--- NOTE | 2016-07-23 09:56 | Occ Therapy Progress Note ---
Therapy Progress Note Order received for OT eval and treat. Chart review completed. Spoke with RN regarding pt status. RN states okay to attempt therapy if family is agreeable. Pt in bed with eyes closed, family present. Family declined any therapy, states pt will be starting hospice care. Informed RN that OT will be discontinued per family request. 1, visit- DC OT JOSE LUIS CURRAN OT July 23, 2016 09:56
[2016-07-23] MEDS: morphine INJ 4 MG/ML 1 ML (VIAL/SYRINGE) IVP PRN ×4 (11:24→22:05)
[2016-07-23] MEDS: LORazepam INJ 2 MG/ML (ATIVAN) VIAL IVP PRN ×3 (12:56→22:41)
[2016-07-24] MEDS: morphine INJ 4 MG/ML 1 ML (VIAL/SYRINGE) IVP PRN ×4 (00:45→10:00)
[2016-07-24] MEDS: LORazepam INJ 2 MG/ML (ATIVAN) VIAL IVP PRN ×3 (02:32→11:27)
[2016-07-24] MEDS ORDERED: GLYCOPYRROLATE 0.2 MG/ML (ROBINUL) 2 ML VIAL IV PRN (06:00)
[2016-07-24] MEDS ORDERED: SCOPOLAMINE 1.5 MG (TRANSDERM-SCOP) PATCH TOP SCH (06:00)
[2016-07-24] MEDS ORDERED: TROUGH ORDER-PHARMACY XX NR (12:00)
--- NOTE | 2016-07-24 12:21 | Discharge Summary-Hospitalist ---
Diagnosis/Chief Complaint Date of Admission July 21, 2016 at 21:15 Date of Discharge Admission Diagnosis Recurrent tonic-clonic seizure. Severe COPD. Recent admission for pressure sores left hip and presacral. April left hip fracture and repair Discharge Diagnosis End stage CHF and Respiratory failure Reason Hospital Visit/Course The patient is an 81-year-old white female who has spent extensive periods of time in the hospital over the past year and a half. She was [facility] to a [facility] on July 17. She had fractured a hip in April and had operative repair. She had returned home and developed pressure sores over the left hip repair and her sacrum. She was seen in outpatient wound care and was admitted for cellulitis. She was followed inpatient [facility] by Dr. Leyva and her wounds were reported clean and satisfactory. She was discharged to her home to continue outpatient wound therapy and returned in less than 48 hours with the diagnosis of cellulitis and the condition of the wounds most unsatisfactory. During the admission that followed she exhibited a seizure. There was no previous history of seizure disorder. The resultant CT scan of the head showed no intracranial pathology. It was surmised that this was a narcotic withdrawal seizure as she had been prescribed large amounts of narcotics outside the hospital and the whereabouts of same could not be verified. She was then discharged to the [facility] on July 17 in order to employ the best wound care possible. She will return to the emergency room last night having suffered another seizure. Subsequently she suffered a second seizure in the emergency room. It was stated to the ER staff by the daughter that she had apparently missed a dose of her narcotic pain reliever while at the [facility]. Hospital course: patient had a short hospital course. She was treated in the ICU aggressively for seizure occurrence but then she began to decline rapidly so Palliative Care was consulted and family became in agreement with end of life care so comfort care protocol was initiated and she passed peacefully with her family at the bedside. Discharge Summary Discharge Physical Examination Allergies: Coded Allergies: Cephalosporins (Verified Allergy, Severe, TONGUE SWELLING, SOB, SWELLING, 07/22/16) Penicillins (Verified Allergy, Mild, 03/13/16) celecoxib (Verified Allergy, Mild, PATIEN CAN TAKE MOBIC, 03/13/16) clindamycin (Verified Allergy, Mild, 03/13/16) propoxyphene (Verified Allergy, Mild, 03/13/16) rofecoxib (Verified Allergy, Mild, 03/13/16) Sulfa (Sulfonamide Antibiotics) (Verified Allergy, Unknown, 03/13/16) Tetanus Vaccines and Toxoid (Verified Allergy, Unknown, 03/13/16) doxycycline (Verified Allergy, Unknown, 03/13/16) levofloxacin (Verified Allergy, Unknown, 03/13/16) meloxicam (Verified Allergy, Unknown, 03/13/16) nitrofurantoin (Verified Allergy, Unknown, RASH, 03/13/16) Vitals & I&Os Vital Signs Date Time Temp Pulse Resp B/P (MAP) Pulse Ox O2 Delivery O2 Flow Rate FiO2 07/24/16 11:28 3.00 07/23/16 10:00 96 13 158/84 99 NIV Bilevel 07/23/16 08:00 40 07/23/16 04:00 99.0 Hospital Course Labs (last 24 hrs) Microbiology 07/21/16 MRSA Screen - Final, Complete MRSA not isolated 07/21/16 Urine Culture - Final, Complete Presumptive Dayana Glabrata Discharge Home Medications: Active Scripts Active Flagyl (Metronidazole) 500 Mg Tablet 500 Mg PO TID 21 Days Vancomycin-D5w 500 mg/100 ml (Vancomycin HCl/D5w) 500 Mg/100 Ml Froz.piggy 500 Mg IV Q48H 21 Days NEXT DOSE DUE ON 07/18/16 Polyethylene Glycol 3350 17 Gm Powd.pack 34 Gm PO BID 30 Days Dakin's (Sodium Hypochlorite) 473 Ml Solution 0 Ml TOP DAILY 30 Days Acetaminophen 500 Mg Tablet 500 Mg PO Q4H PRN 30 Days Duragesic Patch 50MCG (Fentanyl) 1 Each Patch.td72 50 Mcg TD Q72H Oxycodone-Acetaminophen 10-325 (Oxycodone HCl/Acetaminophen) 1 Each Tablet 1 Tab PO Q6H PRN Reported Skelaxin (Metaxalone) 800 Mg Tablet 800 Mg PO Q8H PRN Percocet 10-325 mg Tablet (Oxycodone HCl/Acetaminophen) 1 Each Tablet 1 Tab PO Q12H Albuterol Sulfate 2.5 Mg/3 Ml Vial.neb 2.5 Mg NEB 0800,1200,1600 Torsemide 20 Mg Tablet 20 Mg PO BID Labetalol HCl 200 Mg Tablet 200 Mg PO BID Naproxen 500 Mg Tablet 500 Mg PO BID PRN Constulose (Lactulose) 10 Gm/15 Ml Solution 30 Ml PO DAILY PRN Klor-Con Sprinkle (Potassium Chloride) 10 Meq Capsule.er 20 Meq PO BID Vitamin B-12 (Cyanocobalamin (Vitamin B-12)) 1,000 Mcg Tablet 1,000 Mcg PO DAILY Docusate Sodium 100 Mg Capsule 100 Mg PO HS Bisacodyl 5 Mg Tablet.dr 5 Mg PO DAILY PRN Atorvastatin Calcium 10 Mg Tablet 10 Mg PO 1700 Diltiazem 24Hr ER (Diltiazem HCl) 240 Mg Cap.er.24h 240 Mg PO DAILY Vitamin D3 (Cholecalciferol (Vitamin D3)) 5,000 Unit Capsule 5,000 Unit PO DAILY Milk of Magnesia (Magnesium Hydroxide) 400 Mg/5 Ml Oral.susp 60 Ml PO DAILY PRN Daily Multiple Vitamin (Multivitamin) 1 Each Tablet 1 Tab PO DAILY Levothyroxine Sodium 150 Mcg Tablet 150 Mcg PO DAILY Omeprazole 20 Mg Capsule.dr 20 Mg PO DAILY Amitriptyline HCl 150 Mg Tablet 150 Mg PO HS Mucinex Dm ER 1,200-60 mg Tab (Guaifenesin/Dextromethorphan) 1 Each Tbmp.12hr 1 Tab PO BID Instructions to patient/family Please see electonic discharge instructions given to patient. Clinical Quality Measures DVT/VTE Risk/Contraindication: Risk Factor Score Per Nursin RFS Level Per Nursing on Admit: 4+=Very High DENI PINK DO July 24, 2016 12:21
== END 2016-07-24 12:15 | disposition expired ==
LOC: EDUNIT# 18:56 → ER 18:58 → UNDOADMOB 20:19 → ICU 20:19 → 4TH 07-23 10:35 → ICU 07-23 10:35 → 4TH 07-23 13:21
PROVIDERS: ADMIT Internal Medicine; ATTEND Internal Medicine
DX: G92 Toxic encephalopathy (principal); T42.75XA Adverse effect of unspecified antiepileptic and sedative-hypnotic drugs, initial encounter; G40.409 Other generalized epilepsy and epileptic syndromes, not intractable, without status epilepticus; J95.822 Acute and chronic postprocedural respiratory failure; J44.1 Chronic obstructive pulmonary disease with (acute) exacerbation; E87.8 Other disorders of electrolyte and fluid balance, not elsewhere classified
CPT/HCPCS: 36415; 51702; 70450; 71010; 80048; 80053; 80306; 81000; 82805; 82962; 83605; 83735; 83880; 84100; 84484; 85025; 85610; 85730; 87081; 87088; 93005; 93041; 94640; 94660; 96361; 96374; 96375; G0378